=== PATIENT | female | born 1985 | race Caucasian/White ===

== ENCOUNTER 2016-07-22 14:39 | Emergency (ER) | payer OTHER ==
[~2016-07-22] VITALS: Ht 170.2 cm; Wt 126.6 kg
[~2016-07-22 14:39] MED LIST: AMLO5TAB2 PO; ASPI81TA9 PO; CHOL10003 PO; CYAN10005 PO; DIVA500T2 PO; ESCI10TA PO; GABA-585 PO; HALO5TAB PO; HYDR50CA PO; IBUP200T43 PO; LEUP3.75 IM; LEVO125T5 PO; LEVO50CA; LEVO50TA; LEVO50TA5 PO; LURA80TA PO; MAGN2400 PO; MEMA10TA PO; MIRT15TA; MIRT15TA PO; NORG1TAB6; NORG1TAB6 PO; OLAN5TAB9 PO; OMEP20CA5 PO; OXCA150T3 PO; PNV1TABL25 PO; POLY17PO5 PO; PRAZ1CAP2 PO; QUET200T4; RANI150T6; RANI150T6 PO; SERT25TA PO; TOPI100T39; TOPI50TA38 PO; TRAZ50TA15 PO; VENL75CA PO; erythromycin
--- NOTE | 2016-07-22 15:10 | RAD ---
Right hand radiographs History: Patient punched glass window earlier today, cut on right hand. Comparison: 03/17/2012. Findings: PA, lateral, and oblique views of the right hand. Ulnar negative variance is seen. No acute fracture or dislocation is identified. A bandage has been applied to the hand. There is dorsal soft tissue irregularity of the hand. No radiopaque foreign body is seen. Impression: No acute osseous abnormality identified. No radiopaque foreign body seen.
[2016-07-22] MEDS ORDERED: LIDOCAINE/EPI/TETRACAINE TOPICAL GEL 3 ML. TP ONE (15:15)
[2016-07-22 16:30] VITALS: BP 111/51
--- NOTE | 2016-07-22 16:39 | ED.ADGEN ---
Past History Past Medical History: Anxiety, Bipolar, Depression, GERD, Migraines Past Surgical History: No Surgical History Smoking: Cigarettes, Less than 1pk/day, Quit Greater Than 1 Year Alcohol Use: Occasionally Drug Use: None, Marijuana Adult General HPI HPI Patient is a 30-year-old female presents emergency department complaining of laceration to the back of her right hand. Patient is right-hand dominant. Further prior to arrival she did punch a window. Last tetanus was less than 5 years ago. She denies any other injury. Review of Systems Review of Systems Constitutional: Denies fever or chills [] Eyes: Denies change in visual acuity, redness, or eye pain [] HENT: Denies nasal congestion or sore throat [] Respiratory: Denies cough or shortness of breath [] Cardiovascular: No additional information not addressed in HPI [] GI: Denies abdominal pain, nausea, vomiting, bloody stools or diarrhea [] : Denies dysuria or hematuria [] Musculoskeletal: Denies back pain or joint pain [] Integument: Denies rash or skin lesions [] Neurologic: Denies headache, focal weakness or sensory changes [] Endocrine: Denies polyuria or polydipsia [] Current Medications Current Medications Current Medications Medications (Trade) Dose Ordered Sig/Mahad Start Time Stop Time Status Last Admin Dose Admin Lidocaine/ Epinephrine (Let Topical) 3 ml 1X ONCE 07/22/16 15:15 07/22/16 15:16 DC 07/22/16 14:54 3 ML Allergies Allergies Allergies Coded Allergies Type Severity Reaction Last Updated Verified Sulfa (Sulfonamide Antibiotics) Allergy Intermediate 09/16/15 No amphetamine Allergy Intermediate 09/16/15 No amphetamine aspartate Allergy Intermediate 09/16/15 No amphetamine sulfate Allergy Intermediate 09/16/15 No clindamycin Allergy Intermediate 09/16/15 No dextroamphetamine Allergy Intermediate 09/16/15 No dextroamphetamine saccharate Allergy Intermediate 09/16/15 No dextroamphetamine sulfate Allergy Intermediate 09/16/15 No fluoxetine Allergy Intermediate 09/16/15 No fluoxetine HCl Allergy Intermediate 09/16/15 No lamotrigine Allergy Intermediate 09/16/15 No ziprasidone Allergy Intermediate 09/16/15 Yes ibuprofen Allergy Mild HISTORY OF ULCERS, CAUTION USE OF NSAIDS 09/16/15 Yes Physical Exam Physical Exam Constitutional: Well developed, well nourished, no acute distress, non-toxic appearance. [] HENT: Normocephalic, atraumatic, bilateral external ears normal, oropharynx moist, no oral exudates, nose normal. [] Eyes: PERRLA, EOMI, conjunctiva normal, no discharge. [] Neck: Normal range of motion, no tenderness, supple, no stridor. [] Cardiovascular:Heart rate regular rhythm, no murmur [] Lungs & Thorax: Bilateral breath sounds clear to auscultation [] Abdomen: Bowel sounds normal, soft, no tenderness, no masses, no pulsatile masses. [] Skin: Warm, dry, no erythema, no rash. 2 cm irregular laceration back of right hand Extremities: No tenderness, no cyanosis, no clubbing, ROM intact, no edema, no tendon involvement. [] Neurologic: Alert and oriented X 3, normal motor function, normal sensory function, no focal deficits noted. [] Psychologic: Affect normal, judgement normal, mood normal. [] Current Patient Data Vital Signs Vital Signs Date Time Temp Pulse Resp B/P Pulse Ox O2 Delivery O2 Flow Rate FiO2 07/22/16 14:39 98.0 96 20 96 Room Air EKG EKG [] Radiology/Procedures Radiology/Procedures Right hand radiographs History: Patient punched glass window earlier today, cut on right hand. Comparison: 03/17/2012. Findings: PA, lateral, and oblique views of the right hand. Ulnar negative variance is seen. No acute fracture or dislocation is identified. A bandage has been applied to the hand. There is dorsal soft tissue irregularity of the hand. No radiopaque foreign body is seen. Impression: No acute osseous abnormality identified. No radiopaque foreign body seen. DICTATED AND SIGNED BY: MIHAELA DONOHUE MD DATE: 07/22/16 1506 CC: FRACNHESKA MCCURDY MD; ZEINAB MILNER APRN ~[] Course & Med Decision Making Course & Med Decision Making Pertinent Labs and Imaging studies reviewed. (See chart for details) Tolerated procedure well. Supportive care and follow directions given. [] Final Impression Final Impression laceration[] Problems: Dragon Disclaimer Dragon Disclaimer This electronic medical record was generated, in whole or in part, using a voice recognition dictation system. Laceration Repair Lac Repair Indication: laceration Procedure: The patient was placed in the appropriate position and anesthesia around the lac was achieved with LET. The area was then cleansed. The laceration was closed with 5 simple interrupted sutures of 5-0 ethilon. The wound area was then dressed with bandage Total repaired wound length: 2 cm Other Items: none The patient tolerated the procedure well Complications: none FRANCHESKA MCCURDY MD Jul 22, 2016 16:39
== END 2016-07-22 16:35 | disposition home or self-care (01) ==
LOC: ER 14:39
DX: S61.411A Laceration without foreign body of right hand, initial encounter (principal); K21.9 Gastro-esophageal reflux disease without esophagitis; G43.909 Migraine, unspecified, not intractable, without status migrainosus; F17.210 Nicotine dependence, cigarettes, uncomplicated; F12.10 Cannabis abuse, uncomplicated; Z88.6 Allergy status to analgesic agent; Z88.2 Allergy status to sulfonamides; Z88.1 Allergy status to other antibiotic agents; Z88.8 Allergy status to other drugs, medicaments and biological substances; W22.8XXA Striking against or struck by other objects, initial encounter; Y93.89 Activity, other specified; Y99.8 Other external cause status; Y92.89 Other specified places as the place of occurrence of the external cause
CPT/HCPCS: 12001; 73130; 99284-25

== ENCOUNTER 2016-08-01 13:22 | Emergency (ER) | payer OTHER ==
[~2016-08-01] VITALS: Ht 170.2 cm; Wt 136.7 kg
--- NOTE | 2016-08-01 13:49 | ED.ADGEN ---
Past History Past Medical History: Anxiety, Bipolar, Depression, GERD, Migraines Past Surgical History: No Surgical History Smoking: Cigarettes, Less than 1pk/day, Quit Greater Than 1 Year Alcohol Use: Occasionally Drug Use: None, Marijuana Adult General Chief Complaint Chief Complaint suture HPI HPI Patient is a 30 year old female who presents for hand suture removal. Sutures placed 10 days ago, no drainage or sign of infection, Reports healing well Review of Systems Review of Systems Constitutional: Denies fever or chills [] Neurologic: Denies headache Allergies Allergies Allergies Coded Allergies Type Severity Reaction Last Updated Verified Sulfa (Sulfonamide Antibiotics) Allergy Intermediate 09/16/15 No amphetamine Allergy Intermediate 09/16/15 No amphetamine aspartate Allergy Intermediate 09/16/15 No amphetamine sulfate Allergy Intermediate 09/16/15 No clindamycin Allergy Intermediate 09/16/15 No dextroamphetamine Allergy Intermediate 09/16/15 No dextroamphetamine saccharate Allergy Intermediate 09/16/15 No dextroamphetamine sulfate Allergy Intermediate 09/16/15 No fluoxetine Allergy Intermediate 09/16/15 No fluoxetine HCl Allergy Intermediate 09/16/15 No lamotrigine Allergy Intermediate 09/16/15 No ziprasidone Allergy Intermediate 09/16/15 Yes ibuprofen Allergy Mild HISTORY OF ULCERS, CAUTION USE OF NSAIDS 09/16/15 Yes Physical Exam Physical Exam Constitutional: Well developed, well nourished HENT: Normocephalic, atraumatic Eyes: conjunctiva normal, no discharge. [] Lungs & Thorax: no respiratory distress Extremities: R dorsal hand with well-healing laceration, no erythema, no drainage, nontender Neurologic: Alert and oriented X 3 Psychologic: Affect normal, judgement normal, mood normal. [] EKG EKG [] Radiology/Procedures Radiology/Procedures [] Course & Med Decision Making Course & Med Decision Making Pertinent Labs and Imaging studies reviewed. (See chart for details) sutures removed by me. wound care instructions given. tetanus updated. Final Impression Final Impression hand laceration[] Problems: Dragon Disclaimer Dragon Disclaimer This electronic medical record was generated, in whole or in part, using a voice recognition dictation system. ELENA MAGDALENO MD Aug 01, 2016 13:49
== END 2016-08-01 13:50 | disposition home or self-care (01) ==
LOC: ER 13:22
DX: S61.411D Laceration without foreign body of right hand, subsequent encounter (principal); K21.9 Gastro-esophageal reflux disease without esophagitis; G43.909 Migraine, unspecified, not intractable, without status migrainosus; F17.210 Nicotine dependence, cigarettes, uncomplicated; F12.10 Cannabis abuse, uncomplicated; Z88.2 Allergy status to sulfonamides; Z88.1 Allergy status to other antibiotic agents; Z88.6 Allergy status to analgesic agent; Z88.8 Allergy status to other drugs, medicaments and biological substances; X58.XXXD Exposure to other specified factors, subsequent encounter; Y92.89 Other specified places as the place of occurrence of the external cause; Y99.8 Other external cause status
CPT/HCPCS: 99283

== ENCOUNTER 2016-08-14 13:01 | Emergency (ER) | payer OTHER ==
--- NOTE | 2016-08-14 13:32 | PHYS DOC ---
Past History Past Medical History: Anxiety, Bipolar, Depression, GERD, Migraines Past Surgical History: No Surgical History Smoking: Cigarettes, Less than 1pk/day, Quit Greater Than 1 Year Alcohol Use: Occasionally Drug Use: None, Marijuana Adult General Chief Complaint Chief Complaint: ABDOMINAL PAIN [facility] HPI 30-year-old female who's having significant right lower quadrant pain for the last 3-4 days with nausea and vomiting as well. Patient was seen by her primary care doctor earlier today and had routine lab work as well as an order to get a CT of her abdomen and pelvis. When the patient attempted to get a CT of her abdomen she was unable to obtain this test because it was not authorized through insurance. She now presents for evaluation for her persisting abdominal pain. She does state her last was her period was over a month ago and she is late. A urine test was not performed at her primary care doctor's office. She is unsure if she is . She denies any vaginal bleeding. She also states she has history of polycystic ovarian syndrome and had a right- sided ovarian cystectomy in her past. She states this pain is different than her previous ovarian pain. She is fully awake and alert and in no acute distress. She is afebrile and nontoxic in appearance. Review of Systems Review of Systems Constitutional: Denies fever or chills [] Eyes: Denies change in visual acuity, redness, or eye pain [] HENT: Denies nasal congestion or sore throat [] Respiratory: Denies cough or shortness of breath [] Cardiovascular: No additional information not addressed in HPI [] GI: Has abdominal pain, has nausea, has vomiting, denies bloody stools or diarrhea [] : Denies dysuria or hematuria [] Musculoskeletal: Denies back pain or joint pain [] Integument: Denies rash or skin lesions [] Neurologic: Denies headache, focal weakness or sensory changes [] Endocrine: Denies polyuria or polydipsia [] Allergies Allergies Allergies Coded Allergies Type Severity Reaction Last Updated Verified Sulfa (Sulfonamide Antibiotics) Allergy Intermediate 09/16/15 No amphetamine Allergy Intermediate 09/16/15 No amphetamine aspartate Allergy Intermediate 09/16/15 No amphetamine sulfate Allergy Intermediate 09/16/15 No clindamycin Allergy Intermediate 09/16/15 No dextroamphetamine Allergy Intermediate 09/16/15 No dextroamphetamine saccharate Allergy Intermediate 09/16/15 No dextroamphetamine sulfate Allergy Intermediate 09/16/15 No fluoxetine Allergy Intermediate 09/16/15 No fluoxetine HCl Allergy Intermediate 09/16/15 No lamotrigine Allergy Intermediate 09/16/15 No ziprasidone Allergy Intermediate 09/16/15 Yes ibuprofen Allergy Mild HISTORY OF ULCERS, CAUTION USE OF NSAIDS 09/16/15 Yes Physical Exam Physical Exam Constitutional: Well developed, well nourished, no acute distress, non-toxic appearance. [] HENT: Normocephalic, atraumatic, bilateral external ears normal, oropharynx moist, no oral exudates, nose normal. [] Eyes: PERRLA, EOMI, conjunctiva normal, no discharge. [] Neck: Normal range of motion, no tenderness, supple, no stridor. [] Cardiovascular:Heart rate regular rhythm, no murmur [] Lungs & Thorax: Bilateral breath sounds clear to auscultation [] Abdomen: Bowel sounds normal, soft, RLQ tenderness, no masses, no pulsatile masses. [] Skin: Warm, dry, no erythema, no rash. [] Back: No tenderness, no CVA tenderness. [] Extremities: No tenderness, no cyanosis, no clubbing, ROM intact, no edema. [] Neurologic: Alert and oriented X 3, normal motor function, normal sensory function, no focal deficits noted. [] Psychologic: Affect normal, judgement normal, mood normal. [] EKG EKG [] Radiology/Procedures Radiology/Procedures CT abdomen and pelvis with IV contrast History: Right lower quadrant pain and pressure. Episodes of blackouts. Comparison: CT abdomen pelvis 06/10/2014 Technique: After administration of intravenous contrast, 75 mL Omnipaque 300, helical CT of the abdomen and pelvis was performed from the lung bases through the ischial tuberosities. Axial, sagittal, and coronal reconstructions were obtained. One or more of the following individualized dose reduction techniques were utilized for the study: Automated exposure control Adjustment of mA and/or kV according to patient's size Use of iterative reconstruction technique. Findings: Evaluation of enteric structures may be limited by lack of oral contrast. Additionally, there is motion artifact at multiple levels which could obscure subtle abnormalities. Fatty liver disease is seen. Spleen, pancreas, gallbladder, and bilateral adrenal glands are unremarkable. Bilateral kidneys enhance symmetrically. There is no evidence of bowel obstruction. No free air or significant free fluid is identified in the abdomen or pelvis. Appendix appears within normal limits. Urinary bladder is unremarkable. Uterus and adnexa have unremarkable CT appearance. Impression: 1. No acute abnormality identified in the abdomen or pelvis. 2. Fatty liver disease. Course & Med Decision Making Course & Med Decision Making Pertinent Labs and Imaging studies reviewed. (See chart for details) This 30-year-old female with persisting right lower quadrant pain will have full laboratory workup. Her status will be confirmed. Routine lab draw will be obtained. Her laboratory workup is unremarkable. CT of her abdomen and pelvis did not demonstrate an acute process. Upon my reassessment, the patient is in no distress at this time her pain is relatively controlled. I discussed with her that this is likely related to her history of polycystic ovarian disease. She' ll be prescribed several Bow[place] tablets as needed for her pain and Zofran for any nausea. I counseled her that if her pain should persist she will need to follow with her negative checker and she may require cystectomy as she did before. Dragon Disclaimer Dragon Disclaimer This chart was dictated in whole or in part using Voice Recognition software in a busy, high-work load, and often noisy Emergency Department environment. It may contain unintended and wholly unrecognized errors or omissions. Departure Departure: Impression: Primary Impression: Abdominal pain Disposition: 01 HOME, SELF-CARE Condition: IMPROVED Referrals: ZEINAB MILNER APRN (PCP) Patient Instructions: Abdominal Pain (Nonspecific) Additional Instructions: Please take your pain medication as needed for your symptoms. Take your zofran as needed for any nausea. Follow up with your primary doctor in the next 2-3 days for your symptoms. Scripts Ondansetron Hcl (Zofran)4 Mg Tablet4 Mg PO Q8HRS #10 Prov:CAROLE ANDREW DO 08/14/16 Hydrocodone Bit/Acetaminophen ([place] 5-325 Tablet)1 Each Tablet1 Tab PO PRN Q6HRS PRN PAIN #6 TAB Ref 0 Prov:CAROLE ANDREW DO 08/14/16 CAROLE ANDREW DO Aug 14, 2016 13:32
[2016-08-14 13:45] LABS: BASO # 0.1 x10^3/uL (0.0-0.2); BASO % 1 % (0-3); EOS # 0.1 x10^3/uL (0.0-0.7); EOS % 2 % (0-3); HEMATOCRIT 41.7 % (36.0-47.0); HEMOGLOBIN 13.8 g/dL (12.0-15.5); LYMPH # 3.1 x10^3/uL (1.0-4.8); LYMPH % 37 % (24-48); MEAN CORPUSCULAR HEMOGLOBIN 29 pg (25-35); MEAN CORPUSCULAR HGB CONC 33 g/dL (31-37); MEAN CORPUSCULAR VOLUME 88 fL (79-100); MONO # 0.6 x10^3/uL (0.0-1.1); MONO % 7 % (0-9); NEUT # 4.5 x10^3uL (1.8-7.7); NEUT % 54 % (31-73); PLATELET COUNT 370 x10^3/uL (140-400); RED BLOOD COUNT 4.74 x10^6/uL (3.50-5.40); RED CELL DISTRIBUTION WIDTH 15.9 % (11.5-14.5); WHITE BLOOD COUNT 8.3 x10^3/uL (4.0-11.0)
[2016-08-14 13:51] LABS: ALBUMIN 3.9 g/dL (3.4-5.0); CREATININE 0.6 mg/dL (0.6-1.0); POTASSIUM 4.2 mmol/L (3.5-5.1); TOTAL BILIRUBIN 0.3 mg/dL (0.2-1.0); TOTAL PROTEIN 7.9 g/dL (6.4-8.2)
[2016-08-14 13:57] LABS: AMPHETAMINE/METHAMPHETAMINE NEG (NEG); BARBITURATES NEG (NEG); BENZODIAZEPINES NEG (NEG); CANNABINOIDS NEG (NEG); COCAINE NEG (NEG); METHADONE NEG (NEG); OPIATES NEG (NEG); PHENCYCLIDINE NEG (NEG)
[2016-08-14] MEDS ORDERED: IV NORMAL SALINE 1,000ML 1,000 ML IV ONE (14:00)
[2016-08-14] MEDS ORDERED: ONDANSETRON PF 4 MG/2 ML VIAL. IV ONE (14:00)
[2016-08-14] MEDS ORDERED: FENTANYL PF 100 MCG/2 ML VIAL. IV ONE (14:00)
[2016-08-14 14:01] LABS: BACTERIA,URINE FEW /HPF (0-FEW); BILIRUBIN,URINE NEG (NEG); CLARITY,URINE HAZY; COLOR,URINE YELLOW; GLUCOSE,URINE NEG (NEG); NITRITE,URINE NEG (NEG); RBC,URINE OCC /HPF (0-2); UROBILINOGEN,URINE 0.2 mg/dL (0.2 mg/dL)
[2016-08-14 14:02] LABS: SQUAMOUS EPITHELIAL CELL,UR MOD /LPF; YEAST,URINE PRESENT /HPF
[2016-08-14] MEDS ORDERED: IOHEXOL 300 MG/ML 75 ML VIAL. IV ONE (14:15)
--- NOTE | 2016-08-14 15:03 | RAD ---
CT abdomen and pelvis with IV contrast History: Right lower quadrant pain and pressure. Episodes of blackouts. Comparison: CT abdomen pelvis 06/10/2014 Technique: After administration of intravenous contrast, 75 mL Omnipaque 300, helical CT of the abdomen and pelvis was performed from the lung bases through the ischial tuberosities. Axial, sagittal, and coronal reconstructions were obtained. One or more of the following individualized dose reduction techniques were utilized for the study: Automated exposure control Adjustment of mA and/or kV according to patient's size Use of iterative reconstruction technique. Findings: Evaluation of enteric structures may be limited by lack of oral contrast. Additionally, there is motion artifact at multiple levels which could obscure subtle abnormalities. Fatty liver disease is seen. Spleen, pancreas, gallbladder, and bilateral adrenal glands are unremarkable. Bilateral kidneys enhance symmetrically. There is no evidence of bowel obstruction. No free air or significant free fluid is identified in the abdomen or pelvis. Appendix appears within normal limits. Urinary bladder is unremarkable. Uterus and adnexa have unremarkable CT appearance. Impression: 1. No acute abnormality identified in the abdomen or pelvis. 2. Fatty liver disease.
[2016-08-14] MEDS ORDERED: ONDA4TAB7 PO (15:22)
[2016-08-14] MEDS ORDERED: HYDR-971 PO (15:22)
[2016-08-14 15:32] VITALS: BP 122/74
== END 2016-08-14 15:34 | disposition home or self-care (01) ==
LOC: ER 13:01
DX: R10.31 Right lower quadrant pain (principal); K21.9 Gastro-esophageal reflux disease without esophagitis; G43.909 Migraine, unspecified, not intractable, without status migrainosus; F12.10 Cannabis abuse, uncomplicated; F17.210 Nicotine dependence, cigarettes, uncomplicated; Z88.1 Allergy status to other antibiotic agents; Z88.2 Allergy status to sulfonamides; Z88.6 Allergy status to analgesic agent; Z88.8 Allergy status to other drugs, medicaments and biological substances
CPT/HCPCS: 36415; 74177; 80053; 80305; 81001; 84703; 85027; 96361; 96374; 96375; 99285; J2405; J3010; Q9967; 81025; G0481; J7030

== ENCOUNTER 2016-08-22 15:44 | Emergency (ER) | payer OTHER ==
[~2016-08-22 15:44] MED LIST changes: +ASPI-612 PO; -ASPI81TA9 PO; +HYDR-971 PO; +ONDA4TAB7 PO; -TOPI100T39; +TOPI100T42
[2016-08-22] MEDS ORDERED: IV NORMAL SALINE 1,000ML 1,000 ML IV SCH (16:06)
[2016-08-22] MEDS ORDERED: fentaNYL PF 100 MCG/2 ML VIAL IV PRN (16:15)
--- NOTE | 2016-08-22 16:22 | PHYS DOC ---
Past History Past Medical History: Anxiety, Bipolar, Depression, Endometriosis, Hypothyroid , Ovarian Cyst Past Surgical History: Other Smoking: Cigarettes, Less than 1pk/day, Quit Greater Than 1 Year Alcohol Use: None Drug Use: None Adult General Chief Complaint Chief Complaint: MULTIPLE COMPLAINTS HPI HPI Patient is a 30 year old female who presents with complaint of cough and congestion for 3 days. Patient states that she has noticed worsening hoarseness to voice and developed parasternal chest pain with cough since onset of symptoms. Patient denies any fevers. Patient has not had sore throat but does admit to pain in the left ear. Patient also states that she has been having trouble with upper abdominal pain. The patient was evaluated in the emergency department on August 14, 2016 for her abdominal pain. Lab studies and CT imaging was unremarkable at that time. Patient states that she does have history of peptic ulcer disease and is not currently on any stomach acid reducing medication. Patient rates her pain currently as 9 out of 10. Patient denies any chest pain at rest and denies any history of cardiac disease. Review of Systems Review of Systems Constitutional: Denies fever or chills [] Eyes: Denies change in visual acuity, redness, or eye pain [] HENT: Cough, hoarseness of voice [] Respiratory: Cough [] Cardiovascular: Chest pain, denies edema [] GI: Abdominal pain, nausea, denies vomiting, bloody stools or diarrhea [] : Denies dysuria or hematuria [] Musculoskeletal: Denies back pain or joint pain [] Integument: Denies rash or skin lesions [] Neurologic: Denies headache, focal weakness or sensory changes [] Current Medications Current Medications Current Medications Medications (Trade) Dose Ordered Sig/Mahad Start Time Stop Time Status Last Admin Dose Admin Famotidine (Pepcid) 20 mg 1X ONCE 08/22/16 16:30 08/22/16 16:31 Fentanyl Citrate (Fentanyl 2ml Vial) 50 mcg PRN Q15MIN PRN 08/22/16 16:15 08/23/16 16:14 Ondansetron HCl (Zofran) 4 mg 1X ONCE 08/22/16 16:30 08/22/16 16:31 Sodium Chloride 1,000 ml @ 1,000 mls/hr Q1H 08/22/16 16:06 08/22/16 17:05 Allergies Allergies Allergies Coded Allergies Type Severity Reaction Last Updated Verified Sulfa (Sulfonamide Antibiotics) Allergy Intermediate 08/14/16 No amphetamine Allergy Intermediate 08/14/16 No amphetamine aspartate Allergy Intermediate 08/14/16 No amphetamine sulfate Allergy Intermediate 08/14/16 No clindamycin Allergy Intermediate 09/16/15 No dextroamphetamine Allergy Intermediate 09/16/15 No dextroamphetamine saccharate Allergy Intermediate 09/16/15 No dextroamphetamine sulfate Allergy Intermediate 09/16/15 No fluoxetine Allergy Intermediate 09/16/15 No fluoxetine HCl Allergy Intermediate 09/16/15 No lamotrigine Allergy Intermediate 09/16/15 No ziprasidone Allergy Intermediate 09/16/15 Yes ibuprofen Allergy Mild HISTORY OF ULCERS, CAUTION USE OF NSAIDS 09/16/15 Yes Physical Exam Physical Exam Constitutional: Alert, afebrile, appears ill. [] HENT: Normocephalic, atraumatic, bilateral external ears normal, left ear canal erythematous with mild canal swelling, left TM normal, right ear canal and TM normal, oropharynx moist, no oral exudates, nose normal. [] Eyes: PERRLA, EOMI, conjunctiva normal, no discharge. [] Neck: Normal range of motion, no tenderness, supple, no stridor. [] Cardiovascular:Heart rate regular rhythm, no murmur [] Lungs & Thorax: Bilateral breath sounds clear to auscultation [] Abdomen: Bowel sounds normal, soft, epigastric and right upper quadrant tenderness to palpation with mild guarding, no rebound tenderness, no masses, no pulsatile masses. [] Skin: Warm, dry, no erythema, no rash. [] Back: No tenderness, no CVA tenderness. [] Extremities: No tenderness, no cyanosis, no clubbing, ROM intact, no edema. [] Neurologic: Alert and oriented X 3, normal motor function, normal sensory function, no focal deficits noted. [] Current Patient Data Vital Signs Vital Signs Date Time Temp Pulse Resp B/P (MAP) Pulse Ox O2 Delivery O2 Flow Rate FiO2 08/22/16 17:32 18 99 Lab Results Laboratory Tests Test 08/22/16 17:05 08/22/16 17:11 White Blood Count 8.6 x10^3/uL Red Blood Count 4.65 x10^6/uL Hemoglobin 13.7 g/dL Hematocrit 41.3 % Mean Corpuscular Volume 89 fL Mean Corpuscular Hemoglobin 30 pg Mean Corpuscular Hemoglobin Concent 33 g/dL Red Cell Distribution Width 15.8 % Platelet Count 346 x10^3/uL Neutrophils (%) (Auto) 60 % Lymphocytes (%) (Auto) 29 % Monocytes (%) (Auto) 9 % Eosinophils (%) (Auto) 2 % Basophils (%) (Auto) 1 % Neutrophils # (Auto) 5.2 x10^3uL Lymphocytes # (Auto) 2.5 x10^3/uL Monocytes # (Auto) 0.7 x10^3/uL Eosinophils # (Auto) 0.2 x10^3/uL Basophils # (Auto) 0.1 x10^3/uL Sodium Level 142 mmol/L Potassium Level 4.3 mmol/L Chloride Level 106 mmol/L Carbon Dioxide Level 28 mmol/L Anion Gap 8 Blood Urea Nitrogen 12 mg/dL Creatinine 0.7 mg/dL Estimated GFR (Cockcroft-Gault) 99.6 BUN/Creatinine Ratio 17 Glucose Level 98 mg/dL Calcium Level 9.1 mg/dL Total Bilirubin 0.2 mg/dL Aspartate Amino Transf (AST/SGOT) 35 U/L Alanine Aminotransferase (ALT/SGPT) 59 U/L Alkaline Phosphatase 113 U/L Total Protein 7.3 g/dL Albumin 3.7 g/dL Albumin/Globulin Ratio 1.0 Lipase 76 U/L Bedside Urine HCG, Qualitative hcg negative Current Medications Medications (Trade) Dose Ordered Sig/Mahad Route PRN Reason Start Time Stop Time Status Last Admin Dose Admin Fentanyl Citrate (Fentanyl 2ml Vial) 50 mcg PRN Q15MIN PRN IV PAIN GREATER THAN 3/10 08/22/16 16:15 08/23/16 16:14 08/22/16 17:32 Sodium Chloride 1,000 ml @ 1,000 mls/hr Q1H IV 08/22/16 16:06 08/22/16 17:05 DC 08/22/16 16:06 Ondansetron HCl (Zofran) 4 mg 1X ONCE IV 08/22/16 16:30 08/22/16 16:31 DC 08/22/16 16:30 Famotidine (Pepcid) 20 mg 1X ONCE IVP 08/22/16 16:30 08/22/16 16:31 DC 08/22/16 16:30 EKG EKG Not performed [] Radiology/Procedures Radiology/Procedures [address] [id number] IMAGING REPORT Signed PATIENT: NANCY DESAI ACCOUNT: [id number] : 1985 LOCATION: ER AGE: 30 SEX: F EXAM STATUS: REG ER ORD. PHYSICIAN: MICHELE KNOTT MD REASON: epigastric and right upper quadrant pain PROCEDURE: ABDOMEN LTD Indication epigastric and right upper quadrant pain for 2 weeks. Grayscale imaging targeted to the right upper quadrant was performed. No similar imaging is available. Note is made of an abdominal and pelvic CT 08/14/2016. The examination is slightly limited. The patient had difficulty following instructions for the exam. The visualized head and proximal body of the pancreas appeared normal. The more distal body and tail were obscured. The gallbladder appears partially contracted but otherwise normal. No wall thickening was seen. No definite stones were identified. The common bile duct diameter of approximately 5 mm is normal. There is increased attenuation of the ultrasound beam by the liver compatible with fatty infiltration. A focal mass lesion in the visualized liver was not seen. The right kidney appeared unremarkable. The inferior vena cava was not well demonstrated. IMPRESSION: Limited study. No definite gallbladder pathology seen. Fatty infiltration of the liver DICTATED AND SIGNED BY: LINH RODRIGUEZ MD DATE: 08/22/161646 CC: MICHELE KNOTT MD; ZEINAB MILNER [employer] [employer] ~ [] Course & Med Decision Making Course & Med Decision Making Pertinent Labs and Imaging studies reviewed. (See chart for details) The patient was given IV fluids, Zofran, Pepcid, and fentanyl. On reevaluation, patient's symptoms have improved. Patient's ultrasound does not reveal acute surgical etiology for patient's pain. I suspect the patient is suffering from gastritis or possibly peptic ulcer disease. Patient will be prescribed Pepcid and Carafate for her stomach symptoms. Patient will be prescribed [place] to help with pain and cough. Patient's respiratory symptoms appear to be secondary to viral illness. Advised follow-up in 3-5 days a primary doctor and return to emergency department for any worsening symptoms. Patient voiced understanding and in agreement with treatment plan. Dragon Disclaimer Dragon Disclaimer This chart was dictated in whole or in part using Voice Recognition software in a busy, high-work load, and often noisy Emergency Department environment. It may contain unintended and wholly unrecognized errors or omissions. Departure Departure: Impression: Primary Impression: Upper respiratory infection Additional Impression: Abdominal pain Disposition: 01 HOME, SELF-CARE Condition: IMPROVED Referrals: ZEINAB MILNER APRN (PCP) Patient Instructions: Abdominal Pain (Nonspecific), Upper Respiratory Infection , Adult Additional Instructions: Follow-up with primary doctor in the next 3-5 days. Return to the emergency department for any worsening symptoms. Scripts Hydrocodone Bit/Acetaminophen (NORCO 5-325 TABLET) 1 Each Tablet 1-2 TAB PO Q4-6HRS Y for PAIN, #15 TAB Prov: MICHELE KNOTT MD 08/22/16 Sucralfate (CARAFATE) 1 Gm Tablet 1 TAB PO QID, #120 TAB 0 Refills Prov: MICHELE KNOTT MD 08/22/16 Famotidine (PEPCID) 20 Mg Tablet 1 TAB PO BID, #30 TAB 0 Refills Prov: MICHELE KNOTT MD 08/22/16 Problem Qualifiers Primary Impression: Upper respiratory infection URI type: unspecified URI Qualified Codes: J06.9 - Acute upper respiratory infection, unspecified Additional Impression: Abdominal pain Abdominal location: epigastric Qualified Codes: R10.13 - Epigastric pain MICHELE KNOTT MD August 22, 2016 16:22
[2016-08-22] MEDS ORDERED: ONDANSETRON PF 4 MG/2 ML VIAL. IV ONE (16:30)
[2016-08-22] MEDS ORDERED: FAMOTIDINE 20 MG/2 ML VIAL IVP ONE (16:30)
--- NOTE | 2016-08-22 16:52 | RAD ---
Indication epigastric and right upper quadrant pain for 2 weeks. Grayscale imaging targeted to the right upper quadrant was performed. No similar imaging is available. Note is made of an abdominal and pelvic CT 08/14/2016. The examination is slightly limited. The patient had difficulty following instructions for the exam. The visualized head and proximal body of the pancreas appeared normal. The more distal body and tail were obscured. The gallbladder appears partially contracted but otherwise normal. No wall thickening was seen. No definite stones were identified. The common bile duct diameter of approximately 5 mm is normal. There is increased attenuation of the ultrasound beam by the liver compatible with fatty infiltration. A focal mass lesion in the visualized liver was not seen. The right kidney appeared unremarkable. The inferior vena cava was not well demonstrated. IMPRESSION: Limited study. No definite gallbladder pathology seen. Fatty infiltration of the liver
[2016-08-22 17:18] LABS: BASO # 0.1 x10^3/uL (0.0-0.2); BASO % 1 % (0-3); EOS # 0.2 x10^3/uL (0.0-0.7); EOS % 2 % (0-3); HEMATOCRIT 41.3 % (36.0-47.0); HEMOGLOBIN 13.7 g/dL (12.0-15.5); LYMPH # 2.5 x10^3/uL (1.0-4.8); LYMPH % 29 % (24-48); MEAN CORPUSCULAR HEMOGLOBIN 30 pg (25-35); MEAN CORPUSCULAR HGB CONC 33 g/dL (31-37); MEAN CORPUSCULAR VOLUME 89 fL (79-100); MONO # 0.7 x10^3/uL (0.0-1.1); MONO % 9 % (0-9); NEUT # 5.2 x10^3uL (1.8-7.7); NEUT % 60 % (31-73); PLATELET COUNT 346 x10^3/uL (140-400); RED BLOOD COUNT 4.65 x10^6/uL (3.50-5.40); RED CELL DISTRIBUTION WIDTH 15.8 % (11.5-14.5); WHITE BLOOD COUNT 8.6 x10^3/uL (4.0-11.0)
[2016-08-22 17:34] LABS: ALBUMIN 3.7 g/dL (3.4-5.0); CALCIUM 9.1 mg/dL (8.5-10.1); CREATININE 0.7 mg/dL (0.6-1.0); GFR 99.6; POTASSIUM 4.3 mmol/L (3.5-5.1); TOTAL BILIRUBIN 0.2 mg/dL (0.2-1.0); TOTAL PROTEIN 7.3 g/dL (6.4-8.2)
[2016-08-22] MEDS ORDERED: SUCR1TAB35 PO (17:51)
[2016-08-22] MEDS ORDERED: HYDR-971 PO (17:51)
[2016-08-22] MEDS ORDERED: FAMO-63 PO (17:51)
[2016-08-22 18:30] VITALS: BP 154/99
[2016-08-22 19:08] LABS: BILIRUBIN,URINE NEG (NEG); CLARITY,URINE CLEAR; COLOR,URINE YELLOW; GLUCOSE,URINE NEG (NEG)
[2016-08-22 19:09] LABS: NITRITE,URINE NEG (NEG); UROBILINOGEN,URINE 0.2 mg/dL (0.2 mg/dL)
[2016-08-22 19:10] LABS: BACTERIA,URINE 0 /HPF (0-FEW); SQUAMOUS EPITHELIAL CELL,UR MANY /LPF
== END 2016-08-22 18:30 | disposition home or self-care (01) ==
LOC: ER 15:44
DX: J06.9 Acute upper respiratory infection, unspecified (principal); R10.11 Right upper quadrant pain
CPT/HCPCS: 36415; 76705; 80053; 81001; 81025; 83690; 85027; 96361; 96374; 96375; 99285; J2405; J3010; S0028; J7030

== ENCOUNTER 2016-08-23 14:01 | Emergency (ER) | payer OTHER ==
[~2016-08-23] VITALS: Ht 170.2 cm; Wt 140.7 kg
[~2016-08-23 14:01] MED LIST changes: +FAMO-63 PO; +SUCR1TAB35 PO
[2016-08-23 14:10] VITALS: BP 146/77
[2016-08-23] MEDS ORDERED: ONDANSETRON ODT 4 MG TAB.RAPDIS PO ONE (14:30)
--- NOTE | 2016-08-23 16:35 | PHYS DOC ---
Past History Past Medical History: Anxiety, Bipolar, Depression, Endometriosis, Hypothyroid , Ovarian Cyst Past Surgical History: Other Smoking: Cigarettes, Less than 1pk/day, Quit Greater Than 1 Year Alcohol Use: None Drug Use: None Adult General Chief Complaint Chief Complaint: SHORTNESS OF BREATH HPI HPI Patient is a 30-year-old female brought to the ED by ambulance from her mother' s home with the complaint of shortness of air, weakness, chest tightness, nausea. The patient was seen yesterday and had a extensive evaluation, diagnosed with likely viral syndrome. She was prescribed Pepcid, Carafate, and [place]. She also has nausea medicine at home. Today she took a dose of her Carafate and [place] and then she began to feel nauseated, she felt weak, she didn 't feel well, she felt chest heaviness and shortness of air. She laid on the couch for a while, got up to try to walk to the bedroom and felt so bad that she ended up calling 911. She still doesn't feel well. She doesn't recall having [place] before. She was diagnosed with a "possible stomach ulcer." Review of Systems Review of Systems Constitutional: Denies fever or chills , complains of generalized weakness HENT: Denies nasal congestion or sore throat [] Respiratory: As in history of present illness Cardiovascular: Does complain of the chest heaviness that does not sound cardiac GI: As in history of present illness : she had A negative test yesterday Musculoskeletal: Denies back pain or joint pain [] Integument: Denies rash or skin lesions [] Neurologic: Denies headache, focal weakness or sensory changes [] Current Medications Current Medications Current Medications Medications (Trade) Dose Ordered Sig/Mahad Start Time Stop Time Status Last Admin Dose Admin Ondansetron HCl (Zofran Odt) 4 mg 1X ONCE 08/23/16 14:30 08/23/16 14:31 DC 08/23/16 14:30 4 MG Allergies Allergies Allergies Coded Allergies Type Severity Reaction Last Updated Verified Sulfa (Sulfonamide Antibiotics) Allergy Intermediate 08/14/16 No amphetamine Allergy Intermediate 08/14/16 No amphetamine aspartate Allergy Intermediate 08/14/16 No amphetamine sulfate Allergy Intermediate 08/14/16 No clindamycin Allergy Intermediate 09/16/15 No dextroamphetamine Allergy Intermediate 09/16/15 No dextroamphetamine saccharate Allergy Intermediate 09/16/15 No dextroamphetamine sulfate Allergy Intermediate 09/16/15 No fluoxetine Allergy Intermediate 09/16/15 No fluoxetine HCl Allergy Intermediate 09/16/15 No lamotrigine Allergy Intermediate 09/16/15 No ziprasidone Allergy Intermediate 09/16/15 Yes ibuprofen Allergy Mild HISTORY OF ULCERS, CAUTION USE OF NSAIDS 09/16/15 Yes Physical Exam Physical Exam Constitutional: Well developed, well nourished, no acute distress, non-toxic appearance. Morbidly obese, alert, mentating normally, vital signs normal. HENT: Normocephalic, atraumatic, bilateral external ears normal, oropharynx moist, no oral exudates, nose normal. [] Eyes: conjunctiva normal, no discharge. [] Neck: Normal range of motion, no stridor. [] Cardiovascular:Heart rate regular rhythm, no murmur , nontachycardiac Lungs & Thorax: Bilateral breath sounds clear to auscultation, good air movement throughout, no wheezes Abdomen: Bowel sounds normal, soft, no tenderness, no masses, no pulsatile masses. [] Skin: Warm, dry, no erythema, no rash. [] Extremities: No tenderness, no cyanosis, no clubbing, ROM intact, no edema. [] Neurologic: Alert and oriented X 3, normal motor function, normal sensory function, no focal deficits noted. [] Current Patient Data Vital Signs Vital Signs Date Time Temp Pulse Resp B/P (MAP) Pulse Ox O2 Delivery O2 Flow Rate FiO2 08/23/16 14:10 98.1 74 16 93 Room Air EKG EKG [] Radiology/Procedures Radiology/Procedures [] Course & Med Decision Making Course & Med Decision Making Pertinent Labs and Imaging studies reviewed. (See chart for details) 30-year-old female who was worked up thoroughly yesterday in the emergency department, presents today after she took a dose of prescribed medicines including [place] with some symptoms that sound like they likely are due to side effects of [place]. She has some chest heaviness and shortness of air but her vital signs are normal, her lungs are clear, her pulse ox is normal. I believe this is likely a side effect to [place]. She had some nausea with a small amount of vomiting which again may be related to [place]. She was given a dose of Zofran ODT in the emergency department and she did not have any vomiting here. She drink some Sprite. I reassured the patient that I believe her symptoms are likely side effects of [place] and advised her to quit taking that. She should continue the Pepcid and Carafate however. Her mother came to pick her up. [] Dragon Disclaimer Dragon Disclaimer This chart was dictated in whole or in part using Voice Recognition software in a busy, high-work load, and often noisy Emergency Department environment. It may contain unintended and wholly unrecognized errors or omissions. Departure Departure: Impression: Primary Impression: Nausea and vomiting Disposition: HOME, SELF-CARE Condition: STABLE Referrals: ZEINAB MILNER APRN (PCP) Patient Instructions: Nausea and Vomiting, [id number] Additional Instructions: Stop taking hydrocodone. This may be causing your symptoms of nausea and vomiting it can also cause symptoms of chest tightness and other side effects. Continue to take Pepcid, Carafate as prescribed. Take nausea medicine as needed. Today, stick to Sprite or Jell-Anusha. DEBORAH BETH MD August 23, 2016 16:35
== END 2016-08-23 16:41 | disposition home or self-care (01) ==
LOC: ER 14:01
DX: R11.2 Nausea with vomiting, unspecified (principal); R06.02 Shortness of breath; R53.1 Weakness; R07.89 Other chest pain; E03.9 Hypothyroidism, unspecified; F17.210 Nicotine dependence, cigarettes, uncomplicated; Z88.6 Allergy status to analgesic agent; Z88.1 Allergy status to other antibiotic agents; Z88.2 Allergy status to sulfonamides; Z88.8 Allergy status to other drugs, medicaments and biological substances
CPT/HCPCS: 99283; Q0162

== ENCOUNTER → 2016-10-06 | Outpatient (CLI) | payer OTHER ==
[~2016-10-06] VITALS: Ht 170.2 cm; Wt 137.0 kg
[~2016-10-06] MED LIST changes: -ESCI10TA PO; +ESCITALOPRAM OX10 MG PO
--- NOTE | 2016-10-06 09:14 | RAD ---
Examination: Ultrasound abdomen complete History: History of right upper quadrant pain Comparison: None available Findings: The liver measures 20.1 cm. There is increased echogenicity noted throughout the liver likely hepatic steatosis. Evaluation is limited due to bowel gas. The right kidney measures 11.6 x 6.1 x 4.6 cm. The left kidney measures 11.7 x 5.0 x 6.1 cm. The spleen measures 10.5 cm. The pancreas, aorta, IVC are poorly visualized. No evidence of gallstones identified. The common bile duct measures 2.4 mm in transverse dimension. Impression: 1. Hepatic steatosis with hepatomegaly. 2. No evidence of gallstones.
[2016-10-06] MEDS: SINCALIDE IV ONE (10:35)
[2016-10-06] MEDS: NORMAL SALINE IV ONE (10:35)
--- NOTE | 2016-10-06 12:16 | RAD ---
Exam performed: Nuclear medicine hepatobiliary scan. History: Right upper quadrant abdominal pain Comparison: None available Findings: Following intravenous administration of5.5 mCi of Choletec tagged with Tc, sequential gamma camera images of the right upper quadrant of the abdomen were obtained. There is prompt accumulation of radionuclide in the liver which appears to be unremarkable. Prompt accumulation in the central intrahepatic biliary radicals, gallbladder, common bile duct and small bowel is noted. Patient was also infused with 2.7mcg of CCK and gallbladder ejection fraction was calculated which [id number] Impression: Normal nuclear hepatobiliary scan with gallbladder ejection fraction measuring 86%.
== END | disposition home or self-care (01) ==
LOC: US 08:20
PROVIDERS: ATTEND Internal Medicine Gastroenterology
DX: K76.0 Fatty (change of) liver, not elsewhere classified (principal); R16.0 Hepatomegaly, not elsewhere classified; R10.11 Right upper quadrant pain
CPT/HCPCS: 76700; 78226; 96374; 96375; A9537; J2805

== ENCOUNTER → 2016-11-19 | Outpatient (CLI) | payer OTHER ==
--- NOTE | 2016-11-19 15:42 | RAD ---
Lumbar spine, 5 views, 11/19/2016: History: Back pain with right radiculopathy The lumbar vertebral heights are well-maintained. The disc spaces are fairly well preserved. No acute fracture or dislocation is identified. There is no evidence of spondylolysis. There is slight chronic anterior wedging of the T12 vertebral body. Minimal spurring is present in the lower thoracic spine. IMPRESSION: No acute lumbar spine abnormality is detected.
== END | disposition home or self-care (01) ==
LOC: DXRADRC 14:13
PROVIDERS: ATTEND Physician Assistant
DX: M54.16 Radiculopathy, lumbar region (principal)
CPT/HCPCS: 72110

== ENCOUNTER 2016-11-21 18:45 | Emergency (ER) | payer OTHER ==
[~2016-11-21] VITALS: Ht 170.2 cm; Wt 140.7 kg
--- NOTE | 2016-11-21 19:12 | PHYS DOC ---
General Chief Complaint: DEPRESSION Stated Complaint: depressed Time Seen by MD: 18:47 Source: patient Exam Limitations: no limitations Problems: History of Present Illness Initial Comments Pt is 30/F to ED POV c/o worsening depression and suicidal ideation. Pt has extensive psychiatric history with diagnoses borderline, bipolar, anxiety , depression; pt has h/o multiple prior suicide attempts (cutting, pills, stabbing), but denies any current attempt or plan. She says she is very depressed, says she fears herself when she is like this with her anger and depression. Pt feels she does nothing right, says her parents don't like to be around her when she is like this and that they don't feel she is safe taking care of her baby. Pt is tearful, admits to cutting her thighs last week states they are healing. Timing/Duration: unsure Severity: severe Modifying Factors: improves with other Associated Symptoms: other Allergies: Coded Allergies: Sulfa (Sulfonamide Antibiotics) (Unverified Allergy, Intermediate, 08/14/16 ) amphetamine (Unverified Allergy, Intermediate, 08/14/16) amphetamine aspartate (Unverified Allergy, Intermediate, 08/14/16) amphetamine sulfate (Unverified Allergy, Intermediate, 08/14/16) clindamycin (Unverified Allergy, Intermediate, 09/16/15) dextroamphetamine (Unverified Allergy, Intermediate, 09/16/15) dextroamphetamine saccharate (Unverified Allergy, Intermediate, 09/16/15) dextroamphetamine sulfate (Unverified Allergy, Intermediate, 09/16/15) fluoxetine (Unverified Allergy, Intermediate, 09/16/15) fluoxetine HCl (Unverified Allergy, Intermediate, 09/16/15) lamotrigine (Unverified Allergy, Intermediate, 09/16/15) ziprasidone (Verified Allergy, Intermediate, 09/16/15) ibuprofen (Verified Allergy, Mild, HISTORY OF ULCERS, CAUTION USE OF NSAIDS, 09/16/15) Past Medical History Medical History: GERD, other (GERD, migraines, ovarian cyst, endometriosis, hypothyroidism) Surgical History: other (ovarian cystectomy) Psychosocial History: anxiety, bipolar, depression, prior suicide attempt ( prior attempts the self-mutilation, prescription overdose, and stabbing reportedly), other (borderline personality disorder) Family History Significant Family History: no pertinent family hx Social History Smoker: non-smoker Alcohol: none Drugs: marijuana Review of Systems Constitutional: denies chills, denies diaphoresis, denies fever, malaise Respiratory: denies cough, denies shortness of breath Cardiovascular: denies chest pain, denies palpitations Gastrointestinal: denies nausea, denies vomiting Genitourinary: denies frequency, denies hematuria Musculoskeletal: denies back pain, denies joint swelling, denies neck pain Psychiatric/Neurological: see HPI, denies headache, denies numbness, denies paresthesia Physical Exam General Appearance: mild distress (tearful), obese Eyes: bilateral eye normal inspection, bilateral eye PERRL, bilateral eye EOMI Ear, Nose, Throat: hearing grossly normal, normal ENT inspection, normal pharynx Neck: non-tender, supple Respiratory: normal breath sounds, no respiratory distress Cardiovascular: normal peripheral pulses, regular rate, rhythm Gastrointestinal: non tender, soft Back: no CVA tenderness, no vertebral tenderness Extremities: non-tender, normal inspection 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 RN initiating process. 2144: Telepsych report: Dx: Adjustment disorder, unspecified Recommendations: Psychiatrically clear for discharge and outpatient follow up. Pt has already scheduled appointment. No med recommendations. I discussed telepsych report and recommendations with the patient at length. I discussed close follow-up with her doctor this week and continuing current medications. Patient states that if her worsens or if she actively begins to want to harm herself she will call back to the emergency department or return. Departure Time of Disposition: 21:45 Disposition: 01 HOME, SELF-CARE Diagnosis: adjustment disorder Condition: STABLE Patient Instructions: Adjustment Disorder, Suicidal Feelings, How to Help Yourself Additional Instructions: Please review the educational materials given by RN. Continue current medications. Follow up at [facility] as scheduled. Return to ED with new or changing symptoms. JOESPH BALL DO Nov 21, 2016 19:12
[2016-11-21 19:39] LABS: BASO % 1 % (0-3); EOS # 0.1 x10^3/uL (0.0-0.7); EOS % 1 % (0-3); HEMATOCRIT 39.6 % (36.0-47.0); HEMOGLOBIN 13.3 g/dL (12.0-15.5); LYMPH # 2.1 x10^3/uL (1.0-4.8); LYMPH % 43 % (24-48); MEAN CORPUSCULAR HEMOGLOBIN 30 pg (25-35); MEAN CORPUSCULAR HGB CONC 34 g/dL (31-37); MEAN CORPUSCULAR VOLUME 90 fL (79-100); MONO # 0.4 x10^3/uL (0.0-1.1); MONO % 8 % (0-9); NEUT # 2.3 x10^3uL (1.8-7.7); NEUT % 47 % (31-73); PLATELET COUNT 335 x10^3/uL (140-400); RED BLOOD COUNT 4.42 x10^6/uL (3.50-5.40); RED CELL DISTRIBUTION WIDTH 14.2 % (11.5-14.5); WHITE BLOOD COUNT 4.9 x10^3/uL (4.0-11.0)
[2016-11-21 19:44] LABS: ACETAMIN < 2.0 mcg/mL (10-30); ETHANOL < 10 mg/dL (0-10); SALIC 1.4 mg/dL (2.8-20.0)
[2016-11-21 19:46] LABS: ALBUMIN 3.3 g/dL (3.4-5.0); ALBUMIN/GLOBULIN RATIO 0.8 (1.0-1.7); CALCIUM 8.8 mg/dL (8.5-10.1); CREATININE 0.9 mg/dL (0.6-1.0); GFR 74.6; POTASSIUM 3.7 mmol/L (3.5-5.1); TOTAL BILIRUBIN 0.1 mg/dL (0.2-1.0); TOTAL PROTEIN 7.4 g/dL (6.4-8.2)
[2016-11-21 20:06] LABS: AMPHETAMINE/METHAMPHETAMINE NEG (NEG); BARBITURATES NEG (NEG); BENZODIAZEPINES NEG (NEG); CANNABINOIDS NEG (NEG); COCAINE NEG (NEG); METHADONE NEG (NEG); OPIATES NEG (NEG); PHENCYCLIDINE NEG (NEG)
[2016-11-21 21:57] VITALS: BP 105/62
== END 2016-11-21 22:21 | disposition home or self-care (01) ==
LOC: EEVIPCON 18:45 → ER 18:45
DX: F43.20 Adjustment disorder, unspecified (principal); F60.3 Borderline personality disorder; F41.9 Anxiety disorder, unspecified; F31.9 Bipolar disorder, unspecified; Z91.5 Personal history of self-harm; K21.9 Gastro-esophageal reflux disease without esophagitis; G43.909 Migraine, unspecified, not intractable, without status migrainosus; E03.9 Hypothyroidism, unspecified; F12.10 Cannabis abuse, uncomplicated; Z88.6 Allergy status to analgesic agent; Z88.1 Allergy status to other antibiotic agents; Z88.2 Allergy status to sulfonamides; Z88.8 Allergy status to other drugs, medicaments and biological substances
CPT/HCPCS: 36415; 80053; 80307; 81025; 85027; 99284; G0480; G0479

== ENCOUNTER → 2016-11-28 | Outpatient (CLI) | payer OTHER ==
[2016-11-21 21:57] VITALS: BP 105/62
--- NOTE | 2016-11-28 15:18 | RAD ---
Indication injury one day previously. Persistent pain. AP oblique and lateral views of the right foot were obtained. No acute bony finding is seen
--- NOTE | 2016-12-01 08:36 | RAD ---
Right ankle, 2 views, 11/28/2016: History: Lateral foot and ankle pain, injury No fracture or dislocation is identified. There is mild subcutaneous edema. IMPRESSION: No acute bony abnormality is detected.
== END | disposition home or self-care (01) ==
LOC: DXRADRC 14:43
PROVIDERS: ATTEND Physician Assistant
DX: M25.571 Pain in right ankle and joints of right foot (principal); R60.0 Localized edema
CPT/HCPCS: 73600; 73630

== ENCOUNTER → 2016-12-12 | Outpatient (CLI) | payer OTHER ==
[2016-11-21 21:57] VITALS: BP 105/62
--- NOTE | 2016-12-12 17:03 | RAD ---
Thoracic spine, 3 views, 12/12/2016: History: Mid back pain There is a mild thoracic scoliosis. The thoracic vertebral heights are well-maintained. There are mild scattered marginal spurs. The paraspinous soft tissues are unremarkable. IMPRESSION: 1. Mild thoracic scoliosis with scattered marginal spurs. 2. No acute bony abnormality is detected.
== END | disposition home or self-care (01) ==
LOC: RAD 16:43
PROVIDERS: ATTEND Nurse Practitioner Family
DX: M41.84 Other forms of scoliosis, thoracic region (principal)
CPT/HCPCS: 72072

== ENCOUNTER 2016-12-19 15:43 | Emergency (ER) | payer OTHER ==
[~2016-12-19] VITALS: Ht 170.2 cm; Wt 140.7 kg
--- NOTE | 2016-12-19 15:51 | PHYS DOC ---
Past History Past Medical History: Anxiety, Bipolar, Depression, Endometriosis, Hypothyroid , Ovarian Cyst Past Surgical History: Other Smoking: Cigarettes, Less than 1pk/day, Quit Greater Than 1 Year Alcohol Use: Occasionally Drug Use: None Adult General Chief Complaint Chief Complaint: INSECT BITE HPI HPI Patient is a 31-year-old female presenting to the emergency department for evaluation of a right breast wound that was first noted one week ago and she says it has been draining yellowish green pus and has scabbed over but is still draining intermittently. No systemic fevers chills nausea vomiting. He says that she is not and is not breast-feeding. She says that she has tolerated doxycycline in the past. Review of Systems Review of Systems Constitutional: Denies fever or chills [] Integument: + rash, skin lesions [] Allergies Allergies Allergies Coded Allergies Type Severity Reaction Last Updated Verified Sulfa (Sulfonamide Antibiotics) Allergy Intermediate 08/14/16 No amphetamine Allergy Intermediate 08/14/16 No amphetamine aspartate Allergy Intermediate 08/14/16 No amphetamine sulfate Allergy Intermediate 08/14/16 No clindamycin Allergy Intermediate 09/16/15 No dextroamphetamine Allergy Intermediate 09/16/15 No dextroamphetamine saccharate Allergy Intermediate 09/16/15 No dextroamphetamine sulfate Allergy Intermediate 09/16/15 No fluoxetine Allergy Intermediate 09/16/15 No fluoxetine HCl Allergy Intermediate 09/16/15 No lamotrigine Allergy Intermediate 09/16/15 No ziprasidone Allergy Intermediate 09/16/15 Yes ibuprofen Allergy Mild HISTORY OF ULCERS, CAUTION USE OF NSAIDS 09/16/15 Yes Physical Exam Physical Exam Constitutional: Well developed, well nourished, no acute distress, non-toxic appearance. [] Skin: Right breast with approximate 2 x 2 cm scabbed lesion with some hardening and erythema around the wound but no active drainage. EKG EKG [] Radiology/Procedures Radiology/Procedures [] Course & Med Decision Making Course & Med Decision Making This is a feeling spontaneous draining abscess that is doing fairly well. Given she is here we'll go ahead and start a 5 day course of doxycycline and recommend warm compresses and PCP follow-up in 2-3 days to ensure improvement. He was told to come back here with any new worsening pain fevers or other general concerns. Patient aware and agreeable with plan and verbalized understanding of the above instructions. Of note she was told about the esophagitis, OCP interactions and skin reactions from doxycycline. Dragon Disclaimer Dragon Disclaimer This chart was dictated in whole or in part using Voice Recognition software in a busy, high-work load, and often noisy Emergency Department environment. It may contain unintended and wholly unrecognized errors or omissions. Departure Departure: Impression: Primary Impression: Cellulitis of breast Disposition: 01 HOME, SELF-CARE Condition: GOOD Referrals: ZEINAB MILNER APRN (PCP) Patient Instructions: Cellulitis Scripts Doxycycline Hyclate (DOXYCYCLINE HYCLATE) 100 Mg Tablet 1 TAB PO BID, #10 TAB Prov: FRANCHESKA LEWIS DO 12/19/16 FRANCHESKA LEWIS DO Dec 19, 2016 15:51
[2016-12-19 15:59] VITALS: BP 158/87
[2016-12-19] MEDS ORDERED: DOXY100T PO (16:03)
== END 2016-12-19 16:09 | disposition home or self-care (01) ==
LOC: ER 15:43
DX: N61.0 Mastitis without abscess (principal); E03.9 Hypothyroidism, unspecified; F31.9 Bipolar disorder, unspecified; F41.9 Anxiety disorder, unspecified; Z87.891 Personal history of nicotine dependence; Z88.6 Allergy status to analgesic agent; Z88.1 Allergy status to other antibiotic agents; Z88.2 Allergy status to sulfonamides; Z88.8 Allergy status to other drugs, medicaments and biological substances
CPT/HCPCS: 99284

== ENCOUNTER 2016-12-23 20:43 | Emergency (ER) | payer OTHER ==
[~2016-12-23] VITALS: Ht 170.2 cm; Wt 140.7 kg
[~2016-12-23 20:43] MED LIST changes: +DOXY100T PO
[2016-12-23 20:45] VITALS: BP 156/82
[2016-12-23] MEDS ORDERED: FAMOTIDINE 20 MG/2 ML VIAL IVP ONE (21:15)
[2016-12-23] MEDS ORDERED: diphenhydrAMINE 50 MG/ML VIAL IV ONE (21:15)
[2016-12-23] MEDS ORDERED: IV NORMAL SALINE 1,000ML 1,000 ML IV SCH (21:15)
[2016-12-23] MEDS ORDERED: methylPREDNISolone SOD SUCC PF 125 MG/2 ML VIAL. IV ONE (21:15)
[2016-12-23] MEDS ORDERED: PRED50TA PO (23:55)
[2016-12-23] MEDS ORDERED: FAMO-63 PO (23:55)
--- NOTE | 2016-12-23 23:55 | PHYS DOC ---
Past History Past Medical History: Depression, Ovarian Cyst Past Surgical History: No Surgical History Smoking: Cigarettes, Less than 1pk/day, Quit Greater Than 1 Year Alcohol Use: None Drug Use: None Adult General Chief Complaint Chief Complaint: ALLERGIC REACTION HPI HPI Patient is a 31 year old female who presents with allergic reaction. The patient states just prior to arrival she ate barbecue sauce at [facility]. She states she felt short of breath & her throat felt tight. She denies face/tongue /lip swelling, vomiting, diarrhea. She arrives by EMS having received epi en route, already feeling better. She has previous history of allergic reaction to barbecue sauce. Review of Systems Review of Systems Constitutional: Denies fever or chills HENT: Denies nasal congestion, reports throat tightness Respiratory: Denies cough, reports shortness of breath Cardiovascular: Denies chest pain GI: Denies abdominal pain, nausea, vomiting, or diarrhea Musculoskeletal: Denies back pain or joint pain Integument: Denies rash Neurologic: Denies headache Current Medications Current Medications Current Medications Medications (Trade) Dose Ordered Sig/Mahad Start Time Stop Time Status Last Admin Dose Admin Diphenhydramine HCl (Benadryl) 25 mg 1X ONCE 12/23/16 21:15 12/23/16 21:16 DC 12/23/16 21:15 25 MG Famotidine (Pepcid) 20 mg 1X ONCE 12/23/16 21:15 12/23/16 21:16 DC 12/23/16 21:15 20 MG Methylprednisolone Sodium Succinate (SOLU-Medrol 125MG VIAL) 125 mg 1X ONCE 12/23/16 21:15 12/23/16 21:16 DC 12/23/16 21:15 125 MG Sodium Chloride 1,000 ml @ 1,000 mls/hr Q1H 12/23/16 21:15 12/23/16 22:14 DC 12/23/16 21:16 1,000 MLS/HR Allergies Allergies Allergies Coded Allergies Type Severity Reaction Last Updated Verified Sulfa (Sulfonamide Antibiotics) Allergy Intermediate 08/14/16 No amphetamine Allergy Intermediate 08/14/16 No amphetamine aspartate Allergy Intermediate 08/14/16 No amphetamine sulfate Allergy Intermediate 08/14/16 No clindamycin Allergy Intermediate 09/16/15 No dextroamphetamine Allergy Intermediate 09/16/15 No dextroamphetamine saccharate Allergy Intermediate 09/16/15 No dextroamphetamine sulfate Allergy Intermediate 09/16/15 No fluoxetine Allergy Intermediate 09/16/15 No fluoxetine HCl Allergy Intermediate 09/16/15 No lamotrigine Allergy Intermediate 09/16/15 No ziprasidone Allergy Intermediate 09/16/15 Yes ibuprofen Allergy Mild HISTORY OF ULCERS, CAUTION USE OF NSAIDS 09/16/15 Yes Physical Exam Physical Exam Constitutional: obese, no acute distress, non-toxic appearance. HENT: Normocephalic, atraumatic, bilateral external ears normal, oropharynx moist, nose normal. no face/tongue/lip swelling, airway patent. Eyes: conjunctiva normal, no discharge. Neck: supple, no stridor. Cardiovascular: RRR, no murmurs, no edema. Lungs & Thorax: LCTAB, no wheezing, no respiratory distress. Abdomen: soft, nontender, nondistended. Skin: Warm, dry, no erythema, no rash. no urticaria. Back: No tenderness. Extremities: No tenderness, no edema. Neurologic: Alert and oriented X 3, no focal deficits noted. Psychologic: Affect normal, judgement normal, mood normal. EKG EKG [] Radiology/Procedures Radiology/Procedures [] Course & Med Decision Making Course & Med Decision Making Pertinent Labs and Imaging studies reviewed. (See chart for details) The patient presents with allergic reaction. She has no symptoms at time of my assessment. EMS gave epinephrine & she already feels better. Gave IV fluids, solumedrol, benadryl, pepcid. Observed for more than 2 hours. She remained asymptomatic. She was tachycardic at time of arrival, heart rate < 100 at time of my assessment & throughout the rest of her visit. She was comfortable with discharge home. Recommend rest, PO hydration, continue benadryl, pepcid, prednisone x 5 days. Follow up with PCP in 2-3 days. May need referral for allergy testing. Come back for face/tongue/lip swelling, severe shortness of breath, any otherwise worsening condition. Discharged home in stable condition. [] Dragon Disclaimer Dragon Disclaimer This chart was dictated in whole or in part using Voice Recognition software in a busy, high-work load, and often noisy Emergency Department environment. It may contain unintended and wholly unrecognized errors or omissions. Departure Departure: Impression: Primary Impression: Allergic reaction Disposition: HOME, SELF-CARE Condition: IMPROVED Referrals: ZEINAB MILNER APRN (PCP) Patient Instructions: Food Allergy, [id number] Additional Instructions: You were seen in the emergency department today for allergic reaction. Please rest, drink fluids, take Benadryl every 6 hours. Take the additional prescribed medications to treat the reaction. Follow-up with primary care physician in 2-3 days. He may need a referral for allergy testing. Return to the emergency department for face/tongue/lip swelling, severe shortness of breath, any otherwise worsening condition. Scripts Prednisone (PREDNISONE) 50 Mg Tablet 1 TAB PO DAILY, #5 TAB Prov: JOHNATHON HYDE MD 12/23/16 Famotidine (PEPCID) 20 Mg Tablet 1 TAB PO BID for 5 Days, #10 TAB 0 Refills Prov: JOHNATHON HYDE MD 12/23/16 JOHNATHON HYDE MD Dec 23, 2016 23:55
== END 2016-12-24 | disposition home or self-care (01) ==
LOC: ER 20:43
DX: R06.02 Shortness of breath (principal); T78.1XXA Other adverse food reactions, not elsewhere classified, initial encounter; F32.9 Major depressive disorder, single episode, unspecified; F17.210 Nicotine dependence, cigarettes, uncomplicated; Z88.2 Allergy status to sulfonamides; Z88.1 Allergy status to other antibiotic agents; Z88.8 Allergy status to other drugs, medicaments and biological substances; Z88.6 Allergy status to analgesic agent; X58.XXXA Exposure to other specified factors, initial encounter
CPT/HCPCS: 96361; 96374; 96375; 99284; J1200; J2930; S0028; J7030

== ENCOUNTER → 2017-01-30 | Outpatient (CLI) | payer OTHER ==
[~2017-01-30] MED LIST changes: +PRED50TA PO
--- NOTE | 2017-01-30 16:12 | RAD ---
Pelvis with right hip, 2 views, 01/30/2017: History: Fall, hip pain No fracture or dislocation is identified. The hip joint spaces are well maintained. The periarticular soft tissues are unremarkable. IMPRESSION: No acute abnormality is detected.
== END | disposition home or self-care (01) ==
LOC: DXRADRC 12:46
PROVIDERS: ATTEND Nurse Practitioner Family
DX: M25.551 Pain in right hip (principal); W11.XXXA Fall on and from ladder, initial encounter; Y93.89 Activity, other specified; Y92.89 Other specified places as the place of occurrence of the external cause; Y99.8 Other external cause status
CPT/HCPCS: 73501

== ENCOUNTER 2017-03-24 13:40 | Emergency (ER) | payer OTHER ==
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
[2017-03-24] MEDS ORDERED: KETOROLAC 60 MG/2 ML VIAL. IM ONE (14:45)
[2017-03-24] MEDS ORDERED: [UNRECOGNIZED DRUG - MIXTURE] (15:01)
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
[2017-03-24 15:11] VITALS: BP 160/93
== END 2017-03-24 15:11 | disposition home or self-care (01) ==
LOC: ER 13:40 → EEVIPCON 13:40 → ER 15:11
DX: R51 Headache (principal); H92.01 Otalgia, right ear; Z87.891 Personal history of nicotine dependence; F32.9 Major depressive disorder, single episode, unspecified; Z88.2 Allergy status to sulfonamides; Z88.6 Allergy status to analgesic agent; Z88.1 Allergy status to other antibiotic agents; Z88.8 Allergy status to other drugs, medicaments and biological substances; Y04.0XXA Assault by unarmed brawl or fight, initial encounter; Y93.89 Activity, other specified; Y99.8 Other external cause status; Y92.89 Other specified places as the place of occurrence of the external cause
CPT/HCPCS: 70150; 96372; 99284; J1885

== ENCOUNTER 2017-07-07 05:37 | Emergency (ER) | payer OTHER ==
[~2017-07-07] VITALS: Ht 170.2 cm; Wt 142.0 kg
[~2017-07-07 05:37] MED LIST changes: -IBUP200T43 PO; +IBUP200T44 PO; +[UNRECOGNIZED DRUG - MIXTURE]
[2017-07-07] MEDS ORDERED: ONDANSETRON PF 4 MG/2 ML VIAL. ONE (06:11)
--- NOTE | 2017-07-07 06:14 | PHYS DOC ---
Past History Past Medical History: Depression, Ovarian Cyst, Other Past Surgical History: No Surgical History Smoking: Cigarettes, Less than 1pk/day, Quit Greater Than 1 Year Alcohol Use: None Drug Use: None Adult General Chief Complaint Chief Complaint: ABDOMINAL PAIN [facility] HPI Patient is a 31 year old F who presents with right-sided lower chest/upper abdominal pain that radiates into the axilla. She describes the pain as sharp and constant with fluctuating intensity. She denies nausea or vomiting. She has had previous similar symptoms which which were described as gallbladder pain. However these previous episodes were associated with nausea, were after eating and were lower down (more distinctly in the right upper quadrant of the abdomen) . She denies associated diarrhea. She denies any other associated symptoms. She denies any other exacerbating or alleviating factors. Review of Systems Review of Systems Constitutional: Denies fever or chills [] Eyes: Denies change in visual acuity, redness, or eye pain [] HENT: Denies nasal congestion or sore throat [] Respiratory: Denies cough or shortness of breath [] Cardiovascular: No additional information not addressed in HPI [] GI: Denies nausea, vomiting, bloody stools or diarrhea [] : Denies dysuria or hematuria [] Musculoskeletal: Denies back pain or joint pain [] Integument: Denies rash or skin lesions [] Neurologic: Denies headache, focal weakness or sensory changes [] Endocrine: Denies polyuria or polydipsia [] All other systems were reviewed and found to be within normal limits, except as documented in this note. Family History Family History No pertinent family medical she was reported Current Medications Current Medications Current medications reviewed Allergies Allergies Allergies Coded Allergies Type Severity Reaction Last Updated Verified Sulfa (Sulfonamide Antibiotics) Allergy Intermediate 08/14/16 No amphetamine Allergy Intermediate 08/14/16 No amphetamine aspartate Allergy Intermediate 08/14/16 No amphetamine sulfate Allergy Intermediate 08/14/16 No clindamycin Allergy Intermediate 09/16/15 No dextroamphetamine Allergy Intermediate 09/16/15 No dextroamphetamine saccharate Allergy Intermediate 09/16/15 No dextroamphetamine sulfate Allergy Intermediate 09/16/15 No fluoxetine Allergy Intermediate 09/16/15 No fluoxetine HCl Allergy Intermediate 09/16/15 No lamotrigine Allergy Intermediate 09/16/15 No ziprasidone Allergy Intermediate 09/16/15 Yes ibuprofen Allergy Mild HISTORY OF ULCERS, CAUTION USE OF NSAIDS 09/16/15 Yes Susanne states that she had allergy testing and is not allergic to any of the listed medications other than sulfa Physical Exam Physical Exam Constitutional: Well developed, well nourished, no acute distress, non-toxic appearance. [] HENT: Normocephalic, atraumatic, Eyes: EOMI, conjunctiva normal, no discharge. [] Neck: Normal range of motion, no tenderness, supple, no stridor. [] Cardiovascular:Heart rate regular rhythm, Lungs & Thorax: Bilateral breath sounds clear to auscultation. tenderness over the right lower ribs and into the right axilla. Abdomen: Bowel sounds normal, soft, no tenderness, no masses, no pulsatile masses. [] No noted abdominal tenderness Skin: Warm, dry, no erythema, no rash. [] Extremities: No tenderness, no cyanosis, no clubbing, ROM intact, no edema. [] Neurologic: Alert and oriented X 3, normal motor function, normal sensory function, no focal deficits noted. [] Psychologic: Affect normal, judgement normal, mood normal. [] Current Patient Data Vital Signs Vital Signs Date Time Temp Pulse Resp B/P (MAP) Pulse Ox O2 Delivery O2 Flow Rate FiO2 07/07/17 05:50 97.8 92 18 97 Room Air Lab Results Laboratory Tests Test 07/07/17 05:52 07/07/17 05:55 White Blood Count 10.2 x10^3/uL (4.0-11.0) Red Blood Count 4.23 x10^6/uL (3.50-5.40) Hemoglobin 13.0 g/dL (12.0-15.5) Hematocrit 38.1 % (36.0-47.0) Mean Corpuscular Volume 90 fL (79-100) Mean Corpuscular Hemoglobin 31 pg (25-35) Mean Corpuscular Hemoglobin Concent 34 g/dL (31-37) Red Cell Distribution Width 14.3 % (11.5-14.5) Platelet Count 350 x10^3/uL (140-400) Neutrophils (%) (Auto) 60 % (31-73) Lymphocytes (%) (Auto) 30 % (24-48) Monocytes (%) (Auto) 9 % (0-9) Eosinophils (%) (Auto) 1 % (0-3) Basophils (%) (Auto) 1 % (0-3) Neutrophils # (Auto) 6.1 x10^3uL (1.8-7.7) Lymphocytes # (Auto) 3.0 x10^3/uL (1.0-4.8) Monocytes # (Auto) 0.9 x10^3/uL (0.0-1.1) Eosinophils # (Auto) 0.1 x10^3/uL (0.0-0.7) Basophils # (Auto) 0.1 x10^3/uL (0.0-0.2) Maternal Serum HCG Beta Subunit < 1 mIU/mL (0-6) Sodium Level 141 mmol/L (136-145) Potassium Level 4.2 mmol/L (3.5-5.1) Chloride Level 107 mmol/L (98-107) Carbon Dioxide Level 23 mmol/L (21-32) Anion Gap 11 (6-14) Blood Urea Nitrogen 14 mg/dL (7-20) Creatinine 0.6 mg/dL (0.6-1.0) Estimated GFR (Cockcroft-Gault) 118.2 BUN/Creatinine Ratio 23 (6-20) Glucose Level 110 mg/dL (70-99) Calcium Level 9.0 mg/dL (8.5-10.1) Magnesium Level 1.9 mg/dL (1.8-2.4) Total Bilirubin 0.1 mg/dL (0.2-1.0) Aspartate Amino Transf (AST/SGOT) 32 U/L (15-37) Alanine Aminotransferase (ALT/SGPT) 34 U/L (14-59) Alkaline Phosphatase 83 U/L (46-116) Total Protein 6.2 g/dL (6.4-8.2) Albumin 3.0 g/dL (3.4-5.0) Albumin/Globulin Ratio 0.9 (1.0-1.7) Urine Collection Type Unknown Urine Color Yellow Urine Clarity Hazy Urine pH 5.0 Urine Specific [place] 1.025 Urine Protein Neg (NEG-TRACE) Urine Glucose (UA) Neg mg/dL (NEG) Urine Ketones (Stick) Neg mg/dL (NEG) Urine Blood Large (NEG) Urine Nitrite Neg (NEG) Urine Bilirubin Neg (NEG) Urine Urobilinogen Dipstick 0.2 mg/dL (0.2 mg/dL) Urine Leukocyte Esterase Neg (NEG) Urine RBC 11-20 /HPF (0-2) Urine WBC Rare /HPF (0-4) Urine Squamous Epithelial Cells Mod /LPF Urine Bacteria Few /HPF (0-FEW) Urine Yeast Present /HPF EKG EKG [] Radiology/Procedures Radiology/Procedures [] Course & Med Decision Making Course & Med Decision Making Pertinent Labs and Imaging studies reviewed. (See chart for details) Imaging was declined Dragon Disclaimer Dragon Disclaimer This electronic medical record was generated, in whole or in part, using a voice recognition dictation system. Departure Departure: Impression: Primary Impression: Abdominal pain Disposition: HOME, SELF-CARE Condition: STABLE Referrals: ZEINAB MILNER APRN (PCP) Patient Instructions: Abdominal Pain (Nonspecific) Additional Instructions: Susanne was seen in the emergency department for abdominal pain. No emergency medical condition was found on history or physical exam. She did have normal labs. She was given medication and IV fluids with improvement in her symptoms. She was advised to return to the emergency room if she develops new or worsening symptoms. She was also advised follow-up with her primary care doctor in the next 3-5 days for further management. Problem Qualifiers Primary Impression: Abdominal pain Abdominal location: generalized Qualified Codes: R10.84 - Generalized abdominal pain KIM MONTES DE OCA MD Jul 07, 2017 06:14
[2017-07-07 06:26] LABS: BASO # 0.1 x10^3/uL (0.0-0.2); BASO % 1 % (0-3); EOS # 0.1 x10^3/uL (0.0-0.7); EOS % 1 % (0-3); HEMATOCRIT 38.1 % (36.0-47.0); LYMPH % 30 % (24-48); MEAN CORPUSCULAR HEMOGLOBIN 31 pg (25-35); MEAN CORPUSCULAR HGB CONC 34 g/dL (31-37); MEAN CORPUSCULAR VOLUME 90 fL (79-100); MONO # 0.9 x10^3/uL (0.0-1.1); MONO % 9 % (0-9); NEUT # 6.1 x10^3uL (1.8-7.7); NEUT % 60 % (31-73); PLATELET COUNT 350 x10^3/uL (140-400); RED BLOOD COUNT 4.23 x10^6/uL (3.50-5.40); RED CELL DISTRIBUTION WIDTH 14.3 % (11.5-14.5); WHITE BLOOD COUNT 10.2 x10^3/uL (4.0-11.0)
[2017-07-07 06:27] LABS: ALBUMIN/GLOBULIN RATIO 0.9 (1.0-1.7); CREATININE 0.6 mg/dL (0.6-1.0); GFR 118.2; MAGNESIUM 1.9 mg/dL (1.8-2.4); POTASSIUM 4.2 mmol/L (3.5-5.1); TOTAL BILIRUBIN 0.1 mg/dL (0.2-1.0); TOTAL PROTEIN 6.2 g/dL (6.4-8.2)
[2017-07-07 06:30] LABS: BACTERIA,URINE FEW /HPF (0-FEW); BILIRUBIN,URINE NEG (NEG); CLARITY,URINE HAZY; COLOR,URINE YELLOW; GLUCOSE,URINE NEG (NEG); NITRITE,URINE NEG (NEG); SQUAMOUS EPITHELIAL CELL,UR MOD /LPF; UROBILINOGEN,URINE 0.2 mg/dL (0.2 mg/dL); WBC,URINE RARE /HPF (0-4); YEAST,URINE PRESENT /HPF
[2017-07-07] MEDS ORDERED: IV NORMAL SALINE 1,000ML 1,000 ML IV ONE (06:30)
[2017-07-07] MEDS ORDERED: ONDANSETRON PF 4 MG/2 ML VIAL. IV ONE (06:30)
[2017-07-07] MEDS ORDERED: KETOROLAC 30 MG/ML VIAL. IV ONE (07:15)
[2017-07-07 07:17] VITALS: BP 143/99
== END 2017-07-07 07:30 | disposition home or self-care (01) ==
LOC: ER 05:37
DX: R10.84 Generalized abdominal pain (principal); R07.81 Pleurodynia; Z87.891 Personal history of nicotine dependence; Z88.2 Allergy status to sulfonamides; Z88.1 Allergy status to other antibiotic agents; Z88.8 Allergy status to other drugs, medicaments and biological substances; Z88.6 Allergy status to analgesic agent
CPT/HCPCS: 36415; 80053; 81001; 83735; 84702; 85025; 96361; 96374; 96375; 99284; J1885; J2405; J3010; J7030

== ENCOUNTER → 2017-07-30 | Outpatient (CLI) | payer OTHER ==
[2017-07-07 07:17] VITALS: BP 143/99
--- NOTE | 2017-07-30 09:03 | RAD ---
Right upper quadrant abdominal ultrasound, 07/30/2017: History: Pain The gallbladder is within normal limits in size. There is no sonographic evidence of cholelithiasis. The gallbladder neal are not thickened. No bile duct dilatation is seen. There is no evidence of a hepatic mass. The liver measures 19 cm in craniocaudad extent at the level the right lobe. The hepatic echogenicity is mildly increased, again suggesting fatty change. The visualized portions of the pancreas and right kidney are unremarkable. IMPRESSION: 1. No significant gallbladder abnormality is detected. 2. Probable hepatic steatosis.
--- NOTE | 2017-07-30 11:39 | RAD ---
Radionuclide hepatobiliary scan with gallbladder ejection fraction, 07/30/2017: History: Right upper quadrant pain and nausea Following IV injection of 5.5 mCi of technetium 99m Choletec there was prompt uptake of the radionuclide from the blood stream by the liver. Activity is present in the bile ducts and gallbladder at 10 minutes. Small bowel activity develops at 15 minutes. Due to a national shortage of Kinevac, the patient ingested 8 ounces of the Boost nutritional supplement for the gallbladder ejection fraction phase of the exam. The gallbladder ejection fraction was calculated at 13.5%. IMPRESSION: 1. No evidence of cystic duct or common bile duct obstruction. 2. Low gallbladder ejection fraction of 13.5%.
== END | disposition home or self-care (01) ==
LOC: US 07:42
PROVIDERS: ATTEND Surgery
DX: R10.11 Right upper quadrant pain (principal)
CPT/HCPCS: 76705; 78226; 96374; 96375; A9537

== ENCOUNTER → 2017-08-14 | Outpatient (CLI) | payer OTHER ==
[2017-08-14 13:58] LABS: BASO % 1 % (0-3); EOS # 0.1 x10^3/uL (0.0-0.7); EOS % 1 % (0-3); HEMATOCRIT 40.3 % (36.0-47.0); HEMOGLOBIN 13.7 g/dL (12.0-15.5); LYMPH # 2.6 x10^3/uL (1.0-4.8); LYMPH % 35 % (24-48); MEAN CORPUSCULAR HEMOGLOBIN 31 pg (25-35); MEAN CORPUSCULAR HGB CONC 34 g/dL (31-37); MEAN CORPUSCULAR VOLUME 91 fL (79-100); MONO # 0.4 x10^3/uL (0.0-1.1); MONO % 6 % (0-9); NEUT # 4.4 x10^3uL (1.8-7.7); NEUT % 58 % (31-73); PLATELET COUNT 356 x10^3/uL (140-400); RED BLOOD COUNT 4.43 x10^6/uL (3.50-5.40); RED CELL DISTRIBUTION WIDTH 14.3 % (11.5-14.5); WHITE BLOOD COUNT 7.5 x10^3/uL (4.0-11.0)
[2017-08-14 14:09] LABS: ALBUMIN 3.3 g/dL (3.4-5.0); ALBUMIN/GLOBULIN RATIO 0.8 (1.0-1.7); CALCIUM 9.1 mg/dL (8.5-10.1); CREATININE 0.7 mg/dL (0.6-1.0); GFR 98.9; POTASSIUM 3.9 mmol/L (3.5-5.1); TOTAL BILIRUBIN 0.3 mg/dL (0.2-1.0); TOTAL PROTEIN 7.3 g/dL (6.4-8.2)
[2017-08-15 10:36] LABS: FREE T4 0.7 ng/dL (0.76-1.46); THYROID STIM HORMONE (TSH) 2.586 uIU/mL (0.358-3.740)
== END | disposition home or self-care (01) ==
LOC: LAB 12:27
PROVIDERS: ATTEND Psychiatry & Neurology Child & Adolescent Psychiatry
DX: Z79.899 Other long term (current) drug therapy (principal)
CPT/HCPCS: 36415; 80053; 80061; 84439; 84443; 84480; 85025

== ENCOUNTER 2018-06-07 16:16 | Emergency (ER) | payer OTHER ==
[~2018-06-07] VITALS: Ht 170.2 cm; Wt 134.3 kg
[~2018-06-07 16:16] MED LIST changes: +AMLO5TAB10 PO; -AMLO5TAB2 PO; +HYDR-3165 PO; -HYDR-971 PO; +RANI150T21; +RANI150T21 PO; -RANI150T6; -RANI150T6 PO; +TRAZ-85 PO; -TRAZ50TA15 PO
[2018-06-07] MEDS ORDERED: HYDROcodone/APAP 5/325MG 1 TAB TABLET PO ONE (17:15)
--- NOTE | 2018-06-07 17:20 | PHYS DOC ---
Past History Past Medical History: Anxiety, Depression, Ovarian Cyst, Other Past Surgical History: No Surgical History Smoking: Cigarettes, Less than 1pk/day, Quit Greater Than 1 Year Alcohol Use: None Drug Use: None Adult General Chief Complaint Chief Complaint: Neck Pain HPI HPI Patient is a 32 year old female who presents with complaining of left shoulder and upper extremity pain since last night. Patient complaining of gradual onset of left site neck pain since yesterday that localized in left shoulder with radiation to left hand and associated with numbness of her hand that getting force with movement. Patient rated her pain 8/10 and denies chest pain, shortness of breath, fever and chills, history of injury. Patient states her fianc returned from an 1 year mission 3 days ago and they had wild sexual activity for the last 3 days and maybe she has a bad movement of her neck or shoulder but she does not recall any direct injury. Review of Systems Review of Systems Constitutional: Denies fever or chills [] Eyes: Denies change in visual acuity, redness, or eye pain [] HENT: Denies nasal congestion or sore throat [] Respiratory: Denies cough or shortness of breath [] Cardiovascular: No additional information not addressed in HPI [] GI: Denies abdominal pain, nausea, vomiting, bloody stools or diarrhea [] : Denies dysuria or hematuria [] Musculoskeletal: Denies back pain, reports neck and joint pain [] Integument: Denies rash or skin lesions [] Neurologic: Denies headache, focal weakness, reports sensory changes [] Endocrine: Denies polyuria or polydipsia [] All other systems were reviewed and found to be within normal limits, except as documented in this note. Current Medications Current Medications Current Medications Medications (Trade) Dose Ordered Sig/Mahad Start Time Stop Time Status Last Admin Dose Admin Acetaminophen/ Hydrocodone Bitart (Lortab 5/325) 1 tab 1X ONCE 06/07/18 17:15 06/07/18 17:16 Allergies Allergies Allergies Coded Allergies Type Severity Reaction Last Updated Verified Sulfa (Sulfonamide Antibiotics) Allergy Unknown hives 07/07/17 Yes Physical Exam Physical Exam Constitutional: Well developed, well nourished, mild acute distress, non-toxic appearance. [] HENT: Normocephalic, atraumatic Eyes: PERRLA, EOMI, conjunctiva normal, no discharge. [] Neck: Normal range of motion, no tenderness, supple, no stridor. [] Cardiovascular:Heart rate regular rhythm, no murmur [] Lungs & Thorax: Bilateral breath sounds clear to auscultation [] Abdomen: Bowel sounds normal, soft, no tenderness, no masses, no pulsatile masses. [] Skin: Warm, dry, no erythema, no rash. [] Back: No tenderness, no CVA tenderness. [] Extremities: Left upper extremity without deformity, muscle spasm in left lateral neck and upper shoulder with painful range of motion of left shoulder, subjective paresthesias of left upper extremity without weakness, no tenderness , no cyanosis, no clubbing, no edema. [] Neurologic: Alert and oriented X 3, normal motor function, normal sensory function, no focal deficits noted. [] Psychologic: Affect normal, judgement normal, mood normal. [] Current Patient Data Vital Signs Vital Signs Date Time Temp Pulse Resp B/P (MAP) Pulse Ox O2 Delivery O2 Flow Rate FiO2 06/07/18 16:30 98.2 96 22 99 Room Air EKG EKG [] Radiology/Procedures Radiology/Procedures X-ray of cervical spine and left shoulder interpreted by me and did not show acute finding. Course & Med Decision Making Course & Med Decision Making Pertinent Imaging studies reviewed. (See chart for details) discharge: I've spoken with the patient and/or caregivers. I've explained the patient's condition, diagnosis and treatment plan based on information available to me at this time. I've answered the patient's and/or caregivers questions and addressed any concerns. The patient and/or caregivers have a good understanding the patient's diagnosis, condition and treatment plan as can be expected at this point. Vital signs have been stabilized. The patient's condition is stable for discharge from the emergency department. The patient will pursue further outpatient evaluation with her primary care provider or other designated consulting physician as outlined in the discharge instructions. Patient and/or caregivers are agreeable to this plan of care and follow-up instructions have been explained in detail. The patient and/or caregivers have received these instructions in written format and expressed understanding of these discharge instructions. The patient and her caregivers are aware that if any significant change in condition or worsening of symptoms should prompt him to immediately return to this of the closest emergency department. If an emergent department is not readily available I would encourage him to call 911. Dragon Disclaimer Brown Disclaimer This electronic medical record was generated, in whole or in part, using a voice recognition dictation system. Departure Departure: Impression: Primary Impression: Muscle strain of left shoulder Additional Impressions: Tobacco abuse Tobacco abuse counseling Disposition: HOME, SELF-CARE (at 1750) Condition: STABLE Referrals: ZEINAB MILNER APRN (PCP) Patient Instructions: Muscle Strain, Smoking Cessation, Tips For Success Additional Instructions: Drink plenty of liquids Follow-up with your primary care physician in 3-5 days Return to ER if not getting better Apply ice on the affected area Scripts [Percogesic] No Conflict Check 1 PO QID PRN for PAIN, #10 Prov: BERNARDINO JACINTO MD 06/07/18 Problem Qualifiers BERNARDINO JACINTO MD Jun 07, 2018 17:20
[2018-06-07] MEDS ORDERED: Percogesic PO (17:52)
[2018-06-07 18:00] VITALS: BP 128/77
--- NOTE | 2018-06-07 20:28 | RAD ---
Two-view left shoulder radiographs 06/07/2018 CLINICAL HISTORY: Left shoulder pain. AP and transscapular digital radiographs of the left shoulder were obtained. No fracture or dislocation of the left shoulder is seen. No significant degenerative changes are noted. IMPRESSION: No acute osseous abnormality is seen. Electronically signed by: Hieu Summers MD (06/07/2018 8:25 PM) [facility]
--- NOTE | 2018-06-07 20:31 | RAD ---
Three view cervical spine radiographs 06/07/2018 CLINICAL HISTORY: Neck pain. AP, lateral and AP open mouth odontoid digital radiographs of the cervical spine were obtained. There is mild straightening of the normal cervical lordosis. No fracture or subluxation is seen. Minimal degenerative changes are seen involving the lower cervical disc spaces consisting of minimal anterior vertebral body osteophyte formation. No prevertebral soft tissues swelling is seen. IMPRESSION: Minimal degenerative changes are seen involving the cervical spine as outlined above. No acute osseous abnormality is seen. Electronically signed by: Hieu Summers MD (06/07/2018 8:28 PM) [facility]
== END 2018-06-07 18:00 | disposition home or self-care (01) ==
LOC: ER 16:16
DX: S46.912A Strain of unspecified muscle, fascia and tendon at shoulder and upper arm level, left arm, initial encounter (principal); M54.2 Cervicalgia; F41.9 Anxiety disorder, unspecified; F32.9 Major depressive disorder, single episode, unspecified; Z87.891 Personal history of nicotine dependence; Z71.6 Tobacco abuse counseling; Z88.2 Allergy status to sulfonamides; X58.XXXA Exposure to other specified factors, initial encounter; Y93.89 Activity, other specified; Y92.89 Other specified places as the place of occurrence of the external cause; Y99.8 Other external cause status
CPT/HCPCS: 72040; 73030; 99283

== ENCOUNTER 2018-11-14 16:00 | Emergency (ER) | payer OTHER ==
[~2018-11-14] VITALS: Ht 170.2 cm; Wt 141.6 kg
[~2018-11-14 16:00] MED LIST changes: +CYAN-25 PO; -CYAN10005 PO; +Percogesic PO; +RANI-376; +RANI-376 PO; -RANI150T21; -RANI150T21 PO; +TRAZ-120 PO; -TRAZ-85 PO
[2018-11-14] MEDS ORDERED: ONDANSETRON PF 4 MG/2 ML VIAL. ONE (16:42)
[2018-11-14] MEDS: IV NORMAL SALINE 1,000ML 1,000 ML IV ONE (16:45)
[2018-11-14 16:50] LABS: BASO # 0.1 x10^3/uL (0.0-0.2); BASO % 1 % (0-3); EOS # 0.1 x10^3/uL (0.0-0.7); EOS % 2 % (0-3); HEMATOCRIT 43.8 % (36.0-47.0); HEMOGLOBIN 14.2 g/dL (12.0-15.5); LYMPH # 2.2 x10^3/uL (1.0-4.8); LYMPH % 26 % (24-48); MEAN CORPUSCULAR HEMOGLOBIN 29 pg (25-35); MEAN CORPUSCULAR HGB CONC 32 g/dL (31-37); MEAN CORPUSCULAR VOLUME 91 fL (79-100); MONO # 0.9 x10^3/uL (0.0-1.1); MONO % 11 % (0-9); NEUT # 5.2 x10^3uL (1.8-7.7); NEUT % 61 % (31-73); PLATELET COUNT 392 x10^3/uL (140-400); RED BLOOD COUNT 4.83 x10^6/uL (3.50-5.40); RED CELL DISTRIBUTION WIDTH 15.8 % (11.5-14.5); WHITE BLOOD COUNT 8.5 x10^3/uL (4.0-11.0)
[2018-11-14 17:03] LABS: ALBUMIN 3.9 g/dL (3.4-5.0); ALBUMIN/GLOBULIN RATIO 1.2 (1.0-1.7); CALCIUM 9.6 mg/dL (8.5-10.1); CREATININE 0.7 mg/dL (0.6-1.0); GFR 98.3; POTASSIUM 3.4 mmol/L (3.5-5.1); TOTAL BILIRUBIN 0.3 mg/dL (0.2-1.0); TOTAL PROTEIN 7.2 g/dL (6.4-8.2)
--- NOTE | 2018-11-14 17:03 | RAD ---
PA and lateral chest. HISTORY: Weakness, recent gastric bypass, nausea and vomiting PA and lateral views were taken of the chest. Lungs are clear. Heart is normal in size. There is no pleural effusion. There are changes from gastric bypass with multiple zoila in the upper abdomen. IMPRESSION: 1. No acute chest disease. Electronically signed by: Suraj Matson MD (11/14/2018 5:00 PM) [facility]
--- NOTE | 2018-11-14 17:14 | PHYS DOC ---
Past History Past Medical History: Ovarian Cyst (ELDER GUTIERREZ DO) Past Surgical History: Cholecystectomy, Gastric Bypass (ELDER GUTIERREZ DO) Smoking: Cigarettes, Less than 1pk/day, Quit Greater Than 1 Year Alcohol Use: None Drug Use: None (ELDER GUTIERREZ DO) Adult General Chief Complaint Chief Complaint: WEAKNESS/GENERALIZED HPI HPI 32-year-old female presents with nausea and vomiting. She tells me she has had nausea and daily vomiting for the last couple of weeks. The patient had a Audrey-en-Y gastric bypass 3 weeks ago. She called her surgeon who advised that she come and be checked out because she's been unable to keep down even water. She tells me the last 2 days she cannot keep anything down except about one glass of 1% milk. Her vomit today had some blood in it. She has not eaten in several days. She is concerned about dehydration. She has not taken any antiemetics. Anything the patient eats or drinks she vomits back up within a minute or 2. She denies fever or chills. She has had some diarrhea. No history of GERD prior to surgery. (ELDER GUTIERREZ DO) Review of Systems Review of Systems Constitutional: Denies fever or chills [] Eyes: Denies change in visual acuity, redness, or eye pain [] HENT: Denies nasal congestion or sore throat [] Respiratory: Denies cough or shortness of breath [] Cardiovascular: No additional information not addressed in HPI [] GI: nausea, vomiting, diarrhea [] : Denies dysuria or hematuria [] Musculoskeletal: Denies back pain or joint pain [] Integument: Denies rash or skin lesions [] Neurologic: Denies headache, focal weakness or sensory changes [] Endocrine: Denies polyuria or polydipsia [] All other systems were reviewed and found to be within normal limits, except as documented in this note. (ELDER GUTIERREZ DO) Current Medications Current Medications Current Medications Medications (Trade) Dose Ordered Sig/Mahad Start Time Stop Time Status Last Admin Dose Admin Ondansetron HCl (Zofran) 4 mg STK-MED ONCE 11/14/18 16:42 11/14/18 16:43 DC Sodium Chloride 1,000 ml @ 1,000 mls/hr 1X ONCE 11/14/18 16:45 11/14/18 17:44 11/14/18 16:45 1,000 MLS/HR (ELDER GUTIERREZ DO) Allergies Allergies Allergies Coded Allergies Type Severity Reaction Last Updated Verified Sulfa (Sulfonamide Antibiotics) Allergy Unknown hives 07/07/17 Yes (ELDER GUTIERREZ DO) Physical Exam Physical Exam Constitutional: Well developed, obese, well nourished, no acute distress, non- toxic appearance. [] HENT: Normocephalic, atraumatic, bilateral external ears normal, oropharynx moist, no oral exudates, nose normal. [] Eyes: PERRLA, EOMI, conjunctiva normal, no discharge. [] Neck: Normal range of motion, no tenderness, supple, no stridor. [] Cardiovascular:Heart rate regular rhythm, no murmur [] Lungs & Thorax: Bilateral breath sounds clear to auscultation [] Abdomen: Bowel sounds normal, soft, no tenderness, no masses, no pulsatile masses. [] Skin: Warm, dry, no erythema, no rash. [] Back: No tenderness, no CVA tenderness. [] Extremities: No tenderness, no cyanosis, no clubbing, ROM intact, no edema. [] Neurologic: Alert and oriented X 3, normal motor function, normal sensory function, no focal deficits noted. [] Psychologic: Affect normal, judgement normal, mood frustrated. [] (ELDER GUTIERREZ DO) Current Patient Data Vital Signs Vital Signs Date Time Temp Pulse Resp B/P (MAP) Pulse Ox O2 Delivery O2 Flow Rate FiO2 11/14/18 16:24 98.1 103 20 97 Room Air Lab Results Laboratory Tests Test 11/14/18 16:37 White Blood Count 8.5 x10^3/uL (4.0-11.0) Red Blood Count 4.83 x10^6/uL (3.50-5.40) Hemoglobin 14.2 g/dL (12.0-15.5) Hematocrit 43.8 % (36.0-47.0) Mean Corpuscular Volume 91 fL (79-100) Mean Corpuscular Hemoglobin 29 pg (25-35) Mean Corpuscular Hemoglobin Concent 32 g/dL (31-37) Red Cell Distribution Width 15.8 % (11.5-14.5) H Platelet Count 392 x10^3/uL (140-400) Neutrophils (%) (Auto) 61 % (31-73) Lymphocytes (%) (Auto) 26 % (24-48) Monocytes (%) (Auto) 11 % (0-9) H Eosinophils (%) (Auto) 2 % (0-3) Basophils (%) (Auto) 1 % (0-3) Neutrophils # (Auto) 5.2 x10^3uL (1.8-7.7) Lymphocytes # (Auto) 2.2 x10^3/uL (1.0-4.8) Monocytes # (Auto) 0.9 x10^3/uL (0.0-1.1) Eosinophils # (Auto) 0.1 x10^3/uL (0.0-0.7) Basophils # (Auto) 0.1 x10^3/uL (0.0-0.2) Sodium Level 144 mmol/L (136-145) Potassium Level 3.4 mmol/L (3.5-5.1) L Chloride Level 104 mmol/L (98-107) Carbon Dioxide Level 28 mmol/L (21-32) Anion Gap 12 (6-14) Blood Urea Nitrogen 12 mg/dL (7-20) Creatinine 0.7 mg/dL (0.6-1.0) Estimated GFR (Cockcroft-Gault) 98.3 BUN/Creatinine Ratio 17 (6-20) Glucose Level 105 mg/dL (70-99) H Calcium Level 9.6 mg/dL (8.5-10.1) Total Bilirubin 0.3 mg/dL (0.2-1.0) Aspartate Amino Transferase (AST) 13 U/L (15-37) L Alanine Aminotransferase (ALT) 30 U/L (14-59) Alkaline Phosphatase 111 U/L (46-116) Total Protein 7.2 g/dL (6.4-8.2) Albumin 3.9 g/dL (3.4-5.0) Albumin/Globulin Ratio 1.2 (1.0-1.7) (ELDRE GUTIERREZ DO) EKG EKG [] (ELDER GUTIERREZ DO) Radiology/Procedures Radiology/Procedures [] Impressions: PA and lateral chest. HISTORY: Weakness, recent gastric bypass, nausea and vomiting PA and lateral views were taken of the chest. Lungs are clear. Heart is normal in size. There is no pleural effusion. There are changes from gastric bypass with multiple zoila in the upper abdomen. IMPRESSION: 1. No acute chest disease. Electronically signed by: Suraj Matson MD (11/14/2018 5:00 PM) [facility] DICTATED AND SIGNED BY: SURAJ MATSON MD DATE: 11/14/18 1700 CC: ELDER GUTIERREZ DO; PANCHITO ESCOBEDO ~ (ELDER GUTIERREZ DO) Radiology/Procedures [address] [address] IMAGING REPORT Signed PATIENT: NANCY JO ACCOUNT: [id number] : 1985 LOCATION: ER AGE: 32 SEX: F EXAM STATUS: REG ER ORD. PHYSICIAN: ELDER GUTIERREZ DO REASON: recent Audrey-en-Y, vomiting PROCEDURE: CT ABD PELV W/ IV CONTRST ONLY Exam performed: CT scan of the abdomen and pelvis with contrast Clinical Indication: Vomiting, recent Audrey-en-Y Date of Service: 11/14/2018 comparison: CT abdomen and pelvis from August 14, 2016 Technique: Contiguous helical acquisitions are obtained from the lung bases to the pelvis during intravenous administration of contrast]. Sagittal and coronal reformatted images were obtained and reviewed. CT abdomen findings: The lung bases appear essentially clear. Visualized heart is normal The liver, spleen and pancreas appears unremarkable. Cholecystectomy. Postoperative changes of Audrey-en-Y seen. No dilated bowel loops or perianastomotic fluid is seen. Both adrenal glands and bilateral kidneys appear normal with symmetric excretion of contrast via both kidneys. The small bowel loops appear nondilated and unremarkable. Aorta is normal in caliber. There is no retroperitoneal lymphadenopathy or mass lesions. No bowel related inflammatory stranding is noted. The urinary bladder is well distended and normal . Interrogation of bone windows demonstrates no obvious bony abnormality. Sagittal and coronal reformatted images were obtained and reviewed which demonstrate no additional findings. Impression abdomen and pelvis : 1. No acute intra-abdominal or pelvic process is detected. 2. Cholecystectomy PQRS Compliance Statement: One or more of the following individualized dose reduction techniques were utilized for this examination: 1. Automated exposure control 2. Adjustment of the mA and/or kV according to patient size 3. Use of iterative reconstruction technique Electronically signed by: Rajani Taylor MD (11/14/2018 6:40 PM) [facility] DICTATED AND SIGNED BY: RAJANI TAYLOR MD DATE: 11/14/18 1840 CC: ELDER GUTIERREZ DO; CODY MORALES MD; PANCHITO ESCOBEDO ~ (CODY MORALES MD) Course & Med Decision Making Course & Med Decision Making Pertinent Labs and Imaging studies reviewed. (See chart for details) The patient's labs are unremarkable. We have given her 1 L normal saline. She has also gotten 8 mg of Zofran IV and 40 mg of Protonix IV. Chest x-rays unremarkable. CT of the abdomen and pelvis are pending. I'm signing the patient out to Dr. Morales at 1800. He will determine her final disposition. [] (ELDER GUTIERREZ DO) Course & Med Decision Making [address] [address] IMAGING REPORT Signed PATIENT: NANCY JO ACCOUNT: [id number] : 1985 LOCATION: ER AGE: 32 SEX: F EXAM STATUS: REG ER ORD. PHYSICIAN: ELDER GUTIERREZ DO REASON: weakness,recent gastric bypass, nausea,vomiting PROCEDURE: CHEST PA & LATERAL PA and lateral chest. HISTORY: Weakness, recent gastric bypass, nausea and vomiting PA and lateral views were taken of the chest. Lungs are clear. Heart is normal in size. There is no pleural effusion. There are changes from gastric bypass with multiple zoila in the upper abdomen. IMPRESSION: 1. No acute chest disease. Electronically signed by: Suraj Matson MD (11/14/2018 5:00 PM) [facility] DICTATED AND SIGNED BY: SURAJ MATSON MD DATE: 11/14/18 1700 CC: ELDER GUTIERREZ DO; PANCHITO ESCOBEDO ~ Review above film at shift change. [address] [address] IMAGING REPORT Signed PATIENT: NANCY JO ACCOUNT: [id number] : 1985 LOCATION: ER AGE: 32 SEX: F EXAM STATUS: REG ER ORD. PHYSICIAN: ELDER GUTIERREZ DO REASON: recent Audrey-en-Y, vomiting PROCEDURE: CT ABD PELV W/ IV CONTRST ONLY Exam performed: CT scan of the abdomen and pelvis with contrast Clinical Indication: Vomiting, recent Audrey-en-Y Date of Service: 11/14/2018 comparison: CT abdomen and pelvis from August 14, 2016 Technique: Contiguous helical acquisitions are obtained from the lung bases to the pelvis during intravenous administration of contrast]. Sagittal and coronal reformatted images were obtained and reviewed. CT abdomen findings: The lung bases appear essentially clear. Visualized heart is normal The liver, spleen and pancreas appears unremarkable. Cholecystectomy. Postoperative changes of Audrey-en-Y seen. No dilated bowel loops or perianastomotic fluid is seen. Both adrenal glands and bilateral kidneys appear normal with symmetric excretion of contrast via both kidneys. The small bowel loops appear nondilated and unremarkable. Aorta is normal in caliber. There is no retroperitoneal lymphadenopathy or mass lesions. No bowel related inflammatory stranding is noted. The urinary bladder is well distended and normal . Interrogation of bone windows demonstrates no obvious bony abnormality. Sagittal and coronal reformatted images were obtained and reviewed which demonstrate no additional findings. Impression abdomen and pelvis : 1. No acute intra-abdominal or pelvic process is detected. 2. Cholecystectomy PQRS Compliance Statement: One or more of the following individualized dose reduction techniques were utilized for this examination: 1. Automated exposure control 2. Adjustment of the mA and/or kV according to patient size 3. Use of iterative reconstruction technique Electronically signed by: Rajani Taylor MD (11/14/2018 6:40 PM) [facility] DICTATED AND SIGNED BY: RAJANI TAYLOR MD DATE: 11/14/18 7560 CC: ELDER GUTIERREZ DO; CODY MORALES MD; PANCHITO ESCOBEDO ~ Impression : 1. Hx. Rou x-en-y- 3 Weeks ago [facility] 2. Hx of Nausea and Vomiting 3. Weakness 4. Morbid Obesity 5. No current acute surgical process. 6. UTI Pt. to continue a clear fluid diet only. Frequent small meals of clear fluids. Zofran for nausea and vomiting. Call Surgery clinic for follow up. Push fruit juices. Films Clouded to [facility] for review on follow up with her surgeon and clinic. (CODY MORALES MD) Dragon Disclaimer Dragon Disclaimer This electronic medical record was generated, in whole or in part, using a voice recognition dictation system. (ELDER GUTIERREZ DO) Departure Departure: Impression: Primary Impression: Nausea and vomiting Referrals: PANCHITO ESCOBEDO (PCP) Scripts Cephalexin (KEFLEX) 500 Mg Capsule 500 MG PO TID for uti for 7 Days, BOT Prov: CODY MORALES MD 11/14/18 Ondansetron Hcl (ZOFRAN) 8 Mg Tablet 8 MG PO QIDPRN PRN for NAUSEA/VOMITING, #30 BOTTLE Prov: CODY MORALES MD 11/14/18 Discharge Summary Visit Information Final Diagnosis Problems Medical Problems: (1) Abdominal pain Status: Acute (2) Nausea and vomiting Status: Acute (3) UTI (urinary tract infection) Status: Acute (CODY MORALSE MD) Brief Hospital Course Allergies Allergies Coded Allergies Type Severity Reaction Last Updated Verified Sulfa (Sulfonamide Antibiotics) Allergy Unknown hives 07/07/17 Yes Vital Signs Vital Signs Date Time Temp Pulse Resp B/P (MAP) Pulse Ox O2 Delivery O2 Flow Rate FiO2 11/14/18 19:50 89 18 112/69 (83) 98 11/14/18 18:58 Room Air 11/14/18 16:24 98.1 Lab Results Laboratory Tests Test 11/14/18 16:37 11/14/18 16:45 White Blood Count 8.5 x10^3/uL (4.0-11.0) Red Blood Count 4.83 x10^6/uL (3.50-5.40) Hemoglobin 14.2 g/dL (12.0-15.5) Hematocrit 43.8 % (36.0-47.0) Mean Corpuscular Volume 91 fL (79-100) Mean Corpuscular Hemoglobin 29 pg (25-35) Mean Corpuscular Hemoglobin Concent 32 g/dL (31-37) Red Cell Distribution Width 15.8 % (11.5-14.5) Platelet Count 392 x10^3/uL (140-400) Neutrophils (%) (Auto) 61 % (31-73) Lymphocytes (%) (Auto) 26 % (24-48) Monocytes (%) (Auto) 11 % (0-9) Eosinophils (%) (Auto) 2 % (0-3) Basophils (%) (Auto) 1 % (0-3) Neutrophils # (Auto) 5.2 x10^3uL (1.8-7.7) Lymphocytes # (Auto) 2.2 x10^3/uL (1.0-4.8) Monocytes # (Auto) 0.9 x10^3/uL (0.0-1.1) Eosinophils # (Auto) 0.1 x10^3/uL (0.0-0.7) Basophils # (Auto) 0.1 x10^3/uL (0.0-0.2) Sodium Level 144 mmol/L (136-145) Potassium Level 3.4 mmol/L (3.5-5.1) Chloride Level 104 mmol/L (98-107) Carbon Dioxide Level 28 mmol/L (21-32) Anion Gap 12 (6-14) Blood Urea Nitrogen 12 mg/dL (7-20) Creatinine 0.7 mg/dL (0.6-1.0) Estimated GFR (Cockcroft-Gault) 98.3 BUN/Creatinine Ratio 17 (6-20) Glucose Level 105 mg/dL (70-99) Calcium Level 9.6 mg/dL (8.5-10.1) Total Bilirubin 0.3 mg/dL (0.2-1.0) Aspartate Amino Transf (AST/SGOT) 13 U/L (15-37) Alanine Aminotransferase (ALT/SGPT) 30 U/L (14-59) Alkaline Phosphatase 111 U/L (46-116) Total Protein 7.2 g/dL (6.4-8.2) Albumin 3.9 g/dL (3.4-5.0) Albumin/Globulin Ratio 1.2 (1.0-1.7) Urine Collection Type Unknown Urine Color Michelle Urine Clarity Turbid Urine pH 6.0 Urine Specific Burt 1.020 Urine Protein 100 mg/dl (NEG-TRACE) Urine Glucose (UA) Neg mg/dL (NEG) Urine Ketones (Stick) 80 mg/dL (NEG) Urine Blood Neg (NEG) Urine Nitrite Neg (NEG) Urine Bilirubin Mod (NEG) Urine Urobilinogen Dipstick 1 mg/dL (0.2 mg/dL) Urine Leukocyte Esterase Small (NEG) Urine RBC 0 /HPF (0-2) Urine WBC 5-10 /HPF (0-4) Urine Squamous Epithelial Cells Few /LPF Urine Bacteria 0 /HPF (0-FEW) Brief Hospital Course Ms. Jo is a 32 old female who presented with hx of Audrey-en-y surgery for wt. loss. Found to be mild dehydrated. (CODY MORALES MD) Discharge Information Condition at Discharge: Improved, Stable Disposition/Orders: D/C to Home Dischare Medications Current Medications Sodium Chloride 1,000 ml @ 1,000 mls/hr 1X ONCE IV Last administered on 11/14/18at 16:45; Start 11/14/18 at 16:45; Stop 11/14/18 at 17:44; Status DC Ondansetron HCl (Zofran) 4 mg STK-MED ONCE .ROUTE ; Start 11/14/18 at 16:42; Stop 11/14/18 at 16:43; Status DC Ondansetron HCl (Zofran) 8 mg 1X ONCE IV Last administered on 11/14/18at 17:30; Start 11/14/18 at 17:30; Stop 11/14/18 at 17:31; Status DC Pantoprazole Sodium (Protonix Vial) 40 mg 1X ONCE IVP Last administered on 11/14/18at 17:27; Start 11/14/18 at 17:15; Stop 11/14/18 at 17:28; Status DC Iohexol (Omnipaque 300 Mg/ml) 75 ml 1X ONCE IV Last administered on 11/14/18at 18:03; Start 11/14/18 at 17:45; Stop 11/14/18 at 17:46; Status DC Lactated Ringer's 1,000 ml @ 999 mls/hr 1X ONCE IV Last administered on 11/14/18at 18:50; Start 11/14/18 at 18:45; Stop 11/14/18 at 19:45; Status DC Cephalexin HCl (Starter Pack - Keflex Oral Susp) 1 startpack 1X ONCE PO Last administered on 11/14/18at 19:45; Start 11/14/18 at 19:00; Stop 11/14/18 at 19:01; Status DC Active Scripts Active Keflex (Cephalexin) 500 Mg Capsule 500 Mg PO TID 7 Days Zofran (Ondansetron Hcl) 8 Mg Tablet 8 Mg PO QIDPRN PRN [Percogesic] 1 PO QID PRN [[id number]/12.5 ] Tab BID PRN Prednisone 50 Mg Tablet 1 Tab PO DAILY Pepcid (Famotidine) 20 Mg Tablet 1 Tab PO BID 5 Days Doxycycline Hyclate 100 Mg Tablet 1 Tab PO BID [place] 5-325 Tablet (Hydrocodone Bit/Acetaminophen) 1 Each Tablet 1-2 Tab PO Q4- 6HRS PRN Carafate (Sucralfate) 1 Gm Tablet 1 Tab PO QID Pepcid (Famotidine) 20 Mg Tablet 1 Tab PO BID Zofran (Ondansetron Hcl) 4 Mg Tablet 4 Mg PO Q8HRS [place] 5-325 Tablet (Hydrocodone Bit/Acetaminophen) 1 Each Tablet 1 Tab PO PRN Q6HRS PRN Reported Tablet (Pnv Cmb#95/Ferrous Fumarate/Fa) 1 Each Tablet 1 Tab PO DAILY Escitalopram Oxalate 10 Mg Tablet 1 Tab PO DAILY Synthroid (Levothyroxine Sodium) 50 Mcg Tablet 1 Tab .ROUTE DAILY Sprintec (Norgestimate-Ethinyl Estradiol) 1 Each Tablet Zantac (Ranitidine Hcl) 150 Mg Tablet Topamax (Topiramate) 100 Mg Tablet Remeron (Mirtazapine) 15 Mg Tablet Seroquel (Quetiapine Fumarate) 200 Mg Tablet Tirosint (Levothyroxine Sodium) 50 Mcg Capsule (CODY MORALES MD) Dragon Disclaimer This chart was dictated in whole or in part using Voice Recognition software in a busy, high-work load, and often noisy Emergency Department environment. It may contain unintended and wholly unrecognized errors or omissions. (CODY MORALES MD) ELDER GUTIERREZ DO Nov 14, 2018 17:14 CODY MORALES MD Nov 14, 2018 18:19
[2018-11-14 17:17] LABS: BILIRUBIN,URINE MOD (NEG); CLARITY,URINE TURBID; COLOR,URINE AMBER; GLUCOSE,URINE NEG (NEG); NITRITE,URINE NEG (NEG); UROBILINOGEN,URINE 1 mg/dL (0.2 mg/dL)
[2018-11-14 17:18] LABS: BACTERIA,URINE 0 /HPF (0-FEW); RBC,URINE 0 /HPF (0-2); SQUAMOUS EPITHELIAL CELL,UR FEW /LPF
[2018-11-14] MEDS: PANTOPRAZOLE IV 40 MG VIAL. IVP ONE (17:27)
[2018-11-14] MEDS: ONDANSETRON PF 4 MG/2 ML VIAL. IV ONE (17:30)
[2018-11-14] MEDS: IOHEXOL 300 MG/ML 75 ML VIAL. IV ONE (18:03)
--- NOTE | 2018-11-14 18:42 | RAD ---
Exam performed: CT scan of the abdomen and pelvis with contrast Clinical Indication: Vomiting, recent Audrey-en-Y Date of Service: 11/14/2018 comparison: CT abdomen and pelvis from August 14, 2016 Technique: Contiguous helical acquisitions are obtained from the lung bases to the pelvis during intravenous administration of contrast]. Sagittal and coronal reformatted images were obtained and reviewed. CT abdomen findings: The lung bases appear essentially clear. Visualized heart is normal The liver, spleen and pancreas appears unremarkable. Cholecystectomy. Postoperative changes of Audrey-en-Y seen. No dilated bowel loops or perianastomotic fluid is seen. Both adrenal glands and bilateral kidneys appear normal with symmetric excretion of contrast via both kidneys. The small bowel loops appear nondilated and unremarkable. Aorta is normal in caliber. There is no retroperitoneal lymphadenopathy or mass lesions. No bowel related inflammatory stranding is noted. The urinary bladder is well distended and normal . Interrogation of bone windows demonstrates no obvious bony abnormality. Sagittal and coronal reformatted images were obtained and reviewed which demonstrate no additional findings. Impression abdomen and pelvis : 1. No acute intra-abdominal or pelvic process is detected. 2. Cholecystectomy PQRS Compliance Statement: One or more of the following individualized dose reduction techniques were utilized for this examination: 1. Automated exposure control 2. Adjustment of the mA and/or kV according to patient size 3. Use of iterative reconstruction technique Electronically signed by: Rajani Taylor MD (11/14/2018 6:40 PM) [facility]
[2018-11-14] MEDS: IV RINGERS SOLUTION,LACTATED 1,000 ML IV ONE (18:50)
[2018-11-14] MEDS ORDERED: ONDA8TAB9 PO (18:54)
[2018-11-14] MEDS ORDERED: CEPH-264 PO (18:58)
[2018-11-14] MEDS: CEPHALEXN 250MG/5ML ORAL.SUSP 100ML BOTTLE STARTER PACK. PO ONE (19:45)
[2018-11-14 19:50] VITALS: BP 112/69
== END 2018-11-14 19:50 | disposition home or self-care (01) ==
LOC: ER 16:00
DX: N39.0 Urinary tract infection, site not specified (principal); R19.7 Diarrhea, unspecified; E66.01 Morbid (severe) obesity due to excess calories; Z68.42 Body mass index [BMI] 45.0-49.9, adult; Z87.891 Personal history of nicotine dependence; Z98.84 Bariatric surgery status; Z90.49 Acquired absence of other specified parts of digestive tract; Z88.2 Allergy status to sulfonamides
CPT/HCPCS: 36415; 71046; 74177; 80053; 81001; 85025; 87086; 96361; 96374; 96375; 99285; C9113; J2405; J7120; Q9967; J7030

== ENCOUNTER 2018-12-15 20:27 | Emergency (ER) | payer OTHER ==
[~2018-12-15] VITALS: Ht 167.6 cm; Wt 119.1 kg
[~2018-12-15 20:27] MED LIST changes: +CEPH-264 PO; +ONDA8TAB9 PO
[2018-12-15] MEDS ORDERED: IV NORMAL SALINE 1,000ML 1,000 ML IV SCH (20:48)
[2018-12-15] MEDS ORDERED: KETOROLAC 30 MG/ML VIAL. IV ONE (21:00)
[2018-12-15 21:03] LABS: BASO # 0.1 x10^3/uL (0.0-0.2); BASO % 1 % (0-3); EOS # 0.1 x10^3/uL (0.0-0.7); EOS % 2 % (0-3); HEMATOCRIT 43.8 % (36.0-47.0); HEMOGLOBIN 14.7 g/dL (12.0-15.5); LYMPH # 3.7 x10^3/uL (1.0-4.8); LYMPH % 49 % (24-48); MEAN CORPUSCULAR HEMOGLOBIN 30 pg (25-35); MEAN CORPUSCULAR HGB CONC 34 g/dL (31-37); MEAN CORPUSCULAR VOLUME 91 fL (79-100); MONO # 0.8 x10^3/uL (0.0-1.1); MONO % 10 % (0-9); NEUT % 39 % (31-73); PLATELET COUNT 333 x10^3/uL (140-400); RED BLOOD COUNT 4.82 x10^6/uL (3.50-5.40); RED CELL DISTRIBUTION WIDTH 16.1 % (11.5-14.5); WHITE BLOOD COUNT 7.7 x10^3/uL (4.0-11.0)
[2018-12-15 21:13] LABS: ALBUMIN 3.7 g/dL (3.4-5.0); CALCIUM 9.3 mg/dL (8.5-10.1); CREATININE 0.7 mg/dL (0.6-1.0); GFR 97.6; TOTAL BILIRUBIN 0.4 mg/dL (0.2-1.0); TOTAL PROTEIN 7.4 g/dL (6.4-8.2)
[2018-12-15 21:17] LABS: POTASSIUM 2.7 mmol/L (3.5-5.1)
[2018-12-15] MEDS ORDERED: POTASSIUM CHLORIDE 20 MEQ PACKET. PO ONE (21:30)
--- NOTE | 2018-12-15 22:03 | RAD ---
PORTABLE CHEST 1V History: Chest wall pain Comparison: November 14, 2018 Findings: Single view of the chest is submitted. There is no infiltrate, pneumothorax, or effusion. The pericardial cardiac silhouette is within normal limits in size. Impression: 1. There is no radiographic evidence of acute cardiopulmonary disease. Electronically signed by: Teddy Newton MD (12/15/2018 10:00 PM) [facility]
[2018-12-15 22:41] VITALS: BP 134/75
[2018-12-15] MEDS ORDERED: METOCLOPRAMIDE HCL 10 MG/2 ML VIAL. IV ONE (22:45)
[2018-12-15] MEDS ORDERED: IV NORMAL SALINE 1,000ML 1,000 ML IV ONE (22:45)
[2018-12-15] MEDS ORDERED: diphenhydrAMINE 50 MG/ML VIAL IVP ONE (22:45)
[2018-12-15 23:12] LABS: BILIRUBIN,URINE NEG (NEG); CLARITY,URINE CLOUDY; COLOR,URINE AMBER; GLUCOSE,URINE NEG (NEG)
[2018-12-15 23:13] LABS: BACTERIA,URINE MOD /HPF (0-FEW); NITRITE,URINE NEG (NEG); RBC,URINE 0 /HPF (0-2); SQUAMOUS EPITHELIAL CELL,UR OCC /LPF; UROBILINOGEN,URINE 4 mg/dL (0.2 mg/dL)
--- NOTE | 2018-12-16 05:40 | PHYS DOC ---
Past History Past Medical History: Ovarian Cyst Past Surgical History: Cholecystectomy, Gastric Bypass Smoking: Cigarettes, Less than 1pk/day, Quit Greater Than 1 Year Alcohol Use: None Drug Use: None Adult General Chief Complaint Chief Complaint: ABDOMINAL PAIN HPI HPI Nausea and vomiting as well as diarrhea. She also complains of chest tightness and pain in her right lower ribs. She describes pain in her ribs as sharp and stabbing in nature and states the pain is worsened if she moves her right arm or if she takes in a deep breath or twists. She denies any cough or shortness of breath. She also denies any fever. Patient rates pain at a 6-7 out of 10. She states that nothing is improving the pain.[] Review of Systems Review of Systems Constitutional: Denies fever or chills [] Respiratory: Denies cough or shortness of breath [] Cardiovascular: No additional information not addressed in HPI [] GI: Imperial of nausea with vomiting and diarrhea [] Musculoskeletal: Positive right rib pain [] Integument: Denies rash or skin lesions [] All other systems were reviewed and found to be within normal limits, except as documented in this note. Current Medications Current Medications Current Medications Medications (Trade) Dose Ordered Sig/Mahad Start Time Stop Time Status Last Admin Dose Admin Diphenhydramine HCl (Benadryl) 25 mg 1X ONCE 12/15/18 22:45 12/15/18 22:46 DC 12/15/18 22:34 25 MG Ketorolac Tromethamine (Toradol 30mg Vial) 30 mg 1X ONCE 12/15/18 21:00 12/15/18 21:01 DC 12/15/18 21:06 30 MG Metoclopramide HCl (Reglan Vial) 10 mg 1X ONCE 12/15/18 22:45 12/15/18 22:46 DC 12/15/18 22:34 10 MG Potassium Chloride (Klor-Con Packet) 40 meq 1X ONCE 12/15/18 21:30 12/15/18 21:31 DC 12/15/18 21:36 40 MEQ Sodium Chloride 1,000 ml @ 1,000 mls/hr 1X ONCE 12/15/18 22:45 12/15/18 23:35 DC 12/15/18 22:34 1,000 MLS/HR Allergies Allergies Allergies Coded Allergies Type Severity Reaction Last Updated Verified Iodinated Contrast Media Allergy Intermediate 12/15/18 Yes Sulfa (Sulfonamide Antibiotics) Allergy Unknown hives 07/07/17 Yes ibuprofen Allergy Unknown 12/15/18 Yes Physical Exam Physical Exam Constitutional: Well developed, well nourished, no acute distress, non-toxic appearance. [] HENT: Normocephalic, atraumatic, bilateral external ears normal, oropharynx moist, no oral exudates, nose normal. [] Eyes: PERRLA, EOMI, conjunctiva normal, no discharge. [] Neck: Normal range of motion, no tenderness, supple, no stridor. [] Cardiovascular:Heart rate regular rhythm, no murmur [] Lungs & Thorax: Bilateral breath sounds clear to auscultation. Right lower rib margin is tender on palpation. [] Abdomen: Bowel sounds normal, soft, no tenderness. [] Skin: Warm, dry, no erythema, no rash. [] Extremities: No tenderness, no cyanosis, no clubbing, ROM intact, no edema. [] Neurologic: Alert and oriented X 3, no focal deficits noted. [] Current Patient Data Vital Signs Vital Signs Date Time Temp Pulse Resp B/P (MAP) Pulse Ox O2 Delivery O2 Flow Rate FiO2 12/15/18 22:41 81 16 134/75 (94) 97 Room Air 12/15/18 20:30 98.2 Lab Results Laboratory Tests Test 12/15/18 20:39 12/15/18 22:25 12/15/18 22:42 White Blood Count 7.7 x10^3/uL (4.0-11.0) Red Blood Count 4.82 x10^6/uL (3.50-5.40) Hemoglobin 14.7 g/dL (12.0-15.5) Hematocrit 43.8 % (36.0-47.0) Mean Corpuscular Volume 91 fL (79-100) Mean Corpuscular Hemoglobin 30 pg (25-35) Mean Corpuscular Hemoglobin Concent 34 g/dL (31-37) Red Cell Distribution Width 16.1 % (11.5-14.5) H Platelet Count 333 x10^3/uL (140-400) Neutrophils (%) (Auto) 39 % (31-73) Lymphocytes (%) (Auto) 49 % (24-48) H Monocytes (%) (Auto) 10 % (0-9) H Eosinophils (%) (Auto) 2 % (0-3) Basophils (%) (Auto) 1 % (0-3) Neutrophils # (Auto) 3.0 x10^3uL (1.8-7.7) Lymphocytes # (Auto) 3.7 x10^3/uL (1.0-4.8) Monocytes # (Auto) 0.8 x10^3/uL (0.0-1.1) Eosinophils # (Auto) 0.1 x10^3/uL (0.0-0.7) Basophils # (Auto) 0.1 x10^3/uL (0.0-0.2) D-Dimer ([place]) 0.45 mg/L (0.00-0.50) Sodium Level 142 mmol/L (136-145) Potassium Level 2.7 mmol/L (3.5-5.1) *L Chloride Level 105 mmol/L (98-107) Carbon Dioxide Level 29 mmol/L (21-32) Anion Gap 8 (6-14) Blood Urea Nitrogen 9 mg/dL (7-20) Creatinine 0.7 mg/dL (0.6-1.0) Estimated GFR (Cockcroft-Gault) 97.6 BUN/Creatinine Ratio 13 (6-20) Glucose Level 92 mg/dL (70-99) Calcium Level 9.3 mg/dL (8.5-10.1) Total Bilirubin 0.4 mg/dL (0.2-1.0) Aspartate Amino Transferase (AST) 38 U/L (15-37) H Alanine Aminotransferase (ALT) 47 U/L (14-59) Alkaline Phosphatase 101 U/L (46-116) Troponin I Quantitative 0.017 ng/mL (0-0.055) Total Protein 7.4 g/dL (6.4-8.2) Albumin 3.7 g/dL (3.4-5.0) Albumin/Globulin Ratio 1.0 (1.0-1.7) Lipase 98 U/L (73-393) Urine Collection Type Unknown Urine Color Michelle Urine Clarity Cloudy Urine pH 6.5 Urine Specific [place] 1.025 Urine Protein 30 mg/dl (NEG-TRACE) Urine Glucose (UA) Neg mg/dL (NEG) Urine Ketones (Stick) 15 mg/dL (NEG) Urine Blood Neg (NEG) Urine Nitrite Neg (NEG) Urine Bilirubin Neg (NEG) Urine Urobilinogen Dipstick 4 mg/dL (0.2 mg/dL) Urine Leukocyte Esterase Trace (NEG) Urine RBC 0 /HPF (0-2) Urine WBC 11-20 /HPF (0-4) Urine Squamous Epithelial Cells Occ /LPF Urine Bacteria Mod /HPF (0-FEW) Urine Mucus Mod /LPF POC Urine HCG, Qualitative hcg negative (Negative) EKG EKG EKG demonstrates normal sinus rhythm with no ST segment abnormalities.[] Radiology/Procedures Radiology/Procedures [] Impressions: PORTABLE CHEST 1V History: Chest wall pain Comparison: November 14, 2018 Findings: Single view of the chest is submitted. There is no infiltrate, pneumothorax, or effusion. The pericardial cardiac silhouette is within normal limits in size. Impression: 1. There is no radiographic evidence of acute cardiopulmonary disease. Electronically signed by: Teddy Newton MD (12/15/2018 10:00 PM) [facility] Course & Med Decision Making Course & Med Decision Making Pertinent Labs and Imaging studies reviewed. (See chart for details) [] Dragon Disclaimer Dragon Disclaimer This electronic medical record was generated, in whole or in part, using a voice recognition dictation system. Departure Departure: Impression: Primary Impression: Left against medical advice Additional Impressions: Nausea and vomiting Chest wall pain Disposition: 07 AGAINST MEDICAL ADVICE Condition: STABLE Referrals: PANCHITO ESCOBEDO (PCP) Problem Qualifiers Additional Impressions: Nausea and vomiting Vomiting type: unspecified Vomiting Intractability: non-intractable Qualified Codes: R11.2 - Nausea with vomiting, unspecified ONIEL VILLAR Jr. DO Dec 16, 2018 05:40
--- NOTE | 2018-12-16 07:24 | EKG ---
[address] [address] Test Date: 2018-12-15 Test Time: 20:41:55 Pat Name: NANCY DESAI Department: Room: Gender: F [employer] Representative: KEYUR : 1985 Requested By: ONIEL VILLAR Order Number: [id number] Reading MD: Mitch Price MD Measurements Intervals [place] Rate: 82 P: 23 IL: 136 QRS: -28 QRSD: 98 T: 7 QT: 392 QTc: 461 Interpretive Statements SINUS RHYTHM Electronically Signed On 12-16-2018 14:16:22 CDT by Mitch Price MD
== END 2018-12-15 22:55 | disposition left against medical advice (07) ==
LOC: ER 20:27
DX: R11.2 Nausea with vomiting, unspecified (principal); R07.81 Pleurodynia; R19.7 Diarrhea, unspecified; Z90.49 Acquired absence of other specified parts of digestive tract; Z98.84 Bariatric surgery status; Z87.891 Personal history of nicotine dependence; Z91.041 Radiographic dye allergy status; Z88.2 Allergy status to sulfonamides; Z88.6 Allergy status to analgesic agent
CPT/HCPCS: 36415; 71045; 80053; 81001; 81025; 83690; 84484; 85025; 85379; 87086; 93005; 96361; 96374; 96375; 99285; J1200; J1885; J2765; J7030

== ENCOUNTER 2019-02-09 15:51 | Emergency (ER) | payer OTHER ==
[2019-02-09 16:27] LABS: BASO # 0.1 x10^3/uL (0.0-0.2); BASO % 1 % (0-3); EOS # 0.1 x10^3/uL (0.0-0.7); EOS % 2 % (0-3); HEMOGLOBIN 13.7 g/dL (12.0-15.5); LYMPH # 2.6 x10^3/uL (1.0-4.8); LYMPH % 27 % (24-48); MEAN CORPUSCULAR HEMOGLOBIN 31 pg (25-35); MEAN CORPUSCULAR HGB CONC 34 g/dL (31-37); MEAN CORPUSCULAR VOLUME 93 fL (79-100); MONO # 0.8 x10^3/uL (0.0-1.1); MONO % 9 % (0-9); NEUT % 62 % (31-73); PLATELET COUNT 340 x10^3/uL (140-400); RED CELL DISTRIBUTION WIDTH 16.3 % (11.5-14.5); WHITE BLOOD COUNT 9.7 x10^3/uL (4.0-11.0)
[2019-02-09 16:33] LABS: BARBITURATES NEG (NEG); BENZODIAZEPINES POS (NEG); CANNABINOIDS NEG (NEG); COCAINE NEG (NEG); METHADONE NEG (NEG); OPIATES NEG (NEG); PHENCYCLIDINE NEG (NEG)
[2019-02-09 16:36] LABS: ALBUMIN 3.6 g/dL (3.4-5.0); CALCIUM 8.9 mg/dL (8.5-10.1); CREATININE 0.6 mg/dL (0.6-1.0); GFR 116.6; POTASSIUM 3.8 mmol/L (3.5-5.1); TOTAL BILIRUBIN 0.2 mg/dL (0.2-1.0); TOTAL PROTEIN 7.2 g/dL (6.4-8.2)
[2019-02-09 16:39] LABS: CLARITY,URINE HAZY; COLOR,URINE STRAW
[2019-02-09 16:41] LABS: BACTERIA,URINE MOD /HPF (0-FEW); BILIRUBIN,URINE NEG (NEG); GLUCOSE,URINE NEG (NEG); NITRITE,URINE NEG (NEG); RBC,URINE OCC /HPF (0-2); SQUAMOUS EPITHELIAL CELL,UR FEW /LPF; UROBILINOGEN,URINE 0.2 mg/dL (0.2 mg/dL)
[2019-02-09 16:42] LABS: AMPHETAMINE/METHAMPHETAMINE NEG (NEG)
[2019-02-09 16:59] LABS: U PREG PATIENT NEGATIVE (NEG)
--- NOTE | 2019-02-09 17:04 | PHYS DOC ---
Past History Past Medical History: Depression Past Surgical History: Cholecystectomy, Other Additional Past Surgical Histo: gastric sleeve in october 2018 Smoking: Cigarettes, Less than 1pk/day, Quit Greater Than 1 Year Alcohol Use: None Drug Use: None Adult General Chief Complaint Chief Complaint: SUICDAL IDEATION [facility] HPI Patient is a 33-year-old female who presents from mental health provider's office with report of suicidal ideation. Patient states that she has been having thoughts of suicide for approximately a month, since losing custody of her son. Patient states that feelings of suicide have been increasing lately and states that she would either cut herself or she would drive into a river. She denies any chest pain or shortness breath. She denies any homicidal ideations.[] Review of Systems Review of Systems Constitutional: Denies fever or chills [] Respiratory: Denies cough or shortness of breath [] Cardiovascular: No additional information not addressed in HPI [] GI: Denies abdominal pain, nausea, vomiting, bloody stools or diarrhea [] Integument: Denies rash or skin lesions [] Neurologic: Denies headache, focal weakness or sensory changes [] Psychiatric: Positive depression and suicidal ideation[] All other systems were reviewed and found to be within normal limits, except as documented in this note. Allergies Allergies Allergies Coded Allergies Type Severity Reaction Last Updated Verified Iodinated Contrast Media Allergy Intermediate 12/15/18 Yes Sulfa (Sulfonamide Antibiotics) Allergy Unknown hives 07/07/17 Yes ibuprofen Allergy Unknown 12/15/18 Yes Physical Exam Physical Exam Constitutional: Well developed, well nourished, no acute distress, non-toxic appearance. [] HENT: Normocephalic, atraumatic, bilateral external ears normal, oropharynx moist, no oral exudates, nose normal. [] Eyes: PERRLA, EOMI, conjunctiva normal, no discharge. [] Neck: Normal range of motion, no tenderness, supple, no stridor. [] Cardiovascular: Regular rate and rhythm[] Lungs & Thorax: Bilateral breath sounds clear to auscultation [] Abdomen: Bowel sounds normal, soft, no tenderness. [] Skin: Warm, dry, no erythema, no rash. [] Extremities: No tenderness, no cyanosis, no clubbing, ROM intact, no edema. [] Neurologic: Alert and oriented X 3, normal motor function, normal sensory function, no focal deficits noted. [] Psychologic: Flattened affect with depressed mood. [] Current Patient Data Vital Signs Vital Signs Date Time Temp Pulse Resp B/P (MAP) Pulse Ox O2 Delivery O2 Flow Rate FiO2 02/09/19 16:17 92 18 97 Room Air Lab Results Laboratory Tests Test 02/09/19 16:00 02/09/19 16:08 Urine Test Negative (NEG) White Blood Count 9.7 x10^3/uL (4.0-11.0) Red Blood Count 4.40 x10^6/uL (3.50-5.40) Hemoglobin 13.7 g/dL (12.0-15.5) Hematocrit 41.0 % (36.0-47.0) Mean Corpuscular Volume 93 fL (79-100) Mean Corpuscular Hemoglobin 31 pg (25-35) Mean Corpuscular Hemoglobin Concent 34 g/dL (31-37) Red Cell Distribution Width 16.3 % (11.5-14.5) H Platelet Count 340 x10^3/uL (140-400) Neutrophils (%) (Auto) 62 % (31-73) Lymphocytes (%) (Auto) 27 % (24-48) Monocytes (%) (Auto) 9 % (0-9) Eosinophils (%) (Auto) 2 % (0-3) Basophils (%) (Auto) 1 % (0-3) Neutrophils # (Auto) 6.0 x10^3uL (1.8-7.7) Lymphocytes # (Auto) 2.6 x10^3/uL (1.0-4.8) Monocytes # (Auto) 0.8 x10^3/uL (0.0-1.1) Eosinophils # (Auto) 0.1 x10^3/uL (0.0-0.7) Basophils # (Auto) 0.1 x10^3/uL (0.0-0.2) Urine Collection Type Unknown Urine Color Straw Urine Clarity Hazy Urine pH 5.0 Urine Specific [place] <=1.005 Urine Protein Neg (NEG-TRACE) Urine Glucose (UA) Neg mg/dL (NEG) Urine Ketones (Stick) Neg mg/dL (NEG) Urine Blood Neg (NEG) Urine Nitrite Neg (NEG) Urine Bilirubin Neg (NEG) Urine Urobilinogen Dipstick 0.2 mg/dL (0.2 mg/dL) Urine Leukocyte Esterase Small (NEG) Urine RBC Occ /HPF (0-2) Urine WBC 11-20 /HPF (0-4) Urine Squamous Epithelial Cells Few /LPF Urine Bacteria Mod /HPF (0-FEW) Sodium Level 140 mmol/L (136-145) Potassium Level 3.8 mmol/L (3.5-5.1) Chloride Level 107 mmol/L (98-107) Carbon Dioxide Level 25 mmol/L (21-32) Anion Gap 8 (6-14) Blood Urea Nitrogen 8 mg/dL (7-20) Creatinine 0.6 mg/dL (0.6-1.0) Estimated GFR (Cockcroft-Gault) 116.6 BUN/Creatinine Ratio 13 (6-20) Glucose Level 97 mg/dL (70-99) Calcium Level 8.9 mg/dL (8.5-10.1) Total Bilirubin 0.2 mg/dL (0.2-1.0) Aspartate Amino Transferase (AST) 36 U/L (15-37) Alanine Aminotransferase (ALT) 47 U/L (14-59) Alkaline Phosphatase 109 U/L (46-116) Total Protein 7.2 g/dL (6.4-8.2) Albumin 3.6 g/dL (3.4-5.0) Albumin/Globulin Ratio 1.0 (1.0-1.7) Urine Opiates Screen Neg (NEG) Urine Methadone Screen Neg (NEG) Urine Barbiturates Neg (NEG) Urine Phencyclidine Screen Neg (NEG) Urine Amphetamine/Methamphetamine Neg (NEG) Urine Benzodiazepines Screen Pos (NEG) Urine Cocaine Screen Neg (NEG) Urine Cannabinoids Screen Neg (NEG) Ethyl Alcohol Level < 10 mg/dL (0-10) Urine Ethyl Alcohol Neg (NEG) EKG EKG [] Radiology/Procedures Radiology/Procedures [] Course & Med Decision Making Course & Med Decision Making Pertinent Labs and Imaging studies reviewed. (See chart for details) [] Dragon Disclaimer Dragon Disclaimer This electronic medical record was generated, in whole or in part, using a voice recognition dictation system. Departure Departure: Impression: Primary Impression: Depression with suicidal ideation Disposition: HOME/RESIDENCE PRIOR TO ADM Condition: STABLE Referrals: PANCHITO ESCOBEDO (PCP) ONIEL VILLAR Jr. DO Feb 09, 2019 17:04
[2019-02-10 01:00] VITALS: BP 138/67
== END 2019-02-10 03:07 | disposition home or self-care (01) ==
LOC: ER 15:51
DX: F32.9 Major depressive disorder, single episode, unspecified (principal); R45.851 Suicidal ideations; Z87.891 Personal history of nicotine dependence; Z88.2 Allergy status to sulfonamides; Z88.6 Allergy status to analgesic agent; Z91.041 Radiographic dye allergy status
CPT/HCPCS: 36415; 80053; 80307; 81001; 81025; 85025; 87086; 99285; G0480

== ENCOUNTER 2019-02-20 18:34 | Emergency (ER) | payer OTHER ==
[~2019-02-20] VITALS: Ht 167.6 cm; Wt 119.1 kg
--- NOTE | 2019-02-20 18:38 | ED.ADGEN ---
Past History Past Medical History: Anxiety, Bipolar, Depression, Ovarian Cyst, Other Past Surgical History: Cholecystectomy, Other Additional Past Surgical Histo: gastric bypass in october 2018 Smoking: Cigarettes, Less than 1pk/day, Quit Greater Than 1 Year Alcohol Use: None Drug Use: None Adult General Chief Complaint Chief Complaint ".. I had this back pain since Thursday.. it up here .. and so bad I vomited.. .. ".. " pain is here in my Rt. flank.. I can't take it..." HPI HPI Patient is a 33 year old female who presents with above hx and complaints of severe Rt flank Back Flank pain , nausea vomiting. Pain is rated 10/10. Pain onset was last Thursday. Pain in the areas on her right flank and radiates down into her abdomen and almost into her pelvis.. Patient denies any trauma. Patient denies any history immunosuppression. No recent change in meds. Patient did have a gastric bypass in October of this year and has had no sequela since the bypass. Patient recently a course of Cipro on Thursday for a UTI. Patient denies any bad food. Pt. states pain has gotten so bad she can't sleep. 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 Patient normally follows with Dr. Jernigan. Patient does have a history of bipolar, anxiety, panic- disorder and depression. She does smoke. No history of illicit drug use. Patient denies any change in her bowel habits. Did have an episode nausea and vomiting after eating fried rice. Patient denies any history of renal stones with her or family members.. Review of Systems Review of Systems Constitutional: Denies fever or chills [] Eyes: Denies change in visual acuity, redness, or eye pain [] HENT: Denies nasal congestion or sore throat [] Respiratory: Denies cough or shortness of breath [] Cardiovascular: No additional information not addressed in HPI [] GI: Complaints of severe right flank abdominal pain, nausea, vomiting. Denies, bloody stools or diarrhea [] : Denies dysuria or hematuria [] Musculoskeletal: Complains of right flank back pain . Integument: Denies rash or skin lesions [] Neurologic: Denies headache, focal weakness or sensory changes [] Endocrine: Denies polyuria or polydipsia [] All other systems were reviewed and found to be within normal limits, except as documented in this note. Family History Family History Noncontributory Current Medications Current Medications Current Medications Medications (Trade) Dose Ordered Sig/Mahad Start Time Stop Time Status Last Admin Dose Admin Ceftriaxone Sodium 1 gm/ Sodium Chloride 50 ml @ 100 mls/hr 1X ONCE 02/20/19 20:15 02/20/19 20:45 DC 02/20/19 20:21 100 MLS/HR Ceftriaxone Sodium (Rocephin) 1 gm STK-MED ONCE 02/20/19 20:18 02/20/19 20:18 DC Famotidine (Pepcid Vial) 20 mg 1X ONCE 02/20/19 19:15 02/20/19 19:16 DC 02/20/19 19:33 20 MG Ketorolac Tromethamine (Toradol 30mg Vial) 30 mg 1X ONCE 02/20/19 21:00 02/20/19 21:01 DC 02/20/19 21:00 30 MG Lactated Ringer's 1,000 ml @ 200 mls/hr CONT 02/21/19 01:45 02/21/19 02:05 DC Lorazepam (Ativan Inj) 2 mg STK-MED ONCE 02/21/19 01:57 02/21/19 01:58 DC Magnesium Hydroxide (Milk Of Magnesia) 2,400 mg 1X ONCE 02/20/19 21:00 02/20/19 21:01 DC 02/20/19 21:02 2,400 MG Morphine Sulfate (Morphine 10mg Syringe) 10 mg 1X ONCE 02/21/19 00:30 02/21/19 00:31 DC 02/21/19 00:43 10 MG Ondansetron HCl (Zofran) 8 mg 1X ONCE 02/20/19 19:15 02/20/19 19:16 DC 02/20/19 19:34 8 MG Sodium Chloride 50 ml @ As Directed STK-MED ONCE 02/20/19 20:18 02/20/19 20:18 DC Allergies Allergies Allergies Coded Allergies Type Severity Reaction Last Updated Verified Sulfa (Sulfonamide Antibiotics) Allergy Intermediate hives 02/10/19 Yes ibuprofen Allergy Intermediate 02/10/19 Yes yellow dye Allergy Intermediate 02/10/19 Yes Physical Exam Physical Exam Constitutional: pt. reports she is in acute distress, non-toxic appearance. [] HENT: Normocephalic, atraumatic, bilateral external ears normal, oropharynx moist, no oral exudates, nose normal. [] Eyes: PERRLA, EOMI, conjunctiva normal, no discharge. [] Neck: Normal range of motion, no tenderness, supple, no stridor. [] Cardiovascular:Heart rate regular rhythm, no murmur [] Lungs & Thorax: Bilateral breath sounds equal at apex with scattered wheezes on auscultation [] Abdomen: Bowel sounds normal, soft, right flank tenderness, no masses, no pulsatile masses. [Old surgery scars. Obese. Rebound to right flank. Distended. Skin: Warm, dry, no erythema, no rash. [] Tattoos. Back: No tenderness, right CVA tenderness. [] Extremities: No tenderness, no cyanosis, no clubbing, ROM intact, no edema. [] No cording appreciated in legs. Neurologic: Alert and oriented X 3, normal motor function, normal sensory function, no focal deficits noted. [] Psychologic: Affect anxious, judgement normal, mood normal. [] Current Patient Data Vital Signs Vital Signs Date Time Temp Pulse Resp B/P (MAP) Pulse Ox O2 Delivery O2 Flow Rate FiO2 02/21/19 01:16 73 18 120/62 (81) 99 Room Air 02/20/19 18:45 98.1 Lab Results Laboratory Tests Test 02/20/19 19:02 02/20/19 19:24 02/20/19 20:08 02/21/19 01:30 Urine Collection Type Unknown Urine Color Michelle Urine Clarity Cloudy Urine pH 5.5 Urine Specific [place] >=1.030 Urine Protein 30 mg/dl (NEG-TRACE) Urine Glucose (UA) Neg mg/dL (NEG) Urine Ketones (Stick) Trace mg/dL (NEG) Urine Blood Large (NEG) Urine Nitrite Neg (NEG) Urine Bilirubin Neg (NEG) Urine Urobilinogen Dipstick 0.2 mg/dL (0.2 mg/dL) Urine Leukocyte Esterase Trace (NEG) Urine RBC 11-20 /HPF (0-2) Urine WBC 5-10 /HPF (0-4) Urine Squamous Epithelial Cells Mod /LPF Urine Bacteria Few /HPF (0-FEW) Urine Mucus Marked /LPF Urine Opiates Screen Neg (NEG) Urine Methadone Screen Neg (NEG) Urine Barbiturates Neg (NEG) Urine Phencyclidine Screen Neg (NEG) Urine Amphetamine/Methamphetamine Neg (NEG) Urine Benzodiazepines Screen Pos (NEG) Urine Cocaine Screen Neg (NEG) Urine Cannabinoids Screen Neg (NEG) Urine Ethyl Alcohol Neg (NEG) White Blood Count 7.5 x10^3/uL (4.0-11.0) Red Blood Count 4.22 x10^6/uL (3.50-5.40) Hemoglobin 13.0 g/dL (12.0-15.5) Hematocrit 39.7 % (36.0-47.0) Mean Corpuscular Volume 94 fL (79-100) Mean Corpuscular Hemoglobin 31 pg (25-35) Mean Corpuscular Hemoglobin Concent 33 g/dL (31-37) Red Cell Distribution Width 15.7 % (11.5-14.5) H Platelet Count 314 x10^3/uL (140-400) Neutrophils (%) (Auto) 56 % (31-73) Lymphocytes (%) (Auto) 33 % (24-48) Monocytes (%) (Auto) 8 % (0-9) Eosinophils (%) (Auto) 2 % (0-3) Basophils (%) (Auto) 1 % (0-3) Neutrophils # (Auto) 4.2 x10^3uL (1.8-7.7) Lymphocytes # (Auto) 2.5 x10^3/uL (1.0-4.8) Monocytes # (Auto) 0.6 x10^3/uL (0.0-1.1) Eosinophils # (Auto) 0.1 x10^3/uL (0.0-0.7) Basophils # (Auto) 0.1 x10^3/uL (0.0-0.2) Prothrombin Time 10.7 SEC (9.4-11.4) Prothrombin Time INR 1.0 (0.9-1.1) Activated Partial Thromboplast Time 24 SEC (23-33) Sodium Level 143 mmol/L (136-145) Potassium Level 3.4 mmol/L (3.5-5.1) L Chloride Level 107 mmol/L (98-107) Carbon Dioxide Level 26 mmol/L (21-32) Anion Gap 10 (6-14) Blood Urea Nitrogen 17 mg/dL (7-20) Creatinine 0.7 mg/dL (0.6-1.0) Estimated GFR (Cockcroft-Gault) 97.6 Glucose Level 115 mg/dL (70-99) H Calcium Level 8.9 mg/dL (8.5-10.1) Total Bilirubin 0.3 mg/dL (0.2-1.0) Direct Bilirubin 0.1 mg/dL (0.0-0.2) Aspartate Amino Transferase (AST) 38 U/L (15-37) H Alanine Aminotransferase (ALT) 53 U/L (14-59) Alkaline Phosphatase 109 U/L (46-116) Creatine Kinase 62 U/L (26-192) Troponin I Quantitative < 0.017 ng/mL (0-0.055) < 0.017 ng/mL (0-0.055) Total Protein 7.0 g/dL (6.4-8.2) Albumin 3.4 g/dL (3.4-5.0) Amylase Level 27 U/L (25-115) Lipase 64 U/L (73-393) L POC Urine HCG, Qualitative hcg negative (Negative) EKG EKG My interpretation EKG shows a sinus rhythm at 73 bpm. No acute morphology[] Radiology/Procedures Radiology/[place] [address] IMAGING REPORT Signed PATIENT: NANCY DESAI ACCOUNT: [id number] : 1985 LOCATION: ER AGE: 33 SEX: F EXAM STATUS: REG ER ORD. PHYSICIAN: CODY MOORE MD REASON: 5 cm Ovarian cyst, hx hematuria, PROCEDURE: TRANSVAGINAL Transvaginal ultrasound the pelvis. HISTORY: Ovarian cysts, history hematuria Transvaginal ultrasound was used to evaluate the pelvis. There is fluid in the endocervical canal. Uterus measures 7.9 x 3.4 cm. There is an intrauterine contraceptive device with shadowing. There is a 3.4 x 3.1 x 4.5 cm right ovarian cyst. There are septations at one margin. A hemorrhagic cyst is possible, cystic tumor is possible. There is flow about the margin of the lesion. There is not flow with color imaging or Doppler at the septation. A uterine mass is not identified. Left ovary was normal measuring 2.2 x 2.6 x 2.1 cm with small complicated cysts or hemorrhagic follicles. IMPRESSION: 1. Right ovarian cyst with septations, a follow-up would be necessary to exclude a cystic tumor versus a complicated or hemorrhagic cyst. 2. Intrauterine contraceptive device in normal position. 3. Normal left ovary. Electronically signed by: Suraj Matson MD (02/20/2019 11:02 PM) [email or web address] DICTATED AND SIGNED BY: SURAJ MATSON MD DATE: 02/20/192301 CC: CODY MOORE MD; PANCHITO JERNIGAN ~ [address] [address] IMAGING REPORT Signed PATIENT: NANCY DESAI ACCOUNT: [id number] : 1985 LOCATION: ER AGE: 33 SEX: F EXAM STATUS: REG ER ORD. PHYSICIAN: CODY MOORE MD REASON: Rt. Flank pain, PROCEDURE: ACUTE ABDOMEN SERIES Abdomen series including PA chest 02/20/2019. Reason for exam: Right flank pain. Gas is seen in large and small bowel. There is no evidence of obstruction. No abnormal masses or gas collections are seen. A contraceptive device is visible in the pelvis. A single view of the chest again show some elevation of the right hemidiaphragm. No infiltrate or effusion is seen. Heart size is normal. IMPRESSION: Nonobstructive gas pattern. Electronically signed by: Kelin Nolan Jr., MD (02/20/2019 8:31 PM) [facility] DICTATED AND SIGNED BY: KELIN NOLAN Jr, MD DATE: 02/20/192030 CC: CODY MOORE MD; PANCHITO JERNIGAN ~ [][address] [address] IMAGING REPORT Signed PATIENT: NANCY DESAI ACCOUNT: [id number] : 1985 LOCATION: ER AGE: 33 SEX: F EXAM STATUS: REG ER ORD. PHYSICIAN: CODY MOORE MD REASON: Rt. flank pain, n/v, prior gastric by pass [place] PROCEDURE: CT ABDOMEN PELVIS WO CONTRAST Exam: CT abdomen and pelvis without contrast INDICATION: Right flank pain TECHNIQUE: Sequential axial images through the abdomen and pelvis obtained without IV contrast. Sagittal and coronal reformatted images were reconstructed from the axial data and reviewed. Comparisons: 11/14/2018 FINDINGS: Heart size is normal. No pericardial effusion. Visualized lung bases are clear. No pleural effusion. Evaluation of solid organs is limited secondary to noncontrast technique. There is geographic hepatic steatosis. More focal areas of decreased hypoattenuation adjacent to the doris hepatis may represent more focal areas of severe steatosis. However not completely evaluated on this exam. Spleen, pancreas, and adrenals are unremarkable. Gallbladder is surgically absent. No perinephric inflammation or hydronephrosis. No renal or ureteral calculi are identified. Bladder is decompressed not well evaluated. Uterus is not enlarged. IUD is noted within the uterus. There is a 5.0 cm cystic lesion at the right adnexa, likely ovarian in etiology. Postsurgical changes of gastric bypass are noted. Remainder of the large and small bowel are unremarkable. Appendix is normal. Abdominal aorta has a normal course and caliber. No enlarged intra-abdominal lymph nodes are identified. No suspicious osseous lesions or acute fractures. IMPRESSION: 1. No renal or ureteral calculi. No evidence for obstructive uropathy. 2. A 5 cm cystic lesion at the right adnexa, likely ovarian in etiology. 3. Findings likely related to geographic hepatic steatosis, however incompletely characterized on this study. Consider nonemergent liver protocol MRI for further evaluation. Exposure: One or more of the following in the visualized dose reduction techniques were utilized for this examination: 1. Automated exposure control 2. Adjustment of the MA and/or KV according to patient size 3. Use of iterative of reconstructive technique Electronically signed by: Aaron Mejia MD (02/20/2019 8:35 PM) [facility] DICTATED AND SIGNED BY: AARON MEJIA MD DATE: 02/20/192034 CC: CODY MOORE MD; PANCHITO JERNIGAN ~ Course & Med Decision Making Course & Med Decision Making Pertinent Labs and Imaging studies reviewed. (See chart for details) Discussed options of tx with pt. with diagnosis of most likely a hemorrhagic cyst as cause of her current pain. Pt. states pain is so severe she could not even consider at trial of home therapy. Discussed presentation, testing and tx. plan with Dr. Khan- will accept pt at [facility] for further eval and tx. Plan consult with Dr. Thompson in am if persistent pain. Plan keep pt NPO. IV fluids. Pain meds. [] Final Impression Final Impression 1. Rt. Flank Back Pain 2. Nausea and Vomiting[] 3. Hematuria and UTI Hx 4. Constipation 5. Rt. Ovarian Cyst , Hemorrhagic 6. Hx Anxiety Disorder and Panic attacks Dragon Disclaimer Dragon Disclaimer This electronic medical record was generated, in whole or in part, using a voice recognition dictation system. Dragon Disclaimer This chart was dictated in whole or in part using Voice Recognition software in a busy, high-work load, and often noisy Emergency Department environment. It may contain unintended and wholly unrecognized errors or omissions. Dragon Disclaimer This chart was dictated in whole or in part using Voice Recognition software in a busy, high-work load, and often noisy Emergency Department environment. It may contain unintended and wholly unrecognized errors or omissions. CODY MOORE MD Feb 20, 2019 18:37
[2019-02-20] MEDS ORDERED: IV RINGERS SOLUTION,LACTATED 1,000 ML IV SCH (19:10)
[2019-02-20] MEDS ORDERED: FAMOTIDINE 20 MG/2 ML VIAL IVP ONE (19:15)
[2019-02-20] MEDS ORDERED: ONDANSETRON PF 4 MG/2 ML VIAL. IVP ONE (19:15)
[2019-02-20 19:42] LABS: BASO # 0.1 x10^3/uL (0.0-0.2); BASO % 1 % (0-3); EOS # 0.1 x10^3/uL (0.0-0.7); EOS % 2 % (0-3); HEMATOCRIT 39.7 % (36.0-47.0); LYMPH # 2.5 x10^3/uL (1.0-4.8); LYMPH % 33 % (24-48); MEAN CORPUSCULAR HEMOGLOBIN 31 pg (25-35); MEAN CORPUSCULAR HGB CONC 33 g/dL (31-37); MEAN CORPUSCULAR VOLUME 94 fL (79-100); MONO # 0.6 x10^3/uL (0.0-1.1); MONO % 8 % (0-9); NEUT # 4.2 x10^3uL (1.8-7.7); NEUT % 56 % (31-73); PLATELET COUNT 314 x10^3/uL (140-400); RED BLOOD COUNT 4.22 x10^6/uL (3.50-5.40); RED CELL DISTRIBUTION WIDTH 15.7 % (11.5-14.5); WHITE BLOOD COUNT 7.5 x10^3/uL (4.0-11.0)
[2019-02-20 19:51] LABS: BARBITURATES NEG (NEG); BENZODIAZEPINES POS (NEG); CANNABINOIDS NEG (NEG); COCAINE NEG (NEG); METHADONE NEG (NEG); OPIATES NEG (NEG); PHENCYCLIDINE NEG (NEG)
[2019-02-20 19:52] LABS: AMPHETAMINE/METHAMPHETAMINE NEG (NEG)
[2019-02-20 19:56] LABS: ALBUMIN 3.4 g/dL (3.4-5.0); CALCIUM 8.9 mg/dL (8.5-10.1); CREATININE 0.7 mg/dL (0.6-1.0); DIRECT BILIRUBIN 0.1 mg/dL (0.0-0.2); GFR 97.6; POTASSIUM 3.4 mmol/L (3.5-5.1); TOTAL BILIRUBIN 0.3 mg/dL (0.2-1.0)
[2019-02-20 20:03] LABS: BILIRUBIN,URINE NEG (NEG); CLARITY,URINE CLOUDY; COLOR,URINE AMBER; GLUCOSE,URINE NEG (NEG)
[2019-02-20 20:04] LABS: BACTERIA,URINE FEW /HPF (0-FEW); NITRITE,URINE NEG (NEG); SQUAMOUS EPITHELIAL CELL,UR MOD /LPF; UROBILINOGEN,URINE 0.2 mg/dL (0.2 mg/dL)
[2019-02-20] MEDS ORDERED: cefTRIAXone SODIUM 1 GM VIAL ONE (20:18)
[2019-02-20] MEDS ORDERED: IV NORMAL SALINE 50ML 50 ML ONE (20:18)
--- NOTE | 2019-02-20 20:34 | RAD ---
Abdomen series including PA chest 02/20/2019. Reason for exam: Right flank pain. Gas is seen in large and small bowel. There is no evidence of obstruction. No abnormal masses or gas collections are seen. A contraceptive device is visible in the pelvis. A single view of the chest again show some elevation of the right hemidiaphragm. No infiltrate or effusion is seen. Heart size is normal. IMPRESSION: Nonobstructive gas pattern. Electronically signed by: Mendez Nolan Jr., MD (02/20/2019 8:31 PM) [facility]
--- NOTE | 2019-02-20 20:37 | RAD ---
Exam: CT abdomen and pelvis without contrast INDICATION: Right flank pain TECHNIQUE: Sequential axial images through the abdomen and pelvis obtained without IV contrast. Sagittal and coronal reformatted images were reconstructed from the axial data and reviewed. Comparisons: 11/14/2018 FINDINGS: Heart size is normal. No pericardial effusion. Visualized lung bases are clear. No pleural effusion. Evaluation of solid organs is limited secondary to noncontrast technique. There is geographic hepatic steatosis. More focal areas of decreased hypoattenuation adjacent to the doris hepatis may represent more focal areas of severe steatosis. However not completely evaluated on this exam. Spleen, pancreas, and adrenals are unremarkable. Gallbladder is surgically absent. No perinephric inflammation or hydronephrosis. No renal or ureteral calculi are identified. Bladder is decompressed not well evaluated. Uterus is not enlarged. IUD is noted within the uterus. There is a 5.0 cm cystic lesion at the right adnexa, likely ovarian in etiology. Postsurgical changes of gastric bypass are noted. Remainder of the large and small bowel are unremarkable. Appendix is normal. Abdominal aorta has a normal course and caliber. No enlarged intra-abdominal lymph nodes are identified. No suspicious osseous lesions or acute fractures. IMPRESSION: 1. No renal or ureteral calculi. No evidence for obstructive uropathy. 2. A 5 cm cystic lesion at the right adnexa, likely ovarian in etiology. 3. Findings likely related to geographic hepatic steatosis, however incompletely characterized on this study. Consider nonemergent liver protocol MRI for further evaluation. Exposure: One or more of the following in the visualized dose reduction techniques were utilized for this examination: 1. Automated exposure control 2. Adjustment of the MA and/or KV according to patient size 3. Use of iterative of reconstructive technique Electronically signed by: Aaron Fisher MD (02/20/2019 8:35 PM) [facility]
[2019-02-20] MEDS ORDERED: KETOROLAC 30 MG/ML VIAL. IVP ONE (21:00)
[2019-02-20] MEDS ORDERED: MAGNESIUM HYDROXIDE 2,400 MG/30 ML ORAL.SUSP. PO ONE (21:00)
--- NOTE | 2019-02-20 23:05 | RAD ---
Transvaginal ultrasound the pelvis. HISTORY: Ovarian cysts, history hematuria Transvaginal ultrasound was used to evaluate the pelvis. There is fluid in the endocervical canal. Uterus measures 7.9 x 3.4 cm. There is an intrauterine contraceptive device with shadowing. There is a 3.4 x 3.1 x 4.5 cm right ovarian cyst. There are septations at one margin. A hemorrhagic cyst is possible, cystic tumor is possible. There is flow about the margin of the lesion. There is not flow with color imaging or Doppler at the septation. A uterine mass is not identified. Left ovary was normal measuring 2.2 x 2.6 x 2.1 cm with small complicated cysts or hemorrhagic follicles. IMPRESSION: 1. Right ovarian cyst with septations, a follow-up would be necessary to exclude a cystic tumor versus a complicated or hemorrhagic cyst. 2. Intrauterine contraceptive device in normal position. 3. Normal left ovary. Electronically signed by: Suraj Matson MD (02/20/2019 11:02 PM) [facility]
[2019-02-21] MEDS ORDERED: MORPHINE SULFATE 10 MG/ML SYRINGE. SQ ONE (00:30)
[2019-02-21 01:16] VITALS: BP 120/62
[2019-02-21] MEDS ORDERED: IV RINGERS SOLUTION,LACTATED 1,000 ML IV SCH (01:45)
--- NOTE | 2019-02-21 01:46 | EKG ---
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
[2019-02-21] MEDS ORDERED: MORPHINE SULFATE 4 MG/ML DISP.SYRIN. IV PRN (09:15)
[2019-02-21] MEDS ORDERED: HYDROcodone/APAP 5/325MG 1 TAB TABLET PO PRN (09:30)
[2019-02-21] MEDS ORDERED: SUCRALFATE 1 GM TABLET. PO SCH (13:00)
[2019-02-21] MEDS ORDERED: NON FORMULARY ITEM (Ondansetron Hcl (Zofran) 4 MG) PO SCH (14:00)
[2019-02-21] MEDS ORDERED: FAMOTIDINE 20 MG TABLET PO SCH ×2 (21:00)
[2019-02-22] MEDS ORDERED: NON FORMULARY ITEM (Escitalopram Oxalate 1 TAB) PO SCH (09:00)
[2019-02-22] MEDS ORDERED: MIRTAZAPINE 15 MG TABLET PO SCH (09:00)
[2019-02-22] MEDS ORDERED: LEVOTHYROXINE 50 MCG TABLET PO SCH (09:00)
[2019-02-22] MEDS ORDERED: TOPIRAMATE 100 MG TABLET. PO SCH (09:00)
== END 2019-02-21 02:05 | disposition short-term general hospital (02) ==
LOC: ER 18:34
DX: N83.291 Other ovarian cyst, right side (principal); K59.00 Constipation, unspecified; R11.2 Nausea with vomiting, unspecified; F41.9 Anxiety disorder, unspecified; F31.9 Bipolar disorder, unspecified; Z87.440 Personal history of urinary (tract) infections; Z90.49 Acquired absence of other specified parts of digestive tract; Z87.891 Personal history of nicotine dependence; Z88.2 Allergy status to sulfonamides; Z88.6 Allergy status to analgesic agent; Z91.041 Radiographic dye allergy status
CPT/HCPCS: 36415; 74022; 74176; 76830; 80048; 80076; 80307; 81001; 81025; 82150; 82550; 83690; 84484; 85025; 85610; 85730; 86705; 86709; 86803; 87086; 87340; 93005; 96361; 96365; 96372; 96375; 99285; J0696; J1885; J2060; J2270; J2405; J3490; J7120; 96374

== ENCOUNTER 2019-02-26 20:44 | Emergency (ER) | payer OTHER ==
[~2019-02-26] VITALS: Ht 167.6 cm; Wt 119.1 kg
[2019-02-26] MEDS ORDERED: ONDANSETRON PF 4 MG/2 ML VIAL. IVP ONE (21:15)
[2019-02-26] MEDS ORDERED: FAMOTIDINE 20 MG/2 ML VIAL IVP ONE (21:15)
[2019-02-26] MEDS ORDERED: CONTRAST GIVEN MC PRN (21:15)
[2019-02-26] MEDS ORDERED: IV NORMAL SALINE 1,000ML 1,000 ML IV ONE (21:15)
[2019-02-26 21:23] LABS: BASO % 0 % (0-3); EOS # 0.1 x10^3/uL (0.0-0.7); EOS % 1 % (0-3); HEMATOCRIT 39.8 % (36.0-47.0); LYMPH % 39 % (24-48); MEAN CORPUSCULAR HEMOGLOBIN 31 pg (25-35); MEAN CORPUSCULAR HGB CONC 33 g/dL (31-37); MEAN CORPUSCULAR VOLUME 95 fL (79-100); MONO # 0.6 x10^3/uL (0.0-1.1); MONO % 8 % (0-9); NEUT # 3.9 x10^3uL (1.8-7.7); NEUT % 51 % (31-73); PLATELET COUNT 355 x10^3/uL (140-400); RED BLOOD COUNT 4.21 x10^6/uL (3.50-5.40); RED CELL DISTRIBUTION WIDTH 15.9 % (11.5-14.5); WHITE BLOOD COUNT 7.5 x10^3/uL (4.0-11.0)
[2019-02-26] MEDS ORDERED: IOHEXOL 300 MG/ML 75 ML VIAL. IV ONE (21:30)
[2019-02-26 21:38] LABS: BACTERIA,URINE FEW /HPF (0-FEW); BILIRUBIN,URINE NEG (NEG); CLARITY,URINE HAZY; COLOR,URINE YELLOW; GLUCOSE,URINE NEG (NEG); NITRITE,URINE NEG (NEG); RBC,URINE OCC /HPF (0-2); SQUAMOUS EPITHELIAL CELL,UR OCC /LPF; UROBILINOGEN,URINE 0.2 mg/dL (0.2 mg/dL)
[2019-02-26 21:40] LABS: ALBUMIN 3.4 g/dL (3.4-5.0); CALCIUM 8.6 mg/dL (8.5-10.1); CREATININE 0.7 mg/dL (0.6-1.0); GFR 97.6; POTASSIUM 3.2 mmol/L (3.5-5.1); TOTAL BILIRUBIN 0.2 mg/dL (0.2-1.0); TOTAL PROTEIN 6.7 g/dL (6.4-8.2)
[2019-02-26 22:16] VITALS: BP 157/82
--- NOTE | 2019-02-26 22:19 | RAD ---
EXAM: CT Abdomen and Pelvis with IV contrast CLINICAL HISTORY: pain, hx of recent ovarian cyst surgery, N/V,. COMPARISON: 02/20/2019 TECHNIQUE: Helical CT of the abdomen and pelvis was performed following the administration of intravenous contrast. Oral contrast was administered. Axial, coronal and sagittal reformatted images were generated. PQRS compliance statement - One or more of the following individualized dose reduction techniques were utilized for this study: 1. Automated exposure control 2. Adjustment of the mA and/or kV according to patient size 3. Use of iterative reconstruction technique FINDINGS: Lower chest: Lung bases are clear. Abdomen and Pelvis: Focal low-attenuation along the falciform ligament and the gallbladder fossa likely focal fatty infiltration. No discrete liver lesion is seen. There has been a cholecystectomy. No biliary dilatation. Pancreas is unremarkable. Spleen is normal in appearance. Adrenal glands are unremarkable. Symmetric nephrograms. No focal renal lesion. No hydronephrosis. No hydroureter. Bladder is grossly unremarkable. Moderate colonic stool content is seen. No small or large bowel dilatation. Appendix is grossly normal. Changes of gastric surgery are seen with associated anastomotic suture line. No associated obstruction. IUD is seen within the uterus. Left adnexal cystic structure measures 2 cm. No abdominal or pelvic ascites. No abdominal or pelvic lymphadenopathy. Bones: Degenerative changes of spine are seen. No aggressive osseous lesion is noted. IMPRESSION: 1. Regions of hepatic hypoattenuation, particularly right hepatic lobe, fell from ligament and gallbladder fossa likely fat infiltration. 2. There has been a cholecystectomy. No biliary ductal dilatation. 3. Gastric postsurgical changes are seen. No bowel obstruction. 4. Moderate colonic stool content is seen. 5. IUD is seen within the uterus. Electronically signed by: Akash Barrera MD (02/26/2019 10:16 PM) [facility]
[2019-02-26] MEDS ORDERED: ONDA4TAB12 PO (22:26)
--- NOTE | 2019-02-26 22:27 | PHYS DOC ---
Past History Past Medical History: Anxiety, Bipolar, Depression, Ovarian Cyst, Other Additional Past Medical Histor: ULCERS, BORDERLINE PERSONALITY DISORDER Past Surgical History: Cholecystectomy, Gastric Bypass, Other Additional Past Surgical Histo: gastric bypass, RIGHT OVARIAN CYST ABD TUBE REMOVAL 02/21/2019 Smoking: Quit Greater Than 1 Year Alcohol Use: None Drug Use: None Adult General Chief Complaint Chief Complaint: ABDOMINAL PAIN HPI HPI 33-year-old female presents with lower quadrant abdominal pain primarily to right side status post ovarian cyst removal by Dr. Ledezma (CARPET INST[employer]ATION SPECIALIST) on Thursday02/21/19. Reports associated nausea and vomiting. Reports intermittent vaginal bleeding. Patient reports has been taking her pain medication without significant relief. 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 Current Medications Current Medications Current Medications Medications (Trade) Dose Ordered Sig/[facility] Start Time Stop Time Status Last Admin Dose Admin Famotidine (Pepcid Vial) 20 mg 1X ONCE 02/26/19 21:15 02/26/19 21:17 DC 02/26/19 21:16 20 MG Fentanyl Citrate (Fentanyl 2ml Vial) 50 mcg 1X ONCE 02/26/19 21:15 02/26/19 21:17 DC 02/26/19 21:16 50 MCG Info (Do NOT chart on this entry -- for MONITORING) 1 each PRN DAILY PRN 02/26/19 21:15 02/28/19 21:14 Iohexol (Omnipaque 300 Mg/ml) 75 ml 1X ONCE 02/26/19 21:30 02/26/19 21:31 DC 02/26/19 21:36 75 ML Ondansetron HCl (Zofran) 4 mg 1X ONCE 02/26/19 21:15 02/26/19 21:17 DC 02/26/19 21:15 4 MG Sodium Chloride 1,000 ml @ 1,000 mls/hr 1X ONCE 02/26/19 21:15 02/26/19 22:14 DC 02/26/19 21:16 1,000 MLS/HR Allergies Allergies Allergies Coded Allergies Type Severity Reaction Last Updated Verified Sulfa (Sulfonamide Antibiotics) Allergy Intermediate hives 02/10/19 Yes ibuprofen Allergy Intermediate 02/10/19 Yes yellow dye Allergy Intermediate 02/10/19 Yes Physical Exam Physical Exam Constitutional: Well developed, well nourished, uncomfortable, non-toxic appearance HENT: Normocephalic, atraumatic, oropharynx moist Eyes: Conjunctiva normal, no discharge Neck: Normal range of motion, no tenderness, supple Cardiovascular: Heart rate normal, regular rhythm Lungs & Thorax: Bilateral breath sounds clear to auscultation, no wheezing Abdomen: Soft, RLQ tenderness, surgical wounds near umbilicus and suprapubic region c/d/i without surrounding erythema Skin: Warm, dry, no erythema, surgical wounds as above, suprapubic ecchymosis noted Back: No tenderness, no CVA tenderness Extremities: No tenderness, ROM intact, no edema Neurologic: Alert and oriented X 3, no focal deficits noted Psychologic: Affect normal, judgement normal Current Patient Data Vital Signs Vital Signs Date Time Temp Pulse Resp B/P (MAP) Pulse Ox O2 Delivery O2 Flow Rate FiO2 02/26/19 21:16 20 97 02/26/19 20:44 98.3 102 Room Air Lab Results Laboratory Tests Test 02/26/19 20:58 02/26/19 21:06 White Blood Count 7.5 x10^3/uL (4.0-11.0) Red Blood Count 4.21 x10^6/uL (3.50-5.40) Hemoglobin 13.0 g/dL (12.0-15.5) Hematocrit 39.8 % (36.0-47.0) Mean Corpuscular Volume 95 fL (79-100) Mean Corpuscular Hemoglobin 31 pg (25-35) Mean Corpuscular Hemoglobin Concent 33 g/dL (31-37) Red Cell Distribution Width 15.9 % (11.5-14.5) H Platelet Count 355 x10^3/uL (140-400) Neutrophils (%) (Auto) 51 % (31-73) Lymphocytes (%) (Auto) 39 % (24-48) Monocytes (%) (Auto) 8 % (0-9) Eosinophils (%) (Auto) 1 % (0-3) Basophils (%) (Auto) 0 % (0-3) Neutrophils # (Auto) 3.9 x10^3uL (1.8-7.7) Lymphocytes # (Auto) 3.0 x10^3/uL (1.0-4.8) Monocytes # (Auto) 0.6 x10^3/uL (0.0-1.1) Eosinophils # (Auto) 0.1 x10^3/uL (0.0-0.7) Basophils # (Auto) 0.0 x10^3/uL (0.0-0.2) Urine Collection Type Unknown Urine Color Yellow Urine Clarity Hazy Urine pH 5.5 Urine Specific [place] 1.010 Urine Protein Neg (NEG-TRACE) Urine Glucose (UA) Neg mg/dL (NEG) Urine Ketones (Stick) Neg mg/dL (NEG) Urine Blood Mod (NEG) Urine Nitrite Neg (NEG) Urine Bilirubin Neg (NEG) Urine Urobilinogen Dipstick 0.2 mg/dL (0.2 mg/dL) Urine Leukocyte Esterase Neg (NEG) Urine RBC Occ /HPF (0-2) Urine WBC 1-4 /HPF (0-4) Urine Squamous Epithelial Cells Occ /LPF Urine Bacteria Few /HPF (0-FEW) Urine Mucus Mod /LPF Sodium Level 144 mmol/L (136-145) Potassium Level 3.2 mmol/L (3.5-5.1) L Chloride Level 106 mmol/L (98-107) Carbon Dioxide Level 27 mmol/L (21-32) Anion Gap 11 (6-14) Blood Urea Nitrogen 9 mg/dL (7-20) Creatinine 0.7 mg/dL (0.6-1.0) Estimated GFR (Cockcroft-Gault) 97.6 BUN/Creatinine Ratio 13 (6-20) Glucose Level 103 mg/dL (70-99) H Calcium Level 8.6 mg/dL (8.5-10.1) Magnesium Level 2.2 mg/dL (1.8-2.4) Total Bilirubin 0.2 mg/dL (0.2-1.0) Aspartate Amino Transferase (AST) 19 U/L (15-37) Alanine Aminotransferase (ALT) 46 U/L (14-59) Alkaline Phosphatase 118 U/L (46-116) H Total Protein 6.7 g/dL (6.4-8.2) Albumin 3.4 g/dL (3.4-5.0) Albumin/Globulin Ratio 1.0 (1.0-1.7) Lipase 47 U/L (73-393) L POC Urine HCG, Qualitative hcg negative (Negative) EKG EKG [] Radiology/Procedures Radiology/Procedures PROCEDURE: CT ABD PELV W/ IV CONTRST ONLY EXAM: CT Abdomen and Pelvis with IV contrast CLINICAL HISTORY: pain, hx of recent ovarian cyst surgery, N/V,. COMPARISON: 02/20/2019 TECHNIQUE: Helical CT of the abdomen and pelvis was performed following the administration of intravenous contrast. Oral contrast was administered. Axial, coronal and sagittal reformatted images were generated. PQRS compliance statement - One or more of the following individualized dose reduction techniques were utilized for this study: 1. Automated exposure control 2. Adjustment of the mA and/or kV according to patient size 3. Use of iterative reconstruction technique FINDINGS: Lower chest: Lung bases are clear. Abdomen and Pelvis: Focal low-attenuation along the falciform ligament and the gallbladder fossa likely focal fatty infiltration. No discrete liver lesion is seen. There has been a cholecystectomy. No biliary dilatation. Pancreas is unremarkable. Spleen is normal in appearance. Adrenal glands are unremarkable. Symmetric nephrograms. No focal renal lesion. No hydronephrosis. No hydroureter. Bladder is grossly unremarkable. Moderate colonic stool content is seen. No small or large bowel dilatation. Appendix is grossly normal. Changes of gastric surgery are seen with associated anastomotic suture line. No associated obstruction. IUD is seen within the uterus. Left adnexal cystic structure measures 2 cm. No abdominal or pelvic ascites. No abdominal or pelvic lymphadenopathy. Bones: Degenerative changes of spine are seen. No aggressive osseous lesion is noted. IMPRESSION: 1. Regions of hepatic hypoattenuation, particularly right hepatic lobe, fell from ligament and gallbladder fossa likely fat infiltration. 2. There has been a cholecystectomy. No biliary ductal dilatation. 3. Gastric postsurgical changes are seen. No bowel obstruction. 4. Moderate colonic stool content is seen. 5. IUD is seen within the uterus. Electronically signed by: Akash Barrera MD (02/26/2019 10:16 PM) [facility] Course & Med Decision Making Course & Med Decision Making Pertinent Labs and Imaging studies reviewed. (See chart for details) Patient presents with abdominal pain and nausea/vomiting status post ovarian cyst removal 5 days ago. Surgical wounds clean dry and intact. No signs of infection appreciated. Symptomatic treatment provided. IV fluid hydration given. Labs obtained and posted to chart. Hypokalemia addressed. CT abdomen/pelvis without acute process. Some moderate colonic burden appreciated. Patient stable for discharge with outpatient follow-up with PCP/[employer]ATION SPECIALIST. Discussed findings and plan with patient and friends, who acknowledge understanding and agreement. Dragon Disclaimer Dragon Disclaimer This electronic medical record was generated, in whole or in part, using a voice recognition dictation system. Departure Departure: Impression: Primary Impression: Abdominal pain Additional Impressions: Nausea and vomiting Post-operative pain Hypokalemia Constipation Disposition: HOME, SELF-CARE Condition: STABLE Referrals: PANCHITO ESCOBEDO (PCP) Patient Instructions: Abdominal Pain (Nonspecific), Constipation, Adult, [id number], Hypokalemia-Brief, Nausea and Vomiting, [id number], Potassium Content of Foods Additional Instructions: Your pain is most likely post-surgical in nature. Please continue previously prescribed pain medication. Scripts Sennosides/Docusate Sodium (Colace 2-in-1 Tablet) 1 Each Tablet 1-2 TAB PO QHS for constipation, #30 TAB 0 Refills Prov: MIHAELA HAJI DO 02/26/19 Ondansetron (ONDANSETRON ODT) 4 Mg Tab.rapdis 1 TAB PO PRN Q6-8HRS PRN for NAUSEA, #16 TAB Prov: MIHAELA HAJI DO 02/26/19 Problem Qualifiers Primary Impression: Abdominal pain Abdominal location: lower abdomen, unspecified Qualified Codes: R10.30 - L ower abdominal pain, unspecified Additional Impressions: Nausea and vomiting Vomiting type: unspecified Vomiting Intractability: unspecified Qualified Codes: R11.2 - Nausea with vomiting, unspecified Constipation Constipation type: unspecified constipation type Qualified Codes: K59.00 - Constipation, unspecified MIHAELA HAJI DO Feb 26, 2019 22:27
[2019-02-26] MEDS ORDERED: SENN-121 PO (22:30)
[2019-02-26] MEDS ORDERED: POTASSIUM CHLORIDE 20 MEQ TABLET.ER. PO ONE (22:30)
== END 2019-02-26 22:42 | disposition home or self-care (01) ==
LOC: ER 20:44
DX: G89.18 Other acute postprocedural pain (principal); K59.00 Constipation, unspecified; E87.6 Hypokalemia; R11.2 Nausea with vomiting, unspecified; Z90.49 Acquired absence of other specified parts of digestive tract; Z98.84 Bariatric surgery status; Z87.891 Personal history of nicotine dependence; Z88.2 Allergy status to sulfonamides; Z88.6 Allergy status to analgesic agent; Z91.041 Radiographic dye allergy status
CPT/HCPCS: 36415; 74177; 80053; 81001; 81025; 83690; 83735; 85025; 96361; 96374; 96375; 96376; 99285; J2405; J3010; J3490; Q9967; J7030

== ENCOUNTER → 2019-03-25 | Outpatient (CLI) | payer OTHER ==
[2019-02-26 22:16] VITALS: BP 157/82
[~2019-03-25] MED LIST changes: +ONDA4TAB12 PO; +SENN-121 PO
--- NOTE | 2019-03-25 13:20 | RAD ---
Pelvic ultrasound. 03/25/2019 COMPARISON STUDY: None CT of the abdomen and pelvis February 26, 2019. TECHNIQUE: Ultrasound evaluation of the pelvis was performed transabdominally. Static images are submitted to PACS. The uterus measures 8.7 x 3.6 x 3.8 cm. Endometrial thickness is approximately 0.5 cm. No focal uterine lesions are seen. No free fluid is seen in the pelvis. The right ovary is surgically absent. Intrauterine device noted in expected position within the uterus. The right ovary contains a cyst relatively simple appearing cyst measuring 4.8 x 2.9 x 5.3 cm. Ovary including this cyst measures 5.0 x 3.3 x 5.6 cm. Blood flow measuring parenchyma is demonstrated by ultrasound. IMPRESSION: 1.4.8 cm simple appearing cyst, left ovary. Cyst appears larger than at the time of CT February 26, 2019. Consider follow-up ultrasound as clinically indicated. 2.Intrauterine device in place. 3.No acute sonographic abnormality is identified. Electronically signed by: Cleveland Muller MD (03/25/2019 1:17 PM) [facility]
== END | disposition home or self-care (01) ==
LOC: US 08:46
PROVIDERS: ATTEND Obstetrics & Gynecology
DX: N83.202 Unspecified ovarian cyst, left side (principal); R10.2 Pelvic and perineal pain
CPT/HCPCS: 76856

== ENCOUNTER 2019-04-09 21:20 | Emergency (ER) | payer OTHER ==
[~2019-04-09] VITALS: Ht 170.2 cm; Wt 99.8 kg
[2019-04-09 21:35] VITALS: BP 133/91
--- NOTE | 2019-04-09 22:00 | PHYS DOC ---
Past History Past Medical History: Anxiety, Bipolar, Depression, Ovarian Cyst, Other Additional Past Medical Histor: ULCERS, BORDERLINE PERSONALITY DISORDER Past Surgical History: Cholecystectomy, Gastric Bypass, Other Additional Past Surgical Histo: gastric bypass, RIGHT OVARIAN CYST ABD TUBE REMOVAL 02/21/2019 Smoking: Quit Greater Than 1 Year Alcohol Use: None Drug Use: None Adult General Chief Complaint Chief Complaint: POST-OP PROBLEM HPI HPI 33-year-old female presents with postoperative pain. The patient had la paroscopic ovarian cyst surgery 2 days ago. She has been taking her oxycodone as prescribed, but is having more pain today. She increased her dosing to 2 pills today. She is surprised that the pain is not better controlled. She also wanted to have the wounds looked at to make sure the was no concern. She has a moderate amount of bruising around the site that is the most painful. She denies fever or chills. Review of Systems Review of Systems Constitutional: Denies fever or chills [] Eyes: Denies change in visual acuity, redness, or eye pain [] HENT: Denies nasal congestion or sore throat [] Respiratory: Denies cough or shortness of breath [] Cardiovascular: No additional information not addressed in HPI [] GI: Superficial abdominal pain. Denies nausea, vomiting, bloody stools or diarrhea [] : Denies dysuria or hematuria [] Musculoskeletal: Denies back pain or joint pain [] Integument: Denies rash or skin lesions [] Neurologic: Denies headache, focal weakness or sensory changes [] Endocrine: Denies polyuria or polydipsia [] All other systems were reviewed and found to be within normal limits, except as documented in this note. Current Medications Current Medications Current Medications Medications (Trade) Dose Ordered Sig/[facility] Start Time Stop Time Status Last Admin Dose Admin Morphine Sulfate (Morphine 4mg Syringe) 4 mg 1X ONCE 04/09/19 22:15 04/09/19 22:16 Ondansetron HCl (Zofran) 4 mg 1X ONCE 04/09/19 22:15 04/09/19 22:16 Sodium Chloride 1,000 ml @ 1,000 mls/hr 1X ONCE 04/09/19 22:15 04/09/19 23:14 Allergies Allergies Allergies Coded Allergies Type Severity Reaction Last Updated Verified Sulfa (Sulfonamide Antibiotics) Allergy Intermediate hives 02/10/19 Yes ibuprofen Allergy Intermediate 02/10/19 Yes yellow dye Allergy Intermediate 02/10/19 Yes Physical Exam Physical Exam Constitutional: Well developed, well nourished, no acute distress, non-toxic appearance. [] HENT: Normocephalic, atraumatic, bilateral external ears normal, oropharynx moist, no oral exudates, nose normal. [] Eyes: PERRLA, EOMI, conjunctiva normal, no discharge. [] Neck: Normal range of motion, no tenderness, supple, no stridor. [] Cardiovascular:Heart rate regular rhythm, no murmur [] Lungs & Thorax: Bilateral breath sounds clear to auscultation [] Abdomen: Bowel sounds normal, soft, skin and superficial abdominal tenderness, no masses, no pulsatile masses. [] Skin: Ecchymosis around one of her surgical sites. All surgical sites are clean dry and intact.[] Back: No tenderness, no CVA tenderness. [] Extremities: No tenderness, no cyanosis, no clubbing, ROM intact, no edema. [] Neurologic: Alert and oriented X 3, normal motor function, normal sensory function, no focal deficits noted. [] Psychologic: Affect normal, judgement normal, mood normal. [] Current Patient Data Vital Signs Vital Signs Date Time Temp Pulse Resp B/P (MAP) Pulse Ox O2 Delivery O2 Flow Rate FiO2 04/09/19 21:35 98.2 96 18 99 Room Air EKG EKG [] Radiology/Procedures Radiology/Procedures [] Course & Med Decision Making Course & Med Decision Making Pertinent Labs and Imaging studies reviewed. (See chart for details) The patient's incisions look good. She does have some moderate ecchymosis around one of them and it is tender to palpation. I do not palpate any obvious abscess or hematoma. There is no current drainage. I believe the patient just behind on pain control despite trying to increase her by mouth dosing. I will give her 4 mg of Zofran and 4 mg of morphine in the ED. This has helped with her pain. We placed new clean dressings over her incision sites. I will additionally give her 1 Percocet 5/325 before she leaves. She is stable for discharge at this time. [] Dragon Disclaimer Dragon Disclaimer This electronic medical record was generated, in whole or in part, using a voice recognition dictation system. Departure Departure: Impression: Primary Impression: Post-operative pain Disposition: HOME, SELF-CARE Condition: IMPROVED Referrals: PANCHITO ESCOBEDO (PCP) Patient Instructions: Pain Relief Preoperatively and Postoperatively ELDER GUTIERREZ DO Apr 09, 2019 22:00
[2019-04-09] MEDS: IV NORMAL SALINE 1,000ML 1,000 ML IV ONE (22:01)
[2019-04-09] MEDS: MORPHINE SULFATE 4 MG/ML DISP.SYRIN. IV ONE (22:02)
[2019-04-09] MEDS: ONDANSETRON PF 4 MG/2 ML VIAL. IVP ONE (22:02)
[2019-04-09 22:11] LABS: BASO % 0 % (0-3); EOS # 0.1 x10^3/uL (0.0-0.7); EOS % 3 % (0-3); HEMATOCRIT 37.5 % (36.0-47.0); HEMOGLOBIN 12.4 g/dL (12.0-15.5); LYMPH # 2.6 x10^3/uL (1.0-4.8); LYMPH % 45 % (24-48); MEAN CORPUSCULAR HEMOGLOBIN 32 pg (25-35); MEAN CORPUSCULAR HGB CONC 33 g/dL (31-37); MEAN CORPUSCULAR VOLUME 96 fL (79-100); MONO # 0.5 x10^3/uL (0.0-1.1); MONO % 9 % (0-9); NEUT # 2.5 x10^3uL (1.8-7.7); NEUT % 43 % (31-73); PLATELET COUNT 291 x10^3/uL (140-400); RED BLOOD COUNT 3.92 x10^6/uL (3.50-5.40); RED CELL DISTRIBUTION WIDTH 14.7 % (11.5-14.5); WHITE BLOOD COUNT 5.7 x10^3/uL (4.0-11.0)
[2019-04-09 22:19] LABS: CALCIUM 8.5 mg/dL (8.5-10.1); CREATININE 0.6 mg/dL (0.6-1.0); GFR 116.6; POTASSIUM 3.4 mmol/L (3.5-5.1)
[2019-04-09 22:24] LABS: TOTAL BILIRUBIN 0.2 mg/dL (0.2-1.0); TOTAL PROTEIN 6.1 g/dL (6.4-8.2)
[2019-04-09] MEDS: oxyCODONE/APAP 5/325 1 TAB TABLET PO ONE (22:38)
== END 2019-04-09 22:40 | disposition home or self-care (01) ==
LOC: ER 21:20
DX: G89.18 Other acute postprocedural pain (principal); R10.9 Unspecified abdominal pain; R58 Hemorrhage, not elsewhere classified; F41.9 Anxiety disorder, unspecified; F31.9 Bipolar disorder, unspecified; Z90.49 Acquired absence of other specified parts of digestive tract; Z98.84 Bariatric surgery status; Z87.891 Personal history of nicotine dependence; Z88.2 Allergy status to sulfonamides; Z88.6 Allergy status to analgesic agent; Z91.041 Radiographic dye allergy status
CPT/HCPCS: 36415; 80053; 85025; 96374; 96375; 99284; J2270; J2405; J7030

== ENCOUNTER 2019-05-14 17:52 | Emergency (ER) | payer OTHER ==
[~2019-05-14] VITALS: Ht 170.2 cm; Wt 97.5 kg
[2019-05-14] MEDS ORDERED: ORPHENADRINE CITRATE 60 MG/2 ML VIAL. IM ONE (18:45)
[2019-05-14] MEDS ORDERED: DEXAMETHASONE 4 MG TABLET PO ONE (18:45)
[2019-05-14] MEDS ORDERED: HYDROcodone/APAP 5/325MG 1 TAB TABLET PO ONE (18:45)
[2019-05-14] MEDS ORDERED: ORPH-16 PO (18:47)
[2019-05-14] MEDS ORDERED: HYDR-3165 PO (18:47)
[2019-05-14] MEDS ORDERED: PRED20TA PO (18:47)
--- NOTE | 2019-05-14 18:47 | PHYS DOC ---
Past History Past Medical History: Anxiety, Bipolar, Depression, Ovarian Cyst, Other Additional Past Medical Histor: ULCERS, BORDERLINE PERSONALITY DISORDER Past Surgical History: Cholecystectomy, Gastric Bypass, Other Additional Past Surgical Histo: gastric bypass, RIGHT OVARIAN CYST ABD TUBE REMOVAL 02/21/2019 Smoking: Quit Greater Than 1 Year Alcohol Use: None Drug Use: None Adult General Chief Complaint Chief Complaint: BACK PAIN OR INJURY HPI HPI 33-year-old female presents with report of low back pain x 6 months with radiation down right leg which started last night. Patient also reports right knee pain with history of known bone spurs. Patient does report history of known T12 compression fracture per patient. Denies trauma. Denies leg swelling or calf tenderness. Reports took over the counter Tylenol and Ibuprofen for pain without improvement. Reports last took Tylenol at 1430. Review of Systems Review of Systems Constitutional: Denies fever or chills Eyes: Denies redness or eye pain HENT: Denies nasal congestion or sore throat Respiratory: Denies cough or shortness of breath Cardiovascular: Denies chest pain or palpitations GI: Denies abdominal pain, nausea, or vomiting : Denies dysuria or hematuria Musculoskeletal: Reports back pain and right leg and knee pain Integument: Denies rash or skin lesions Neurologic: Denies headache, focal weakness or sensory changes Complete systems were reviewed and found to be within normal limits, except as documented in this note. Allergies Allergies Allergies Coded Allergies Type Severity Reaction Last Updated Verified Sulfa (Sulfonamide Antibiotics) Allergy Intermediate hives 02/10/19 Yes yellow dye Allergy Intermediate 02/10/19 Yes Physical Exam Physical Exam Constitutional: Well developed, well nourished, no acute distress, non-toxic appearance HENT: Normocephalic, atraumatic, oropharynx moist Eyes: Conjunctiva normal, no discharge Neck: Normal range of motion, no tenderness, supple Cardiovascular: Heart rate normal, regular rhythm Lungs & Thorax: Bilateral breath sounds clear to auscultation, no wheezing Abdomen: Soft, no tenderness; pelvis stable and nontender Skin: Warm, dry, no erythema, no rash Back: No midline tenderness, right lumbar paraspinal tenderness, no CVA tenderness, straight leg raise to 30 degrees on right with pain Extremities: No tenderness, ROM intact, no edema Neurologic: Alert and oriented X 3, normal motor function, normal sensory function, no focal deficits noted Psychologic: Affect normal, judgement normal Current Patient Data Vital Signs Vital Signs Date Time Temp Pulse Resp B/P (MAP) Pulse Ox O2 Delivery O2 Flow Rate FiO2 05/14/19 18:10 98.0 79 20 134/85 (101) 98 Room Air EKG EKG [] Radiology/Procedures Radiology/Procedures [] Course & Med Decision Making Course & Med Decision Making Patient presents with chronic low back pain now with radiation down right leg consistent for sciatica. Patient does also reports some history of chronic right knee pain secondary to bone spurs. Denies recent trauma. Denies loss of bowel or bladder. No deformity appreciated. No midline spinal tenderness noted. Symptomatic treatment provided. Patient stable for discharge with outpatient follow-up with PCP. Discussed findings and plan with patient, who acknowledges understanding and agreement. Dragon Disclaimer Dragon Disclaimer This electronic medical record was generated, in whole or in part, using a voice recognition dictation system. Departure Departure: Impression: Primary Impression: Acute exacerbation of chronic low back pain Additional Impression: Sciatica Disposition: HOME, SELF-CARE Condition: STABLE Referrals: PANCHITO ESCOBEDO (PCP) Patient Instructions: Back Pain, Adult, [id number], Sciatica, [id number] Additional Instructions: Please call and make an appointment with Dr. Aleksander Tobin (pain management) for further evaluation and treatment at [facility] Orphenadrine Citrate (ORPHENADRINE CITRATE) 100 Mg Tablet.er 1 TAB PO BID PRN for MUSCLE PAIN, #14 TAB 0 Refills Prov: MIHAELA HAJI DO 05/14/19 Prednisone (PREDNISONE) 20 Mg Tablet 2 TAB PO DAILY for back pain, #8 TAB Start this medication tomorrow, Thursday05/15/19 Prov: MIHAELA HAJI DO 05/14/19 Hydrocodone Bit/Acetaminophen (NORCO 5-325 TABLET) 1 Each Tablet 0.5-1 TAB PO Q6HRS PRN for PAIN, #10 TAB Prov: MIHAELA HAJI DO 05/14/19 Problem Qualifiers Additional Impression: Sciatica Laterality: right Qualified Codes: M54.31 - Sciatica, right side MIHAELA HAJI DO May 14, 2019 18:47
[2019-05-14 19:25] VITALS: BP 126/86
== END 2019-05-14 19:26 | disposition home or self-care (01) ==
LOC: ER 17:52
DX: M54.41 Lumbago with sciatica, right side (principal); G89.29 Other chronic pain; M25.561 Pain in right knee; F41.9 Anxiety disorder, unspecified; F32.9 Major depressive disorder, single episode, unspecified; Z90.49 Acquired absence of other specified parts of digestive tract; Z98.84 Bariatric surgery status; Z87.891 Personal history of nicotine dependence
CPT/HCPCS: 96372; 99283; J2360; J8540

== ENCOUNTER 2019-05-19 18:12 | Emergency (ER) | payer OTHER ==
[~2019-05-19] VITALS: Ht 170.2 cm; Wt 96.8 kg
[~2019-05-19 18:12] MED LIST changes: +ORPH-16 PO; +PRED20TA PO
--- NOTE | 2019-05-19 18:29 | PHYS DOC ---
Past History Past Medical History: Anxiety, Bipolar, Depression, Ovarian Cyst, Other Additional Past Medical Histor: ULCERS, BORDERLINE PERSONALITY DISORDER Past Surgical History: Cholecystectomy, Gastric Bypass, Other Additional Past Surgical Histo: gastric bypass, RIGHT OVARIAN CYST ABD TUBE REMOVAL 02/21/2019 Smoking: Quit Greater Than 1 Year Alcohol Use: None Drug Use: None Adult General Chief Complaint Chief Complaint: CHEST PAIN [facility] HPI Patient is a 33-year-old female who presents to the emergency department for evaluation. She states that about an hour and a half ago she developed anterior chest discomfort, worsened with movement, deep breathing, as well as palpation. The pain is described as sharp, and radiates towards her left arm. She denies any significant shortness of breath, nausea, vomiting, diaphoresis. She has not had any recent travel, immobilization, or surgery. She does not have any significant cardiac risk factors, no family history of premature onset coronary artery disease. She does not use oral contraceptives. Other than as stated above, there are no alleviating or exacerbating factors to her symptoms. Assuming a negative troponin, the patient's HEART score is a 1. Review of Systems Review of Systems Constitutional: Denies fever or chills [] Eyes: Denies change in visual acuity, redness, or eye pain [] HENT: Denies nasal congestion or sore throat [] Respiratory: Denies cough or shortness of breath [] Cardiovascular: No additional information not addressed in HPI [] GI: Denies abdominal pain, nausea, vomiting, bloody stools or diarrhea [] : Denies dysuria or hematuria. Denies pregnancyhas IUD [] Musculoskeletal: Denies back pain or joint pain [] Integument: Denies rash or skin lesions [] Neurologic: Denies headache, focal weakness or sensory changes [] Endocrine: Denies polyuria or polydipsia [] All other systems were reviewed and found to be within normal limits, except as documented in this note. Allergies Allergies Allergies Coded Allergies Type Severity Reaction Last Updated Verified Sulfa (Sulfonamide Antibiotics) Allergy Intermediate hives 02/10/19 Yes yellow dye Allergy Intermediate 02/10/19 Yes Physical Exam Physical Exam PHYSICAL EXAM: CONSTITUTIONAL: Well developed, well nourished HEAD: normocephalic, atraumatic EENT: PERRL, EOMI. Conjunctivae normal color, sclerae non-icteric; moist mucous membranes. NECK: Supple, non-tender; no meningismus. LUNGS: Lungs CTA, breathing even and unlabored. Normal air movement. HEART: Regular rate and rhythm, no murmur CHEST: No deformity; palpation of the anterior chest wall reproduces the patient's pain. ABDOMEN: The abdomen is soft, and non-tender, no masses or bruits. EXTREM: Normal ROM; no deformity, no calf tenderness. Normal pulses palpable in all extremities. There is no pedal edema. SKIN: No rash; no diaphoresis NEURO: Alert; normal speech and cognition; CN's grossly intact; strength grossly intact without focal deficit. BACK: No CVA TTP. Current Patient Data Lab Results Laboratory Tests Test 05/19/19 18:18 White Blood Count 13.5 x10^3/uL Red Blood Count 4.18 x10^6/uL Hemoglobin 13.1 g/dL Hematocrit 40.7 % Mean Corpuscular Volume 97 fL Mean Corpuscular Hemoglobin 31 pg Mean Corpuscular Hemoglobin Concent 32 g/dL Red Cell Distribution Width 14.2 % Platelet Count 288 x10^3/uL Neutrophils (%) (Auto) 73 % Lymphocytes (%) (Auto) 21 % Monocytes (%) (Auto) 5 % Eosinophils (%) (Auto) 1 % Basophils (%) (Auto) 0 % Neutrophils # (Auto) 9.8 x10^3uL Lymphocytes # (Auto) 2.9 x10^3/uL Monocytes # (Auto) 0.6 x10^3/uL Eosinophils # (Auto) 0.2 x10^3/uL Basophils # (Auto) 0.0 x10^3/uL D-Dimer ([place]) 0.32 mg/L EKG EKG Normal sinus rhythm at a rate of 88 beats for minute, normal axis, normal intervals, nonspecific ST/T changes inferiorly, the EKG is unchanged compared to patient's prior EKG.[] Radiology/Procedures Radiology/Procedures PROCEDURE: CHEST PA & LATERAL CHEST PA LATERAL History: Chest pain and chest pressure for the past 2 hours Comparison: 11/06/2018 two-view chest x-ray exam, 12/15/2018 Portable Chest X-ray Exam. Findings: The cardiomediastinal silhouette is normal. Pulmonary vasculature is normal. The lungs are clear. No pleural effusion or pneumothorax is seen. There is no acute bone abnormality. Left upper abdominal surgical clips are present. IMPRESSION: No acute cardiopulmonary process. [] Course & Med Decision Making Course & Med Decision Making Pertinent Labs and Imaging studies reviewed. (See chart for details) []8:20 PM: The patient's condition remains stable. Clinical suspicion for acute coronary syndrome is low. There is delay in obtaining chemistry is the lab chemistry analyzer is broken and labs are being run at a different hospital. After patient's chemistry results and is presumably normal, the patient will be released home. I discussed test results in detail with the patient, home care plan, the need for follow-up, and return precautions Dragon Disclaimer Dragon Disclaimer This electronic medical record was generated, in whole or in part, using a voice recognition dictation system. Departure Departure: Impression: Primary Impression: Chest wall pain Disposition: HOME, SELF-CARE Condition: STABLE Referrals: PANCHITO ESCOBEDO (PCP) Patient Instructions: Chest Wall Pain Additional Instructions: Ibuprofen 400-600 mg every 6 hours may help improve your symptoms. Applying a heating pad to the affected area may help improve your symptoms. FRANCHESKA KHAN MD May 19, 2019 18:29
--- NOTE | 2019-05-19 18:44 | RAD ---
CHEST PA LATERAL History: Chest pain and chest pressure for the past 2 hours Comparison: 11/06/2018 two-view chest x-ray exam, 12/15/2018 Portable Chest X-ray Exam. Findings: The cardiomediastinal silhouette is normal. Pulmonary vasculature is normal. The lungs are clear. No pleural effusion or pneumothorax is seen. There is no acute bone abnormality. Left upper abdominal surgical clips are present. IMPRESSION: No acute cardiopulmonary process. Electronically signed by: Chip Lipscomb MD (05/19/2019 6:41 PM) [id number]
[2019-05-19 18:56] VITALS: BP 129/95
[2019-05-19 18:57] LABS: BASO % 0 % (0-3); EOS # 0.2 x10^3/uL (0.0-0.7); EOS % 1 % (0-3); HEMATOCRIT 40.7 % (36.0-47.0); HEMOGLOBIN 13.1 g/dL (12.0-15.5); LYMPH # 2.9 x10^3/uL (1.0-4.8); LYMPH % 21 % (24-48); MEAN CORPUSCULAR HEMOGLOBIN 31 pg (25-35); MEAN CORPUSCULAR HGB CONC 32 g/dL (31-37); MEAN CORPUSCULAR VOLUME 97 fL (79-100); MONO # 0.6 x10^3/uL (0.0-1.1); MONO % 5 % (0-9); NEUT # 9.8 x10^3uL (1.8-7.7); NEUT % 73 % (31-73); PLATELET COUNT 288 x10^3/uL (140-400); RED BLOOD COUNT 4.18 x10^6/uL (3.50-5.40); RED CELL DISTRIBUTION WIDTH 14.2 % (11.5-14.5); WHITE BLOOD COUNT 13.5 x10^3/uL (4.0-11.0)
--- NOTE | 2019-05-19 19:36 | EKG ---
[address] [address] Test Date: 2019-05-19 Test Time: 18:19:28 Pat Name: NANCY DESAI Department: Room: Gender: F [employer]: : 1985 Requested By: FRANCHESKA KHAN Order Number: [id number] Reading MD: Measurements Intervals Ruth Rate: 88 P: 22 ME: 126 QRS: -12 QRSD: 104 T: 5 QT: 366 QTc: 446 Interpretive Statements SINUS RHYTHM LEFTWARD AXIS QRS(T) CONTOUR ABNORMALITY CONSIDER ANTEROSEPTAL MYOCARDIAL DAMAGE POSSIBLY ABNORMAL ECG RI6.01 No previous ECG available for comparison
[2019-05-19] MEDS ORDERED: KETOROLAC 30 MG/ML VIAL. IVP ONE (20:30)
[2019-05-19 20:57] LABS: ALBUMIN 3.7 g/dL (3.4-5.0); ALBUMIN/GLOBULIN RATIO 1.2 (1.0-1.7); CREATININE 0.6 mg/dL (0.6-1.0); GFR 116.6; TOTAL BILIRUBIN 0.4 mg/dL (0.2-1.0)
[2019-05-19 20:58] LABS: POTASSIUM 3.6 mmol/L (3.5-5.1)
[2019-05-19 20:59] LABS: TOTAL PROTEIN 6.8 g/dL (6.4-8.2)
== END 2019-05-19 21:09 | disposition home or self-care (01) ==
LOC: ER 18:12
DX: R07.89 Other chest pain (principal); F41.9 Anxiety disorder, unspecified; F32.9 Major depressive disorder, single episode, unspecified; Z90.49 Acquired absence of other specified parts of digestive tract; Z98.84 Bariatric surgery status
CPT/HCPCS: 36415; 71046; 80053; 84484; 85025; 85379; 93005; 99285

== ENCOUNTER 2019-08-25 19:49 | Emergency (ER) | payer OTHER ==
[~2019-08-25] VITALS: Ht 170.2 cm; Wt 96.8 kg
[~2019-08-25 19:49] MED LIST changes: -MAGN2400 PO; +MAGN24003 PO
--- NOTE | 2019-08-25 19:54 | PHYS DOC ---
Past History Past Medical History: Anxiety, Bipolar, Depression, Ovarian Cyst, Other Additional Past Medical Histor: ULCERS, BORDERLINE PERSONALITY DISORDER Past Surgical History: Cholecystectomy, Gastric Bypass, Other Additional Past Surgical Histo: gastric bypass, RIGHT OVARIAN CYST ABD TUBE REMOVAL 02/21/2019 Smoking: Quit Greater Than 1 Year Alcohol Use: None Drug Use: None General Adult EDM: Chief Complaint: PELVIC PAIN HPI: HPI: Patient is a 33 year old female who presents with above hx and complaints of pelvic pain with bleeding. Pt. localizes pain in lower abdomen and Lt. mid abdomen. Patient localizes her pain in lower pelvis and on left. Pain has been constant for the past 2 weeks but more severe tonight. Patient has known history of ovarian cyst. Patient has had history of gastric bypass and complications post gastric bypass, right ovarian cyst and tube removal in February 2019, . The patient has had had multiple laparotomies for evaluation of abdomen pain and removal of cysts. Patient has had cholecystectomy. Patient states she still has her appendix. Patient is 3 term 1 2 miscarriages. Patient states she has had normal stools recently. Patient denies any intake of bad food. Patient denies any recent travel outside the [facility]. Patient denies any specific ill contacts. Patient does smoke. Patient has had issues with pelvic infections.. Patient has history of, bipolar disorder, depression, ulcers, GERD, borderline personality, UTIs, and anxiety disorder. Patient's has been taking tramadol with reported no relief of her abdomen pain. Patient currently using IUD for control. Review of Systems: Review of Systems: Constitutional: Denies fever or chills Eyes: Denies change in visual acuity HENT: Denies nasal congestion or sore throat Respiratory: Denies cough or shortness of breath Cardiovascular: Denies chest pain or edema GI: Complains of generalized abdominal pain, nausea, with localization on left lower abdomen. Patient denies vomiting, bloody stools or diarrhea : Denies dysuria Musculoskeletal: Denies back pain or joint pain Integument: Denies rash Neurologic: Denies headache, focal weakness or sensory changes Endocrine: Denies polyuria or polydipsia Lymphatic: Denies swollen glands Psychiatric: Complains of depression or anxiety Heart Score: Risk Factors: Risk Factors: DM, Current or recent (<one month) smoker, HTN, HLP, family history of CAD, obesity. Risk Scores: Score 0 - 3: 2.5% MACE over next 6 weeks - Discharge Home Score 4 - 6: 20.3% MACE over next 6 weeks - Admit for Clinical Observation Score 7 - 10: 72.7% MACE over next 6 weeks - Early Invasive Strategies Family History: Family History: Family history noncontributory Current Medications: Current Meds: See nursing for home meds Allergies: Allergies: Allergies Coded Allergies Type Severity Reaction Last Updated Verified Sulfa (Sulfonamide Antibiotics) Allergy Intermediate hives 02/10/19 Yes yellow dye Allergy Intermediate 02/10/19 Yes Physical Exam: PE: Constitutional: Reports acute distress, non-toxic appearance. [] HENT: Normocephalic, atraumatic, bilateral external ears normal, oropharynx moist, no oral exudates, nose normal. Scar on right lateral side of orbit. Eyes: PERRLA, EOMI, conjunctiva normal, no discharge. [] Neck: Normal range of motion, no tenderness, supple, no stridor. [] Cardiovascular:Heart rate regular rhythm, no murmur [. The] monitor shows a normal sinus rhythm with no obvious acute morphology Lungs & Thorax: Bilateral breath sounds clear to auscultation [] Abdomen: Bowel sounds normal, soft, Lt.lower and mid abdomen tenderness, no masses, no pulsatile masses. [] Multiple old surgical scars. Cervical motion tenderness. Discharge. Spotting from Os. Rebound to mid abdomen and Lt. lower. Adnexal on Lt. very tender. IUD string noted. Skin: Warm, dry, no erythema, no rash. Tattoos. Tattoo Rt calf partial removal. Back: No tenderness, mid CVA tenderness on Lt. with percussion Extremities: No tenderness, no cyanosis, no clubbing, ROM intact, no edema. [] Neurologic: Alert and oriented X 3, normal motor function, normal sensory function, no gross focal deficits noted. [] Psychologic: Affect anxious,, judgement normal, mood depressed. Radiology/Procedures: Radiology/Procedures: [[address] [address] IMAGING REPORT Signed PATIENT: NANCY DESAI ACCOUNT: [id number] : 1985 LOCATION: ER AGE: 33 SEX: F EXAM STATUS: REG ER ORD. PHYSICIAN: CODY MOORE MD REASON: Nausea, left sided abdomen and hip pain PROCEDURE: ACUTE ABDOMEN SERIES EXAM: Frontal view of the chest, AP views of the abdomen in upright and supine positions. CLINICAL INDICATION: nausea, left-sided abdominal pain COMPARISON: None. FINDINGS and IMPRESSION: The heart is not enlarged. Mediastinal and hilar contours are normal. No focal parenchymal airspace opacity. No pleural effusion or pneumothorax. No abnormal small or large bowel dilatation. Moderate colonic stool content. No abnormal soft tissue mass effect. No suspicious calcifications are seen. No free intraperitoneal gas. Surgical clips are seen in the upper abdomen and mid abdomen. IUD is seen within the pelvis. Electronically signed by: Akash Richard MD (08/25/2019 9:49 PM) [facility] DICTATED AND SIGNED BY: AKASH RICHARD MD DATE: 08/25/192148 CC: CODY MOORE MD; [address] [address] IMAGING REPORT Signed PATIENT: NANCY DESAI ACCOUNT: [id number] : 1985 LOCATION: ER AGE: 33 SEX: F EXAM STATUS: REG ER ORD. PHYSICIAN: CODY MOORE MD REASON: Abdomen/pelvic pain, Hx. multiple surg. ovariancyst PROCEDURE: CT ABD PELV W/ORAL&IV CONTRAST PQRS Compliance Statement: One or more of the following individualized dose reduction techniques were utilized for this examination: 1. Automated exposure control 2. Adjustment of the mA and/or kV according to patient size 3. Use of iterative reconstruction technique CT ABD PELV W/ORAL IV CONTRAST Clinical Indication: Abdominal and pelvic pain. Comparison: CT abdomen and pelvis with contrast February 26, 2019. Technique: Helical CT imaging of the abdomen and pelvis is performed after 75 cc of Omnipaque 300 IV contrast. Oral contrast also administered. Findings: Mild atelectasis or scarring in the posterior lower lobes bilaterally. Cardiac size is normal. Cholecystectomy. The liver, spleen, pancreas, adrenal glands, abdominal aorta, and kidneys are normal. Stable postsurgical changes of the stomach. Oral contrast has reached the colon indicating there is no small bowel obstruction. No dilated small bowel. The appendix is normal. No colon wall thickening is seen. There is no abdominal adenopathy or free fluid. IUD in the uterus. Urinary bladder is normal. Left ovary functional cysts in conglomerate measure 2.8 x 3.4 cm. There is no pelvic free fluid. Right ovary surgically absent. There is minimal right convexity lumbar scoliosis. No acute bone abnormality. IMPRESSION: 1. No acute abdominal or pelvic abnormality. 2. Small left ovary functional cysts. No pelvic free fluid. Electronically signed by: Jag Fraser MD (08/26/2019 2:26 AM) [id number] DICTATED AND SIGNED BY: JAG FRASER MD DATE: 08/26/19225 CC: CODY MOORE MD; [facility] ~ ][place] [address] IMAGING REPORT Signed PATIENT: NANCY DESAI ACCOUNT: [id number] : 1985 LOCATION: ER AGE: 33 SEX: F EXAM STATUS: REG ER ORD. PHYSICIAN: CODY MOORE MD REASON: Nausea, left sided abdomen and hip pain PROCEDURE: ACUTE ABDOMEN SERIES EXAM: Frontal view of the chest, AP views of the abdomen in upright and supine positions. CLINICAL INDICATION: nausea, left-sided abdominal pain COMPARISON: None. FINDINGS and IMPRESSION: The heart is not enlarged. Mediastinal and hilar contours are normal. No focal parenchymal airspace opacity. No pleural effusion or pneumothorax. No abnormal small or large bowel dilatation. Moderate colonic stool content. No abnormal soft tissue mass effect. No suspicious calcifications are seen. No free intraperitoneal gas. Surgical clips are seen in the upper abdomen and mid abdomen. IUD is seen within the pelvis. Electronically signed by: Akash Richard MD (08/25/2019 9:49 PM) [facility] DICTATED AND SIGNED BY: AKASH RICHARD MD DATE: 08/25/19 [id number] CC: CODY MOORE MD; [facility] ESC[facility] Course & Med Decision Making: Course & Med Decision Making Pertinent Labs and Imaging studies reviewed. (See chart for details) Patient follow-up pending cultures. Patient practice safe sex. Patient remain on clear fluid diet while having abdomen pain. No solids. No milk products. Must allow bowel rest. Recommend follow-up with [facility]. Consider colonoscopy to evaluate for colitis. Must follow-up with primary care. Return if any concerns. Patient continue Keflex 500 mg 3 times a day while pending pelvic cultures. Must follow-up Impression: 1.Abdomen Pain 2. Hx. of Ovarian Cysts 3. Constipation 4. Mild elevation in alk phos 167 5. History of multiple abdomen surgeries with suspect adhesions 6. Cervicitis [] Dragon Disclaimer: Dragon Disclaimer: This electronic medical record was generated, in whole or in part, using a voice recognition dictation system. Departure Departure: Disposition: HOME/RESIDENCE PRIOR TO ADM Condition: STABLE Referrals: PANCHITO ESCOBEDO (PCP) Scripts Cephalexin (KEFLEX) 500 Mg Capsule 500 MG PO TID for UTI for 10 Days, BOTTLE Prov: CODY MOORE MD 08/26/19 Brown Disclaimer This chart was dictated in whole or in part using Voice Recognition software in a busy, high-work load, and often noisy Emergency Department environment. It may contain unintended and wholly unrecognized errors or omissions. CODY MOORE MD August 25, 2019 19:54
[2019-08-25 20:02] VITALS: BP 101/54
[2019-08-25 20:37] LABS: AMPHETAMINE/METHAMPHETAMINE NEG (NEG); BARBITURATES NEG (NEG); BENZODIAZEPINES NEG (NEG); CANNABINOIDS NEG (NEG); COCAINE NEG (NEG); METHADONE NEG (NEG); OPIATES NEG (NEG); PHENCYCLIDINE NEG (NEG)
[2019-08-25 20:45] LABS: BACTERIA,URINE FEW /HPF (0-FEW); BILIRUBIN,URINE NEG (NEG); CLARITY,URINE CLOUDY; COLOR,URINE YELLOW; GLUCOSE,URINE NEG (NEG); NITRITE,URINE NEG (NEG); SQUAMOUS EPITHELIAL CELL,UR MOD /LPF; UROBILINOGEN,URINE 0.2 mg/dL (0.2 mg/dL)
[2019-08-25] MEDS ORDERED: AZITHROMYCIN 500 MG VIAL. IV ONE (21:05)
[2019-08-25] MEDS ORDERED: IV NORMAL SALINE 250ML 250 ML ONE (21:05)
[2019-08-25] MEDS ORDERED: IV NORMAL SALINE 50ML 50 ML ONE (21:05)
[2019-08-25] MEDS ORDERED: cefTRIAXone SODIUM 1 GM VIAL ONE (21:05)
[2019-08-25 21:11] LABS: BASO % 0 % (0-3); EOS # 0.2 x10^3/uL (0.0-0.7); EOS % 2 % (0-3); HEMATOCRIT 38.2 % (36.0-47.0); HEMOGLOBIN 12.8 g/dL (12.0-15.5); LYMPH # 3.2 x10^3/uL (1.0-4.8); LYMPH % 39 % (24-48); MEAN CORPUSCULAR HEMOGLOBIN 32 pg (25-35); MEAN CORPUSCULAR HGB CONC 33 g/dL (31-37); MEAN CORPUSCULAR VOLUME 97 fL (79-100); MONO # 0.7 x10^3/uL (0.0-1.1); MONO % 8 % (0-9); NEUT # 4.1 x10^3uL (1.8-7.7); NEUT % 50 % (31-73); PLATELET COUNT 322 x10^3/uL (140-400); RED BLOOD COUNT 3.94 x10^6/uL (3.50-5.40); RED CELL DISTRIBUTION WIDTH 14.3 % (11.5-14.5); WHITE BLOOD COUNT 8.3 x10^3/uL (4.0-11.0)
[2019-08-25 21:20] LABS: CALCIUM 8.7 mg/dL (8.5-10.1); CREATININE 0.6 mg/dL (0.6-1.0); GFR 116.6; POTASSIUM 3.7 mmol/L (3.5-5.1)
[2019-08-25 21:25] LABS: ALBUMIN 3.4 g/dL (3.4-5.0); ALBUMIN/GLOBULIN RATIO 1.1 (1.0-1.7); DIRECT BILIRUBIN 0.1 mg/dL (0.0-0.2); TOTAL BILIRUBIN 0.3 mg/dL (0.2-1.0); TOTAL PROTEIN 6.4 g/dL (6.4-8.2)
[2019-08-25] MEDS ORDERED: ONDANSETRON PF 4 MG/2 ML VIAL. IVP ONE (21:30)
[2019-08-25] MEDS ORDERED: AZITHROMYCIN 500 MG in IV NORMAL SALINE 250ML 250 ML IV ONE (21:30)
[2019-08-25] MEDS ORDERED: MORPHINE SULFATE 10 MG/ML SYRINGE. SQ ONE (21:30)
[2019-08-25] MEDS ORDERED: KETOROLAC 30 MG/ML VIAL. IVP ONE (21:30)
[2019-08-25] MEDS ORDERED: IV RINGERS SOLUTION,LACTATED 1,000 ML IV SCH (21:30)
[2019-08-25] MEDS ORDERED: FAMOTIDINE 20 MG/2 ML VIAL IVP ONE (21:30)
--- NOTE | 2019-08-25 21:52 | RAD ---
EXAM: Frontal view of the chest, AP views of the abdomen in upright and supine positions. CLINICAL INDICATION: nausea, left-sided abdominal pain COMPARISON: None. FINDINGS and IMPRESSION: The heart is not enlarged. Mediastinal and hilar contours are normal. No focal parenchymal airspace opacity. No pleural effusion or pneumothorax. No abnormal small or large bowel dilatation. Moderate colonic stool content. No abnormal soft tissue mass effect. No suspicious calcifications are seen. No free intraperitoneal gas. Surgical clips are seen in the upper abdomen and mid abdomen. IUD is seen within the pelvis. Electronically signed by: Akash Barrera MD (08/25/2019 9:49 PM) [facility]
[2019-08-26] MEDS ORDERED: IOHEXOL 300 MG/ML 75 ML VIAL. IV ONE (00:30)
[2019-08-26] MEDS ORDERED: IOHEXOL 240 MG/ML 50ML VIAL. PO ONE (00:30)
[2019-08-26] MEDS ORDERED: CONTRAST GIVEN MC PRN (00:30)
--- NOTE | 2019-08-26 02:29 | RAD ---
PQRS Compliance Statement: One or more of the following individualized dose reduction techniques were utilized for this examination: 1. Automated exposure control 2. Adjustment of the mA and/or kV according to patient size 3. Use of iterative reconstruction technique CT ABD PELV W/ORAL IV CONTRAST Clinical Indication: Abdominal and pelvic pain. Comparison: CT abdomen and pelvis with contrast February 26, 2019. Technique: Helical CT imaging of the abdomen and pelvis is performed after 75 cc of Omnipaque 300 IV contrast. Oral contrast also administered. Findings: Mild atelectasis or scarring in the posterior lower lobes bilaterally. Cardiac size is normal. Cholecystectomy. The liver, spleen, pancreas, adrenal glands, abdominal aorta, and kidneys are normal. Stable postsurgical changes of the stomach. Oral contrast has reached the colon indicating there is no small bowel obstruction. No dilated small bowel. The appendix is normal. No colon wall thickening is seen. There is no abdominal adenopathy or free fluid. IUD in the uterus. Urinary bladder is normal. Left ovary functional cysts in conglomerate measure 2.8 x 3.4 cm. There is no pelvic free fluid. Right ovary surgically absent. There is minimal right convexity lumbar scoliosis. No acute bone abnormality. IMPRESSION: 1. No acute abdominal or pelvic abnormality. 2. Small left ovary functional cysts. No pelvic free fluid. Electronically signed by: Jag Fraser MD (08/26/2019 2:26 AM) [id number]
[2019-08-26] MEDS ORDERED: CEPH-264 PO (02:55)
[2019-08-26] MEDS ORDERED: MORPHINE SULFATE 10 MG/ML SYRINGE. ONE (02:58)
[2019-08-26] MEDS ORDERED: MAGNESIUM HYDROXIDE 2,400 MG/30 ML ORAL.SUSP. PO ONE (03:30)
[2019-08-29 16:07] LABS: CHLAMYDIA PROBE Negative (Negative)
== END 2019-08-26 03:10 | disposition home or self-care (01) ==
LOC: ER 19:49
DX: N72 Inflammatory disease of cervix uteri (principal); R74.8 Abnormal levels of other serum enzymes; K59.00 Constipation, unspecified; Z90.49 Acquired absence of other specified parts of digestive tract; Z98.84 Bariatric surgery status; Z87.891 Personal history of nicotine dependence; Z88.2 Allergy status to sulfonamides; Z91.041 Radiographic dye allergy status
CPT/HCPCS: 36415; 74022; 74177; 80053; 80076; 80307; 81001; 81025; 82550; 83690; 84484; 85025; 85610; 85730; 87491; 87591; 96365; 96368; 96372; 96375; 99285; J0456; J0696; J1885; J2270; J2405; J3490; J7050; J7120; Q0111; Q9966; Q9967

== ENCOUNTER → 2019-09-06 | Outpatient (CLI) | payer OTHER ==
[2019-08-25 20:02] VITALS: BP 101/54
[~2019-09-06] MED LIST changes: +AMLO-186 PO; -AMLO5TAB10 PO; -ASPI-612 PO; +ASPI-889 PO; +CEPH500C PO; +IBUP-571 PO
--- NOTE | 2019-09-06 14:35 | RAD ---
Endovaginal pelvic ultrasound compared to CT scan of the pelvis dated August 20, 2023 ovarian cysts. TECHNIQUE AND FINDINGS: Real-time grayscale and color Doppler evaluation of the pelvis is performed from and endovaginal route. The uterus measures 9.4 x 5.0 x 4.2 cm and is free of any focal myometrial abnormalities. Endometrial thickness is normal. An IUD is present, and does produce some shadowing limiting evaluation of the small portion of the posterior myometrium. The right ovary is surgically absent. The left ovary measures 3.9 x 2.6 x 2.9 cm is notable for several simple appearing follicles, the largest of which measures 2.3 cm. There is a trace amount of free fluid in the pelvis, likely physiologic. IMPRESSION: 1. Postsurgical changes of a right oophorectomy. 2. Normal follicular appearance of the left ovary. Electronically signed by: Jason Vargas MD (09/06/2019 2:32 PM) [id number]
== END | disposition home or self-care (01) ==
LOC: US 12:35
PROVIDERS: ATTEND Obstetrics & Gynecology
DX: N83.202 Unspecified ovarian cyst, left side (principal); Z90.721 Acquired absence of ovaries, unilateral
CPT/HCPCS: 76830

== ENCOUNTER 2019-09-12 20:32 | Emergency (ER) | payer OTHER ==
[~2019-09-12] VITALS: Ht 170.2 cm; Wt 89.7 kg
[~2019-09-12 20:32] MED LIST changes: -AMLO-186 PO; +AMLO5TAB10 PO; +ASPI-612 PO; -ASPI-889 PO; -CEPH500C PO; -IBUP-571 PO
--- NOTE | 2019-09-12 20:37 | PHYS DOC ---
Past History Past Medical History: Anxiety, Bipolar, Depression, GERD, Ovarian Cyst, Other Additional Past Medical Histor: ULCERS, BORDERLINE PERSONALITY DISORDER Past Surgical History: Cholecystectomy, Gastric Bypass, Other Additional Past Surgical Histo: gastric bypass, RIGHT OVARIAN CYST ABD TUBE REMOVAL 02/21/2019, Smoking: Cigarettes, Quit Greater Than 1 Year Alcohol Use: None Drug Use: None General Adult HPI: HPI: ".. I am having really bad abdomen pain.. and I vomited 4 x.... ".. " I was eating some pizza.. and I vomited...up what looked like bright red blood...". " I have some gut... problems.. but.. it usually lower.. not in my upper abdomen..." Patient is a 33 year old female who presents with above hx and complaints of abdomen pain and vomiting approximate one cup of what appeared to be bright red blood just after eating pizza. Patient denies any excessive NSAID use. But but has had alcohol intake and has been smoking. Patient states no one else eating the same food became ill. Patient currently localizes her abdomen discomfort in epigastric area. Rebound is to right epigastric area. Patient does have a past history of anxiety, bipolar, colon polyps, depression, ovarian cysts, UTI's, borderline personality, GERD, gastric ulcers, tubal ligation on 02/20/2016. Patient has had previous gastric bypass surgery and cholecystectomy. Pt. has lost 105# in past year after her Audrey-en-Y surgery. The patient has had multiple laparoscopic evaluations. Patient uses an IUD for control. No history immunosuppression. No history of recent travel outside the [place] area. Patient works at [employer]. The patient normally follows with . Review of Systems: Review of Systems: Constitutional: Denies fever or chills Eyes: Denies change in visual acuity HENT: Denies nasal congestion or sore throat Respiratory: Denies cough or shortness of breath Cardiovascular: Denies chest pain or edema GI: Complains of epigastric abdominal pain, nausea, vomiting, bright red blood. : Denies dysuria Musculoskeletal: Denies back pain or joint pain Integument: Denies rash Neurologic: Denies headache, focal weakness or sensory changes Endocrine: Denies polyuria or polydipsia Lymphatic: Denies swollen glands Psychiatric: Denies depression or anxiety Heart Score: HEART Score for Chest Pain: HEART Score for Chest Pain Response (Comments) Value History Moderately Suspicious 1 ECG Nonspecific Repolarizatio 1 Age < 45 0 Risk Factors No Risk Factors 0 Troponin < Normal Limit 0 Total 2 Risk Factors: Risk Factors: DM, Current or recent (<one month) smoker, HTN, HLP, family history of CAD, obesity. Risk Scores: Score 0 - 3: 2.5% MACE over next 6 weeks - Discharge Home Score 4 - 6: 20.3% MACE over next 6 weeks - Admit for Clinical Observation Score 7 - 10: 72.7% MACE over next 6 weeks - Early Invasive Strategies Family History: Family History: Noncontributory to presentation Current Medications: Current Meds: See nursing for home meds Allergies: Allergies: Allergies Coded Allergies Type Severity Reaction Last Updated Verified Sulfa (Sulfonamide Antibiotics) Allergy Intermediate hives 02/10/19 Yes yellow dye Allergy Intermediate 02/10/19 Yes Physical Exam: PE: Constitutional: Moderate acute distress, non-toxic appearance. [] HENT: Normocephalic, atraumatic, bilateral external ears normal, oropharynx moist, no oral exudates, nose normal. [] Eyes: PERRLA, EOMI, conjunctiva normal, no discharge. [] Neck: Normal range of motion, no tenderness, supple, no stridor. [] Cardiovascular:Heart rate regular rhythm, no murmur [] Lungs & Thorax: Bilateral breath sounds equal at apex with scattered wheezes on auscultation [] Abdomen: Bowel sounds normal, soft, epigastric tenderness, no masses, no pulsatile masses. [] Rebound to epigastric area. Old surgery scars. Rectal exam no gross blood. NG placed and flushed no blood noted. Skin: Warm, dry, no erythema, no rash. Tattoos Back: No tenderness, no CVA tenderness. [] Extremities: No tenderness, no cyanosis, no clubbing, ROM intact, no edema. [] No psoas sign. Neurologic: Alert and oriented X 3, normal motor function, normal sensory function, no focal deficits noted. [] Psychologic: Affect anxious, judgement normal, mood normal. [] EKG: EKG: My interpretation of EKG shows a sinus tachycardia 102. Left axis. No findings of acute STEMI with contralateral changes. [] Radiology/Procedures: Radiology/Procedures: [][address] [address] IMAGING REPORT Signed PATIENT: NANCY DESAI ACCOUNT: [id number] : 1985 LOCATION: ER AGE: 33 SEX: F EXAM STATUS: REG ER ORD. PHYSICIAN: CODY MOOER MD REASON: Abomen pain Hx: Gastric bypass, cholecystectomy PROCEDURE: ACUTE ABDOMEN SERIES EXAM: Abdomen acute complete. HISTORY: Pain. COMPARISON: CT dated 08/26/2019. FINDINGS: A frontal view the chest and frontal upright and supine views of the abdomen are obtained. There is no infiltrate, pleural effusion or pneumothorax. The heart is normal in size. There is gas and stool within the colon. There is no evidence of bowel obstruction or free air. There are surgical clips and anastomoses within the upper abdomen due to gastric bypass surgery. There is an IUD overlying the pelvis. IMPRESSION: 1. No acute pulmonary finding. 2. Nonobstructive bowel gas pattern. Electronically signed by: Bernie Wallace MD (09/12/2019 10:10 PM) [facility] DICTATED AND SIGNED BY: BERNIE WALLACE MD DATE: 09/12/19 8113 CC: CODY MOORE MD; PANCHITO ESCOBEDO Course & Med Decision Making: Course & Med Decision Making Pertinent Labs and Imaging studies reviewed. (See chart for details) Risk of missed upper GI bleed discussed with pt. Pt. declines transfer and admit at this time. Pt. elects to be discharged and will follow up out pt. Pt. exhibits UCAR capacity . Patient stay on a clear fluid diet only for the next 2 days. No solids or milk products. Patient to allow bowel rest. Patient take Pepcid 20 mg twice a day. Patient follow-up primary care. Patient to get a upper GI and follow-up colon exam because of previous polyps and gastric ulcers.. Patient discouraged from alcohol tobacco use. Patient discouraged from NSAID use. Patient return if any concerns. Impression: 1. Abdomen pain 2. Nausea and Vomiting 3. Gastritis 4. Mild Elevation of Alk Phos 159 5. Alcohol Use 6. History of Audrey-en-Y gastric bypass- 2018 7. History of colon polyps removal in 2015 [] Dragon Disclaimer: Dragon Disclaimer: This electronic medical record was generated, in whole or in part, using a voice recognition dictation system. Departure Departure: Disposition: HOME/RESIDENCE PRIOR TO ADM Condition: STABLE Referrals: PANCHITO ESCOBEDO (PCP) Scripts Ondansetron Hcl (ZOFRAN) 8 Mg Tablet 8 MG PO QIDPRN PRN for active vomiting, #30 BOTTLE Prov: CODY MOORE MD 09/12/19 Famotidine (PEPCID) 20 Mg Tablet 20 MG PO BID for gastritis for 90 Days, #180 TAB Prov: CODY MOORE MD 09/12/19 [place] Disclaimer This chart was dictated in whole or in part using Voice Recognition software in a busy, high-work load, and often noisy Emergency Department environment. It may contain unintended and wholly unrecognized errors or omissions. Dragon Disclaimer This chart was dictated in whole or in part using Voice Recognition software in a busy, high-work load, and often noisy Emergency Department environment. It may contain unintended and wholly unrecognized errors or omissions. CODY MOORE MD September 12, 2019 20:37
[2019-09-12] MEDS ORDERED: IV RINGERS SOLUTION,LACTATED 1,000 ML IV SCH (20:40)
[2019-09-12] MEDS ORDERED: FAMOTIDINE 20 MG/2 ML VIAL IVP ONE (20:45)
[2019-09-12] MEDS ORDERED: MAGNESIUM HYDROXIDE 2,400 MG/30 ML ORAL.SUSP. PO ONE (20:45)
[2019-09-12] MEDS ORDERED: KETOROLAC 30 MG/ML VIAL. IVP ONE (20:45)
[2019-09-12] MEDS ORDERED: ONDANSETRON PF 4 MG/2 ML VIAL. IVP ONE (20:45)
[2019-09-12 21:41] VITALS: BP 105/54
[2019-09-12 21:41] LABS: BASO # 0.1 x10^3/uL (0.0-0.2); BASO % 1 % (0-3); EOS # 0.2 x10^3/uL (0.0-0.7); EOS % 3 % (0-3); HEMATOCRIT 38.5 % (36.0-47.0); HEMOGLOBIN 12.8 g/dL (12.0-15.5); LYMPH # 2.5 x10^3/uL (1.0-4.8); LYMPH % 34 % (24-48); MEAN CORPUSCULAR HEMOGLOBIN 32 pg (25-35); MEAN CORPUSCULAR HGB CONC 33 g/dL (31-37); MEAN CORPUSCULAR VOLUME 97 fL (79-100); MONO # 0.7 x10^3/uL (0.0-1.1); MONO % 9 % (0-9); NEUT # 3.9 x10^3uL (1.8-7.7); NEUT % 53 % (31-73); PLATELET COUNT 295 x10^3/uL (140-400); RED BLOOD COUNT 3.97 x10^6/uL (3.50-5.40); RED CELL DISTRIBUTION WIDTH 14.2 % (11.5-14.5); WHITE BLOOD COUNT 7.4 x10^3/uL (4.0-11.0)
[2019-09-12 21:53] LABS: CALCIUM 8.7 mg/dL (8.5-10.1); CREATININE 0.5 mg/dL (0.6-1.0); GFR 143.9; POTASSIUM 3.7 mmol/L (3.5-5.1)
[2019-09-12 22:01] LABS: ALBUMIN 3.4 g/dL (3.4-5.0); DIRECT BILIRUBIN 0.1 mg/dL (0.0-0.2); TOTAL BILIRUBIN 0.1 mg/dL (0.2-1.0); TOTAL PROTEIN 6.1 g/dL (6.4-8.2)
[2019-09-12 22:07] LABS: BARBITURATES NEG (NEG); BENZODIAZEPINES NEG (NEG); CANNABINOIDS NEG (NEG); COCAINE NEG (NEG); METHADONE NEG (NEG); OPIATES NEG (NEG); PHENCYCLIDINE NEG (NEG)
[2019-09-12 22:09] LABS: AMPHETAMINE/METHAMPHETAMINE NEG (NEG)
--- NOTE | 2019-09-12 22:12 | RAD ---
EXAM: Abdomen acute complete. HISTORY: Pain. COMPARISON: CT dated 08/26/2019. FINDINGS: A frontal view the chest and frontal upright and supine views of the abdomen are obtained. There is no infiltrate, pleural effusion or pneumothorax. The heart is normal in size. There is gas and stool within the colon. There is no evidence of bowel obstruction or free air. There are surgical clips and anastomoses within the upper abdomen due to gastric bypass surgery. There is an IUD overlying the pelvis. IMPRESSION: 1. No acute pulmonary finding. 2. Nonobstructive bowel gas pattern. Electronically signed by: Bernie Mora MD (09/12/2019 10:10 PM) [facility]
[2019-09-12 22:19] LABS: BILIRUBIN,URINE NEG (NEG); CLARITY,URINE CLEAR; COLOR,URINE YELLOW; GLUCOSE,URINE NEG (NEG)
[2019-09-12 22:20] LABS: BACTERIA,URINE FEW /HPF (0-FEW); NITRITE,URINE NEG (NEG); RBC,URINE OCC /HPF (0-2); SQUAMOUS EPITHELIAL CELL,UR FEW /LPF; UROBILINOGEN,URINE 0.2 mg/dL (0.2 mg/dL)
--- NOTE | 2019-09-12 23:14 | RAD ---
EXAM: Abdomen, single view. HISTORY: Nasogastric tube placement COMPARISON: 09/12/2019 FINDINGS: A frontal view of the abdomen is obtained. There is a nasogastric tube within the proximal stomach. There are surgical clips and anastomoses within the upper abdomen due to reported gastric bypass surgery. There is a nonobstructive bowel gas pattern. IMPRESSION: Nasogastric tube within the proximal stomach. Electronically signed by: Bernie Mora MD (09/12/2019 11:11 PM) [facility]
--- NOTE | 2019-09-12 23:20 | EKG ---
[address] [address] Test Date: 2019-09-12 Test Time: 20:47:04 Pat Name: NANCY DESAI Department: Room: Gender: F [employer]: : 1985 Requested By: CODY MOORE Order Number: [id number] Reading MD: Toro Miller Measurements Intervals [place] Rate: 102 P: 10 IL: 136 QRS: -29 QRSD: 102 T: 13 QT: 362 QTc: 476 Interpretive Statements SINUS TACHYCARDIA LEFTWARD AXIS Electronically Signed On 09-13-2019 15:51:57 CDT by Toro Miller
[2019-09-12] MEDS ORDERED: FAMO-63 PO (23:28)
[2019-09-12] MEDS ORDERED: ONDA8TAB9 PO (23:28)
== END 2019-09-12 23:40 | disposition home or self-care (01) ==
LOC: ER 20:32
DX: K29.70 Gastritis, unspecified, without bleeding (principal); R74.8 Abnormal levels of other serum enzymes; Z98.84 Bariatric surgery status; K21.9 Gastro-esophageal reflux disease without esophagitis; Z90.49 Acquired absence of other specified parts of digestive tract; Z87.891 Personal history of nicotine dependence; Z87.440 Personal history of urinary (tract) infections; Z88.2 Allergy status to sulfonamides; Z91.041 Radiographic dye allergy status
CPT/HCPCS: 36415; 74018; 74022; 80048; 80076; 80307; 81001; 81025; 82150; 82550; 83690; 84484; 85025; 85610; 85730; 93005; 96361; 96374; 96375; 99285; J2405; J3490; J7120

== ENCOUNTER 2019-11-17 18:46 | Emergency (ER) | payer OTHER ==
[~2019-11-17] VITALS: Ht 170.2 cm; Wt 89.7 kg
[2019-11-17 19:45] VITALS: BP 112/71
--- NOTE | 2019-11-17 20:14 | PHYS DOC ---
Past History Past Medical History: Anxiety, Bipolar, Depression, GERD, Ovarian Cyst, Other Additional Past Medical Histor: ULCERS, BORDERLINE PERSONALITY DISORDER Past Surgical History: Cholecystectomy, Gastric Bypass, Other Additional Past Surgical Histo: gastric bypass, RIGHT OVARIAN CYST ABD TUBE REMOVAL 02/21/2019, Smoking: Cigarettes, Quit Greater Than 1 Year Alcohol Use: None Drug Use: None General Adult EDM: Chief Complaint: MECHANICAL FALL HPI: HPI: Patient is a 33-year-old female who presents for evaluation of right hip and leg pain following a fall yesterday. Patient had a mechanical fall and landed on pavement onto her right hip and leg area. Patient states the pain is severe with walking and is made worse by walking. Patient also has some low back pain. Patient is some mild tingling in her leg but no focal motor deficits. Patient did not hit her head or have loss of consciousness. Review of Systems: Review of Systems: Constitutional: Denies fever or chills Eyes: Denies change in visual acuity HENT: Denies nasal congestion or sore throat Respiratory: Denies cough or shortness of breath Cardiovascular: Denies chest pain or edema GI: Denies abdominal pain, nausea, vomiting, bloody stools or diarrhea : Denies dysuria Musculoskeletal: Complains of mild lumbar pain Integument: Denies rash Neurologic: Denies headache, focal weakness or sensory changes Endocrine: Denies polyuria or polydipsia Lymphatic: Denies swollen glands Psychiatric: Denies depression or anxiety Heart Score: Risk Factors: Risk Factors: DM, Current or recent (<one month) smoker, HTN, HLP, family history of CAD, obesity. Risk Scores: Score 0 - 3: 2.5% MACE over next 6 weeks - Discharge Home Score 4 - 6: 20.3% MACE over next 6 weeks - Admit for Clinical Observation Score 7 - 10: 72.7% MACE over next 6 weeks - Early Invasive Strategies Allergies: Allergies: Allergies Coded Allergies Type Severity Reaction Last Updated Verified Sulfa (Sulfonamide Antibiotics) Allergy Intermediate hives 02/10/19 Yes yellow dye Allergy Intermediate 02/10/19 Yes Physical Exam: PE: Constitutional: Well developed, well nourished, no acute distress, non-toxic appearance. HENT: No trismus, external ears normal Eyes: Conjunctiva clear, EOMI Neck: Normal range of motion, no tenderness, supple, no stridor. 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 Extremities: Mild tenderness to palpate right hip right femur and right knee. No ligamentous instability. Neurovascular intact distally. Neurologic: Alert and oriented X 3, normal motor function, , no focal deficits noted. Psychologic: Affect normal, judgement normal, mood normal. Current Patient Data: Labs: Laboratory Tests Test 11/17/19 19:51 POC Urine HCG, Qualitative hcg negative (Negative) Vital Signs: Vital Signs Date Time Temp Pulse Resp B/P (MAP) Pulse Ox O2 Delivery O2 Flow Rate FiO2 11/17/19 19:45 97.5 73 18 112/71 (85) 100 Room Air EKG: EKG: [] Radiology/Procedures: Radiology/Procedures: [][address] [address] IMAGING REPORT Signed PATIENT: NANCY DESAI ACCOUNT: [id number] : 1985 LOCATION: ER AGE: 33 SEX: F EXAM STATUS: REG ER ORD. PHYSICIAN: CAROLE DORSEY MD REASON: Fall, lower back, right hip, right upper leg and knee pain PROCEDURE: LUMBAR SPINE 2-3V LUMBAR SPINE 2-3V History: Reason: Fall, lower back, right hip, right upper leg and knee pain / Spl. Instructions: / History: Technique: 3 views lumbar spine. Comparison: None. Findings: Normal alignment. Normal vertebral body height. No fracture. Disc spaces are well-maintained. Chronic T12 anterior vertebral body wedging. Postoperative changes upper abdomen. Impression: 1. No acute osseous abnormality. Electronically signed by: Tay Desai DO (11/17/2019 8:26 PM) [facility] DICTATED AND SIGNED BY: TAY DESAI DO DATE: 11/17/192025 CC: CAROLE DORSEY MD; PANCHITO ESCOBEDO ~ [][address] [address] IMAGING REPORT Signed PATIENT: ISIDRA DESAIA Deandre ACCOUNT: [id number] : 1985 LOCATION: ER AGE: 33 SEX: F EXAM STATUS: REG ER ORD. PHYSICIAN: CAROLE DORSEY MD REASON: Fall, lower back, right hip, right upper leg and knee pain PROCEDURE: RIGHT FEMUR XRAY RIGHT FEMUR XRAY, HIP RIGHT 2V WITH PELVIS, KNEE RIGHT 3V History: Reason: Fall, lower back, right hip, right upper leg and knee pain / Spl. Instructions: / History: Technique: AP view the pelvis and 2 additional views of the right hip, 2 views of the right femur and 3 views of the right knee. Comparison: January 30, 2017 Findings: Normal alignment of the hips. No fracture. Normal alignment of the femur. No fracture. Normal alignment of the knee. No fracture. Mild medial and patellofemoral compartment DJD. No significant knee joint effusion. Impression: 1. No acute osseous abnormality. 2. Mild right knee DJD. Electronically signed by: Tay Desai DO (11/17/2019 8:29 PM) [facility] DICTATED AND SIGNED BY: TAY DESAI DO DATE: 11/17/192028 CC: CAROLE DORSEY MD; PANCHITO ESCOBEDO ~ Course & Med Decision Making: Course & Med Decision Making Pertinent Labs and Imaging studies reviewed. (See chart for details) 33-year-old female with mechanical fall and back and right leg pain. No signs of cauda equina. Imaging is negative. Patient has crutches. Patient be given prescriptions for symptomatic relief. Discussed results with the patient. No questions or concerns. Return precautions given. Dragon Disclaimer: Dragon Disclaimer: This electronic medical record was generated, in whole or in part, using a voice recognition dictation system. Departure Departure: Impression: Primary Impression: Contusion of right hip Additional Impressions: Lumbar back pain Contusion of right knee Disposition: 01 HOME/RESIDENCE PRIOR TO ADM Condition: STABLE Referrals: PANCHITO ESCOBEDO (PCP) 2-3 days Patient Instructions: Contusion Additional Instructions: EMERGENCY DEPARTMENT GENERAL DISCHARGE INSTRUCTIONS THANK YOU for coming to the Emergency Department (ED) today and trusting us with your care. We trust that you had a positive experience in our Emergency Department. YOUR FOLLOW UP INSTRUCTIONS ARE FOLLOWS: Do you have a private doctor? If you do not have a private doctor, please ask for a resource list of physicians or clinics that may be able to assist you with follow up care. The Emergency Physician has interpreted your x-rays. The X-ray specialist will also review them. If there is a change in the findings you will be notified in 48 hours when at all possible. A lab test or lab culture may have been done, your results will be reviewed and you will be notified if you need a change in treatment. ADDITIONAL INSTRUCTIONS AND INFORMATION Your care today has been supervised by a physician who is specially trained in emergency care. Many problems require more than one evaluation for a complete diagnosis and treatment. We recommend that you schedule your follow up appointment as recommended to ensure complete treatment of your illness or injury. If you are unable to obtain follow up care and continue to have a problem, or if your condition worsens we recommend that you return to the ED. We are not able to safely determine your condition over the phone nor are we able to give sound medical advice over the phone. For these safety reasons, if you call for medical advice we will ask you to come to the ED for further evaluation If you have any questions regarding these discharge instructions please call the ED at . SAFETY INFORMATION In the interest of safety, wellness, and injury prevention; we encourage you to wear your seatbelt, if you smoke; quit smoking, and we encourage your family to use protective helmet for bicycling and other sporting events that present an increased risk for head injury. IF YOUR SYMPTOMS WORSEN OR NEW SYMPTOMS DEVELOP, OR YOU HAVE CONCERNS ABOUT YOUR CONDITION; OR IF YOUR CONDITION WORSENS WHILE YOU ARE WAITING FOR YOUR FOLLOW UP APPOINTMENT; EITHER CONTACT YOUR PRIMARY CARE DOCTOR, THE PHYSICIAN WHOSE NAME AND NUMBER YOU WERE GIVEN, OR RETURN TO THE ED IMMEDIATELY. Scripts Hydrocodone Bit/Acetaminophen (NORCO 5-325 TABLET) 1 Each Tablet 1 TAB PO PRN Q6HRS PRN for PAIN, #12 TAB 0 Refills Prov: CAROLE DORSEY MD 11/17/19 Ibuprofen (Ibu) 600 Mg Tablet 1 TAB PO Q6-8HRS for pain, fever, inflammation for 6 Days, #24 TAB 0 Refills Prov: CAROLE DORSEY MD 11/17/19 Justification of Admission: Justification of Admission: Justification of Admission Dx: N/A CAROLE DORSEY MD Nov 17, 2019 20:14
--- NOTE | 2019-11-17 20:29 | RAD ---
LUMBAR SPINE 2-3V History: Reason: Fall, lower back, right hip, right upper leg and knee pain / Spl. Instructions: / History: Technique: 3 views lumbar spine. Comparison: None. Findings: Normal alignment. Normal vertebral body height. No fracture. Disc spaces are well-maintained. Chronic T12 anterior vertebral body wedging. Postoperative changes upper abdomen. Impression: 1. No acute osseous abnormality. Electronically signed by: Tay Jo DO (11/17/2019 8:26 PM) [facility]
--- NOTE | 2019-11-17 20:32 | RAD ---
RIGHT FEMUR XRAY, HIP RIGHT 2V WITH PELVIS, KNEE RIGHT 3V History: Reason: Fall, lower back, right hip, right upper leg and knee pain / Spl. Instructions: / History: Technique: AP view the pelvis and 2 additional views of the right hip, 2 views of the right femur and 3 views of the right knee. Comparison: January 30, 2017 Findings: Normal alignment of the hips. No fracture. Normal alignment of the femur. No fracture. Normal alignment of the knee. No fracture. Mild medial and patellofemoral compartment DJD. No significant knee joint effusion. Impression: 1. No acute osseous abnormality. 2. Mild right knee DJD. Electronically signed by: Tay Jo DO (11/17/2019 8:29 PM) [facility]
[2019-11-17] MEDS ORDERED: HYDR-3165 PO (21:07)
[2019-11-17] MEDS ORDERED: IBUP-571 PO (21:07)
== END 2019-11-17 21:20 | disposition home or self-care (01) ==
LOC: ER 18:46
DX: S70.01XA Contusion of right hip, initial encounter (principal); S80.01XA Contusion of right knee, initial encounter; M54.5 Low back pain; K21.9 Gastro-esophageal reflux disease without esophagitis; F41.9 Anxiety disorder, unspecified; F31.9 Bipolar disorder, unspecified; Z87.891 Personal history of nicotine dependence; Z88.2 Allergy status to sulfonamides; Z91.041 Radiographic dye allergy status; W18.39XA Other fall on same level, initial encounter; Y93.89 Activity, other specified; Y92.89 Other specified places as the place of occurrence of the external cause; Y99.8 Other external cause status
CPT/HCPCS: 72100; 73502; 73552; 73562; 81025; 99284

== ENCOUNTER 2019-12-04 18:16 | Emergency (ER) | payer OTHER ==
[~2019-12-04] VITALS: Ht 170.2 cm; Wt 83.9 kg
[~2019-12-04 18:16] MED LIST changes: -ASPI-612 PO; +ASPI-889 PO; +IBUP-571 PO
[2019-12-04] MEDS ORDERED: IV NORMAL SALINE 1,000ML 1,000 ML IV SCH (18:31)
[2019-12-04] MEDS ORDERED: PANTOPRAZOLE IV 40 MG VIAL. IVP ONE (18:45)
[2019-12-04] MEDS ORDERED: FAMOTIDINE 20 MG/2 ML VIAL IVP ONE (18:45)
[2019-12-04 19:09] LABS: BASO % 1 % (0-3); EOS # 0.2 x10^3/uL (0.0-0.7); EOS % 3 % (0-3); HEMATOCRIT 37.4 % (36.0-47.0); HEMOGLOBIN 12.3 g/dL (12.0-15.5); LYMPH # 3.1 x10^3/uL (1.0-4.8); LYMPH % 45 % (24-48); MEAN CORPUSCULAR HEMOGLOBIN 32 pg (25-35); MEAN CORPUSCULAR HGB CONC 33 g/dL (31-37); MEAN CORPUSCULAR VOLUME 98 fL (79-100); MONO # 0.6 x10^3/uL (0.0-1.1); MONO % 9 % (0-9); NEUT # 2.9 x10^3uL (1.8-7.7); NEUT % 42 % (31-73); PLATELET COUNT 321 x10^3/uL (140-400); RED BLOOD COUNT 3.81 x10^6/uL (3.50-5.40); RED CELL DISTRIBUTION WIDTH 13.3 % (11.5-14.5); WHITE BLOOD COUNT 6.9 x10^3/uL (4.0-11.0)
--- NOTE | 2019-12-04 19:10 | PHYS DOC ---
Past History Past Medical History: Anxiety, Bipolar, Depression, GERD, Ovarian Cyst, Other Additional Past Medical Histor: ULCERS, BORDERLINE PERSONALITY DISORDER Past Surgical History: Cholecystectomy, Gastric Bypass, Other Additional Past Surgical Histo: gastric bypass, RIGHT OVARIAN CYST ABD TUBE REMOVAL 02/21/2019, Smoking: Cigarettes, Quit Greater Than 1 Year Alcohol Use: None Drug Use: None General Adult EDM: Chief Complaint: NAUSEA/VOMITING/DIARRHEA HPI: HPI: Patient is a 33 year old female who presents for evaluation of mild to moderate upper abdominal discomfort as well as recurring episodes of nausea vomiting and loose stools. Symptoms been progressing for the past 3 days. Patient states she has have been exposed to someone with COVID in the past 2 weeks. Patient has a history of prior gastric bypass surgery as well as polycystic ovary disease. Patient was in mild to early moderate distress on arrival. Patient is also complaining of a sore throat. Review of Systems: Review of Systems: Constitutional: Denies fever or chills Eyes: Denies change in visual acuity HENT: Denies nasal congestion has a sore throat Respiratory: Denies cough or shortness of breath Cardiovascular: Denies chest pain or edema GI: has upper abdominal pain,with nausea, vomiting and diarrhead but no bloody stools : Denies dysuria Musculoskeletal: Denies back pain or joint pain Integument: Denies rash Neurologic: Denies headache, focal weakness or sensory changes Endocrine: Denies polyuria or polydipsia Lymphatic: Denies swollen glands Psychiatric: has depression and anxiety Heart Score: Risk Factors: Risk Factors: DM, Current or recent (<one month) smoker, HTN, HLP, family history of CAD, obesity. Risk Scores: Score 0 - 3: 2.5% MACE over next 6 weeks - Discharge Home Score 4 - 6: 20.3% MACE over next 6 weeks - Admit for Clinical Observation Score 7 - 10: 72.7% MACE over next 6 weeks - Early Invasive Strategies Current Medications: Current Meds: Current Medications Medications (Trade) Dose Ordered Sig/Mahad Start Time Stop Time Status Last Admin Dose Admin Famotidine (Pepcid Vial) 20 mg 1X ONCE 12/04/19 18:45 12/04/19 18:46 DC 12/04/19 18:47 20 MG Fentanyl Citrate (Fentanyl 2ml Vial) 50 mcg 1X ONCE 12/04/19 18:45 12/04/19 18:46 DC 12/04/19 18:47 50 MCG Pantoprazole Sodium (Protonix Vial) 40 mg 1X ONCE 12/04/19 18:45 12/04/19 18:46 DC 12/04/19 18:46 40 MG Sodium Chloride 1,000 ml @ 100 mls/hr Q10H 12/04/19 18:31 12/05/19 04:30 12/04/19 18:46 100 MLS/HR Allergies: Allergies: Allergies Coded Allergies Type Severity Reaction Last Updated Verified Sulfa (Sulfonamide Antibiotics) Allergy Intermediate hives 02/10/19 Yes yellow dye Allergy Intermediate 02/10/19 Yes Physical Exam: PE: Constitutional: Well developed, well nourished, mild to moderate acute distress, non-toxic appearance. [] HENT: Normocephalic, atraumatic, bilateral external ears normal, oropharynx moist, no oral exudates, nose normal. [] Eyes: PERRL, EOMI, conjunctiva normal, no discharge. [] Neck: Normal range of motion, no tenderness, supple, no stridor. [] Cardiovascular:Heart rate regular rhythm, no murmur [] Lungs & Thorax: Bilateral breath sounds clear to auscultation [] Abdomen: Bowel sounds normal, soft, upper abd tenderness to palpation, no masses. [] Skin: Warm, dry, no erythema, no rash. [] Back: No tenderness, no CVA tenderness. [] Extremities: No tenderness, no cyanosis, ROM intact, no edema. [] Neurologic: Alert and oriented X 3, normal motor function, normal sensory function, no focal deficits noted. [] Psychologic: Affect abnormal, judgement normal, mood abnormal. [] Current Patient Data: Labs: Laboratory Tests Test 12/04/19 18:40 12/04/19 19:01 White Blood Count 6.9 x10^3/uL Red Blood Count 3.81 x10^6/uL Hemoglobin 12.3 g/dL Hematocrit 37.4 % Mean Corpuscular Volume 98 fL Mean Corpuscular Hemoglobin 32 pg Mean Corpuscular Hemoglobin Concent 33 g/dL Red Cell Distribution Width 13.3 % Platelet Count 321 x10^3/uL Neutrophils (%) (Auto) 42 % Lymphocytes (%) (Auto) 45 % Monocytes (%) (Auto) 9 % Eosinophils (%) (Auto) 3 % Basophils (%) (Auto) 1 % Neutrophils # (Auto) 2.9 x10^3uL Lymphocytes # (Auto) 3.1 x10^3/uL Monocytes # (Auto) 0.6 x10^3/uL Eosinophils # (Auto) 0.2 x10^3/uL Basophils # (Auto) 0.0 x10^3/uL Sodium Level 142 mmol/L Potassium Level 3.8 mmol/L Chloride Level 108 mmol/L Carbon Dioxide Level 29 mmol/L Anion Gap 5 Blood Urea Nitrogen 13 mg/dL Creatinine 1.0 mg/dL Estimated GFR (Cockcroft-Gault) 64.7 BUN/Creatinine Ratio 13 Glucose Level 80 mg/dL Calcium Level 8.2 mg/dL Total Bilirubin 0.2 mg/dL Aspartate Amino Transf (AST/SGOT) 9 U/L Alanine Aminotransferase (ALT/SGPT) 18 U/L Alkaline Phosphatase 117 U/L Total Protein 6.4 g/dL Albumin 3.1 g/dL Albumin/Globulin Ratio 0.9 Lipase 75 U/L Urine Collection Type Unknown Urine Color Yellow Urine Clarity Cloudy Urine pH 6.0 Urine Specific Horatio 1.020 Urine Protein Neg Urine Glucose (UA) Neg mg/dL Urine Ketones (Stick) Neg mg/dL Urine Blood Large Urine Nitrite Neg Urine Bilirubin Neg Urine Urobilinogen Dipstick 0.2 mg/dL Urine Leukocyte Esterase Trace Urine RBC 6-10 /HPF Urine WBC 11-20 /HPF Urine Squamous Epithelial Cells Many /LPF Urine Bacteria Mod /HPF Urine Mucus Slight /LPF Current Medications Medications (Trade) Dose Ordered Sig/Mahad Route PRN Reason Start Time Stop Time Status Last Admin Dose Admin Sodium Chloride 1,000 ml @ 100 mls/hr Q10H IV 12/04/19 18:31 12/05/19 04:30 12/04/19 18:46 Famotidine (Pepcid Vial) 20 mg 1X ONCE IVP 12/04/19 18:45 12/04/19 18:46 DC 12/04/19 18:47 Pantoprazole Sodium (Protonix Vial) 40 mg 1X ONCE IVP 12/04/19 18:45 12/04/19 18:46 DC 12/04/19 18:46 Fentanyl Citrate (Fentanyl 2ml Vial) 50 mcg 1X ONCE IVP 12/04/19 18:45 12/04/19 18:46 DC 12/04/19 18:47 Iohexol (Omnipaque 240 Mg/ml) 30 ml 1X ONCE PO 12/04/19 20:00 12/04/19 20:01 UNV Iohexol (Omnipaque 300 Mg/ml) 75 ml 1X ONCE IV 12/04/19 20:00 12/04/19 20:01 UNV Vital Signs: Vital Signs Date Time Temp Pulse Resp B/P (MAP) Pulse Ox O2 Delivery O2 Flow Rate FiO2 12/04/19 18:47 14 99 Room Air 12/04/19 18:24 98.2 70 117/63 (81) EKG: EKG: [] Radiology/Procedures: Radiology/Procedures: [[place] [address] IMAGING REPORT Signed PATIENT: NANCY DESAI ACCOUNT: [id number] : 1985 LOCATION: ER AGE: 33 SEX: F EXAM STATUS: REG ER ORD. PHYSICIAN: KEELY PERALTA DO REASON: epigastric pain, history of gastric bypass, n/v/d PROCEDURE: CT ABD PELV W/ORAL&IV CONTRAST CT ABD PELV W/ORAL IV CONTRAST History: Reason: epigastric pain, history of gastric bypass, n/v/d / Spl. Instructions: / History: Comparison: 08/26/2019 Technique: After administration of intravenous contrast, helical CT of the abdomen and pelvis was performed from the lung bases through the ischial tuberosities. Coronal and sagittal reconstructions were obtained. 75 mL of Omnipaque 300 were used. One or more of the following dose reduction techniques were utilized: Automated exposure control (AEC), Adjustment of mA and/or kV according to patient size, Use of iterative reconstruction technique such as ASiR, CT scan done according to ALARA and image gently/image wisely Abdomen Findings: The visualized lung bases are clear. The liver, pancreas, spleen, and bilateral adrenal glands are normal. Cholecystectomy. Symmetric renal enhancement. There is no focal renal mass. There is no hydronephrosis. Postsurgical changes of gastric bypass. Normal caliber large and small bowel. Appendix is normal. There is no free fluid. There is no mesenteric or retroperitoneal adenopathy. The abdominal aorta is normal in caliber. Urinary bladder is normal. Uterus is present. No pelvic free fluid. There is no pelvic or inguinal adenopathy. There is no acute bony abnormality. IMPRESSION: No acute findings. Electronically signed by: Antelmo Leone MD (12/04/2019 9:31 PM) [facility] DICTATED AND SIGNED BY: ANTELMO LEONE MD DATE: 12/04/192130 CC: PANCHITO ESCOBEDO; KEELY PERALTA DO ~] Impressions: [place] [address] IMAGING REPORT Signed PATIENT: NANCY DESAI ACCOUNT: [id number] : 1985 LOCATION: ER AGE: 33 SEX: F EXAM STATUS: REG ER ORD. PHYSICIAN: KEELY PERALTA DO REASON: short of air, vomiting PROCEDURE: PORTABLE CHEST 1V AP portable chest radiograph 12/04/2019 Clinical History: Shortness of breath. An AP erect portable digital radiograph of the chest was obtained. Comparison study is dated 05/19/2019. The cardiac and mediastinal silhouettes are within normal limits in size and configuration. No acute pulmonary infiltrate is seen. No pleural effusion or pneumothorax is noted. The osseous structures are grossly intact. Impression: No acute abnormality is seen. Electronically signed by: Hieu Summers MD (12/04/2019 8:16 PM) [id number] DICTATED AND SIGNED BY: HIUE SUMMERS MD DATE: 12/04/192015 CC: PANCHITO ESCOBEDO; KEELY PERALTA DO ~ Course & Med Decision Making: Course & Med Decision Making Pertinent Labs and Imaging studies reviewed. (See chart for details) [] Dragon Disclaimer: Dragon Disclaimer: This electronic medical record was generated, in whole or in part, using a voice recognition dictation system. Prior to discharge patient symptoms were improved. Symptomtic treatment recommended. CT scan abd/pelvis did not show evidence of acute surgical abdomen, obstruction etc. Remainder of lab work was stable and unremarkable. Patient does have a low-grade urinary tract infection Departure Departure: Impression: Primary Impression: Acute upper abdominal pain Additional Impressions: History of gastric bypass Acute UTI Exposure to COVID-19 virus Disposition: HOME/RESIDENCE PRIOR TO ADM Condition: STABLE Referrals: PANCHITO ESCOBEDO (PCP) Patient Instructions: Abdominal Pain, Urinary Tract Infection Additional Instructions: [employer] diet, no spicy foods, call and see your doctor right away in follow-up. You also have a bladder infection. Quarantine until your COVID swab results are known. Scripts Ondansetron (ONDANSETRON ODT) 4 Mg Tab.rapdis 1 TAB PO PRN Q6-8HRS for nausea, #8 TAB Prov: KEELY PERALTA DO 12/04/19 Cephalexin (CEPHALEXIN) 500 Mg Capsule 1 CAP PO QID for UTI for 7 Days, #28 CAP Prov: KEELY PERALTA DO 12/04/19 Justification of Admission: Justification of Admission: Justification of Admission Dx: N/A COVID-19 Assessment COVID-19 Patient Risks: Age 65 or older: No Sign of co-morbidity: Yes Exp to person + for COVID: Yes Exp to PUI: Yes Travel from affected area: No Lower respiratory symptoms: No Fever: Yes Other: No PPE Use: Full PPE with N95 mask or PAPR: Yes KEELY PERALTA DO Dec 04, 2019 19:10
[2019-12-04 19:14] LABS: CALCIUM 8.2 mg/dL (8.5-10.1); GFR 64.7; POTASSIUM 3.8 mmol/L (3.5-5.1)
[2019-12-04 19:20] LABS: ALBUMIN 3.1 g/dL (3.4-5.0); ALBUMIN/GLOBULIN RATIO 0.9 (1.0-1.7); TOTAL BILIRUBIN 0.2 mg/dL (0.2-1.0); TOTAL PROTEIN 6.4 g/dL (6.4-8.2)
[2019-12-04 19:43] LABS: BILIRUBIN,URINE NEG (NEG); CLARITY,URINE CLOUDY; COLOR,URINE YELLOW; GLUCOSE,URINE NEG (NEG); NITRITE,URINE NEG (NEG); UROBILINOGEN,URINE 0.2 mg/dL (0.2 mg/dL)
[2019-12-04 19:44] LABS: BACTERIA,URINE MOD /HPF (0-FEW); SQUAMOUS EPITHELIAL CELL,UR MANY /LPF
[2019-12-04] MEDS ORDERED: IOHEXOL 240 MG/ML 50ML VIAL. PO ONE (20:00)
[2019-12-04] MEDS ORDERED: IOHEXOL 300 MG/ML 75 ML VIAL. IV ONE (20:00)
[2019-12-04] MEDS ORDERED: CONTRAST GIVEN. MC PRN (20:00)
--- NOTE | 2019-12-04 20:20 | RAD ---
AP portable chest radiograph 12/04/2019 Clinical History: Shortness of breath. An AP erect portable digital radiograph of the chest was obtained. Comparison study is dated 05/19/2019. The cardiac and mediastinal silhouettes are within normal limits in size and configuration. No acute pulmonary infiltrate is seen. No pleural effusion or pneumothorax is noted. The osseous structures are grossly intact. Impression: No acute abnormality is seen. Electronically signed by: Hieu Summers MD (12/04/2019 8:16 PM) [id number]
--- NOTE | 2019-12-04 21:34 | RAD ---
CT ABD PELV W/ORAL IV CONTRAST History: Reason: epigastric pain, history of gastric bypass, n/v/d / Spl. Instructions: / History: Comparison: 08/26/2019 Technique: After administration of intravenous contrast, helical CT of the abdomen and pelvis was performed from the lung bases through the ischial tuberosities. Coronal and sagittal reconstructions were obtained. 75 mL of Omnipaque 300 were used. One or more of the following dose reduction techniques were utilized: Automated exposure control (AEC), Adjustment of mA and/or kV according to patient size, Use of iterative reconstruction technique such as ASiR, CT scan done according to ALARA and image gently/image wisely Abdomen Findings: The visualized lung bases are clear. The liver, pancreas, spleen, and bilateral adrenal glands are normal. Cholecystectomy. Symmetric renal enhancement. There is no focal renal mass. There is no hydronephrosis. Postsurgical changes of gastric bypass. Normal caliber large and small bowel. Appendix is normal. There is no free fluid. There is no mesenteric or retroperitoneal adenopathy. The abdominal aorta is normal in caliber. Urinary bladder is normal. Uterus is present. No pelvic free fluid. There is no pelvic or inguinal adenopathy. There is no acute bony abnormality. IMPRESSION: No acute findings. Electronically signed by: Teddy Leone MD (12/04/2019 9:31 PM) [facility]
[2019-12-04] MEDS ORDERED: ONDA4TAB12 PO (22:04)
[2019-12-04] MEDS ORDERED: CEPH500C PO (22:04)
[2019-12-04 22:22] VITALS: BP 114/57
[2019-12-04] MEDS ORDERED: CEPHALEXIN 250 MG CAPSULE PO ONE (22:30)
--- NOTE | 2019-12-07 12:17 | NUR ---
IP: notified patient of COVID result.
== END 2019-12-04 22:25 | disposition home or self-care (01) ==
LOC: ER 18:16
DX: N39.0 Urinary tract infection, site not specified (principal); Z20.828 Contact with and (suspected) exposure to other viral communicable diseases; K21.9 Gastro-esophageal reflux disease without esophagitis; F60.3 Borderline personality disorder; Z98.84 Bariatric surgery status; Z87.891 Personal history of nicotine dependence; Z90.49 Acquired absence of other specified parts of digestive tract; Z88.2 Allergy status to sulfonamides; Z91.041 Radiographic dye allergy status
CPT/HCPCS: 36415; 71045; 74177; 80053; 81001; 81025; 83690; 85025; 96361; 96374; 96375; 99285; C9113; J3010; J3490; J7030; Q9966; Q9967; U0003

== ENCOUNTER 2019-12-06 22:03 | Emergency (ER) | payer OTHER ==
[~2019-12-06] VITALS: Ht 170.2 cm; Wt 83.9 kg
[~2019-12-06 22:03] MED LIST changes: +CEPH500C PO
[2019-12-06 22:10] VITALS: BP 111/69
[2019-12-06 23:10] LABS: AMPHETAMINE/METHAMPHETAMINE NEG (NEG); BARBITURATES NEG (NEG); BENZODIAZEPINES NEG (NEG); CANNABINOIDS NEG (NEG); COCAINE NEG (NEG); METHADONE NEG (NEG); OPIATES POS (NEG); PHENCYCLIDINE NEG (NEG)
--- NOTE | 2019-12-06 23:10 | PHYS DOC ---
Past History Past Medical History: Anxiety, Bipolar, Depression, GERD, Ovarian Cyst, Other Additional Past Medical Histor: ULCERS, BORDERLINE PERSONALITY DISORDER Past Surgical History: Cholecystectomy, Gastric Bypass, Other Additional Past Surgical Histo: gastric bypass, RIGHT OVARIAN CYST ABD TUBE REMOVAL 02/21/2019, Smoking: Cigarettes, Quit Greater Than 1 Year Alcohol Use: None Drug Use: None General Adult EDM: Chief Complaint: SUICIDAL IDEATION HPI: HPI: 33-year-old female presents with suicidal ideation. She has been feeling depressed since last December. This is when she lost custody of her son. She has been thinking about suicide intermittently since that time. The thoughts have become more persistent the last couple of weeks. She has [place] the river. [place] and contemplated this a couple times in the last few weeks. Patient has had previous overdose attempts. She has been hospitalized in the past. Patient was diagnosed in this facility with a UTI few days ago. She has been taking her Keflex. She denies fever chills. She is on control and does not believe she is . S he has no other complaints at this time. Review of Systems: Review of Systems: Constitutional: Denies fever or chills Eyes: Denies change in visual acuity HENT: Denies nasal congestion or sore throat Respiratory: Denies cough or shortness of breath Cardiovascular: Denies chest pain or edema GI: Denies abdominal pain, nausea, vomiting, bloody stools or diarrhea : Recent UTI diagnosis Musculoskeletal: Denies back pain or joint pain Integument: Denies rash Neurologic: Denies headache, focal weakness or sensory changes Endocrine: Denies polyuria or polydipsia Lymphatic: Denies swollen glands Psychiatric: Depression with suicidal ideation Heart Score: Risk Factors: Risk Factors: DM, Current or recent (<one month) smoker, HTN, HLP, family history of CAD, obesity. Risk Scores: Score 0 - 3: 2.5% MACE over next 6 weeks - Discharge Home Score 4 - 6: 20.3% MACE over next 6 weeks - Admit for Clinical Observation Score 7 - 10: 72.7% MACE over next 6 weeks - Early Invasive Strategies Allergies: Allergies: Allergies Coded Allergies Type Severity Reaction Last Updated Verified Sulfa (Sulfonamide Antibiotics) Allergy Intermediate hives 02/10/19 Yes yellow dye Allergy Intermediate 02/10/19 Yes Physical Exam: PE: Constitutional: Well developed, well nourished, no acute distress, non-toxic appearance. [] HENT: Normocephalic, atraumatic, bilateral external ears normal, oropharynx moist, no oral exudates, nose normal. [] Eyes: PERRLA, EOMI, conjunctiva normal, no discharge. [] Neck: Normal range of motion, no tenderness, supple, no stridor. [] Cardiovascular:Heart rate regular rhythm, no murmur [] Lungs & Thorax: Bilateral breath sounds clear to auscultation [] Abdomen: Bowel sounds normal, soft, no tenderness, no masses, no pulsatile masses. [] Skin: Warm, dry, no erythema, no rash. [] Back: No tenderness, no CVA tenderness. [] Extremities: No tenderness, no cyanosis, no clubbing, ROM intact, no edema. [] Neurologic: Alert and oriented X 3, normal motor function, normal sensory function, no focal deficits noted. [] Psychologic: Affect flat, judgement normal, mood depressed. [] Current Patient Data: Labs: Laboratory Tests Test 12/06/19 22:55 POC Urine HCG, Qualitative hcg negative (Negative) Vital Signs: Vital Signs Date Time Temp Pulse Resp B/P (MAP) Pulse Ox O2 Delivery O2 Flow Rate FiO2 12/06/19 22:10 98.6 74 16 111/69 (83) 98 Room Air EKG: EKG: [] Radiology/Procedures: Radiology/Procedures: [] Course & Med Decision Making: Course & Med Decision Making Pertinent Labs and Imaging studies reviewed. (See chart for details) The patient's labs are unremarkable. She is not . Her urinalysis is negative for leukocyte esterase and nitrate. She continues to have white cells which is not surprising given her recent UTI diagnosis. Her urine drug screen is positive for opiates. She is medically stable for psychiatric evaluation and admission if necessary. Her psychiatric evaluation is pending. It was determined that the patient did not meet admission criteria. She will go home with a safety plan. She will follow-up with [facility] tomorrow. [] Dragon Disclaimer: Dragon Disclaimer: This electronic medical record was generated, in whole or in part, using a voice recognition dictation system. Departure Departure: Impression: Primary Impression: Suicidal ideation Disposition: HOME/RESIDENCE PRIOR TO ADM Condition: STABLE Referrals: PANCHITO ESCOBEDO (PCP) Justification of Admission: Justification of Admission: Justification of Admission Dx: N/A ELDER GUTIERREZ DO Dec 06, 2019 23:10
[2019-12-06 23:14] LABS: BILIRUBIN,URINE NEG (NEG); CLARITY,URINE CLOUDY; COLOR,URINE YELLOW; GLUCOSE,URINE NEG (NEG)
[2019-12-06 23:15] LABS: BACTERIA,URINE MOD /HPF (0-FEW); NITRITE,URINE NEG (NEG); RBC,URINE OCC /HPF (0-2); SQUAMOUS EPITHELIAL CELL,UR MANY /LPF
[2019-12-06 23:16] LABS: BASO % 0 % (0-3); EOS # 0.2 x10^3/uL (0.0-0.7); EOS % 2 % (0-3); HEMATOCRIT 35.8 % (36.0-47.0); HEMOGLOBIN 11.9 g/dL (12.0-15.5); LYMPH # 2.7 x10^3/uL (1.0-4.8); LYMPH % 25 % (24-48); MEAN CORPUSCULAR HEMOGLOBIN 33 pg (25-35); MEAN CORPUSCULAR HGB CONC 33 g/dL (31-37); MEAN CORPUSCULAR VOLUME 98 fL (79-100); MONO # 0.6 x10^3/uL (0.0-1.1); MONO % 6 % (0-9); NEUT # 7.3 x10^3uL (1.8-7.7); NEUT % 68 % (31-73); PLATELET COUNT 292 x10^3/uL (140-400); RED BLOOD COUNT 3.67 x10^6/uL (3.50-5.40); RED CELL DISTRIBUTION WIDTH 13.3 % (11.5-14.5); WHITE BLOOD COUNT 10.8 x10^3/uL (4.0-11.0)
[2019-12-06 23:24] LABS: CALCIUM 8.6 mg/dL (8.5-10.1); CREATININE 0.8 mg/dL (0.6-1.0); GFR 83.7; POTASSIUM 3.8 mmol/L (3.5-5.1)
[2019-12-06 23:29] LABS: TOTAL BILIRUBIN 0.2 mg/dL (0.2-1.0); TOTAL PROTEIN 6.1 g/dL (6.4-8.2)
== END 2019-12-07 02:30 | disposition home or self-care (01) ==
LOC: ER 22:03
DX: R45.851 Suicidal ideations (principal); F41.9 Anxiety disorder, unspecified; F31.9 Bipolar disorder, unspecified; K21.9 Gastro-esophageal reflux disease without esophagitis; F60.3 Borderline personality disorder; Z87.440 Personal history of urinary (tract) infections; Z87.891 Personal history of nicotine dependence; Z88.2 Allergy status to sulfonamides; Z91.041 Radiographic dye allergy status
CPT/HCPCS: 36415; 80053; 80307; 81001; 81025; 85025; 87086; 99285

== ENCOUNTER 2020-02-16 22:37 | Emergency (ER) | payer OTHER ==
[~2020-02-16] VITALS: Ht 170.2 cm; Wt 78.6 kg
[~2020-02-16 22:37] MED LIST changes: +AMLO-186 PO; -AMLO5TAB10 PO
--- NOTE | 2020-02-16 23:14 | PHYS DOC ---
Past History Past Medical History: Anxiety, Bipolar, Depression, GERD, Ovarian Cyst, Other Additional Past Medical Histor: ULCERS, BORDERLINE PERSONALITY DISORDER, costchronitis Past Surgical History: Cholecystectomy, Gastric Bypass, Other Additional Past Surgical Histo: gastric bypass, RIGHT OVARIAN CYST ABD TUBE REMOVAL 02/21/2019, Smoking: Cigarettes, Quit Greater Than 1 Year Alcohol Use: None Drug Use: None General Adult EDM: Chief Complaint: MUSCLE SPASM/CRAMP HPI: HPI: History obtained from patient. Patient is a 34-year-old female with a history of depression, borderline personality sorter who presents with complaint of chest wall spasms. She states she has had intermittent chest wall spasms and upper back spasms for the entire day. States the pain began while at rest. States pain occurs every 30 minutes. States last few minutes and resolve on its own. She does note a history of this and states it feels somewhat similar. She has tried a muscle relaxant with minimal relief. Denies any shortness breath. Denies syncope. Denies palpitations. Denies cough or fever. Denies any exertional component to her symptoms. Denies any history of blood clot in the legs or lungs. States that her boyfriend wanted to be examined given the pain has been continuous for so long. She does note that she does not use ibuprofen at home but ulcers. Denies food exacerbating or alleviating her symptoms. Patient denies any history of immobilization greater than 48 hours, recent hospitalizations, recent surgery, recent trauma, , oral contraceptive usage, hormone replacement therapy, air travel greater than 8 hours, recent infectious disease, or general deterioration of their overall condition. Review of Systems: Review of Systems: Constitutional: Denies fever or chills Eyes: Denies change in visual acuity HENT: Denies nasal congestion or sore throat Respiratory: Denies cough or shortness of breath Cardiovascular: Denies chest pain or edema GI: Denies abdominal pain, nausea, vomiting, bloody stools or diarrhea : Denies dysuria Musculoskeletal: Denies back pain or joint pain Integument: Denies rash Neurologic: Denies headache, focal weakness or sensory changes Endocrine: Denies polyuria or polydipsia Lymphatic: Denies swollen glands Psychiatric: Denies depression or anxiety Allergies: Allergies: Allergies Coded Allergies Type Severity Reaction Last Updated Verified Sulfa (Sulfonamide Antibiotics) Allergy Intermediate hives 02/10/19 Yes yellow dye Allergy Intermediate 02/10/19 Yes Physical Exam: PE: Constitutional: Well developed, well nourished, no acute distress, non-toxic appearance. [] HENT: Normocephalic, atraumatic, bilateral external ears normal, oropharynx moist, no oral exudates, nose normal. [] Eyes: PERRLA, EOMI, conjunctiva normal, no discharge. [] Neck: Normal range of motion, no tenderness, supple, no stridor. [] Cardiovascular:Heart rate regular rhythm, no murmur [] Lungs & Thorax: Bilateral breath sounds clear to auscultation [] Abdomen: soft, no tenderness, no masses, no pulsatile masses. [] Skin: Warm, dry, no erythema, no rash. [] Back: No tenderness, no CVA tenderness. [] Extremities: No tenderness, no cyanosis, no clubbing, ROM intact, no edema. [] Neurologic: Alert and oriented X 3, normal motor function, normal sensory function, no focal deficits noted. [] Psychologic: Affect normal, judgement normal, mood normal. [] Current Patient Data: Vital Signs: Vital Signs Date Time Temp Pulse Resp B/P (MAP) Pulse Ox O2 Delivery O2 Flow Rate FiO2 02/16/20 22:37 97.8 83 16 111/69 (83) 100 Room Air EKG: EKG: EKG consistent with normal sinus rhythm. Ventricular rate of 75 bpm. [place] normal. Intervals normal. Flipped T waves noted in lead III. Nonspecific EKG. [] Radiology/Procedures: Radiology/Procedures: [] Heart Score: HEART Score for Chest Pain: HEART Score for Chest Pain Response (Comments) Value History Slighlty/Non-Suspicious 0 ECG Normal 0 Age < 45 0 Risk Factors No Risk Factors 0 Troponin < Normal Limit 0 Total 0 Risk Factors: Risk Factors: DM, Current or recent (<one month) smoker, HTN, HLP, family history of CAD, obesity. Risk Scores: Score 0 - 3: 2.5% MACE over next 6 weeks - Discharge Home Score 4 - 6: 20.3% MACE over next 6 weeks - Admit for Clinical Observation Score 7 - 10: 72.7% MACE over next 6 weeks - Early Invasive Strategies Course & Med Decision Making: Course & Med Decision Making Pertinent Labs and Imaging studies reviewed. (See chart for details) [] Patient is an overall well-appearing 34-year-old female presents with chief complaint of intermittent anterior chest wall and upper thoracic spasms throughout the day. She states she has had these symptoms before. Initial vital signs unremarkable. EKG without ischemic changes. Troponin negative. PERC negative. By my estimation the patient is low risk heart score. Given the chronicity of her symptoms repeat troponin not indicated. I do feel her symptoms are most likely musculoskeletal in nature. I do feel she is appropriate for discharge home. She was encouraged to continue use her muscle relaxant medicine at home as well as [id number] medications. Instructed follow-up with her primary care physician in the next 2 to 3 days. Return precautions discussed understood. Stable for discharge home. Dragon Disclaimer: Brown Disclaimer: This electronic medical record was generated, in whole or in part, using a voice recognition dictation system. Departure Departure: Impression: Primary Impression: Muscle spasm Disposition: 01 DC HOME SELF CARE/HOMELESS Condition: STABLE Referrals: PANCHITO ESCOBEDO (PCP) Patient Instructions: Costochondritis Additional Instructions: Please follow-up with your primary care physician in the next 2 to 3 days. Scripts Sulindac (SULINDAC) 200 Mg Tablet 200 MG PO BID for pain, #14 TAB Prov: KAI DE LEON DO 02/17/20 KAI DE LEON DO Feb 16, 2020 23:14
[2020-02-16 23:31] LABS: BASO % 0 % (0-3); EOS # 0.2 x10^3/uL (0.0-0.7); EOS % 2 % (0-3); HEMATOCRIT 38.1 % (36.0-47.0); HEMOGLOBIN 12.7 g/dL (12.0-15.5); LYMPH # 2.9 x10^3/uL (1.0-4.8); LYMPH % 35 % (24-48); MEAN CORPUSCULAR HEMOGLOBIN 33 pg (25-35); MEAN CORPUSCULAR HGB CONC 33 g/dL (31-37); MEAN CORPUSCULAR VOLUME 98 fL (79-100); MONO # 0.7 x10^3/uL (0.0-1.1); MONO % 8 % (0-9); NEUT # 4.5 x10^3uL (1.8-7.7); NEUT % 55 % (31-73); PLATELET COUNT 333 x10^3/uL (140-400); RED CELL DISTRIBUTION WIDTH 13.9 % (11.5-14.5); WHITE BLOOD COUNT 8.3 x10^3/uL (4.0-11.0)
[2020-02-16 23:38] LABS: CALCIUM 8.8 mg/dL (8.5-10.1); CREATININE 0.7 mg/dL (0.6-1.0); POTASSIUM 3.8 mmol/L (3.5-5.1)
[2020-02-16 23:44] LABS: ALBUMIN 3.6 g/dL (3.4-5.0); ALBUMIN/GLOBULIN RATIO 1.2 (1.0-1.7); TOTAL BILIRUBIN 0.1 mg/dL (0.2-1.0); TOTAL PROTEIN 6.5 g/dL (6.4-8.2)
--- NOTE | 2020-02-16 23:45 | EKG ---
[address] [address] Test Date: 2020-02-16 Test Time: 23:06:34 Pat Name: NANCY DESAI Department: Room: Gender: F Newswriter: MARY ANN : 1985 Requested By: KAI DE LEON Order Number: [id number] Reading MD: Toro Miller Measurements Intervals [place] Rate: 75 P: 36 MS: 130 QRS: -2 QRSD: 104 T: 8 QT: 402 QTc: 452 Interpretive Statements SINUS RHYTHM LEFTWARD AXIS Electronically Signed On 02-21-2020 11:37:53 [employer] by Toro Miller
[2020-02-17] MEDS ORDERED: SULI200T2 PO (00:16)
[2020-02-17 00:20] VITALS: BP 106/52
--- NOTE | 2020-02-17 01:21 | RAD ---
INDICATION: Reason: CP / Spl. Instructions: / History: COMPARISON: November 2019 FINDINGS: Single view of chest obtained. No focal airspace consolidation. Cardiomediastinal contour unremarkable. No acute osseous abnormality. IMPRESSION: * No focal airspace consolidation or edema. Electronically signed by: Baldemar Moe MD (02/17/2020 1:18 AM) [id number]
== END 2020-02-17 00:30 | disposition home or self-care (01) ==
LOC: ER 22:37
DX: M62.830 Muscle spasm of back (principal); R07.89 Other chest pain; K21.9 Gastro-esophageal reflux disease without esophagitis; F41.9 Anxiety disorder, unspecified; F31.9 Bipolar disorder, unspecified; F60.3 Borderline personality disorder; Z90.49 Acquired absence of other specified parts of digestive tract; Z98.84 Bariatric surgery status; Z87.891 Personal history of nicotine dependence; Z88.2 Allergy status to sulfonamides; Z91.041 Radiographic dye allergy status
CPT/HCPCS: 36415; 71045; 80053; 81025; 83690; 84484; 85025; 93005; 99285-25

== ENCOUNTER 2020-02-24 18:38 | Emergency (ER) | payer OTHER ==
[~2020-02-24] VITALS: Ht 170.2 cm; Wt 82.0 kg
[~2020-02-24 18:38] MED LIST changes: +MIRT-37; +MIRT-37 PO; -MIRT15TA; -MIRT15TA PO; +SULI200T2 PO
[2020-02-24 19:10] VITALS: BP 108/31
--- NOTE | 2020-02-24 19:33 | PHYS DOC ---
Past History Past Medical History: Depression, Ovarian Cyst Additional Past Medical Histor: ULCERS, BORDERLINE PERSONALITY DISORDER, costchronitis (MALIA PRUITT APRN) Past Surgical History: Gastric Bypass, Other Additional Past Surgical Histo: OVARIAN CYST SX (MALIA PRUITT APRN) Smoking: Cigarettes, Quit Greater Than 1 Year Alcohol Use: None Drug Use: None (MALIA PRUITT APRN) Adult General Chief Complaint Chief Complaint: HYPERGLYCEMIA HPI HPI Patient is a 34-year-old female patient who presents with hyperglycemia today. Patient reports she has been feeling some malaise for the last couple weeks, had been helping noe work on project in house today when she just had no strength, noe who is diabetic recommended patient check her blood sugar which she did and she found her blood sugar to be 245 when she evaluated. Patient reports she had called her primary care provider, was recommended to come the emergency room to evaluate her blood sugar. Patient reports she has a follow-up appoint with her primary care provider on February 26, reports she has had coronavirus testing recently with negative results, reports she is been eating and drinking normally, has had no change in her weight, said no fevers, does report she is feeling fatigued, and not sleeping very well. (MALIA PRUITT APRN) Review of Systems Review of Systems Constitutional: Denies fever or chills reports generalized malaise [] Eyes: Denies change in visual acuity, redness, or eye pain [] HENT: Denies nasal congestion or sore throat [] Respiratory: Denies cough or shortness of breath [] Cardiovascular: No additional information not addressed in HPI [] GI: Denies abdominal pain, nausea, vomiting, bloody stools or diarrhea [] : Denies dysuria or hematuria [] Musculoskeletal: Denies back pain or joint pain [] Integument: Denies rash or skin lesions [] Neurologic: Denies headache, focal weakness or sensory changes [] Endocrine: Denies polyuria or polydipsia [] All other systems were reviewed and found to be within normal limits, except as documented in this note. (MALIA PRUITT APRN) Allergies Allergies Allergies Coded Allergies Type Severity Reaction Last Updated Verified Sulfa (Sulfonamide Antibiotics) Allergy Intermediate hives 02/10/19 Yes yellow dye Allergy Intermediate 02/10/19 Yes (MALIA PRUITT APRN) Physical Exam Physical Exam Constitutional: Well developed, well nourished, no acute distress, non-toxic appearance. [] HENT: Normocephalic, atraumatic, bilateral external ears normal, oropharynx moist, no oral exudates, nose normal. [] Eyes: PERRLA, EOMI, conjunctiva normal, no discharge. [] Neck: Normal range of motion, no tenderness, supple, no stridor. [] Cardiovascular:Heart rate regular rhythm, no murmur [] Lungs & Thorax: Bilateral breath sounds clear to auscultation [] Abdomen: Bowel sounds normal, soft, no tenderness, no masses, no pulsatile masses. [] Skin: Warm, dry, no erythema, no rash. [] Back: No tenderness, no CVA tenderness. [] Extremities: No tenderness, no cyanosis, no clubbing, ROM intact, no edema. [] Neurologic: Alert and oriented X 3, normal motor function, normal sensory function, no focal deficits noted. [] Psychologic: Affect normal, judgement normal, mood normal. [] (MALIA PRUITT APRN) Current Patient Data Vital Signs Vital Signs Date Time Temp Pulse Resp B/P (MAP) Pulse Ox O2 Delivery O2 Flow Rate FiO2 02/24/20 19:10 98.0 59 18 108/31 (56) 99 Room Air Lab Results Laboratory Tests Test 02/24/20 19:17 Glucose (Fingerstick) 78 mg/dL (70-99) (MALIA PRUITT APRN) EKG EKG [] (MALIA PRUITT APRN) Radiology/Procedures Radiology/Procedures [] (MALIA PRUITT APRN) Heart Score Risk Factors: Risk Factors: DM, Current or recent (<one month) smoker, HTN, HLP, family history of CAD, obesity. Risk Scores: Risk Factors: DM, Current or recent (<one month) smoker, HTN, HLP, family history of CAD, obesity. (MALIA PRUITT APRN) Course & Med Decision Making Course & Med Decision Making Pertinent Labs and Imaging studies reviewed. (See chart for details) [Discussed findings of blood sugar in emergency room, with sugar of 78. Discussed with patient recommendation to draw labs to evaluate for electrolyte abnormalities and a venous blood sample as opposed to a capillary. Patient reports she does not want this at this time, states that she does want to make sure it was not high. States she does have follow-up with her primary care and she wants to follow-up with her primary care at that time. Patient in agreement plan to follow-up, again does not want any lab work done at this time with a noted normal glycemia here. Review of patient lab, 2013, patient has had no hypoglycemic episodes, with only one episode of blood sugar being 149 in 2013 prior to her bariatric surgery. Patient had been seen in this facility proximately 2 weeks ago, noting blood sugar at the time 84. Discussed with patient thyroid testing potentially relating to her fatigue and malaise, reports she has not been on any thyroid medications or any thyroid evaluation done since prior to her bariatric surgery, states she may consider this at her primary care but does not want this done today.] (MALIA PRUITT APRN) Dragon Disclaimer Dragon Disclaimer This electronic medical record was generated, in whole or in part, using a voice recognition dictation system. (MALIA PRUITT APRN) Departure Departure: Impression: Primary Impression: Feared condition not demonstrated Disposition: 01 DC HOME SELF CARE/HOMELESS Condition: STABLE Referrals: PANCHITO ESCOBEDO (PCP) Patient Instructions: Diabetes, FAQs Additional Instructions: As we discussed, your blood sugar here was 78 today. It is possible we are checking on the home machine that there may have been something to contaminate the sample and cause a false elevation in blood sugar, a machine malfunction or missed calibration, or something else. Keep your follow-up appointment with your primary care provider on Thursday. Continue to eat a healthy diet. Try to get some rest. Attending Signature Attending Signature I have participated in the care of this patient and I have reviewed and agree with all pertinent clinical information above including history, exam, and recom mendations. (CODY MOROE MD) Attending Co-Sign Attending Co-Sign The patient was seen and interviewed as well as examined at the bedside. The chart was reviewed. The case was discussed. Agree with the plan of care. (CODY MOORE MD) MALIA PRUITT APRN Feb 24, 2020 19:33 CODY MOORE MD Feb 24, 2020 20:52
== END 2020-02-24 19:37 | disposition home or self-care (01) ==
LOC: ER 18:38
DX: R73.9 Hyperglycemia, unspecified (principal); R53.81 Other malaise; F32.9 Major depressive disorder, single episode, unspecified; F17.210 Nicotine dependence, cigarettes, uncomplicated; Z98.890 Other specified postprocedural states; Z88.2 Allergy status to sulfonamides; Z91.040 Latex allergy status
CPT/HCPCS: 82947; 99283

== ENCOUNTER 2020-03-06 19:20 | Emergency (ER) | payer OTHER ==
[~2020-03-06] VITALS: Ht 170.2 cm; Wt 82.0 kg
[2020-03-06 19:25] VITALS: BP 111/85
[2020-03-06] MEDS ORDERED: HYDROcodone/APAP 5/325MG 1 TAB TABLET PO ONE (19:45)
[2020-03-06] MEDS ORDERED: IBUPROFEN 600 MG TABLET. PO ONE (19:45)
--- NOTE | 2020-03-06 20:22 | RAD ---
Exam: Right knee 4 views INDICATION: Fall on knee cap TECHNIQUE: Frontal, lateral, oblique and sunrise views of the right knee Comparisons: None FINDINGS: Small suprapatellar effusion. Bone mineralization is normal. No acute or healed fractures. Joint spaces are well-maintained. IMPRESSION: Small suprapatellar effusion without underlying osseous abnormality identified. Electronically signed by: Aaron Fisher MD (03/06/2020 8:19 PM) ADRIÁN
--- NOTE | 2020-03-06 20:39 | PHYS DOC ---
Past History Past Medical History: Depression, Ovarian Cyst Additional Past Medical Histor: ULCERS, BORDERLINE PERSONALITY DISORDER, costchronitis (MIHAELA WEBB APRN) Past Surgical History: Gastric Bypass, Other Additional Past Surgical Histo: OVARIAN CYST SX (MIHAELA WEBB APRN) Smoking: Cigarettes, Quit Greater Than 1 Year Alcohol Use: None Drug Use: None (MIHAELA WEBB APRN) Adult General Chief Complaint Chief Complaint: KNEE INJURY [facility] HPI Patient is a 34 year old female who presents with complaints of right knee pain after falling off her porch and landing directly onto her right knee. Patient states that she was taking her dog out for a walk and her dog pulled her off the porch there were no steps as her porch is approximately 8 inches off the ground, patient did not lose consciousness, she states she can walk on it it just hurts to walk. Patient states her pain is a 10/10 on a 1-10 pain scale. Patient denies any numbness or tingling to her right lower extremity, patient denies any other injuries. Patient denies any recent fever chills, nasal congestion, cough, shortness of breath, chest pain or edema, abdominal pain, nausea, vomiting, diarrhea, or constipation. Patient denies any problems urinating, denies vaginal discharge or STI concerns. Patient denies back pains, joint pains, skin rashes, headaches, focal weaknesses, or sensory changes. Patient denies any swelling of her glands, depressions, anxieties, homicidal or suicidal ideations. Patient denies any recent exposure to the COVID-19 virus, denies COVID-19 virus symptoms, does not wish to be tested for the COVID-19 virus today. (MIHAELA WEBB APRN) Review of Systems Review of Systems Constitutional: Denies fever or chills Eyes: Denies change in visual acuity, redness, or eye pain HENT: Denies nasal congestion or sore throat Respiratory: Denies cough or shortness of breath Cardiovascular: No additional information not addressed in HPI GI: Denies abdominal pain, nausea, vomiting, bloody stools or diarrhea : Denies dysuria or hematuria Musculoskeletal: Denies back pain, complains of right knee pain after falling today. Integument: Denies rash or skin lesions Neurologic: Denies headache, focal weakness or sensory changes Psychiatric: Denies homicidal suicidal ideations, denies anxieties or depressions. All other systems were reviewed and found to be within normal limits, except as documented in this note. (MIHAELA WEBB APRN) Current Medications Current Medications Current Medications Medications (Trade) Dose Ordered Sig/Mahad Start Time Stop Time Status Last Admin Dose Admin Acetaminophen/ Hydrocodone Bitart (Lortab 5/325) 1 tab 1X ONCE 03/06/20 19:45 03/06/20 19:50 DC 03/06/20 20:17 1 TAB Ibuprofen (Motrin) 600 mg 1X ONCE 03/06/20 19:45 03/06/20 19:50 DC 03/06/20 20:17 600 MG (MIHAELA WEBB APRN) Allergies Allergies Allergies Coded Allergies Type Severity Reaction Last Updated Verified Sulfa (Sulfonamide Antibiotics) Allergy Intermediate hives 02/10/19 Yes yellow dye Allergy Intermediate 02/10/19 Yes (MIHAELA WEBB APRN) Physical Exam Physical Exam Constitutional: Well developed, well nourished, no acute distress, non-toxic appearance. HENT: Normocephalic, atraumatic, bilateral external ears normal, oropharynx moist, no oral exudates, nose normal. Eyes: PERRLA, EOMI, conjunctiva normal, no discharge. Neck: Normal range of motion, no tenderness, supple, no stridor. Cardiovascular:Heart rate regular rhythm, no murmur Lungs & Thorax: Bilateral breath sounds clear to auscultation Abdomen: Bowel sounds normal, soft, no tenderness, no masses, no pulsatile masses. Skin: Warm, dry, no erythema, no rash. Back: No tenderness, no CVA tenderness. Extremities: No tenderness, no cyanosis, no clubbing, ROM intact, no edema. Patient complains of point tenderness to patella at the 7 o'clock position to palpation, no crepitus noted, no deformity noted, full AROM PROM, negative valgus, negative varus tests, negative posterior drawer test negative Christine's test, no loss of sensation distal to complaint injury, distal cap refill less than 2 seconds, 2+ dorsalis pedis and posterior tibial pulses bilaterally. No swelling, no edema, skin intact. Neurologic: Alert and oriented X 3, normal motor function, normal sensory function, no focal deficits noted. Psychologic: Affect normal, judgement normal, mood normal. (MIHAELA WEBB APRN) Current Patient Data Vital Signs Vital Signs Date Time Temp Pulse Resp B/P (MAP) Pulse Ox O2 Delivery O2 Flow Rate FiO2 03/06/20 20:17 Room Air (MIHAELA WEBB APRN) EKG EKG [] (MIHAELA WEBB APRN) Radiology/Procedures Radiology/Procedures STATUS: REG ER ORD. PHYSICIAN: MIHAELA WEBB APRN REASON: FALL/KNEE CAP PAIN PROCEDURE: KNEE RIGHT 4V Exam: Right knee 4 views INDICATION: Fall on knee cap TECHNIQUE: Frontal, lateral, oblique and sunrise views of the right knee Comparisons: None FINDINGS: Small suprapatellar effusion. Bone mineralization is normal. No acute or healed fractures. Joint spaces are well-maintained. IMPRESSION: Small suprapatellar effusion without underlying osseous abnormality identified. Electronically signed by: Aaron Mejia MD (03/06/2020 8:19 PM) [facility] DICTATED AND SIGNED BY: AARON MEJIA MD DATE: 03/06/202018 CC: MIHAELA WEBB APRN; [facility]; PANCHITO ESCOBEDO ~ (MIHAELA WEBB APRN) Heart Score Risk Factors: Risk Factors: DM, Current or recent (<one month) smoker, HTN, HLP, family history of CAD, obesity. Risk Scores: Risk Factors: DM, Current or recent (<one month) smoker, HTN, HLP, family history of CAD, obesity. (MIHAELA WEBB APRN) Course & Med Decision Making Course & Med Decision Making Pertinent Labs and Imaging studies reviewed. (See chart for details) 34-year-old female presented to emergency department approximately 20 minutes after a fall, stating that her dog pulled her off the porch and she fell onto her knee, patient denies any other injuries, examination was unremarkable except for her complaints of pain at the patellar region specifically near the 7 o'clock position. An x-ray was performed, ice packs were placed per ED nursing staff, 1 5/325 mg [place] and 1 600 mg Motrin were given in the ER. X-ray was read as small suprapatellar effusion, negative for acute fracture. Upon reexamination of the patient, patient states improvement of pain after taking ordered pain medications, discussed findings with patient, will place Xavi wrap, knee immobilizer, give prescription for Motrin, 2 days off of work, patient gave verbal understanding of discharge home instructions, return to ER concerns, prescription instructions, patient had no further questions or concerns, patient discharged home without incident. (MIHAELA WEBB APRN) Dragon Disclaimer Dragon Disclaimer This electronic medical record was generated, in whole or in part, using a voice recognition dictation system. (MIHAELA WEBB APRN) Attending Co-Sign The patient was seen and interviewed as well as examined at the bedside. The chart was reviewed. The case was discussed. Agree with the plan of care. (ELDER GUTIERREZ DO) Departure Departure: Impression: Primary Impression: Contusion of right knee Additional Impression: Right knee pain Disposition: 01 DC HOME SELF CARE/HOMELESS Condition: IMPROVED Referrals: PANCHITO ESCOBEDO (PCP) Patient Instructions: Elastic Bandage and RICE Additional Instructions: Take medications as prescribed, use immobilizer for the next several days until knee feels better, use Xavi wrap for compression, ice, elevation, you will be given a work excuse for the next 2 days, return to the emergency department for worsening symptoms, or other concerns, see your doctor soon. EMERGENCY DEPARTMENT GENERAL DISCHARGE INSTRUCTIONS Thank you for coming to [facility] (ED) today and trusting us with you care. We trust that you had a positivie experience in our Emergency Department. If you wish to speak to the department management, you may call the director at [phone]. YOUR FOLLOW UP INSTRUCTIONS ARE FOLLOWS: 1. Do you have a private Doctor? If you do not have a private doctor, please ask for a resource list of physicians or clinics that may be able to assist you with follow up care. 2. The Emergency Physician has interpreted your x-rays. The X-Ray specialist will also review them. If there is a change in the findings, you will be notified in 48 hours when at all possible. 3. A lab test or culture has been done, your results will be reviewed and you will be notified if you need a change in treatment. ADDITIONAL INSTRUCTIONS AND INFORMATION: 1. Your care today has been supervised by a physician who is specially trained in emergency care. Many problems require more than one evaluation for a complete diagnosis and treatment. We recommend that you schedule your follow up appointment as recommended to ensure complete treatment of you illness or injury. If you are unable to obtain follow up care and continue to have a problem, or if your condition worsens, we recommend that you return to the ED. 2. We are not able to safely determine your condition over the phone nor are we able to give sound medical advice over the phone. For these safety reasons, if you call for medical advice we will ask you to come to the ED for further evaluation. 3. If you have any questions regarding these discharge instructions please call the ED at [phone]. SAFETY INFORMATION: In the interest of safety, wellness, and injury prevention; we encourage you to wear your sealbelt, if you smoke; quite smoking, and we encourage family to use a protective helmet for bicycling and other sporting events that present an increased risk for head injury. IF YOUR SYMPTOMS WORSEN OR NEW SYMPTOMS DEVELOP, OR YOU HAVE CONCERNS ABOUT YOUR CONDITION; OR IF YOUR CONDITION WORSENS WHILE YOU ARE WAITING FOR YOUR FOLLOW UP APPOINTMENT; EITHER CONTACT YOUR PRIMARY CARE DOCTOR, THE PHYSICIAN WHOSE NAME AND NUMBER YOU WERE GIVEN, OR RETURN TO THE ED IMMEDIATELY. Scripts Ibuprofen (Ibu) 600 Mg Tablet 1 TAB PO PRN Q6HRS PRN for pain, fever, inflammation for 7 Days, #28 TAB 0 Refills Prov: MIHAELA WEBB APRN 03/06/20 Problem Qualifiers Primary Impression: Contusion of right knee Encounter type: initial encounter Qualified Codes: S80.01XA - Contusion of right knee, initial encounter Additional Impression: Right knee pain Chronicity: acute Qualified Codes: M25.561 - Pain in right knee MIHAELA WEBB APRN Mar 06, 2020 20:39 ELDER GUTIERREZ DO Mar 07, 2020 05:44
[2020-03-06] MEDS ORDERED: IBUP-571 PO (20:55)
== END 2020-03-06 21:10 | disposition home or self-care (01) ==
LOC: ER 19:20
DX: S80.01XA Contusion of right knee, initial encounter (principal); Z87.891 Personal history of nicotine dependence; Z98.84 Bariatric surgery status; Z88.2 Allergy status to sulfonamides; Z91.041 Radiographic dye allergy status; W17.89XA Other fall from one level to another, initial encounter; Y93.01 Activity, walking, marching and hiking; Y92.89 Other specified places as the place of occurrence of the external cause; Y99.8 Other external cause status
CPT/HCPCS: 29505; 73564; 99283

== ENCOUNTER 2020-03-16 21:56 | Emergency (ER) | payer OTHER ==
[~2020-03-16] VITALS: Ht 170.2 cm; Wt 79.0 kg
--- NOTE | 2020-03-16 22:34 | PHYS DOC ---
Past History Past Medical History: Depression, Ovarian Cyst Additional Past Medical Histor: ULCERS, BORDERLINE PERSONALITY DISORDER, costchronitis Past Surgical History: Gastric Bypass, Other Additional Past Surgical Histo: OVARIAN CYST SX Smoking: Cigarettes, Quit Greater Than 1 Year Alcohol Use: None Drug Use: None General Adult EDM: Chief Complaint: LOWER EXT PAIN HPI: HPI: Patient is a 32-year-old female coming in for pain in right thigh, says the pain radiates from her right hip to her right knee. Patient has been having some pain for the past few days that was tolerable she attributes to sciatica. States she has a history of degenerative joints. States she was walking today when the pain got acutely worse and felt like her thigh tensed up and she was unable to walk. Has difficulty bearing weight. Pain is worse with trying to extend her leg. Review of Systems: Review of Systems: Constitutional: Denies fever or chills Eyes: Denies change in visual acuity HENT: Denies nasal congestion or sore throat Respiratory: Denies cough or shortness of breath Cardiovascular: Denies chest pain or edema GI: Denies abdominal pain, nausea, vomiting, bloody stools or diarrhea : Denies dysuria Musculoskeletal: Denies back pain , but has right hip, right thigh, right knee pain Integument: Denies rash Neurologic: Denies headache, focal weakness or sensory changes Endocrine: Denies polyuria or polydipsia Lymphatic: Denies swollen glands Psychiatric: Denies depression or anxiety Allergies: Allergies: Allergies Coded Allergies Type Severity Reaction Last Updated Verified Sulfa (Sulfonamide Antibiotics) Allergy Intermediate hives 02/10/19 Yes yellow dye Allergy Intermediate 02/10/19 Yes Physical Exam: PE: Constitutional: Well developed, well nourished, no acute distress, non-toxic appearance. [] HENT: Normocephalic, atraumatic, bilateral external ears normal, oropharynx moist, no oral exudates, nose normal. [] Eyes: PERRLA, EOMI, conjunctiva normal, no discharge. [] Neck: Normal range of motion, no tenderness, supple, no stridor. [] Cardiovascular:Heart rate regular rhythm, no murmur [] Lungs & Thorax: Bilateral breath sounds clear to auscultation [] Abdomen: Bowel sounds normal, soft, no tenderness, no masses, no pulsatile masses. [] Skin: Warm, dry, no erythema, no rash. [] Back: No tenderness, no CVA tenderness. [] Extremities: No tenderness, no cyanosis, no clubbing, tenderness in right groin, limited tenderness in right knee, pain on right lateral hip, supine straight leg raise negative on both sides. Pain with passive leg roll Neurologic: Alert and oriented X 3, normal motor function, normal sensory function, no focal deficits noted. [] Psychologic: Affect normal, judgement normal, mood normal. [] EKG: EKG: [] Radiology/Procedures: Radiology/Procedures: CT LOWER EXTREMITY WO RIGHT History: Reason: groin/hip and thigh pain / Spl. Instructions: Hip to knee / History: Comparison: December 04, 2019 Technique: Noncontrast CT imaging was performed of the right femur. Coronal and sagittal reconstructions were performed. Exposure: One or more of the following individualized dose reduction techniques were utilized for this examination: 1. Automated exposure control 2. Adjustment of the mA and/or kV according to patient size 3. Use of iterative reconstruction technique. Findings: Normal alignment of the right hip. No fracture. Mild knee degenerative changes. Mild tendinous structures are intact. No mass or fluid collection identified. Subtle regions of increased density within the distal femur, similar compared to prior radiograph Impression: 1. No acute osseous abnormality. If persistent clinical concern, MRI can further evaluate. [] Heart Score: Risk Factors: Risk Factors: DM, Current or recent (<one month) smoker, HTN, HLP, family history of CAD, obesity. Risk Scores: Score 0 - 3: 2.5% MACE over next 6 weeks - Discharge Home Score 4 - 6: 20.3% MACE over next 6 weeks - Admit for Clinical Observation Score 7 - 10: 72.7% MACE over next 6 weeks - Early Invasive Strategies Course & Med Decision Making: Course & Med Decision Making Location of pain and exam consistent more for sartorius muscle spasm, possible femoral nerve entrapment. Discussed stretches and exercises for both. Patient has asymptomatic bacteremia but is trying to become . Discussed with patient increase fluid intake and if she does become to follow-up with her CLIENT ADMINISTRATOR to retest her urine at that time. [] [place] Disclaimer: Brown Disclaimer: This electronic medical record was generated, in whole or in part, using a voice recognition dictation system. Departure Departure: Impression: Primary Impression: Asymptomatic bacteriuria Additional Impression: Muscle strain of right thigh Disposition: 02 DC/TRF OTHER SHORT TERM HOS Condition: STABLE Referrals: PANCHITO ESCOBEDO (PCP) [facility] Patient Instructions: Muscle Cramps Additional Instructions: Lookup stretches for sartorius muscle spasm and femoral nerve entrapment Scripts Ibuprofen (IBUPROFEN) 600 Mg Tablet 600 MG PO PRN Q6-8HRS PRN for PAIN for 10 Days, #30 TAB Prov: DARIUSZ SANCHEZ MD 03/17/20 Cyclobenzaprine Hcl (CYCLOBENZAPRINE HCL) 5 Mg Tablet 1 TAB PO PRN BID PRN for MUSCLE PAIN for 5 Days, #10 TAB Prov: DARIUSZ SANCHEZ MD 03/17/20 DARIUSZ SANCHEZ MD Mar 16, 2020 22:34
[2020-03-16] MEDS ORDERED: KETOROLAC 60 MG/2 ML VIAL. IM ONE (22:45)
[2020-03-16] MEDS ORDERED: ORPHENADRINE CITRATE 60 MG/2 ML VIAL. IM ONE (22:45)
--- NOTE | 2020-03-16 23:21 | RAD ---
CT LOWER EXTREMITY WO RIGHT History: Reason: groin/hip and thigh pain / Spl. Instructions: Hip to knee / History: Comparison: December 04, 2019 Technique: Noncontrast CT imaging was performed of the right femur. Coronal and sagittal reconstructions were performed. Exposure: One or more of the following individualized dose reduction techniques were utilized for this examination: 1. Automated exposure control 2. Adjustment of the mA and/or kV according to patient size 3. Use of iterative reconstruction technique. Findings: Normal alignment of the right hip. No fracture. Mild knee degenerative changes. Mild tendinous structures are intact. No mass or fluid collection identified. Subtle regions of increased density within the distal femur, similar compared to prior radiograph Impression: 1. No acute osseous abnormality. If persistent clinical concern, MRI can further evaluate. Electronically signed by: Tay Jo DO (03/16/2020 11:18 PM) [facility]
[2020-03-16 23:30] LABS: BILIRUBIN,URINE NEG (NEG); CLARITY,URINE HAZY; COLOR,URINE YELLOW; GLUCOSE,URINE 100 mg/dL (NEG)
[2020-03-16 23:31] LABS: BACTERIA,URINE MOD /HPF (0-FEW); NITRITE,URINE NEG (NEG); RBC,URINE 0 /HPF (0-2); SQUAMOUS EPITHELIAL CELL,UR MOD /LPF; UROBILINOGEN,URINE 0.2 mg/dL (0.2 mg/dL)
[2020-03-17 00:07] LABS: BASO % 0 % (0-3); EOS # 0.2 x10^3/uL (0.0-0.7); EOS % 1 % (0-3); HEMOGLOBIN 11.5 g/dL (12.0-15.5); LYMPH # 2.9 x10^3/uL (1.0-4.8); LYMPH % 26 % (24-48); MEAN CORPUSCULAR HEMOGLOBIN 32 pg (25-35); MEAN CORPUSCULAR HGB CONC 32 g/dL (31-37); MEAN CORPUSCULAR VOLUME 98 fL (79-100); MONO % 9 % (0-9); NEUT # 7.1 x10^3uL (1.8-7.7); NEUT % 64 % (31-73); PLATELET COUNT 320 x10^3/uL (140-400); RED BLOOD COUNT 3.66 x10^6/uL (3.50-5.40); RED CELL DISTRIBUTION WIDTH 13.4 % (11.5-14.5); WHITE BLOOD COUNT 11.2 x10^3/uL (4.0-11.0)
[2020-03-17] MEDS ORDERED: IBUP600T16 PO (00:30)
[2020-03-17] MEDS ORDERED: CYCL5TAB PO (00:30)
[2020-03-17 00:40] VITALS: BP 97/51
== END 2020-03-17 00:50 | disposition home or self-care (01) ==
LOC: ER 21:56
DX: S76.811A Strain of other specified muscles, fascia and tendons at thigh level, right thigh, initial encounter (principal); M25.561 Pain in right knee; R82.71 Bacteriuria; Z88.2 Allergy status to sulfonamides; Z91.040 Latex allergy status; F32.9 Major depressive disorder, single episode, unspecified; F17.210 Nicotine dependence, cigarettes, uncomplicated; Z98.890 Other specified postprocedural states; X58.XXXA Exposure to other specified factors, initial encounter; Y93.89 Activity, other specified; Y92.89 Other specified places as the place of occurrence of the external cause; Y99.8 Other external cause status
CPT/HCPCS: 36415; 73700; 81001; 81025; 85025; 86140; 87086; 96372; 99285; J1885; J2360

== ENCOUNTER 2020-03-25 21:14 | Emergency (ER) | payer OTHER ==
[~2020-03-25] VITALS: Ht 170.2 cm; Wt 78.1 kg
[~2020-03-25 21:14] MED LIST changes: +CYCL5TAB PO; +IBUP600T16 PO
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
[2020-03-25] MEDS: IV RINGERS SOLUTION,LACTATED 1,000 ML IV SCH (21:58)
[2020-03-25 22:08] LABS: BASO % 0 % (0-3); EOS # 0.2 x10^3/uL (0.0-0.7); EOS % 2 % (0-3); HEMATOCRIT 35.5 % (36.0-47.0); HEMOGLOBIN 11.5 g/dL (12.0-15.5); LYMPH # 2.3 x10^3/uL (1.0-4.8); LYMPH % 31 % (24-48); MEAN CORPUSCULAR HEMOGLOBIN 32 pg (25-35); MEAN CORPUSCULAR HGB CONC 32 g/dL (31-37); MEAN CORPUSCULAR VOLUME 98 fL (79-100); MONO # 0.7 x10^3/uL (0.0-1.1); MONO % 9 % (0-9); NEUT # 4.4 x10^3uL (1.8-7.7); NEUT % 58 % (31-73); PLATELET COUNT 333 x10^3/uL (140-400); RED BLOOD COUNT 3.62 x10^6/uL (3.50-5.40); RED CELL DISTRIBUTION WIDTH 13.6 % (11.5-14.5); WHITE BLOOD COUNT 7.6 x10^3/uL (4.0-11.0)
[2020-03-25 22:26] LABS: CALCIUM 8.6 mg/dL (8.5-10.1); GFR 64.3; POTASSIUM 4.2 mmol/L (3.5-5.1)
[2020-03-25 22:29] LABS: BILIRUBIN,URINE NEG (NEG); CLARITY,URINE CLEAR; COLOR,URINE YELLOW; GLUCOSE,URINE NEG (NEG)
[2020-03-25 22:30] LABS: BACTERIA,URINE 0 /HPF (0-FEW); NITRITE,URINE NEG (NEG); SQUAMOUS EPITHELIAL CELL,UR MOD /LPF
[2020-03-25 22:34] LABS: INFLUENZA A PATIENT NEGATIVE (NEGATIVE); INFLUENZA B PATIENT NEGATIVE (NEGATIVE)
[2020-03-25 22:36] LABS: BARBITURATES NEG (NEG); BENZODIAZEPINES NEG (NEG); CANNABINOIDS NEG (NEG); COCAINE NEG (NEG); METHADONE NEG (NEG); OPIATES POS (NEG); PHENCYCLIDINE NEG (NEG)
[2020-03-25 22:39] LABS: ALBUMIN 3.2 g/dL (3.4-5.0); DIRECT BILIRUBIN 0.1 mg/dL (0.0-0.2); MAGNESIUM 2.2 mg/dL (1.8-2.4); TOTAL BILIRUBIN 0.1 mg/dL (0.2-1.0); TOTAL PROTEIN 5.8 g/dL (6.4-8.2)
[2020-03-25 22:41] LABS: AMPHETAMINE/METHAMPHETAMINE NEG (NEG)
[2020-03-25 22:51] LABS: VAL ACID < 3 mcg/mL (50-100)
[2020-03-26] MEDS: KETOROLAC 30 MG/ML VIAL. IVP ONE
[2020-03-26] MEDS: ONDANSETRON PF 4 MG/2 ML VIAL. IVP ONE
[2020-03-26] MEDS: DIVALPROEX ER 500 MG TAB.ER.24H PO ONE (00:08)
[2020-03-26 01:40] VITALS: BP 98/56
--- NOTE | 2020-03-26 08:34 | EKG ---
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
== END 2020-03-26 01:40 | disposition home or self-care (01) ==
LOC: ER 21:14
DX: B34.9 Viral infection, unspecified (principal); F41.9 Anxiety disorder, unspecified; G40.A09 Absence epileptic syndrome, not intractable, without status epilepticus; M19.90 Unspecified osteoarthritis, unspecified site; F32.9 Major depressive disorder, single episode, unspecified; Z87.891 Personal history of nicotine dependence; Z88.2 Allergy status to sulfonamides; Z91.041 Radiographic dye allergy status
CPT/HCPCS: 36415; 80048; 80076; 80164; 80307; 81001; 81025; 82550; 83690; 83735; 84443; 84484; 85025; 85730; 87070; 87086; 87804; 87880; 93005; 96361; 96374; 96375; 99284; J7120

== ENCOUNTER 2020-04-02 19:32 | Emergency (ER) | payer OTHER ==
[~2020-04-02] VITALS: Ht 170.2 cm; Wt 78.1 kg
[2020-04-02 19:32] VITALS: BP 113/67
--- NOTE | 2020-04-02 19:53 | PHYS DOC ---
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 Patient reports abdominal pain and is being treated for UTI. Patient reports taking Reglan for nausea with little relief. Patient reports period is 2 weeks late and thinks she may be . Patient denies fever. (MALIA PRUITT APRN) Review of Systems: Review of Systems: Constitutional: Denies fever or chills Eyes: Denies change in visual acuity HENT: Denies nasal congestion or sore throat Respiratory: Denies cough or shortness of breath Cardiovascular: Denies chest pain or edema GI: Denies abdominal pain, nausea, vomiting, bloody stools or diarrhea : Denies dysuria Musculoskeletal: Denies back pain or joint pain Integument: Denies rash Neurologic: Denies headache, focal weakness or sensory changes Endocrine: Denies polyuria or polydipsia Lymphatic: Denies swollen glands Psychiatric: Denies depression or anxiety (CODY MOORE MD) Review of Systems: Constitutional: No fever, chills Eyes: No eye pain or blurred vision Skin: No rash or itching Cardiovascular: No chest pain, syncope, palpitations, dyspnea on exertion, or edema Respiratory: No cough or difficulty breathing Gastrointestinal: nausea, vomiting, abdominal pain Neurologic: No headaches or focal neurologic deficits Endocrine: No heat or cold intolerance Genitourinary: No incontinence or hematuria Musculoskeletal: No joint pain or swelling Lymphatics: No enlarged lymph nodes Psychiatric: No anxiety or depression (MALIA PRUITT APRN) Allergies: Allergies: Allergies Coded Allergies Type Severity Reaction Last Updated Verified Sulfa (Sulfonamide Antibiotics) Allergy Intermediate hives 02/10/19 Yes yellow dye Allergy Intermediate 02/10/19 Yes (CODY MOORE MD) Physical Exam: PE: Constitutional: Well developed, well nourished, no acute distress, non-toxic appearance. [] HENT: Normocephalic, atraumatic, bilateral external ears normal, oropharynx moist, no oral exudates, nose normal. [] Eyes: PERRLA, EOMI, conjunctiva normal, no discharge. [] Neck: Normal range of motion, no tenderness, supple, no stridor. [] Cardiovascular:Heart rate regular rhythm, no murmur [] Lungs & Thorax: Bilateral breath sounds clear to auscultation [] Abdomen: Bowel sounds normal, soft, no tenderness, no masses, no pulsatile masses. [] Skin: Warm, dry, no erythema, no rash. [] Back: No tenderness, no CVA tenderness. [] Extremities: No tenderness, no cyanosis, no clubbing, ROM intact, no edema. [] Neurologic: Alert and oriented X 3, normal motor function, normal sensory function, no focal deficits noted. [] Psychologic: Affect normal, judgement normal, mood normal. [] (CODY MOORE MD) PE: Constitutional: Well developed, well nourished, no acute distress, non-toxic appearance. [] HENT: Normocephalic, atraumatic, bilateral external ears normal, oropharynx moist, no oral exudates, nose normal. [] Eyes: PERRLA, EOMI, conjunctiva normal, no discharge. [] Neck: Normal range of motion, no tenderness, supple, no stridor. [] Cardiovascular:Heart rate regular rhythm, no murmur [] Lungs & Thorax: Bilateral breath sounds clear to auscultation [] Abdomen: Bowel sounds normal, soft, no tenderness, no masses, no pulsatile masses. [] Skin: Warm, dry, no erythema, no rash. [] Back: No tenderness, no CVA tenderness. [] Extremities: No tenderness, no cyanosis, no clubbing, ROM intact, no edema. [] Neurologic: Alert and oriented X 3, normal motor function, normal sensory function, no focal deficits noted. [] Psychologic: Affect normal, judgement normal, mood normal. [] (MALIA PRUITT APRN) EKG: EKG: [] (CODY MOORE MD) Radiology/Procedures: Radiology/Procedures: [] (CODY MOORE MD) Heart Score: Risk Factors: Risk Factors: DM, Current or recent (<one month) smoker, HTN, HLP, family history of CAD, obesity. Risk Scores: Score 0 - 3: 2.5% MACE over next 6 weeks - Discharge Home Score 4 - 6: 20.3% MACE over next 6 weeks - Admit for Clinical Observation Score 7 - 10: 72.7% MACE over next 6 weeks - Early Invasive Strategies (CODY MOORE MD) Course & Med Decision Making: Course & Med Decision Making Pertinent Labs and Imaging studies reviewed. (See chart for details) [] (CODY MOORE MD) Course & Med Decision Making Patients currently on antibiotics for UTI. I believe her lower abdominal issues are related to UTI as well as nausea likely related to medication. (MALIA PRUITT APRN) Dragon Disclaimer: Dragon Disclaimer: This electronic medical record was generated, in whole or in part, using a voice recognition dictation system. (CODY MOORE MD) Departure Departure: Impression: Primary Impression: Nausea and vomiting Qualified Codes: R11.2 - Nausea with vomiting, unspecified Additional Impression: Malaise Disposition: 01 DC HOME SELF CARE/HOMELESS Condition: GOOD Referrals: PANCHITO ESCOBEDO (PCP) Patient Instructions: Nausea and Vomiting, [id number] Additional Instructions: Continue to talk antibiotics as prescribed for UTI. Increase hydration. Take probiotics. Take nausea medication as prescribed. Follow up with PCP if symptoms not improved. test today was Negative. Do not take the Promethazine together with the metoclopramide, wait at least 6 hours between them before taking them. Scripts Promethazine Hcl (PROMETHAZINE HCL) 25 Mg Tablet 25 MG PO Q6HRS PRN for NAUSEA, #10 TAB Prov: MALIA PRUITT APRN 04/02/20 Dragon Disclaimer This chart was dictated in whole or in part using Voice Recognition software in a busy, high-work load, and often noisy Emergency Department environment. It may contain unintended and wholly unrecognized errors or omissions. (CODY MOORE MD) Attending Signature Attending Signature I have participated in the care of this patient and I have reviewed and agree with all pertinent clinical information above including history, exam, and rec ommendations. (CODY MOORE MD) CODY MOORE MD Apr 02, 2020 19:53 MALIA PRUITT APRN Apr 02, 2020 20:23
[2020-04-02] MEDS ORDERED: PROM25TA10 PO (20:47)
== END 2020-04-02 20:55 | disposition home or self-care (01) ==
LOC: ER 19:32
DX: R11.2 Nausea with vomiting, unspecified (principal); R53.81 Other malaise; R53.1 Weakness; F41.9 Anxiety disorder, unspecified; M19.90 Unspecified osteoarthritis, unspecified site; Z87.891 Personal history of nicotine dependence; Z90.49 Acquired absence of other specified parts of digestive tract; Z98.84 Bariatric surgery status; Z90.722 Acquired absence of ovaries, bilateral; Z88.2 Allergy status to sulfonamides; Z91.041 Radiographic dye allergy status
CPT/HCPCS: 81025; 99283

== ENCOUNTER 2020-04-06 19:52 | Emergency (ER) | payer OTHER ==
[~2020-04-06] VITALS: Ht 170.2 cm; Wt 77.4 kg
[~2020-04-06 19:52] MED LIST changes: +PROM25TA10 PO
[2020-04-06] MEDS ORDERED: ACETAMINOPHEN 500 MG TABLET PO ONE (20:00)
--- NOTE | 2020-04-06 20:00 | PHYS DOC ---
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 Patient has longstanding history of "absence "seizures for which she is seen and managed in outpatient setting by Dr. Newman. Patient reports she has had unremarkable EEG performed and is currently not on any antiepileptics due to being allergic to several dyes on medications. She is pending extended stay observation with surveillance at [facility] and/or [facility] given her seizures per patient. States she has the seizures daily. They are self-limiting and patient is able to recount entirety of events. States she had a seizure earlier this evening that lasted approximately 3 minutes with no loss of consciousness, no oropharyngeal trauma and/or bladder incontinence. She subsequently had additional seizure- like activity that lasted for approximately 10 minutes and resolved without any intervention, no loss of consciousness was reported by family member but given concerning seizure-like activity, EMS was called to transport patient to our facility for evaluation Review of Systems Review of Systems Fourteen body systems of review of systems have been reviewed. See HPI for pertinent positives and negative responses, other lucero all other systems are negative, non-pertinent or non-contributory Allergies Allergies Allergies Coded Allergies Type Severity Reaction Last Updated Verified Sulfa (Sulfonamide Antibiotics) Allergy Intermediate hives 02/10/19 Yes yellow dye Allergy Intermediate 02/10/19 Yes Physical Exam Physical Exam Constitutional: Pt is oriented to person, place, and time. Pt appears well-developed and well- nourished. HEENT: Head: Normocephalic and atraumatic. External ears unremarkable Conjunctivae and EOM are normal. Pupils are equal, round, and reactive to light. Oropharynx is clear and moist. No hematomas or lacerations or abrasions to face or scalp OP clear, no blood, no malocclusion, dentition intact Nares clear, no nasal septal hematoma Midface stable Neck: C-spine midline nontender, no step-offs Cardiovascular: Normal rate, regular rhythm and normal heart sounds. Pulmonary/Chest: Effort normal and breath sounds normal. No respiratory distress. No wheezes. CTA bilaterally Abdominal: Soft. Bowel sounds are normal. Pt exhibits no distension. There is no tenderness. Musculoskeletal: No bony tenderness to extremities, no deformities, full ROM extremities Chest wall stable Pelvis stable and non-tender No vertebral TTP and spine without stepoffs Neurological: Pt is alert and oriented to person, place, and time. Moving all extremities willfully, able to wiggle all fingers and toes Alert and oriented x 3 Sensation grossly intact Skin: Skin is warm and dry. No abrasions, no lacerations Psychiatric: Behavior is appropriate for situation Current Patient Data Vital Signs Vital Signs Date Time Temp Pulse Resp B/P (MAP) Pulse Ox O2 Delivery O2 Flow Rate FiO2 04/06/20 20:08 98.2 73 20 100/68 (79) 98 Room Air EKG EKG [] Radiology/Procedures Radiology/Procedures [] Heart Score HEART Score for Chest Pain: HEART Score for Chest Pain Response (Comments) Value History Slighlty/Non-Suspicious 0 Age < 45 0 Risk Factors No Risk Factors 0 Total 0 Risk Factors: Risk Factors: DM, Current or recent (<one month) smoker, HTN, HLP, family history of CAD, obesity. Risk Scores: Risk Factors: DM, Current or recent (<one month) smoker, HTN, HLP, family history of CAD, obesity. Course & Med Decision Making Course & Med Decision Making [id number] glucose unremarkable and hemodynamically stable well-appearing and ambulatory patient Comprehensive history and physical examination nonconcerning. Patient's seizure history is questionable. Patient's neurologist called and case discussed. Patient's neurologist agreed patient is suffering from psychogenic seizures, no work-up and/or intervention indicated I discussed this with patient. I discussed need to call neurologist first thing Thursday morning to review ER visit today and need for extended observation and surveillance at [facility] or [facility] as advised by her neurologist given her d iagnosis of psychogenic seizures I did disclose this might be an acute presentation of more concerning pathology and so, close follow-up with neurologist and PCP this upcoming week was advised Strict return precautions were discussed with good understanding by patient, all questions and concerns addressed prior to ER departure in stable condition Brown Disclaimer [place] Disclaimer This electronic medical record was generated, in whole or in part, using a voice recognition dictation system. Departure Departure: Impression: Primary Impression: Psychogenic nonepileptic seizure Disposition: 01 DC HOME SELF CARE/HOMELESS Condition: STABLE Referrals: PANCHITO ESCOBEDO (PCP) Additional Instructions: It is unclear what caused your seizure. You should follow up with your neurologist given your poor seizure control. I contacted your neurologist this evening who advised me to relay to you to call him first thing Thursday morning for evaluation. You have had an unremarkable EEG recently, we recommend the need for you to follow-up in outpatient setting with [facility] or [facility] for p rolonged surveillance of your suspect seizure-like activity. If any concerning signs or symptoms present prior to outpatient follow-up please do not hesitate to come back for repeat evaluation. It was a pleasure to take care of you and I wish you the best going forward SEE HOWELL DO Apr 06, 2020 20:00
[2020-04-06 20:08] VITALS: BP 100/68
== END 2020-04-06 21:32 | disposition home or self-care (01) ==
LOC: ER 19:52
DX: R56.9 Unspecified convulsions (principal); F41.9 Anxiety disorder, unspecified; F32.9 Major depressive disorder, single episode, unspecified; M19.90 Unspecified osteoarthritis, unspecified site; Z90.49 Acquired absence of other specified parts of digestive tract; Z90.89 Acquired absence of other organs; Z98.890 Other specified postprocedural states; Z87.891 Personal history of nicotine dependence; Z88.2 Allergy status to sulfonamides; Z91.040 Latex allergy status
CPT/HCPCS: 99283

== ENCOUNTER 2020-04-14 21:47 | Emergency (ER) | payer OTHER ==
[~2020-04-14] VITALS: Ht 170.2 cm; Wt 73.6 kg
--- NOTE | 2020-04-14 21:54 | PHYS DOC ---
Past History Past Medical History: Anxiety, Depression, GERD, Migraines, Ovarian Cyst, Seizure, Other Additional Past Medical Histor: PCOS; costochondritis Past Surgical History: Gastric Bypass, Other Additional Past Surgical Histo: ovarian cyst removal last yr Smoking: Cigarettes, Quit Greater Than 1 Year Alcohol Use: None Drug Use: None General Adult HPI: HPI: ".. I ve had three tonic clonic seizures tonight.. " Patient is a 34 year old female who presents with above hx and complaints 3 tonic-clonic seizures episodes tonight. Patient has longstanding history of absence seizure's, and tonic-clonic seizures. Her seizure issues have been managed by in the out pt. setting. Patient has had multiple ED visits for seizures and other somatic complaints. Has been seen in the emergency department on , 04/02 and 04/06. Patient has history of anxiety, arthritis, depression, ovarian cyst, degenerative joint disease, chronic low back pain,. Has past surgical history of cholecystectomy, gastric bypass, oophorectomy on right due to ovarian cyst, wisdom teeth extractions, and laparoscopic evaluations of abdomen pain. Patient has history of tobacco abuse but states she quit approximately a year ago. Patient reports she has had unremarkable EEGs in the past and has not on any current antiepileptic therapy. Has had extended stay in observations at [facility] as well as . States she has seizures daily. Seizures are self-limiting. Most recently tried on Depakote, however she stopped the drug because she felt it made seizures worse . Patient had no urine or stool incontinence with seizure tonight. Has no oral pharyngeal trauma. No other external trauma appreciated. Patient was transferred to the emergency department for evaluation by EMS when family requested she be evaluated. Most recently Dr. James has requested Dr. Jernigan to have pt. have a prolonged video monitoring x [address] [facility] to determine type of her recurrent seizures and if any cardiac dysrhythmia occurs. Patient currently follows with Dr. Jernigan. Review of Systems: Review of Systems: Constitutional: Denies fever or chills Eyes: Denies change in visual acuity HENT: Denies nasal congestion or sore throat Respiratory: Denies cough or shortness of breath Cardiovascular: Denies chest pain or edema GI: Denies abdominal pain, nausea, vomiting, bloody stools or diarrhea : Denies dysuria Musculoskeletal: Denies back pain or joint pain Integument: Denies rash Neurologic: Denies headache, focal weakness or sensory changes . Reports 3 episodes of tonic-clonic seizures at home. Poorly observed by family members Endocrine: Denies polyuria or polydipsia Lymphatic: Denies swollen glands Psychiatric: Does have complaints depression and anxiety denies any current suicidal or homicidal ideation Family History: Family History: Noncontributory to presentation Current Medications: Current Meds: See nursing for home meds Allergies: Allergies: Allergies Coded Allergies Type Severity Reaction Last Updated Verified Sulfa (Sulfonamide Antibiotics) Allergy Intermediate hives 04/06/20 Yes yellow dye Allergy Intermediate 04/06/20 Yes Physical Exam: PE: Constitutional: Well developed, well nourished, no acute distress, non-toxic appearance. [] HENT: Normocephalic, atraumatic, bilateral external ears normal, oropharynx moist, no oral exudates, nose normal. No oral trauma Eyes: PERRLA, EOMI, conjunctiva normal, no discharge. [] Neck: Normal range of motion, no tenderness, supple, no stridor. [] Cardiovascular:Heart rate regular rhythm, no murmur [] Lungs & Thorax: Bilateral breath sounds equal apex on auscultation [] Abdomen: Bowel sounds normal, soft, no tenderness, no masses, no pulsatile masses. Old surgery scars Skin: Warm, dry, no erythema, no rash. Tattoos Back: No tenderness, no CVA tenderness. [] Extremities: No tenderness, no cyanosis, no clubbing, ROM intact, no edema. [] Neurologic: Alert and oriented X 3, moves all extremities on request, does have distal sensory no focal deficits noted. DTRs +2 patella and brachial. No drift. [employer] equal. Is ambulatory without problems Psychologic: Affect patient reports she is anxious,, judgement normal, mood patient reports she does have depression but no suicidal ideation EKG: EKG: EKG shows a sinus rhythm at 68 bpm. Left axis. No findings of acute morphology. No acute changes as compared to other EKGs on file [] Radiology/Procedures: Radiology/Procedures: [address] [address] IMAGING REPORT Signed PATIENT: NANCY DESAI ACCOUNT: [id number] : 1985 LOCATION: ER AGE: 34 SEX: F EXAM STATUS: REG ER ORD. PHYSICIAN: CODY MOORE MD REASON: AMAYA, Seizure, PROCEDURE: CT HEAD WO CONTRAST PQRS Compliance Statement: One or more of the following individualized dose reduction techniques were utilized for this examination: 1. Automated exposure control 2. Adjustment of the mA and/or kV according to patient size 3. Use of iterative reconstruction technique CT head without contrast 04/15/2020 1:01 AM INDICATION: Headache, seizure COMPARISON: None available TECHNIQUE: Multiple axial CT images of the head were obtained from skull base through the vertex without intravenous contrast. FINDINGS: Head: Ventricles, sulci and basal cisterns are within normal limits. There is no hydrocephalus. White-white matter differentiation is normal. There is no acute intracranial hemorrhage. There is no mass, mass effect or midline shift. Posterior fossa is normal in appearance. Visualized portions of the orbits are normal. Paranasal sinuses are well aerated. Mastoid air cells are well aerated. Scalp and calvaria are normal. IMPRESSION: No acute intracranial hemorrhage. Electronically signed by: Mesfin Templeton MD (04/15/2020 1:22 AM) [facility] DICTATED AND SIGNED BY: MESFIN TEMPLETON MD DATE: 04/15/20120 CC: CODY MOORE MD; PANCHITO JERNIGAN ~MTH0 0 [][place] [address] IMAGING REPORT Signed PATIENT: NANCY DESAI ACCOUNT: [id number] : 1985 LOCATION: ER AGE: 34 SEX: F EXAM STATUS: REG ER ORD. PHYSICIAN: CODY MOORE MD REASON: cough PROCEDURE: CHEST AP ONLY XR CHEST 1V 04/15/2020 1:01 AM INDICATION: Cough. COMPARISON: 02/16/2020 TECHNIQUE: Portable frontal view of the chest is provided. FINDINGS: The cardiomediastinal silhouette is within normal limits. Lungs are clear. There are no significant pleural effusions. There is no pulmonary vascular congestion. No pneumothorax. No suspicious osseous abnormality. Surgical changes are identified in the epigastric region of the abdomen. IMPRESSION: There is no acute cardiopulmonary process. Electronically signed by: Mesfin Templeton MD (04/15/2020 1:22 AM) [facility] DICTATED AND SIGNED BY: MESFIN TEMPLETON MD DATE: 04/15/20 0122 CC: CODY MOORE MD; PANCHITO JERNIGAN ~MTH0 [address] [address] Heart Score: HEART Score for Chest Pain: HEART Score for Chest Pain Response (Comments) Value History Slighlty/Non-Suspicious 0 ECG Normal 0 Age < 45 0 Risk Factors No Risk Factors 0 Troponin < Normal Limit 0 Total 0 Risk Factors: Risk Factors: DM, Current or recent (<one month) smoker, HTN, HLP, family history of CAD, obesity. Risk Scores: Score 0 - 3: 2.5% MACE over next 6 weeks - Discharge Home Score 4 - 6: 20.3% MACE over next 6 weeks - Admit for Clinical Observation Score 7 - 10: 72.7% MACE over next 6 weeks - Early Invasive Strategies Course & Med Decision Making: Course & Med Decision Making Pertinent Labs and Imaging studies reviewed. (See chart for details) Patient observed in the emergency department for extended period. No seizure activity noted during stay. Patient keep follow-up with primary. Patient keep follow-up with Dr. Newman. Impression: 1. History seizure seizure-like activity 2. Anemia-hemoglobin 11.4 3. Hx suggestive of Pseudo seizures or Seizure activity for secondary gain [] Dragon Disclaimer: Dragon Disclaimer: This electronic medical record was generated, in whole or in part, using a voice recognition dictation system. Departure Departure: Referrals: PANCHITO JERNIGAN (PCP) [place] Disclaimer This chart was dictated in whole or in part using Voice Recognition software in a busy, high-work load, and often noisy Emergency Department environment. It may contain unintended and wholly unrecognized errors or omissions. Dragon Disclaimer This chart was dictated in whole or in part using Voice Recognition software in a busy, high-work load, and often noisy Emergency Department environment. It may contain unintended and wholly unrecognized errors or omissions. Dragon Disclaimer This chart was dictated in whole or in part using Voice Recognition software in a busy, high-work load, and often noisy Emergency Department environment. It may contain unintended and wholly unrecognized errors or omissions. CODY MOORE MD Apr 14, 2020 21:54
[2020-04-14] MEDS ORDERED: IV RINGERS SOLUTION,LACTATED 1,000 ML IV ONE (22:00)
[2020-04-14 23:05] LABS: ANION GAP 7 (6-14); BASO % 0 % (0-3); BLOOD UREA NITROGEN 14 mg/dL (7-20); CALCIUM 8.5 mg/dL (8.5-10.1); CARBON DIOXIDE 28 mmol/L (21-32); CHLORIDE 106 mmol/L (98-107); CREATININE 0.7 mg/dL (0.6-1.0); EOS # 0.1 x10^3/uL (0.0-0.7); EOS % 1 % (0-3); GLUCOSE 84 mg/dL (70-99); HEMATOCRIT 35.2 % (36.0-47.0); HEMOGLOBIN 11.4 g/dL (12.0-15.5); LYMPH # 2.8 x10^3/uL (1.0-4.8); LYMPH % 33 % (24-48); MEAN CORPUSCULAR HEMOGLOBIN 32 pg (25-35); MEAN CORPUSCULAR HGB CONC 33 g/dL (31-37); MEAN CORPUSCULAR VOLUME 98 fL (79-100); MONO # 0.6 x10^3/uL (0.0-1.1); MONO % 7 % (0-9); NEUT % 59 % (31-73); PLATELET COUNT 317 x10^3/uL (140-400); POTASSIUM 3.8 mmol/L (3.5-5.1); RED BLOOD COUNT 3.59 x10^6/uL (3.50-5.40); SODIUM 141 mmol/L (136-145); WHITE BLOOD COUNT 8.5 x10^3/uL (4.0-11.0)
[2020-04-14 23:24] LABS: VAL ACID < 3 mcg/mL (50-100)
[2020-04-15 01:06] LABS: U PREG PATIENT NEGATIVE (NEG)
--- NOTE | 2020-04-15 01:24 | RAD ---
RS Compliance Statement: One or more of the following individualized dose reduction techniques were utilized for this examinat ion: 1. Automated exposure control 2. Adjustment of the mA and/or kV according to patient size 3. Use of iterative reconstruction technique CT head without contrast 04/15/2020 1:01 AM INDICATION: Headache, seizure COMPARISON: None available TECHNIQUE: Multiple axial CT images of the head were obtained from skull base through the vertex with out intravenous contrast. FINDINGS: Head: Ventricles, sulci and basal cisterns are within normal limits. There is no hydrocephalus. White-white matter differentiation is normal. There is no acute intracranial hemorrhage. There is no mass, mass e ffect or midline shift. Posterior fossa is normal in appearance. Visualized portions of the orbits are normal. Paranasal sinuses are well aerated. Mastoid air cells a re well aerated. Scalp and calvaria are normal. IMPRESSION: No acute intracranial hemorrhage. Electronically signed by: Emily Stanley MD (04/15/2020 1:22 AM) [facility]
--- NOTE | 2020-04-15 01:25 | RAD ---
XR CHEST 1V 04/15/2020 1:01 AM INDICATION: Cough. COMPARISON: 02/16/2020 TECHNIQUE: Portable frontal view of the chest is provided. FINDINGS: The cardiomediastinal silhouette is within normal limits. Lungs are clear. There are no significant pleural effusions. There is no pulmonary vascular congestion. No pneumothora x. No suspicious osseous abnormality. Surgical changes are identified in the epigastric region of the ab domen. IMPRESSION: There is no acute cardiopulmonary process. Electronically signed by: Emily Stanley MD (04/15/2020 1:22 AM) [facility]
[2020-04-15 03:21] VITALS: BP 105/58
[2020-04-15 03:32] LABS: CLARITY,URINE HAZY; COLOR,URINE YELLOW
[2020-04-15 03:33] LABS: BACTERIA,URINE FEW /HPF (0-FEW); BILIRUBIN,URINE NEG (NEG); GLUCOSE,URINE NEG (NEG); NITRITE,URINE NEG (NEG); RBC,URINE 0 /HPF (0-2); SQUAMOUS EPITHELIAL CELL,UR MOD /LPF; WBC,URINE OCC /HPF (0-4)
[2020-04-15 03:40] LABS: BARBITURATES NEG (NEG); BENZODIAZEPINES NEG (NEG); CANNABINOIDS NEG (NEG); COCAINE NEG (NEG); METHADONE NEG (NEG); OPIATES NEG (NEG); PHENCYCLIDINE NEG (NEG)
[2020-04-15 03:43] LABS: AMPHETAMINE/METHAMPHETAMINE NEG (NEG)
--- NOTE | 2020-04-16 09:55 | EKG ---
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
== END 2020-04-15 03:40 | disposition home or self-care (01) ==
LOC: ER 21:47
DX: G40.89 Other seizures (principal); D64.9 Anemia, unspecified; F41.9 Anxiety disorder, unspecified; M19.90 Unspecified osteoarthritis, unspecified site; F32.9 Major depressive disorder, single episode, unspecified; G89.29 Other chronic pain; K21.9 Gastro-esophageal reflux disease without esophagitis; G43.909 Migraine, unspecified, not intractable, without status migrainosus; Z87.891 Personal history of nicotine dependence; Z98.84 Bariatric surgery status; Z90.49 Acquired absence of other specified parts of digestive tract; Z88.2 Allergy status to sulfonamides; Z91.041 Radiographic dye allergy status
CPT/HCPCS: 36415; 70450; 71045; 80048; 80164; 80307; 81001; 81025; 82550; 84146; 84484; 85025; 93005; 96360; 99285; J7120

== ENCOUNTER 2020-04-26 17:35 | Emergency (ER) | payer OTHER ==
[~2020-04-26] VITALS: Ht 170.2 cm; Wt 78.1 kg
[2020-04-26 18:00] VITALS: BP 113/46
--- NOTE | 2020-04-26 18:15 | PHYS DOC ---
Past History Past Medical History: Anxiety, Constipation, Depression, Fibromyalgia, GERD, Migraines, Ovarian Cyst, Seizure, URI, UTI, Other Additional Past Medical Histor: PCOS; costochondritis Past Surgical History: Gastric Bypass Additional Past Surgical Histo: ovarian cyst removal last yr Smoking: Cigarettes, Quit Greater Than 1 Year Alcohol Use: None Drug Use: None General Adult EDM: Chief Complaint: ABDOMINAL PAIN HPI: HPI: '.. I having bad Rt. flank pain since this morning.. ".. Nausea and wanting to vomit.. ." Patient is a 34 year old female who presents with above hx and complaints of right flank pain, nausea and vomiting. Patient denies any trauma. Patient denies any travel. No history of sick ill contacts. No history of bad food intake. No previous history of kidney stones. No history of colitis with her family members. Has some history of IBS complaints, ovarian cyst, anxiety, GERD,, fibromyalgia, costochondritis, migraines, constipation, morbid obesity, status post gastric bypass with significant weight loss, and urinary tract infections. Patient denies any risk for STD or vaginal discharge. Denies any tarry stools. Patient has had 1 previous episode of similar pain with felt to be secondary to urinary tract infection. Patient does smoke cigarettes. Patient normally follows with Dr. Jernigan. Review of Systems: Review of Systems: Constitutional: Denies fever or chills Eyes: Denies change in visual acuity HENT: Denies nasal congestion or sore throat Respiratory: Denies cough or shortness of breath Cardiovascular: Denies chest pain or edema GI: Complains of right flank abdominal pain, nausea,. No vomiting, bloody stools or diarrhea : Denies dysuria Musculoskeletal: Complains of right flank back pain . Integument: Denies rash Neurologic: Denies headache, focal weakness or sensory changes Endocrine: Denies polyuria or polydipsia Lymphatic: Denies swollen glands Psychiatric: Denies depression or anxiety Family History: Family History: Noncontributory to presentation Current Medications: Current Meds: See nursing for home medications Allergies: Allergies: Allergies Coded Allergies Type Severity Reaction Last Updated Verified Sulfa (Sulfonamide Antibiotics) Allergy Intermediate hives 04/06/20 Yes yellow dye Allergy Intermediate 04/06/20 Yes Physical Exam: PE: Constitutional: Moderate acute distress, non-toxic appearance. [] HENT: Normocephalic, atraumatic, bilateral external ears normal, oropharynx moist, no oral exudates, nose normal. [] Eyes: PERRLA, EOMI, conjunctiva normal, no discharge. [] Neck: Normal range of motion, no tenderness, supple, no stridor. [] Cardiovascular:Heart rate regular rhythm, no murmur [] Lungs & Thorax: Bilateral breath sounds equal apex with scattered wheezes on auscultation [] Abdomen: Bowel sounds decreased, soft, right mid and flank tenderness, no masses, no pulsatile masses. Very distended. Old surgery scars. Patient declined pelvic exam at this time. Denies any discharge. Skin: Warm, dry, no erythema, no rash. [] Back: No tenderness, right CVA tenderness. [] Extremities: No tenderness, no cyanosis, no clubbing, ROM intact, no edema. No psoas sign. Neurologic: Alert and oriented X., patient moves all extremities on request. Assess stools no focal deficits noted. [] Psychologic: Affect anxious, judgement normal, mood normal. [] EKG: EKG: [] Radiology/Procedures: Radiology/Procedures: [][place] [address] IMAGING REPORT Signed PATIENT: NANCY DESAI ACCOUNT: [id number] : 1985 LOCATION: ER AGE: 34 SEX: F EXAM STATUS: REG ER ORD. PHYSICIAN: CODY MOORE MD REASON: Rt. flank pain PROCEDURE: ACUTE ABDOMEN SERIES Acute Abdominal Series: Technique: PA view of the chest and supine and upright views of the abdomen were obtained. History: Pain. Comparison: None. Findings: The lungs and pleural margins are clear. There is air and stool scattered throughout the colon. There is relative paucity small bowel gas. There are multiple sutures in the upper abdomen. There is no free air. Impression: Nonobstructive bowel gas pattern suggesting a mild colonic ileus. Electronically signed by: Katina Olson III, MD (04/26/2020 7:20 PM) [facility] DICTATED AND SIGNED BY: KATINA OLSON III, MD DATE: 04/26/201917 CC: CODY MOORE MD; PANCHITO JERNIGAN ~MTH0 0 Heart Score: Risk Factors: Risk Factors: DM, Current or recent (<one month) smoker, HTN, HLP, family history of CAD, obesity. Risk Scores: Score 0 - 3: 2.5% MACE over next 6 weeks - Discharge Home Score 4 - 6: 20.3% MACE over next 6 weeks - Admit for Clinical Observation Score 7 - 10: 72.7% MACE over next 6 weeks - Early Invasive Strategies Course & Med Decision Making: Course & Med Decision Making Pertinent Labs and Imaging studies reviewed. (See chart for details) Patient pain gradually resolved with observation in the emergency department. The patient did receive fluids and Toradol. Patient eventually given a bottle of mag citrate. Recommend patient complete the bottle of mag citrate and if still having pain after diarrhea episodes from the mag citrate to consider to have reexamined for evaluation of colitis or other cause of her abdomen pain. Possible CT With contrast at that time. Currently with the stool burden, doubt if she would have an less effective evaluation of abdomen with CT at this time.. Patient to return for reexam if no improvement over the next few hours. Patient is to expect some cramping with the passage of stool burden. Patient instructed to stay on a absolutely clear fluid diet for the next 24 to 48 hours. No solids. No milk products. Must allow bowel rest. Patient consider colonoscopy. Patient to review ED work-up and labs with primary. Patient return if any concerns. Impression: 1. Abdomen pain 2. Constipation [] Dragon Disclaimer: Dragon Disclaimer: This electronic medical record was generated, in whole or in part, using a voice recognition dictation system. Departure Departure: Referrals: PANCHITO JERNIGAN (PCP) [place] Disclaimer This chart was dictated in whole or in part using Voice Recognition software in a busy, high-work load, and often noisy Emergency Department environment. It may contain unintended and wholly unrecognized errors or omissions. Dragon Disclaimer This chart was dictated in whole or in part using Voice Recognition software in a busy, high-work load, and often noisy Emergency Department environment. It may contain unintended and wholly unrecognized errors or omissions. CODY MOORE MD Apr 26, 2020 18:15
[2020-04-26] MEDS ORDERED: ONDANSETRON ODT 4 MG TAB.RAPDIS PO ONE (18:30)
[2020-04-26] MEDS ORDERED: FAMOTIDINE 20 MG/2 ML VIAL IVP ONE (18:45)
[2020-04-26] MEDS ORDERED: IV RINGERS SOLUTION,LACTATED 1,000 ML IV SCH (18:45)
[2020-04-26] MEDS ORDERED: ONDANSETRON PF 4 MG/2 ML VIAL. IVP ONE (18:45)
[2020-04-26 19:19] LABS: BARBITURATES NEG (NEG); BENZODIAZEPINES NEG (NEG); CANNABINOIDS NEG (NEG); COCAINE NEG (NEG); METHADONE NEG (NEG); OPIATES NEG (NEG); PHENCYCLIDINE NEG (NEG)
[2020-04-26 19:21] LABS: AMPHETAMINE/METHAMPHETAMINE NEG (NEG)
--- NOTE | 2020-04-26 19:22 | RAD ---
Acute Abdominal Series: Technique: PA view of the chest and supine and upright views of the abdomen were obtained. History: Pain. Comparison: None. Findings: The lungs and pleural margins are clear. There is air and stool scattered throughout the colon. There is relative paucity small bowel gas. There are multiple sutures in the upper abdomen. There is no f ree air. Impression: Nonobstructive bowel gas pattern suggesting a mild colonic ileus. Electronically signed by: Delano Solomon III, MD (04/26/2020 7:20 PM) [facility]
[2020-04-26 19:29] LABS: BASO # 0.1 x10^3/uL (0.0-0.2); BASO % 1 % (0-3); EOS # 0.1 x10^3/uL (0.0-0.7); EOS % 1 % (0-3); HEMOGLOBIN 11.8 g/dL (12.0-15.5); LYMPH # 2.8 x10^3/uL (1.0-4.8); LYMPH % 35 % (24-48); MEAN CORPUSCULAR HEMOGLOBIN 32 pg (25-35); MEAN CORPUSCULAR HGB CONC 34 g/dL (31-37); MEAN CORPUSCULAR VOLUME 95 fL (79-100); MONO # 0.6 x10^3/uL (0.0-1.1); MONO % 8 % (0-9); NEUT # 4.5 x10^3uL (1.8-7.7); NEUT % 56 % (31-73); PLATELET COUNT 261 x10^3/uL (140-400); RED BLOOD COUNT 3.67 x10^6/uL (3.50-5.40); RED CELL DISTRIBUTION WIDTH 13.2 % (11.5-14.5); WHITE BLOOD COUNT 8.1 x10^3/uL (4.0-11.0)
[2020-04-26 19:35] LABS: CALCIUM 8.1 mg/dL (8.5-10.1); CREATININE 0.7 mg/dL (0.6-1.0); POTASSIUM 4.3 mmol/L (3.5-5.1)
[2020-04-26 19:40] LABS: BACTERIA,URINE 0 /HPF (0-FEW); BILIRUBIN,URINE NEG (NEG); CLARITY,URINE CLEAR; COLOR,URINE YELLOW; GLUCOSE,URINE NEG (NEG); NITRITE,URINE NEG (NEG); RBC,URINE RARE /HPF (0-2); SQUAMOUS EPITHELIAL CELL,UR FEW /LPF; WBC,URINE OCC /HPF (0-4)
[2020-04-26] MEDS ORDERED: KETOROLAC 30 MG/ML VIAL. IVP ONE (20:00)
[2020-04-26] MEDS ORDERED: MAGNESIUM CITRATE 296 ML SOLUTION. PO ONE (20:00)
== END 2020-04-26 21:51 | disposition home or self-care (01) ==
LOC: ER 17:35
DX: K59.00 Constipation, unspecified (principal); R10.9 Unspecified abdominal pain; R11.2 Nausea with vomiting, unspecified; M54.9 Dorsalgia, unspecified; F41.9 Anxiety disorder, unspecified; F32.9 Major depressive disorder, single episode, unspecified; M79.7 Fibromyalgia; K21.9 Gastro-esophageal reflux disease without esophagitis; G43.909 Migraine, unspecified, not intractable, without status migrainosus; F17.210 Nicotine dependence, cigarettes, uncomplicated; Z98.890 Other specified postprocedural states; Z88.2 Allergy status to sulfonamides; Z91.040 Latex allergy status
CPT/HCPCS: 36415; 74022; 80048; 80307; 81001; 81025; 85025; 96361; 96374; 96375; 99284; J1885; J2405; J3490; J7120; Q0162

== ENCOUNTER 2020-05-09 19:06 | Emergency (ER) | payer OTHER ==
[~2020-05-09] VITALS: Ht 170.2 cm; Wt 77.3 kg
[2020-05-09] MEDS ORDERED: KETOROLAC 15 MG/ML VIAL. IVP ONE (20:00)
[2020-05-09] MEDS ORDERED: ONDANSETRON PF 4 MG/2 ML VIAL. IVP ONE (20:00)
[2020-05-09] MEDS ORDERED: IV NORMAL SALINE 500ML 500 ML IV ONE (20:00)
--- NOTE | 2020-05-09 20:13 | PHYS DOC ---
Past History Past Medical History: Anxiety, Constipation, Depression, Fibromyalgia, GERD, Migraines, Ovarian Cyst, Seizure, URI, UTI, Other Additional Past Medical Histor: PCOS; costochondritis (JASON PRUITT APRN) Past Surgical History: Cholecystectomy, Gastric Bypass Additional Past Surgical Histo: ovarian cyst removal last yr (JASON PRUITT APRN) Smoking: Cigarettes, Quit Greater Than 1 Year Alcohol Use: None Drug Use: None (JASON PRUITT APRN) Adult General Chief Complaint Chief Complaint: ABDOMINAL PAIN HPI HPI Patient is a 34 year old female patient who presents with abdominal pain "for quite some time". states she has had some burning pain on and off for a few weeks, but reports she saw her PCP a week ago and had no concerns at that time. States she had a small bout of diarrhea today, has had 3 episodes. Denies any bloody stools. Denies any change in urination. States she has had some nausea, has not vomited. Does have a history of constipation, had been seen in this facility for constipation 2 weeks ago. States she had tried some tylenol this morning and it didn't help her discomfort, also tried some mylanta and it didn't help either. States history of ovarian cyst removal, cholecystectomy, and gastric bypass. (JASON PRUITT APRN) Review of Systems Review of Systems Constitutional: Denies fever or chills [] Eyes: Denies change in visual acuity, redness, or eye pain [] HENT: Denies nasal congestion or sore throat [] Respiratory: Denies cough or shortness of breath [] Cardiovascular: No additional information not addressed in HPI [] GI: [] Denies bloody stools or vomiting, states some diarrhea x 3 today, states some lower abdominal discomfort. : Denies dysuria or hematuria [] Musculoskeletal: Denies back pain or joint pain [] Integument: Denies rash or skin lesions [] Neurologic: Denies headache, focal weakness or sensory changes [] Endocrine: Denies polyuria or polydipsia [] All other systems were reviewed and found to be within normal limits, except as documented in this note. (JASON PRUITT APRN) Current Medications Current Medications Current Medications Medications (Trade) Dose Ordered Sig/Mahad Start Time Stop Time Status Last Admin Dose Admin Ketorolac Tromethamine (Toradol 15mg Vial) 15 mg 1X ONCE 05/09/20 20:00 05/09/20 20:01 DC Ondansetron HCl (Zofran) 4 mg 1X ONCE 05/09/20 20:00 05/09/20 20:01 DC Sodium Chloride 500 ml @ 0 mls/hr 1X ONCE 05/09/20 20:00 05/09/20 20:01 DC (JASON PRUITT APRN) Allergies Allergies Allergies Coded Allergies Type Severity Reaction Last Updated Verified Sulfa (Sulfonamide Antibiotics) Allergy Intermediate hives 04/26/20 Yes yellow dye Allergy Intermediate 04/26/20 Yes (JASON PRUITT APRN) Physical Exam Physical Exam Constitutional: Well developed, well nourished, no acute distress, non-toxic appearance. [] HENT: Normocephalic, atraumatic, bilateral external ears normal, oropharynx moist, no oral exudates, nose normal. [] Eyes: PERRLA, EOMI, conjunctiva normal, no discharge. [] Neck: Normal range of motion, no tenderness, supple, no stridor. [] Cardiovascular:Heart rate regular rhythm, no murmur [] Lungs & Thorax: Bilateral breath sounds clear to auscultation [] Abdomen: Bowel sounds normal, soft, no masses, no pulsatile masses. [] minimal tenderness noted to lower abdomen Skin: Warm, dry, no erythema, no rash. [] Back: No tenderness, no CVA tenderness. [] Extremities: No tenderness, no cyanosis, no clubbing, ROM intact, no edema. [] Neurologic: Alert and oriented X 3, normal motor function, normal sensory function, no focal deficits noted. [] Psychologic: Affect normal, judgement normal, mood normal. [] (JASON PRUITT APRN) Physical Exam Constitutional: Well developed, well nourished, no acute distress, non-toxic appearance HENT: Normocephalic, atraumatic Eyes: Conjunctiva normal, no discharge Lungs & Thorax: No respiratory distress, equal chest rise and fall Abdomen: Soft, no tenderness, no guarding/rebound tenderness/distention Skin: Warm, dry, no erythema, no rash Extremities: No tenderness, ROM intact, no edema Neurologic: Alert and oriented X 3, no focal deficits noted Psychologic: Affect normal, judgment normal (PATRICIO HAJI DO) Current Patient Data Vital Signs Vital Signs Date Time Temp Pulse Resp B/P (MAP) Pulse Ox O2 Delivery O2 Flow Rate FiO2 05/09/20 19:30 98.0 70 16 98/50 (66) 100 Room Air (JASON PRUITT APRN) EKG EKG [] (JASON PRUITT APRN) Radiology/Procedures Radiology/Procedures [] (JASON PRUITT APRN) Radiology/Procedures PROCEDURE: ACUTE ABDOMEN SERIES Abdominal Series dated 05/09/2020. No comparison available. Clinical Indication: Abdominal pain. Findings: Single upright PA view the chest shows normal heart and mediastinal contours. The lungs are clear without focal consolidation. Vascular interstitium is within normal limits. Flat and upright views of the abdomen show nondilated gas filled loops of bowel. There are a few scattered colonic air-fluid levels on the upright view. Clips in the right upper quadrant compatible with prior cholecystectomy. No abnormal calcifications are identified. There is no evidence of pneumoperitoneum. Impression chest: No acute radiographic abnormality. Impression abdomen: Nonobstructive bowel gas pattern. There are a few scattered air-fluid levels, nonspecific. Consider enteritis or ileus. Electronically signed by: Patricio Hamilton MD (05/09/2020 9:21 PM) [id number] (PATRICIO HAJI DO) Heart Score Risk Factors: Risk Factors: DM, Current or recent (<one month) smoker, HTN, HLP, family history of CAD, obesity. Risk Scores: Risk Factors: DM, Current or recent (<one month) smoker, HTN, HLP, family history of CAD, obesity. (JASON PRUITT APRN) Course & Med Decision Making Course & Med Decision Making Pertinent Labs and Imaging studies reviewed. (See chart for details) care assumed by Dr Haji awaiting labs, imaging and medication [] (JASON PRUITT APRN) Course & Med Decision Making Patient presents with abdominal pain. Initially seen and evaluated evaluated by PHP ARCHITECT. Sign out received pending patient labs and acute abdominal series x- ray. Labs and x-ray without acute process. Symptomatic treatment provided. Patient stable for discharge with outpatient follow-up with PCP/GI. GI referral provided. Discussed findings and plan with patient, who acknowledges understanding and agreement. (PATRICIO HAJI DO) Dragon Disclaimer Dragon Disclaimer This electronic medical record was generated, in whole or in part, using a voice recognition dictation system. (JASON PRUITT APRN) Departure Departure: Impression: Primary Impression: Abdominal pain Disposition: 01 DC HOME SELF CARE/HOMELESS Condition: STABLE Referrals: PANCHITO ESCOBEDO (PCP) CAROLE CORTEZ MD Patient Instructions: Abdominal Pain (Nonspecific) Scripts Hyoscyamine Sulfate (LEVSIN-SL) 0.125 Mg Tab.subl 0.125 MG SL Q4-6HRS PRN for PAIN, #20 TAB Prov: PATRICIO HAJI DO 05/09/20 Famotidine (PEPCID) 20 Mg Tablet 1 TAB PO BID for Gastritis, #30 TAB Prov: PATRICIO HAJI DO 05/09/20 Attending Signature Attending Signature I have personally interviewed and examined the patient. All charts, labs, and imaging studies were reviewed. I agree with the PA/PHP ARCHITECT's findings, exam, and plan. (PATRICIO HAJI DO) Problem Qualifiers Primary Impression: Abdominal pain Abdominal location: unspecified location Qualified Codes: R10.9 - Unspecified abdominal pain JASON PRUITT APRN May 09, 2020 20:13 PATRICIO HAJI DO May 09, 2020 21:13
[2020-05-09 20:32] LABS: BASO % 0 % (0-3); EOS # 0.2 x10^3/uL (0.0-0.7); EOS % 3 % (0-3); HEMATOCRIT 35.5 % (36.0-47.0); HEMOGLOBIN 11.7 g/dL (12.0-15.5); LYMPH % 38 % (24-48); MEAN CORPUSCULAR HEMOGLOBIN 32 pg (25-35); MEAN CORPUSCULAR HGB CONC 33 g/dL (31-37); MEAN CORPUSCULAR VOLUME 96 fL (79-100); MONO # 0.7 x10^3/uL (0.0-1.1); MONO % 9 % (0-9); NEUT # 3.8 x10^3uL (1.8-7.7); NEUT % 49 % (31-73); PLATELET COUNT 329 x10^3/uL (140-400); RED BLOOD COUNT 3.69 x10^6/uL (3.50-5.40); RED CELL DISTRIBUTION WIDTH 13.5 % (11.5-14.5); WHITE BLOOD COUNT 7.8 x10^3/uL (4.0-11.0)
[2020-05-09 20:39] LABS: CALCIUM 8.3 mg/dL (8.5-10.1); CREATININE 0.8 mg/dL (0.6-1.0); GFR 83.1; POTASSIUM 3.6 mmol/L (3.5-5.1)
[2020-05-09 20:45] LABS: ALBUMIN 3.3 g/dL (3.4-5.0); ALBUMIN/GLOBULIN RATIO 1.2 (1.0-1.7); TOTAL BILIRUBIN 0.1 mg/dL (0.2-1.0); TOTAL PROTEIN 6.1 g/dL (6.4-8.2)
[2020-05-09 20:59] LABS: U PREG PATIENT NEGATIVE (NEG)
--- NOTE | 2020-05-09 21:23 | RAD ---
Abdominal Series dated 05/09/2020. No comparison available. Clinical Indication: Abdominal pain. Findings: Single upright PA view the chest shows normal heart and mediastinal contours. The lungs are clear wit hout focal consolidation. Vascular interstitium is within normal limits. Flat and upright views of the abdomen show nondilated gas filled loops of bowel. There are a few scat tered colonic air-fluid levels on the upright view. Clips in the right upper quadrant compatible with prior cholecystectomy. No abnormal calcifications are identified. There is no evidence of pneumoperi toneum. Impression chest: No acute radiographic abnormality. Impression abdomen: Nonobstructive bowel gas pattern. There are a few scattered air-fluid levels, nonspecific. Consider e nteritis or ileus. Electronically signed by: Patricio Hamilton MD (05/09/2020 9:21 PM) [id number]
[2020-05-09 21:37] LABS: BACTERIA,URINE FEW /HPF (0-FEW); BILIRUBIN,URINE NEG (NEG); CLARITY,URINE CLOUDY; GLUCOSE,URINE NEG (NEG); NITRITE,URINE NEG (NEG); SQUAMOUS EPITHELIAL CELL,UR OCC /LPF; UROBILINOGEN,URINE 0.2 mg/dL (0.2 mg/dL)
[2020-05-09 21:39] LABS: COLOR,URINE AMBER
[2020-05-09 21:51] VITALS: BP 90/50
[2020-05-09] MEDS ORDERED: HYOS0.1265 SL (21:54)
[2020-05-09] MEDS ORDERED: FAMO-63 PO (21:54)
== END 2020-05-09 22:10 | disposition home or self-care (01) ==
LOC: ER 19:06
DX: R10.30 Lower abdominal pain, unspecified (principal); R19.7 Diarrhea, unspecified; R11.0 Nausea; M79.7 Fibromyalgia; K21.9 Gastro-esophageal reflux disease without esophagitis; G43.909 Migraine, unspecified, not intractable, without status migrainosus; Z87.440 Personal history of urinary (tract) infections; Z90.49 Acquired absence of other specified parts of digestive tract; Z98.84 Bariatric surgery status; Z87.891 Personal history of nicotine dependence; Z88.2 Allergy status to sulfonamides; Z91.041 Radiographic dye allergy status
CPT/HCPCS: 36415; 74022; 80053; 81001; 81025; 82150; 85025; 96374; 96375; 99284; J1885; J2405; J7040

== ENCOUNTER 2020-05-27 17:13 | Emergency (ER) | payer OTHER ==
[~2020-05-27] VITALS: Ht 170.2 cm; Wt 80.0 kg
[~2020-05-27 17:13] MED LIST changes: +HYOS0.1265 SL
--- NOTE | 2020-05-27 17:51 | PHYS DOC ---
Past History Past Medical History: Anxiety, Constipation, Depression, Fibromyalgia, GERD, Migraines, Ovarian Cyst, Seizure, URI, UTI, Other Additional Past Medical Histor: PCOS; costochondritis, pancreatitis Past Surgical History: Cholecystectomy, Gastric Bypass Additional Past Surgical Histo: ovarian cyst removal last yr Smoking: Cigarettes, Quit Greater Than 1 Year Alcohol Use: None Drug Use: None General Adult EDM: Chief Complaint: ABDOMINAL PAIN HPI: HPI: Patient is a 4-year-old female who presents with right sided abdominal pain. States that the pain started 3 days ago, pain is sharp and dull. Patient reports having a history of pancreatitis and states "this feels like when I have pancreatitis before". Patient denies nausea, vomiting, diarrhea, fevers. Patient's been taking naproxen at home with little relief. Patient has history of GERD, fibromyalgia, anxiety Review of Systems: Review of Systems: Constitutional: Denies fever or chills Eyes: Denies change in visual acuity HENT: Denies nasal congestion or sore throat Respiratory: Denies cough or shortness of breath Cardiovascular: Denies chest pain or edema GI: Reports abdominal pain, denies nausea, vomiting, bloody stools or diarrhea : Denies dysuria Musculoskeletal: Denies back pain or joint pain Integument: Denies rash Neurologic: Denies headache, focal weakness or sensory changes Endocrine: Denies polyuria or polydipsia Lymphatic: Denies swollen glands Psychiatric: Denies depression or anxiety Allergies: Allergies: Allergies Coded Allergies Type Severity Reaction Last Updated Verified Sulfa (Sulfonamide Antibiotics) Allergy Intermediate hives 05/27/20 Yes yellow dye Allergy Intermediate 05/27/20 Yes Physical Exam: PE: Constitutional: Well developed, well nourished, no acute distress, non-toxic appearance. [] HENT: Normocephalic, atraumatic, bilateral external ears normal, oropharynx moist, no oral exudates, nose normal. [] Eyes: PERRLA, EOMI, conjunctiva normal, no discharge. [] Neck: Normal range of motion, no tenderness, supple, no stridor. [] Cardiovascular:Heart rate regular rhythm, no murmur [] Lungs & Thorax: Bilateral breath sounds clear to auscultation [] Abdomen: Bowel sounds normal, soft, right-sided tenderness Skin: Warm, dry, no erythema, no rash. [] Back: No tenderness, no CVA tenderness. [] Extremities: No tenderness, no cyanosis, no clubbing, ROM intact, no edema. [] Neurologic: Alert and oriented X 3, normal motor function, normal sensory function, no focal deficits noted. [] Psychologic: Affect normal, judgement normal, mood normal. [] Current Patient Data: Vital Signs: Vital Signs Date Time Temp Pulse Resp B/P (MAP) Pulse Ox O2 Delivery O2 Flow Rate FiO2 05/27/20 17:30 98.4 82 16 124/64 (84) 97 EKG: EKG: SINUS RHYTHM. HR 74 BPM. [] Radiology/Procedures: Radiology/Procedures: []EXAM: CHEST ONE VIEW. HISTORY: Chest/abdominal pain. COMPARISON: 04/15/2020. FINDINGS: A frontal view of the chest is obtained. There are no confluent infiltrates. There is no pneumothorax or pleural effusion. The heart is not enlarged. There are surgical clips in the upper abdomen. IMPRESSION: 1. No confluent infiltrates. Electronically signed by: Eagle Barrientos MD (05/27/2020 7:15 PM) [facility] Exam: CT of abdomen and pelvis without contrast INDICATION: Abdominal pain TECHNIQUE: Sequential axial images through the abdomen and pelvis obtained without IV contrast. Sagittal and coronal reformatted images were reconstructed from the axial data and reviewed. Comparisons: 05/09/2020 FINDINGS: Heart size is normal. No pericardial effusion. Visualized lung bases are clear. No pleural effusion. Evaluation of the solid organs limited secondary to noncontrast technique. Liver, spleen, pancreas and adrenals are unremarkable. Gallbladder surgically absent. No perinephric inflammation or hydronephrosis. No renal or ureteral calculi are identified. Bladder is decompressed not well evaluated. Uterus is not enlarged. There is a cystic lesion at the left adnexa which measures 5.2 cm in diameter. Large and small bowel are unremarkable. Postoperative changes at the stomach are noted. Appendix is normal. No free intra-abdominal air or fluid. No obstruction. Abdominal aorta has a normal course and caliber. No enlarged abdominal lymph nodes. No suspicious osseous lesions or acute fractures. IMPRESSION: 1. Cystic lesion at the left adnexa measuring approximately 5.2 cm in diameter. This likely represents cystic lesion in the left ovary however incompletely characterized on CT. 2. Otherwise, no acute process identified within the abdomen or pelvis. Heart Score: Risk Factors: Risk Factors: DM, Current or recent (<one month) smoker, HTN, HLP, family history of CAD, obesity. Risk Scores: Score 0 - 3: 2.5% MACE over next 6 weeks - Discharge Home Score 4 - 6: 20.3% MACE over next 6 weeks - Admit for Clinical Observation Score 7 - 10: 72.7% MACE over next 6 weeks - Early Invasive Strategies Course & Med Decision Making: Course & Med Decision Making Pertinent Labs and Imaging studies reviewed. (See chart for details) []Patient is a 4-year-old female who presents with right sided abdominal pain. States that the pain started 3 days ago, pain is sharp and dull. Patient reports having a history of pancreatitis and states "this feels like when I have pancreatitis before". Patient denies nausea, vomiting, diarrhea, fevers. Patient's been taking naproxen at home with little relief. Patient has history of GERD, fibromyalgia, anxiety. CBC, CMP, CT abdomen, UA ordered. Morphine given for pain. Patient still reporting pain. 4 mg of morphine given. Chest x-ray negative. CT abdomen and pelvis shows no acute process identified within the abdomen or pelvis. Labs are unremarkable. Patient will be discharged home and follow-up with PCP for further evaluation if symptoms continue. Patient to return to emergency room with worsening symptoms. Brown Disclaimer: Brown Disclaimer: This electronic medical record was generated, in whole or in part, using a voice recognition dictation system. Departure Departure: Impression: Primary Impression: Abdominal pain Qualified Codes: R10.11 - Right upper quadrant pain Disposition: 01 DC HOME SELF CARE/HOMELESS Condition: GOOD Referrals: PANCHITO ESCOBEDO (PCP) Patient Instructions: Abdominal Pain Additional Instructions: You were seen in emergency room today for abdominal pain. CT of your abdomen was negative for any acute findings. Please follow-up with your primary care physician if symptoms do not improve for further evaluation. Please return to the emergency room for worsening symptoms or concerns. EMERGENCY DEPARTMENT GENERAL DISCHARGE INSTRUCTIONS Thank you for coming to [facility] (ED) today and trusting us with you care. We trust that you had a positivie experience in our Emergency Department. If you wish to speak to the department management, you may call the director at [phone]. YOUR FOLLOW UP INSTRUCTIONS ARE FOLLOWS: 1. Do you have a private Doctor? If you do not have a private doctor, please ask for a resource list of physicians or clinics that may be able to assist you with follo w up care. 2. The Emergency Physician has interpreted your x-rays. The X-Ray specialist will also review them. If there is a change in the findings, you will be notified in 48 hours when at all possible. 3. A lab test or culture has been done, your results will be reviewed and you will be notified if you need a change in treatment. ADDITIONAL INSTRUCTIONS AND INFORMATION: 1. Your care today has been supervised by a physician who is specially trained in emergency care. Many problems require more than one evaluation for a complete diagnosis and treatment. We recommend that you schedule your follow up appointment as rec ommended to ensure complete treatment of you illness or injury. If you are unable to obtain follow up care and continue to have a problem, or if your condition worsens, we recommend that you return to the ED. 2. We are not able to safely determine your condition over the phone nor are we able to give sound medical advice over the phone. For these safety reasons, if you call for medical advice we will ask you to come to the ED for further evaluation. 3. If you have any questions regarding these discharge instructions please call the ED at [phone]. SAFETY INFORMATION: In the interest of safety, wellness, and injury prevention; we encourage you to wear your sealbelt, if you smoke; quite smoking, and we encourage family to use a protective helmet for bicycling and other sporting events that present an increased risk for head injury. IF YOUR SYMPTOMS WORSEN OR NEW SYMPTOMS DEVELOP, OR YOU HAVE CONCERNS ABOUT YOUR CONDITION; OR IF YOUR CONDITION WORSENS WHILE YOU ARE WAITING FOR YOUR FOLLOW UP APPOINTMENT; EITHER CONTACT YOUR PRIMARY CARE DOCTOR, THE PHYSICIAN WHOSE NAME AND NUMBER YOU WERE GIVEN, OR RETURN TO THE ED IMMEDIATELY. ESTRELLITA YIP APRN May 27, 2020 17:51
[2020-05-27] MEDS ORDERED: MORPHINE SULFATE 4 MG/ML DISP.SYRIN. IV ONE ×2 (18:00→19:30)
[2020-05-27] MEDS ORDERED: ONDANSETRON PF 4 MG/2 ML VIAL. IVP ONE (18:00)
--- NOTE | 2020-05-27 18:10 | EKG ---
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
[2020-05-27 18:16] LABS: BASO % 1 % (0-3); EOS # 0.1 x10^3/uL (0.0-0.7); EOS % 2 % (0-3); HEMATOCRIT 35.9 % (36.0-47.0); HEMOGLOBIN 11.8 g/dL (12.0-15.5); LYMPH # 2.5 x10^3/uL (1.0-4.8); LYMPH % 33 % (24-48); MEAN CORPUSCULAR HEMOGLOBIN 32 pg (25-35); MEAN CORPUSCULAR HGB CONC 33 g/dL (31-37); MEAN CORPUSCULAR VOLUME 98 fL (79-100); MONO # 0.6 x10^3/uL (0.0-1.1); MONO % 8 % (0-9); NEUT # 4.4 x10^3uL (1.8-7.7); NEUT % 57 % (31-73); PLATELET COUNT 301 x10^3/uL (140-400); RED BLOOD COUNT 3.67 x10^6/uL (3.50-5.40); RED CELL DISTRIBUTION WIDTH 13.5 % (11.5-14.5); WHITE BLOOD COUNT 7.7 x10^3/uL (4.0-11.0)
[2020-05-27 18:23] LABS: CALCIUM 8.2 mg/dL (8.5-10.1); CREATININE 0.7 mg/dL (0.6-1.0); POTASSIUM 3.7 mmol/L (3.5-5.1)
[2020-05-27 18:29] LABS: ALBUMIN/GLOBULIN RATIO 0.9 (1.0-1.7); TOTAL BILIRUBIN 0.1 mg/dL (0.2-1.0); TOTAL PROTEIN 6.3 g/dL (6.4-8.2)
[2020-05-27 18:38] LABS: COLOR,URINE AMBER
[2020-05-27 18:39] LABS: BACTERIA,URINE 0 /HPF (0-FEW); BILIRUBIN,URINE NEG (NEG); CLARITY,URINE CLEAR; GLUCOSE,URINE NEG (NEG); NITRITE,URINE NEG (NEG); SQUAMOUS EPITHELIAL CELL,UR MANY /LPF
--- NOTE | 2020-05-27 19:17 | RAD ---
EXAM: CHEST ONE VIEW. HISTORY: Chest/abdominal pain. COMPARISON: 04/15/2020. FINDINGS: A frontal view of the chest is obtained. There are no confluent infiltrates. There is no pneumothorax or pleural effusion. The heart is not en larged. There are surgical clips in the upper abdomen. IMPRESSION: 1. No confluent infiltrates. Electronically signed by: Eagle Barrientos MD (05/27/2020 7:15 PM) [facility]
--- NOTE | 2020-05-27 19:18 | RAD ---
Exam: CT of abdomen and pelvis without contrast INDICATION: Abdominal pain TECHNIQUE: Sequential axial images through the abdomen and pelvis obtained without IV contrast. Sagit carlos and coronal reformatted images were reconstructed from the axial data and reviewed. Comparisons: 05/09/2020 FINDINGS: Heart size is normal. No pericardial effusion. Visualized lung bases are clear. No pleural effusion. Evaluation of the solid organs limited secondary to noncontrast technique. Liver, spleen, pancreas and adrenals are unremarkable. Gallbladder surgically absent. No perinephric inflammation or hydronephrosis. No renal or ureteral calculi are identified. Bladder is decompressed not well evaluated. Uterus is not enlarged. There is a cystic lesion at the l eft adnexa which measures 5.2 cm in diameter. Large and small bowel are unremarkable. Postoperative changes at the stomach are noted. Appendix is n ormal. No free intra-abdominal air or fluid. No obstruction. Abdominal aorta has a normal course and caliber. No enlarged abdominal lymph nodes. No suspicious osseous lesions or acute fractures. IMPRESSION: 1. Cystic lesion at the left adnexa measuring approximately 5.2 cm in diameter. This likely represen ts cystic lesion in the left ovary however incompletely characterized on CT. 2. Otherwise, no acute process identified within the abdomen or pelvis. Exposure: One or more of the following in the visualized dose reduction techniques were utilized for this examination: 1. Automated exposure control 2. Adjustment of the MA and/or KV according to patient size 3. Use of iterative of reconstructive technique Electronically signed by: Aaron Fisher MD (05/27/2020 7:16 PM) [facility]
[2020-05-27 20:25] VITALS: BP 109/36
== END 2020-05-27 20:25 | disposition home or self-care (01) ==
LOC: ER 17:13
DX: R10.11 Right upper quadrant pain (principal); F41.9 Anxiety disorder, unspecified; F32.9 Major depressive disorder, single episode, unspecified; M79.7 Fibromyalgia; K21.9 Gastro-esophageal reflux disease without esophagitis; G43.909 Migraine, unspecified, not intractable, without status migrainosus; Z87.440 Personal history of urinary (tract) infections; Z87.891 Personal history of nicotine dependence; Z90.49 Acquired absence of other specified parts of digestive tract; Z98.84 Bariatric surgery status; Z88.2 Allergy status to sulfonamides; Z91.041 Radiographic dye allergy status
CPT/HCPCS: 36415; 71045; 74176; 80053; 81001; 81025; 83690; 85025; 93005; 96374; 96375; 96376; 99285; J2270; J2405

== ENCOUNTER 2020-06-01 22:04 | Emergency (ER) | payer OTHER ==
[~2020-06-01] VITALS: Ht 170.2 cm; Wt 76.4 kg
--- NOTE | 2020-06-01 22:14 | PHYS DOC ---
Past History Past Medical History: Anxiety, Bipolar, Constipation, Depression, Fibromyalgia, GERD, IBS, Migraines, Ovarian Cyst, Pancreatitis, Seizure, URI, UTI, Other Additional Past Medical Histor: PCOS; costochondritis, pancreatitis (CODY MORALES MD) Past Surgical History: Cholecystectomy, Gastric Bypass Additional Past Surgical Histo: ovarian cyst removal last yr (CODY MORALES MD) Smoking: Cigarettes, Quit Greater Than 1 Year Alcohol Use: None Drug Use: None (CODY MORALES MD) General Adult HPI: HPI: ".. I ve been thinking about killing myself.. a lot more... I was going to drive my car into a wall at high speed... or drive it into the river.. down by the bridge... . but I first would like to run over my ex-boyfriend... he been writing stuff to me on Face book.. and he ' s not to have any contact with me... " Patient is a 34 year old female who presents with above hx and complaints homicidal and suicidal ideation. Patient has long history of depression anxiety. Patient also has had thoughts of running over her boyfriend for car. Patient has had previous hospitalizations for depression and anxiety. Does follow with counselor. Patient denies any recent travel or severe ill contacts. Patient denies any drug overdoses or uses of meds to kill himself tonight. Patient has past history of ovarian cyst, degenerative joint disease, polycystic ovary disease, pancreatitis, GERD, chronic abdomen pain, constipation, and pseudoseizures. Patient had a extended stays under observation at [facility] and [facility] for evaluation of her seizures and uses analeptics. Patient seizures have been self-limiting. Seizure meds did not seem to shorten duration or recurrence. There is a history somewhat consistent with pseudoseizures. Patient normally follows with Dr. Jernigan. (CODY MORALES MD) Review of Systems: Review of Systems: Constitutional: Denies fever or chills Eyes: Denies change in visual acuity HENT: Denies nasal congestion or sore throat Respiratory: Denies cough or shortness of breath Cardiovascular: Denies chest pain or edema GI: Denies abdominal pain, nausea, vomiting, bloody stools or diarrhea : Denies dysuria Musculoskeletal: Denies back pain or joint pain Integument: Denies rash Neurologic: Denies headache, focal weakness or sensory changes Endocrine: Denies polyuria or polydipsia Lymphatic: Denies swollen glands Psychiatric: Complains of suicidal and homicidal ideation, depression and anxiety (CODY MORALSE MD) Family History: Family History: Noncontributory to presentation (CODY MORALES MD) Current Medications: Current Meds: See nursing for home meds (CODY MORALES MD) Allergies: Allergies: Allergies Coded Allergies Type Severity Reaction Last Updated Verified Sulfa (Sulfonamide Antibiotics) Allergy Intermediate hives 05/27/20 Yes yellow dye Allergy Intermediate 05/27/20 Yes (CODY MORALES MD) Physical Exam: PE: Constitutional: no acute distress, non-toxic appearance. [] HENT: Normocephalic, atraumatic, bilateral external ears normal, oropharynx moist, no oral exudates, nose normal. 2 eyebrow studs Eyes: PERRLA, EOMI, conjunctiva normal, no discharge. [] Neck: Normal range of motion, no tenderness, supple, no stridor. [] Cardiovascular:Heart rate regular rhythm, no murmur [] Lungs & Thorax: Bilateral breath sounds equal apex on auscultation [] Abdomen: Bowel sounds normal, soft, no tenderness, no masses, no pulsatile masses. Mild distention. Old surgery scars. Skin: Warm, dry, no erythema, no rash. [] Back: No tenderness, no CVA tenderness. [] Extremities: No tenderness, no cyanosis, no clubbing, ROM intact, no edema. [] Neurologic: Alert and oriented X 3, 70s on request has distal sensory no focal deficits noted. [] Psychologic: Affect anxious, judgement normal, mood depressed. Reports suicidal ideation and homicidal ideation towards her ex boyfriend (CODY MORALES MD) EKG: EKG: My interpretation EKG shows a sinus rhythm at 71 bpm. Mild leftward axis. No findings acute STEMI of contralateral changes [] (CODY MORALES MD) Radiology/Procedures: Radiology/Procedures: [][address] [address] IMAGING REPORT Signed PATIENT: NANCY DESAI ACCOUNT: [id number] : 1985 LOCATION: ER AGE: 34 SEX: F EXAM STATUS: PRE ER ORD. PHYSICIAN: CODY MORALES MD REASON: dyspnea PROCEDURE: PORTABLE CHEST 1V XR CHEST 1V 06/01/2020 11:38 PM INDICATION: Dyspnea COMPARISON: May 27, 2020 TECHNIQUE: Portable frontal view of the chest is provided. FINDINGS: The cardiomediastinal silhouette is within normal limits. Lungs are clear. There are no significant pleural effusions. There is no pulmonary vascular conge stion. No pneumothorax. No suspicious osseous abnormality. IMPRESSION: There is no acute cardiopulmonary process. Electronically signed by: Mesfin Templeton MD (06/01/2020 11:56 PM) [facility] DICTATED AND SIGNED BY: MESFIN TEMPLETON MD DATE: 06/01/20 [id number] CC: CODY MORALES MD; PANCHITO JERNIGAN ~MTH0 0 [facility] [address] [place] [id number] (CODY MORALES MD) Heart Score: HEART Score for Chest Pain: HEART Score for Chest Pain Response (Comments) Value History Slighlty/Non-Suspicious 0 ECG Normal 0 Age < 45 0 Risk Factors 1 or 2 Risk Factors 1 Troponin < Normal Limit 0 Total 1 Risk Factors: Risk Factors: DM, Current or recent (<one month) smoker, HTN, HLP, family history of CAD, obesity. Risk Scores: Score 0 - 3: 2.5% MACE over next 6 weeks - Discharge Home Score 4 - 6: 20.3% MACE over next 6 weeks - Admit for Clinical Observation Score 7 - 10: 72.7% MACE over next 6 weeks - Early Invasive Strategies (CODY MORALES MD) Course & Med Decision Making: Course & Med Decision Making Pertinent Labs and Imaging studies reviewed. (See chart for details) See psych evaluation. Plan placement. Covid test pending. Impression: 1. History of depression 2. History of anxiety 3. History of pseudoseizures 4. History of chronic abdomen pain/IBS 5. Complaints of suicidal ideation 6. Homicidal ideation towards ex-boyfriend [] (CODY MORALES MD) Course & Med Decision Making Assumed care of patient at checkout from Dr. Morales. At checkout patient was pending placement. During the day patient has decided that she no longer wants to go to a psychiatric facility. She states she is no longer suicidal or homici calvin. Of note patient did come in at the same time as an adoptive sibling from the same household. This sibling also was complaining of suicidal ideations. At this time patient has completed a safety plan. She does not appear to be a harm to herself or others at this time. Patient's test results and vitals while in the ED were fully reviewed and discussed with the patient. Patient is stable and at this time does not need admission to the hospital. We have discussed strict return precautions and the importance of following up with their Primary Care Physician. Patient stated understanding and was given an opportunity to ask any questions. Patient is in agreement with plan. (SARA YOUNG MD) Dragon Disclaimer: Dragon Disclaimer: This electronic medical record was generated, in whole or in part, using a voice recognition dictation system. (CODY MORALES MD) Departure Departure: Impression: Primary Impression: Borderline personality disorder Additional Impression: Mood disorder Disposition: 01 DC HOME SELF CARE/HOMELESS Condition: IMPROVED Referrals: PANCHITO JERNIGAN (PCP) Patient Instructions: Suicidal Feelings, How to Help Yourself CODY MORALES MD Jun 01, 2020 22:13 SARA YOUNG MD Jun 02, 2020 15:56
[2020-06-01] MEDS ORDERED: IV RINGERS SOLUTION,LACTATED 1,000 ML IV SCH (22:15)
[2020-06-01 23:40] LABS: BASO % 1 % (0-3); EOS # 0.3 x10^3/uL (0.0-0.7); EOS % 3 % (0-3); HEMATOCRIT 34.3 % (36.0-47.0); HEMOGLOBIN 11.3 g/dL (12.0-15.5); LYMPH # 1.9 x10^3/uL (1.0-4.8); LYMPH % 25 % (24-48); MEAN CORPUSCULAR HEMOGLOBIN 32 pg (25-35); MEAN CORPUSCULAR HGB CONC 33 g/dL (31-37); MEAN CORPUSCULAR VOLUME 98 fL (79-100); MONO # 0.7 x10^3/uL (0.0-1.1); MONO % 9 % (0-9); NEUT # 4.8 x10^3uL (1.8-7.7); NEUT % 62 % (31-73); PLATELET COUNT 330 x10^3/uL (140-400); RED BLOOD COUNT 3.51 x10^6/uL (3.50-5.40); RED CELL DISTRIBUTION WIDTH 13.9 % (11.5-14.5); WHITE BLOOD COUNT 7.6 x10^3/uL (4.0-11.0)
[2020-06-01 23:51] LABS: BILIRUBIN,URINE NEG (NEG); CLARITY,URINE CLEAR; COLOR,URINE YELLOW; GLUCOSE,URINE NEG (NEG); NITRITE,URINE NEG (NEG)
[2020-06-01 23:52] LABS: BACTERIA,URINE 0 /HPF (0-FEW); RBC,URINE 0 /HPF (0-2); SQUAMOUS EPITHELIAL CELL,UR FEW /LPF; WBC,URINE OCC /HPF (0-4)
[2020-06-01 23:58] LABS: CALCIUM 8.5 mg/dL (8.5-10.1); CREATININE 0.7 mg/dL (0.6-1.0); POTASSIUM 3.5 mmol/L (3.5-5.1)
--- NOTE | 2020-06-01 23:58 | RAD ---
XR CHEST 1V 06/01/2020 11:38 PM INDICATION: Dyspnea COMPARISON: May 27, 2020 TECHNIQUE: Portable frontal view of the chest is provided. FINDINGS: The cardiomediastinal silhouette is within normal limits. Lungs are clear. There are no significant pleural effusions. There is no pulmonary vascular congestion. No pneumothora x. No suspicious osseous abnormality. IMPRESSION: There is no acute cardiopulmonary process. Electronically signed by: Emily Stanley MD (06/01/2020 11:56 PM) [facility]
[2020-06-01 23:59] LABS: BARBITURATES NEG (NEG); BENZODIAZEPINES NEG (NEG); CANNABINOIDS NEG (NEG); COCAINE NEG (NEG); METHADONE NEG (NEG); OPIATES NEG (NEG); PHENCYCLIDINE NEG (NEG)
[2020-06-02 00:04] LABS: ALBUMIN 3.4 g/dL (3.4-5.0); DIRECT BILIRUBIN 0.1 mg/dL (0.0-0.2); TOTAL BILIRUBIN 0.3 mg/dL (0.2-1.0); TOTAL PROTEIN 6.5 g/dL (6.4-8.2)
[2020-06-02 00:09] LABS: AMPHETAMINE/METHAMPHETAMINE NEG (NEG)
[2020-06-02 00:09] LABS: ACETAMIN < 2 mcg/mL (10-30); SALIC < 2.8 mg/dL (2.8-20.0)
--- NOTE | 2020-06-02 03:27 | EKG ---
[address] [address] Test Date: 2020-06-01 Test Time: 22:29:43 Pat Name: NANCY DESAI Department: Room: Gender: F Regional Liaison: : 1985 Requested By: CODY MOORE Order Number: [id number] Reading MD: Measurements Intervals [place] Rate: 71 P: 32 SD: 132 QRS: -5 QRSD: 102 T: 10 QT: 404 QTc: 444 Interpretive Statements SINUS RHYTHM LEFTWARD AXIS OTHERWISE NORMAL ECG RI6.02 No previous ECG available for comparison
[2020-06-02 16:24] VITALS: BP 121/66
== END 2020-06-02 16:23 | disposition home or self-care (01) ==
LOC: ER 22:04
DX: R45.851 Suicidal ideations (principal); F31.9 Bipolar disorder, unspecified; F60.3 Borderline personality disorder; K21.9 Gastro-esophageal reflux disease without esophagitis; Z88.2 Allergy status to sulfonamides; Z20.822 Contact with and (suspected) exposure to COVID-19
CPT/HCPCS: 36415; 71045; 80048; 80076; 80307; 80329; 81001; 81025; 82550; 83690; 83735; 84443; 84484; 85025; 85610; 85730; 87086; 93005; 96360; 99285; C9803; G0480; J7120; U0003; 96365

== ENCOUNTER 2020-06-07 15:10 | Emergency (ER) | payer OTHER ==
[~2020-06-07] VITALS: Ht 170.2 cm; Wt 76.4 kg
[2020-06-07 16:20] LABS: BARBITURATES NEG (NEG); BENZODIAZEPINES NEG (NEG); CANNABINOIDS NEG (NEG); COCAINE NEG (NEG); METHADONE NEG (NEG); OPIATES NEG (NEG); PHENCYCLIDINE NEG (NEG)
[2020-06-07 16:21] LABS: AMPHETAMINE/METHAMPHETAMINE NEG (NEG)
[2020-06-07 16:23] LABS: BILIRUBIN,URINE NEG (NEG); CLARITY,URINE CLEAR; COLOR,URINE YELLOW; GLUCOSE,URINE NEG (NEG)
[2020-06-07 16:24] LABS: BACTERIA,URINE FEW /HPF (0-FEW); NITRITE,URINE NEG (NEG); RBC,URINE OCC /HPF (0-2); SQUAMOUS EPITHELIAL CELL,UR MOD /LPF; UROBILINOGEN,URINE 0.2 mg/dL (0.2 mg/dL)
[2020-06-07 16:26] LABS: CALCIUM 8.1 mg/dL (8.5-10.1); CREATININE 0.6 mg/dL (0.6-1.0); GFR 115.9; POTASSIUM 3.6 mmol/L (3.5-5.1)
[2020-06-07 16:26] LABS: U PREG PATIENT NEGATIVE (NEG)
[2020-06-07 16:31] LABS: ACETAMIN < 2.0 mcg/mL (10-30); ETHANOL < 10 mg/dL (0-10); SALIC < 2.8 mg/dL (2.8-20.0)
[2020-06-07 16:33] LABS: ALBUMIN 3.3 g/dL (3.4-5.0); MAGNESIUM 1.9 mg/dL (1.8-2.4); TOTAL BILIRUBIN 0.1 mg/dL (0.2-1.0); TOTAL PROTEIN 6.7 g/dL (6.4-8.2)
--- NOTE | 2020-06-07 18:09 | PHYS DOC ---
Past History Past Medical History: Anxiety, Bipolar, Constipation, Depression, Fibromyalgia, GERD, IBS, Migraines, Ovarian Cyst, Pancreatitis, Seizure, URI, UTI, Other Additional Past Medical Histor: PCOS; costochondritis, pancreatitis;PTSD (GOMEZ SALAS APRN) Past Medical History: Anxiety, Depression (CODY MORALES MD) Past Surgical History: Cholecystectomy, Gastric Bypass, Oophorectomy Additional Past Surgical Histo: ovarian cyst removal last yr' (GOMEZ SALAS APRN) Smoking: Cigarettes, Quit Greater Than 1 Year Alcohol Use: None Drug Use: None (GOMEZ SALAS APRN) General Adult EDM: Chief Complaint: SUICIDAL IDEATION HPI: HPI: Patient is a 34-year-old female who presents emergency department for suicidal ideations and an attempted overdose. Patient reports she took a handful of hydroxyzine sometime during the night last night in hopes that she would not wake up. Patient reports she has a history of depression. States she has really been struggling with not having custody of her son. Patient reports that her son was taken away from her custody 2 years ago. Patient denies any prior attempts to kill herself. She does have a history of self-harm and reports self-inflicted cutting to her right thigh but denies any recent cutting. Patient denies any nausea, vomiting, diarrhea, abdominal pain, chest pain, shortness of breath, body aches, or fever. She currently denies any pain. (GOMEZ SALAS APRN) Review of Systems: Review of Systems: Complete ROS is negative unless otherwise noted in HPI. (GOMEZ SALAS APRN) Allergies: Allergies: Allergies Coded Allergies Type Severity Reaction Last Updated Verified Sulfa (Sulfonamide Antibiotics) Allergy Intermediate hives 05/27/20 Yes yellow dye Allergy Intermediate 05/27/20 Yes (GOMEZ SALAS APRN) Physical Exam: PE: See Above Constitutional: Well developed, well nourished, no acute distress, non-toxic appearance. [] HENT: Normocephalic, atraumatic, bilateral external ears normal, nose normal. [] Eyes: PERRLA, EOMI, conjunctiva normal, no discharge. [] Neck: Normal range of motion, no stridor. [] Cardiovascular:Heart rate regular rhythm Lungs & Thorax: Respirations even and unlabored, no retractions, no respiratory distress Abdomen: soft, no tenderness Skin: Warm, dry, no erythema, no rash. [] Extremities: No cyanosis, ROM intact, no edema. [] Neurologic: Alert and oriented X 3, no focal deficits noted. [] Psychologic: Affect depressed, judgement normal, mood sad (GOMEZ SALAS APRN) Current Patient Data: Labs: Laboratory Tests Test 06/07/20 15:43 06/07/20 15:53 06/07/20 15:55 Urine Collection Type Unknown Urine Color Yellow Urine Clarity Clear Urine pH 6.5 Urine Specific [place] 1.020 Urine Protein Neg (NEG-TRACE) Urine Glucose (UA) Neg mg/dL (NEG) Urine Ketones (Stick) Neg mg/dL (NEG) Urine Blood Neg (NEG) Urine Nitrite Neg (NEG) Urine Bilirubin Neg (NEG) Urine Urobilinogen Dipstick 0.2 mg/dL (0.2 mg/dL) Urine Leukocyte Esterase Small (NEG) Urine RBC Occ /HPF (0-2) Urine WBC 5-10 /HPF (0-4) Urine Squamous Epithelial Cells Mod /LPF Urine Bacteria Few /HPF (0-FEW) Urine Test Negative (NEG) Urine Opiates Screen Neg (NEG) Urine Methadone Screen Neg (NEG) Urine Barbiturates Neg (NEG) Urine Phencyclidine Screen Neg (NEG) Urine Amphetamine/Methamphetamine Neg (NEG) Urine Benzodiazepines Screen Neg (NEG) Urine Cocaine Screen Neg (NEG) Urine Cannabinoids Screen Neg (NEG) Urine Ethyl Alcohol Neg (NEG) Salicylates Level < 2.8 mg/dL (2.8-20.0) L Salicylate Last Dose Date 06/07/20 Salicylate Last Dose Time 1600 Acetaminophen Level < 2.0 mcg/mL (10-30) L Acetaminophen Last Dose Date 06/07/20 Acetaminophen Last Dose Time 1600 Ethyl Alcohol Level < 10 mg/dL (0-10) Sodium Level 139 mmol/L (136-145) Potassium Level 3.6 mmol/L (3.5-5.1) Chloride Level 104 mmol/L (98-107) Carbon Dioxide Level 28 mmol/L (21-32) Anion Gap 7 (6-14) Blood Urea Nitrogen 20 mg/dL (7-20) Creatinine 0.6 mg/dL (0.6-1.0) Estimated GFR (Cockcroft-Gault) 115.9 BUN/Creatinine Ratio 33 (6-20) H Glucose Level 89 mg/dL (70-99) Calcium Level 8.1 mg/dL (8.5-10.1) L Magnesium Level 1.9 mg/dL (1.8-2.4) Total Bilirubin 0.1 mg/dL (0.2-1.0) L Aspartate Amino Transferase (AST) 12 U/L (15-37) L Alanine Aminotransferase (ALT) 26 U/L (14-59) Alkaline Phosphatase 156 U/L (46-116) H Total Protein 6.7 g/dL (6.4-8.2) Albumin 3.3 g/dL (3.4-5.0) L Albumin/Globulin Ratio 1.0 (1.0-1.7) Vital Signs: Vital Signs Date Time Temp Pulse Resp B/P (MAP) Pulse Ox O2 Delivery O2 Flow Rate FiO2 06/07/20 15:10 98.2 77 16 117/70 (86) 100 Room Air (GOMEZ SALAS APRN) EKG: EK-sinus rhythm rate 89, leftward axis otherwise normal EKG no STEMI, read by Dr. Morales [] (GOMEZ SALAS APRN) Radiology/Procedures: Radiology/Procedures: [] (GOMEZ SALAS APRN) Heart Score: Risk Factors: Risk Factors: DM, Current or recent (<one month) smoker, HTN, HLP, family history of CAD, obesity. Risk Scores: Score 0 - 3: 2.5% MACE over next 6 weeks - Discharge Home Score 4 - 6: 20.3% MACE over next 6 weeks - Admit for Clinical Observation Score 7 - 10: 72.7% MACE over next 6 weeks - Early Invasive Strategies (GOMEZ SALAS APRN) Course & Med Decision Making: Course & Med Decision Making Pertinent Labs and Imaging studies reviewed. (See chart for details) Maryellen with the pat team came out and evaluated the patient. It has been determined the patient is suicidal and needs to be treated as an inpatient. Nursing staff will fax information over to [facility] when the Covid is back. [] (GOMEZ SALAS APRN) Course & Med Decision Making Pt. accepted at [facility]-Dr. Christie accepting [pt. See Andie Salas APRN Notes for details See PAT notes for details. Impression: 1. Anxiety 2. Depression 3. Suicidal ideation (CODY MORALES MD) Dragon Disclaimer: Brown Disclaimer: This electronic medical record was generated, in whole or in part, using a voice recognition dictation system. (GOMEZ SALAS APRN) Departure Departure: Impression: Primary Impression: Suicidal ideations Additional Impression: Intentional hydroxyzine overdose Qualified Codes: T43.592A - Poisoning by other antipsychotics and neuroleptics, intentional self-harm, initial encounter Disposition: 65 DC/TRF TO PSYCH HOSP Referrals: PANCHITO ESCOBEDO (PCP) GOMEZ SALAS APRN Jun 07, 2020 18:09 CODY MORALES MD Jun 07, 2020 22:13
[2020-06-07 19:48] LABS: BASO % 0 % (0-3); EOS # 0.3 x10^3/uL (0.0-0.7); EOS % 4 % (0-3); HEMATOCRIT 32.1 % (36.0-47.0); HEMOGLOBIN 10.5 g/dL (12.0-15.5); LYMPH # 2.2 x10^3/uL (1.0-4.8); LYMPH % 32 % (24-48); MEAN CORPUSCULAR HEMOGLOBIN 32 pg (25-35); MEAN CORPUSCULAR HGB CONC 33 g/dL (31-37); MEAN CORPUSCULAR VOLUME 98 fL (79-100); MONO # 0.6 x10^3/uL (0.0-1.1); MONO % 9 % (0-9); NEUT # 3.7 x10^3uL (1.8-7.7); NEUT % 55 % (31-73); PLATELET COUNT 320 x10^3/uL (140-400); RED BLOOD COUNT 3.29 x10^6/uL (3.50-5.40); RED CELL DISTRIBUTION WIDTH 13.5 % (11.5-14.5); WHITE BLOOD COUNT 6.8 x10^3/uL (4.0-11.0)
--- NOTE | 2020-06-07 20:51 | EKG ---
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
[2020-06-07 21:21] VITALS: BP 105/60
== END 2020-06-07 23:18 ==
LOC: ER 15:10
DX: F41.9 Anxiety disorder, unspecified (principal); T43.592A Poisoning by other antipsychotics and neuroleptics, intentional self-harm, initial encounter; Z20.822 Contact with and (suspected) exposure to COVID-19; R45.851 Suicidal ideations; F32.9 Major depressive disorder, single episode, unspecified; K21.9 Gastro-esophageal reflux disease without esophagitis; M79.7 Fibromyalgia; G43.909 Migraine, unspecified, not intractable, without status migrainosus; Z88.2 Allergy status to sulfonamides; Z91.040 Latex allergy status; Y92.89 Other specified places as the place of occurrence of the external cause
CPT/HCPCS: 36415; 80053; 80307; 80329; 81001; 81025; 83735; 85025; 87086; 87426; 93005; 99285; C9803; G0480; U0003

== ENCOUNTER 2020-07-04 20:21 | Emergency (ER) | payer OTHER ==
[~2020-07-04] VITALS: Ht 170.2 cm; Wt 80.0 kg
[2020-07-04] MEDS ORDERED: IBUPROFEN 600 MG TABLET. PO ONE (21:00)
[2020-07-04 21:09] LABS: BILIRUBIN,URINE NEG (NEG); CLARITY,URINE HAZY; COLOR,URINE YELLOW; GLUCOSE,URINE NEG (NEG); NITRITE,URINE NEG (NEG)
[2020-07-04 21:10] LABS: BACTERIA,URINE FEW /HPF (0-FEW); SQUAMOUS EPITHELIAL CELL,UR MANY /LPF
[2020-07-04 21:21] LABS: BASO # 0.1 x10^3/uL (0.0-0.2); BASO % 1 % (0-3); EOS # 0.2 x10^3/uL (0.0-0.7); EOS % 3 % (0-3); HEMOGLOBIN 11.5 g/dL (12.0-15.5); LYMPH # 2.5 x10^3/uL (1.0-4.8); LYMPH % 37 % (24-48); MEAN CORPUSCULAR HEMOGLOBIN 32 pg (25-35); MEAN CORPUSCULAR HGB CONC 33 g/dL (31-37); MEAN CORPUSCULAR VOLUME 96 fL (79-100); MONO # 0.8 x10^3/uL (0.0-1.1); MONO % 11 % (0-9); NEUT # 3.4 x10^3uL (1.8-7.7); NEUT % 48 % (31-73); PLATELET COUNT 401 x10^3/uL (140-400); RED BLOOD COUNT 3.64 x10^6/uL (3.50-5.40); RED CELL DISTRIBUTION WIDTH 13.1 % (11.5-14.5)
--- NOTE | 2020-07-04 21:21 | PHYS DOC ---
Past History Past Medical History: Anxiety, Depression, Seizure Additional Past Medical Histor: PCOS; costochondritis, pancreatitis;PTSD Past Surgical History: Cholecystectomy, Gastric Bypass, Oophorectomy Additional Past Surgical Histo: ovarian cyst removal last yr' Smoking: Cigarettes, Quit Greater Than 1 Year Alcohol Use: None Drug Use: None Adult General Chief Complaint Chief Complaint: ABDOMINAL PAIN HPI HPI Patient is a 34-year-old female with a past medical history significant for ovarian cysts and chronic abdominal pain who presents with left lower quadrant/pelvic abdominal pain. States that it started earlier in the day has been relatively constant, 3-5 out of 10, dull and achy in nature with no radiation. States he has had this several times in the past, has been worked up before and it usually ends up being a cyst but she just wants to be sure. Denies any recent traumas, illnesses, fevers, chest pain, shortness of breath, abdominal pain, nausea, vomiting, dysuria, hematuria, blood in the stool. Denies any vaginal bleeding, discharge, pain, history of sexually transmitted infections. States she has not been sexually active in almost a year. States she is otherwise eating and drinking normally. States he is making urine and stool normally for her. Review of Systems Review of Systems Review of systems otherwise unremarkable except noted in HPI Current Medications Current Medications Current Medications Medications (Trade) Dose Ordered Sig/Mahad Start Time Stop Time Status Last Admin Dose Admin Ibuprofen (Motrin) 600 mg 1X ONCE 07/04/20 21:00 07/04/20 21:06 DC 07/04/20 21:06 600 MG Allergies Allergies Allergies Coded Allergies Type Severity Reaction Last Updated Verified Sulfa (Sulfonamide Antibiotics) Allergy Intermediate hives 07/04/20 Yes yellow dye Allergy Intermediate 07/04/20 Yes Physical Exam Physical Exam Constitutional: Well developed, well nourished, no acute distress, non-toxic appearance. [] HENT: Normocephalic, atraumatic, bilateral external ears normal, oropharynx moist, no oral exudates, nose normal. [] Eyes: conjunctiva normal, no discharge. [] Cardiovascular:Heart rate regular rhythm, no murmur [] Lungs & Thorax: Bilateral breath sounds clear to auscultation [] Abdomen: soft, no tenderness, no masses, no pulsatile masses. [] Skin: Warm, dry, no erythema, no rash. [] Back: no CVA tenderness. [] Neurologic: Alert and oriented X 3, normal motor function, normal sensory function, no focal deficits noted. [] Psychologic: Affect normal, judgement normal, mood normal. [] Current Patient Data Vital Signs Vital Signs Date Time Temp Pulse Resp B/P (MAP) Pulse Ox O2 Delivery O2 Flow Rate FiO2 07/04/20 20:33 98.6 92 16 128/67 (87) 98 Room Air Lab Results Laboratory Tests Test 07/04/20 20:35 07/04/20 20:39 Urine Collection Type Unknown Urine Color Yellow Urine Clarity [place] Urine pH 5.5 Urine Specific [place] >=1.030 Urine Protein Neg (NEG-TRACE) Urine Glucose (UA) Neg mg/dL (NEG) Urine Ketones (Stick) Neg mg/dL (NEG) Urine Blood Neg (NEG) Urine Nitrite Neg (NEG) Urine Bilirubin Neg (NEG) Urine Urobilinogen Dipstick 1.0 mg/dL (0.2 mg/dL) Urine Leukocyte Esterase Trace (NEG) Urine RBC 1-2 /HPF (0-2) Urine WBC 5-10 /HPF (0-4) Urine Squamous Epithelial Cells Many /LPF Urine Bacteria Few /HPF (0-FEW) Urine Mucus Marked /LPF POC Urine HCG, Qualitative hcg negative (Negative) EKG EKG [] Radiology/Procedures Radiology/Procedures [] EXAM: ULTRASOUND PELVIS INDICATION: LLQ/pelvic pain. Last menstrual period was end of May. COMPARISON: None available. TECHNIQUE: Transabdominal sonography was performed. FINDINGS: The uterus measures 7 x 6 x 4.4 cm. The endometrium measures 0.5 cm. There is no focal myometrial abnormality There has been an oophorectomy. The left ovary measures 4 x 2.8 x 2.3 cm. Left ovarian follicles measuring up to 2 cm. Flow is seen to the left ovary. There is no free fluid. IMPRESSION: 1. Normal sonographic survey of the uterus and left adnexa. 2. There has been a right oophorectomy. 3. No significant free pelvic fluid. Electronically signed by: Akash Barrera MD (07/04/2020 10:08 PM) [facility] DICTATED AND SIGNED BY: AKASH BARRERA MD DATE: 07/04/206 CC: KEELY CASANOVA MD; PANCHITO ESCOBEDO ~MTH0 0 Heart Score C/O Chest Pain: No Risk Factors: Risk Factors: DM, Current or recent (<one month) smoker, HTN, HLP, family history of CAD, obesity. Risk Scores: Risk Factors: DM, Current or recent (<one month) smoker, HTN, HLP, family history of CAD, obesity. Course & Med Decision Making Course & Med Decision Making Patient is a 34-year-old female who presents with left lower quadrant/pelvic pain Vital signs not concerning. Physical exam noted above. Patient given ibuprofen. Given patient's history, transabdominal ultrasound ordered for evaluation as transvaginal ultrasound unavailable currently. Transabdominal ultrasound showed ovary with approximately 2 cm follicle/cyst and normal blood flow. On reassessment patient was feeling better. Laboratory analysis not concerning. Urinalysis suggestive of either contaminated dirty urine or urinary tract infection, patient states he is having absolutely no urinary symptoms. Decided not to treat at this time after shared decision making. 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 Gave return precautions to the ED. Patient grateful, verbalized understanding and agreed with plan of discharge. [] Dragon Disclaimer Dragon Disclaimer This electronic medical record was generated, in whole or in part, using a voice recognition dictation system. Departure Departure: Impression: Primary Impression: Abdominal discomfort in left lower quadrant Disposition: 01 DC HOME SELF CARE/HOMELESS Condition: GOOD Referrals: PANCHITO ESCOBEDO (PCP) Patient Instructions: Ovarian Cyst Additional Instructions: Please read all the attached information. You can use Tylenol, ibuprofen and Benadryl as needed at home. Please call your LAP WINDING MACHINE OPERATOR first thing in the morning to make them aware that you had an appointment and missed it because you are out of town and want to set up a follow-up within the next week to discuss recent ED visits. Please come back to the emergency department immediately with new or concerning symptoms as discussed KEELY CASANOVA MD Jul 04, 2020 21:21
[2020-07-04 21:26] LABS: CALCIUM 8.8 mg/dL (8.5-10.1); CREATININE 0.6 mg/dL (0.6-1.0); GFR 115.9; POTASSIUM 3.5 mmol/L (3.5-5.1)
--- NOTE | 2020-07-04 22:10 | RAD ---
EXAM: ULTRASOUND PELVIS INDICATION: LLQ/pelvic pain. Last menstrual period was end of May. COMPARISON: None available. TECHNIQUE: Transabdominal sonography was performed. FINDINGS: The uterus measures 7 x 6 x 4.4 cm. The endometrium measures 0.5 cm. There is no focal myometrial ab normality There has been an oophorectomy. The left ovary measures 4 x 2.8 x 2.3 cm. Left ovarian follicles measuring up to 2 cm. Flow is seen to the left ovary. There is no free fluid. IMPRESSION: 1. Normal sonographic survey of the uterus and left adnexa. 2. There has been a right oophorectomy. 3. No significant free pelvic fluid. Electronically signed by: Akash Barrera MD (07/04/2020 10:08 PM) [facility]
[2020-07-04 22:18] VITALS: BP 112/56
== END 2020-07-04 22:30 | disposition home or self-care (01) ==
LOC: ER 20:21
DX: R10.32 Left lower quadrant pain (principal); R10.2 Pelvic and perineal pain; G89.29 Other chronic pain; F43.10 Post-traumatic stress disorder, unspecified; F41.9 Anxiety disorder, unspecified; F32.9 Major depressive disorder, single episode, unspecified; Z87.891 Personal history of nicotine dependence; Z98.84 Bariatric surgery status; Z90.49 Acquired absence of other specified parts of digestive tract; Z88.2 Allergy status to sulfonamides; Z91.041 Radiographic dye allergy status
CPT/HCPCS: 36415; 76856; 80048; 81001; 81025; 85025; 87086; 99284

== ENCOUNTER 2020-07-10 19:50 | Emergency (ER) | payer OTHER ==
[~2020-07-10] VITALS: Ht 170.2 cm; Wt 80.0 kg
--- NOTE | 2020-07-10 21:14 | PHYS DOC ---
Past History Past Medical History: Anxiety, Depression, Seizure Additional Past Medical Histor: PCOS; costochondritis, pancreatitis;PTSD Past Surgical History: Cholecystectomy, Gastric Bypass, Oophorectomy Additional Past Surgical Histo: ovarian cyst removal last yr' Smoking: Cigarettes, Quit Greater Than 1 Year Alcohol Use: None Drug Use: None Adult General Chief Complaint Chief Complaint: HIP PAIN HPI HPI Patient is a 34yo female with right hip pain. Onset was earlier today. States she noticed this after an extended walk, no trauma falls or other concerning exercises/ROM. Leaning forward makes better, extending and palpation to right anterior hip make worse. PAtient reports mild anterior right thigh numbness and "electric" type pain the radiates to above her knee. Symptoms have been waxing and waning since onset with increased frequency when walking/standing upright. She has never experienced this before. She has taken previously prescribed NSAID and flexeril with mild relief. She is here for pain control. No fever, chronic steroid use, midline spinal pain, incontinence or saddle anesthesia Review of Systems Review of Systems Fourteen body systems of review of systems have been reviewed. See HPI for pertinent positives and negative responses, other lucero all other systems are negative, non-pertinent or non-contributory Allergies Allergies Allergies Coded Allergies Type Severity Reaction Last Updated Verified Sulfa (Sulfonamide Antibiotics) Allergy Intermediate hives 07/04/20 Yes yellow dye Allergy Intermediate 07/04/20 Yes Physical Exam Physical Exam Constitutional: Well developed, well nourished, no acute distress, non-toxic appearance. HENT: Normocephalic, atraumatic, bilateral external ears normal, oropharynx moist, no oral exudates, nose normal. Eyes: PERRLA, EOMI, conjunctiva normal, no discharge. Neck: Normal range of motion, no tenderness, supple, no stridor. Cardiovascular: Heart rate regular, sinus rhythm, no murmurs rubs or gallops Lungs & Thorax: Bilateral breath sounds clear to auscultation Abdomen: Bowel sounds normal, soft, no tenderness, no masses, no pulsatile masses. Nonsurgical abdomen, no peritoneal signs Skin: Warm, dry, no erythema, no rash. Back: No tenderness, no CVA tenderness. no midline tenderness of entire spine Extremities: No tenderness, no cyanosis, no clubbing, ROM intact, no edema. MSK: Tenderpoint recreating symptoms with palpation over medial border of right ASIS, improves with flexion and external rotation of right hip. negative straight leg raise Neurologic: Alert and oriented X 3, no saddle anesthesia, bilateral patellar reflexes 2+ and symmetric, normal motor & sensory function, no focal deficits noted. Psychologic: Anxious mood and affect Current Patient Data Vital Signs Vital Signs Date Time Temp Pulse Resp B/P (MAP) Pulse Ox O2 Delivery O2 Flow Rate FiO2 07/10/20 19:50 98.6 91 18 141/68 (92) 99 Room Air Vital Signs Date Time Temp Pulse Resp B/P (MAP) Pulse Ox O2 Delivery O2 Flow Rate FiO2 07/10/20 23:08 87 112/56 (74) 99 Room Air 07/10/20 19:50 98.6 18 EKG EKG [] Radiology/Procedures Radiology/Procedures [] Heart Score C/O Chest Pain: No Risk Factors: Risk Factors: DM, Current or recent (<one month) smoker, HTN, HLP, family history of CAD, obesity. Risk Scores: Risk Factors: DM, Current or recent (<one month) smoker, HTN, HLP, family history of CAD, obesity. Course & Med Decision Making Course & Med Decision Making Hemodynamically stable aptient with HPI and physical exam consistent with meralgia parestheteca. Patient responded to IM toradol and muscle relaxer in ER with instructions to hold remaining PO NSAID and flexeril today Patient educated on disease process and importance of continued supportive care practices such as stretching. She has a PCP and can be seen by the end of the week for repeat evaluation. Return precautions discussed with good understanding, all questions and concerns addressed prior to departure Loion Disclaimer Loion Disclaimer This electronic medical record was generated, in whole or in part, using a voice recognition dictation system. Departure Departure: Impression: Primary Impression: Meralgia paresthetica of right side Disposition: 01 DC HOME SELF CARE/HOMELESS Condition: STABLE Referrals: PANCHITO ESCOBEDO (PCP) Patient Instructions: Back Exercises, Generic, SportsMed, Hip Exercises, Generic, SportsMed Additional Instructions: It is likely that you have experienced a compression of your right lateral femoral cutaneous nerve that is causing you pain. Continued right lower leg exercises, lower back exercises, NSAIDs and muscle relaxers are advised. As discussed, please follow up with your primary doctor as you might need to follow-up with a specialist if this not does not resolve. Please return to the ED if new or worrisome symptoms arise. SEE HOWELL DO Jul 10, 2020 21:14
[2020-07-10] MEDS ORDERED: ORPHENADRINE CITRATE 60 MG/2 ML VIAL. IM ONE (22:00)
[2020-07-10] MEDS ORDERED: KETOROLAC 60 MG/2 ML VIAL. IM ONE (22:00)
[2020-07-10] MEDS ORDERED: ONDANSETRON ODT 4 MG TAB.RAPDIS ONE (23:04)
[2020-07-10 23:08] VITALS: BP 112/56
[2020-07-10] MEDS ORDERED: ONDANSETRON ODT 4 MG TAB.RAPDIS PO ONE (23:15)
== END 2020-07-10 23:08 | disposition home or self-care (01) ==
LOC: ER 19:50
DX: G57.11 Meralgia paresthetica, right lower limb (principal); M25.551 Pain in right hip; R35.0 Frequency of micturition; F41.9 Anxiety disorder, unspecified; F32.9 Major depressive disorder, single episode, unspecified; F43.10 Post-traumatic stress disorder, unspecified; Z87.891 Personal history of nicotine dependence; Z98.84 Bariatric surgery status; Z88.2 Allergy status to sulfonamides; Z91.041 Radiographic dye allergy status
CPT/HCPCS: 96372; 99284; J1885; J2360; Q0162

== ENCOUNTER 2020-08-14 19:59 | Emergency (ER) | payer OTHER ==
[~2020-08-14] VITALS: Ht 170.2 cm; Wt 80.0 kg
[2020-08-14 21:58] VITALS: BP 140/61
== END 2020-08-14 23:03 | disposition short-term general hospital (02) ==
LOC: ER 19:59
DX: K56.609 Unspecified intestinal obstruction, unspecified as to partial versus complete obstruction (principal); F41.9 Anxiety disorder, unspecified; F32.9 Major depressive disorder, single episode, unspecified; Z87.891 Personal history of nicotine dependence; Z90.49 Acquired absence of other specified parts of digestive tract; Z98.84 Bariatric surgery status; Z90.722 Acquired absence of ovaries, bilateral; Z88.2 Allergy status to sulfonamides; Z91.041 Radiographic dye allergy status
CPT/HCPCS: 36415; 74177; 80053; 81001; 81025; 83605; 83690; 85025; 87086; 96361; 96374; 96375; 96376; 99285; J0780; J2270; J2405; J7030; Q9967

== ENCOUNTER 2020-10-31 19:13 | Emergency (ER) | payer OTHER ==
[~2020-10-31] VITALS: Ht 170.2 cm; Wt 75.8 kg
--- NOTE | 2020-10-31 19:22 | PHYS DOC ---
Past History Past Medical History: Anemia, Anxiety, Depression, Ovarian Cyst, Seizure Additional Past Medical Histor: PCOS; costochondritis, pancreatitis;PTSD Past Surgical History: Cholecystectomy, Gastric Bypass, Oophorectomy Additional Past Surgical Histo: ovarian cyst removal last yr' Smoking: Cigarettes, Quit Greater Than 1 Year Alcohol Use: None Drug Use: None General Adult EDM: Chief Complaint: PSYCH EVALUATION HPI: HPI: ".. I was at [facility] about a month.ago for a week.... but the meds don't seem to be working.. I am still depresed,.. thinking of suicide. like driving my car into the river. .. I am angry all the time.. .. I dont think the shots are working. the Ambilify.. I got one in August, then September and one at lst of October... . My counselor told me to come back in and see about adjustment of my meds..." Patient is a 34 year old female who presents with above hx and complaints of depression, suicidal ideation and self injury. Patient also having bouts of anger. Patient denies other illicit meds. Patient in the past had diagnoses of anxiety, bipolar, constipation, depression, fibromyalgia, GERD, irritable bowel syndrome, migraines, ovarian cyst, pancreatitis, seizure disorder, upper respiratory infections, UTIs, costochondritis, borderline personality, and morbid obesity. Patient has had recent surgery of left open recyst removal this is a second time for this ovary. Patient has had cholecystectomy and gastric bypass. Patient currently not smoking and has quit for approximately 1 year now. Patient is following with a counselor. Also follows with Dr. Jernigan as a primary. Review of Systems: Review of Systems: Constitutional: Denies fever or chills Eyes: Denies change in visual acuity HENT: Denies nasal congestion or sore throat Respiratory: Denies cough or shortness of breath Cardiovascular: Denies chest pain or edema GI: Denies abdominal pain, nausea, vomiting, bloody stools or diarrhea : Denies dysuria Musculoskeletal: Denies back pain or joint pain Integument: Denies rash Neurologic: Denies headache, focal weakness or sensory changes Endocrine: Denies polyuria or polydipsia Lymphatic: Denies swollen glands Psychiatric: Complains of depression, suicidal ideation and anxiety Family History: Family History: Noncontributory to presentation. Current Medications: Current Meds: See nursing for home meds Allergies: Allergies: Allergies Coded Allergies Type Severity Reaction Last Updated Verified Sulfa (Sulfonamide Antibiotics) Allergy Intermediate hives 07/04/20 Yes yellow dye Allergy Intermediate 07/04/20 Yes Physical Exam: PE: Constitutional: Moderate acute emotional distress, non-toxic appearance. [] HENT: Normocephalic, atraumatic, bilateral external ears normal, oropharynx moist, no oral exudates, nose normal. [] Eyes: PERRLA, EOMI, conjunctiva normal, no discharge. [] Neck: Normal range of motion, no tenderness, supple, no stridor. [] Cardiovascular:Heart rate regular rhythm, no murmur [] Lungs & Thorax: Bilateral breath sounds equal apex on auscultation Abdomen: Bowel sounds normal, soft, no tenderness, no masses, no pulsatile masses. Old surgery scars Skin: Warm, dry, no erythema, no rash. [] Back: No tenderness, no CVA tenderness. [] Extremities: Right knee tenderness, no cyanosis, no clubbing, ROM intact, no edema. [] Neurologic: Alert and oriented X 3, moves all extremities on request, has distal sensory, no focal deficits noted. [] Psychologic: Affect reports anger and suicidal ideation,, judgement appears to have insight to her mental illness, mood depressed. EKG: EKG: My interpretation EKG shows a sinus rhythm at 72 bpm. Left axis. No findings of acute STEMI or contralateral changes. [] Radiology/Procedures: Radiology/Procedures: [] Heart Score: C/O Chest Pain: N/A Risk Factors: Risk Factors: DM, Current or recent (<one month) smoker, HTN, HLP, family history of CAD, obesity. Risk Scores: Score 0 - 3: 2.5% MACE over next 6 weeks - Discharge Home Score 4 - 6: 20.3% MACE over next 6 weeks - Admit for Clinical Observation Score 7 - 10: 72.7% MACE over next 6 weeks - Early Invasive Strategies Course & Med Decision Making: Course & Med Decision Making Pertinent Labs and Imaging studies reviewed. (See chart for details )See PAT evaluation. Pt. medically clear for admission to Psych. Unit. Awaiting COVID serium, Rapid was negative. Serium negative. Awaiting [facility] - call back for acceptance.2300 hrs.; Awaiting [facility]- call back for acceptance 0330 hrs. Notified by [facility] they could not read the fax at 0500 hrs Notified no times on vitals and requested copy of H and P. 0540 hrs. Awaiting [facility] - call back on acceptance 0550 hrs. Pt. endorsed to Dr. Jaime at shift change. He will make disposition. Impression: 1. Depression 2. Suicidal Ideation 3. Anxiety 4. Hx of Pseudoseizures 5. Hx. of Chronic Abd. Pain 6. Hx. Mood disorder 7. Hx. of Borderline Personality 8. Anemia Hgb. 11 [] Dragon Disclaimer: Dragon Disclaimer: This electronic medical record was generated, in whole or in part, using a voice recognition dictation system. Departure Departure: Referrals: PANCHITO JERNIGAN (PCP) Brown Disclaimer This chart was dictated in whole or in part using Voice Recognition software in a busy, high-work load, and often noisy Emergency Department environment. It may contain unintended and wholly unrecognized errors or omissions. Dragon Disclaimer This chart was dictated in whole or in part using Voice Recognition software in a busy, high-work load, and often noisy Emergency Department environment. It may contain unintended and wholly unrecognized errors or omissions. CODY MOORE MD Oct 31, 2020 19:22
[2020-10-31] MEDS ORDERED: IV RINGERS SOLUTION,LACTATED 1,000 ML IV SCH (19:30)
[2020-10-31 19:53] LABS: BARBITURATES NEG (NEG); BENZODIAZEPINES NEG (NEG); CANNABINOIDS NEG (NEG); COCAINE NEG (NEG); METHADONE NEG (NEG); OPIATES NEG (NEG); PHENCYCLIDINE NEG (NEG)
[2020-10-31 19:56] LABS: AMPHETAMINE/METHAMPHETAMINE NEG (NEG)
[2020-10-31 20:01] LABS: BILIRUBIN,URINE NEG (NEG); CLARITY,URINE HAZY; COLOR,URINE YELLOW; GLUCOSE,URINE NEG (NEG)
[2020-10-31 20:02] LABS: BACTERIA,URINE 0 /HPF (0-FEW); NITRITE,URINE NEG (NEG); RBC,URINE >40 /HPF (0-2); SQUAMOUS EPITHELIAL CELL,UR MOD /LPF; UROBILINOGEN,URINE 0.2 mg/dL (0.2 mg/dL); WBC,URINE OCC /HPF (0-4)
[2020-10-31 20:03] LABS: BASO % 1 % (0-3); EOS # 0.3 x10^3/uL (0.0-0.7); EOS % 5 % (0-3); HEMATOCRIT 33.7 % (36.0-47.0); HEMOGLOBIN 11.1 g/dL (12.0-15.5); LYMPH # 2.1 x10^3/uL (1.0-4.8); LYMPH % 36 % (24-48); MEAN CORPUSCULAR HEMOGLOBIN 31 pg (25-35); MEAN CORPUSCULAR HGB CONC 33 g/dL (31-37); MEAN CORPUSCULAR VOLUME 94 fL (79-100); MONO # 0.4 x10^3/uL (0.0-1.1); MONO % 8 % (0-9); NEUT % 51 % (31-73); PLATELET COUNT 375 x10^3/uL (140-400); RED CELL DISTRIBUTION WIDTH 14.9 % (11.5-14.5); WHITE BLOOD COUNT 5.8 x10^3/uL (4.0-11.0)
[2020-10-31 20:10] LABS: ANION GAP 8 (6-14); BLOOD UREA NITROGEN 11 mg/dL (7-20); CALCIUM 8.7 mg/dL (8.5-10.1); CARBON DIOXIDE 27 mmol/L (21-32); CHLORIDE 110 mmol/L (98-107); CREATININE 0.6 mg/dL (0.6-1.0); GFR 115.9; GLUCOSE 86 mg/dL (70-99); POTASSIUM 3.5 mmol/L (3.5-5.1); SODIUM 145 mmol/L (136-145)
[2020-10-31 20:17] LABS: ALBUMIN 3.4 g/dL (3.4-5.0); ALK PHOS 111 U/L (46-116); ALT (SGPT) 19 U/L (14-59); AST (SGOT) 15 U/L (15-37); TOTAL BILIRUBIN 0.2 mg/dL (0.2-1.0); TOTAL PROTEIN 6.6 g/dL (6.4-8.2)
[2020-10-31 20:18] LABS: DIRECT BILIRUBIN < 0.1 mg/dL (0.0-0.2)
[2020-10-31] MEDS ORDERED: ARIPIPRAZOLE (21:37)
--- NOTE | 2020-10-31 23:33 | EKG ---
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
[2020-11-01 07:07] VITALS: BP 123/53
== END 2020-11-01 08:15 ==
LOC: ER 19:13
DX: R45.851 Suicidal ideations (principal); F32.9 Major depressive disorder, single episode, unspecified; F41.9 Anxiety disorder, unspecified; F39 Unspecified mood [affective] disorder; Z20.822 Contact with and (suspected) exposure to COVID-19
CPT/HCPCS: 36415; 80048; 80076; 80307; 81001; 81025; 82550; 83735; 84443; 84484; 85025; 87086; 87426; 93005; 96360; 99285; G0480; J7120; U0003

== ENCOUNTER 2020-11-12 22:28 | Emergency (ER) | payer OTHER ==
[~2020-11-12] VITALS: Ht 170.2 cm; Wt 76.0 kg
[~2020-11-12 22:28] MED LIST changes: +ARIPIPRAZOLE; +OLAN5TAB67 PO; -OLAN5TAB9 PO
[2020-11-12] MEDS ORDERED: IV NORMAL SALINE 1,000ML 1,000 ML IV ONE (22:45)
--- NOTE | 2020-11-12 22:59 | PHYS DOC ---
Past History Past Medical History: Anemia, Anxiety, Depression, Ovarian Cyst, Seizure Additional Past Medical Histor: PCOS; costochondritis, pancreatitis;PTSD, SI Past Surgical History: Cholecystectomy, Gastric Bypass, Oophorectomy Additional Past Surgical Histo: ovarian cyst removal last yr' Smoking: Cigarettes, Quit Greater Than 1 Year Alcohol Use: None Drug Use: None General Adult EDM: Chief Complaint: UPPER EXTREMITY PAIN HPI: HPI: 34-year-old female presents via EMS with neck pain and left shoulder pain. The patient was at her sister's house when she believes that she had a seizure or seizure-like activity. The patient has a history of pseudoseizure and is not on any medications. Her sister told her that it lasted for a couple minutes. Afterwards, the patient went to stand up and she was too weak and fell to the floor on her left side. She has some left lateral shoulder pain and neck pain. She denies numbness, tingling, or altered sensation. EMS had the patient's blood sugar at 63. They gave her 15 of oral glucose and it improved to 71. Review of Systems: Review of Systems: Constitutional: Denies fever or chills Eyes: Denies change in visual acuity HENT: Neck pain Respiratory: Denies cough or shortness of breath Cardiovascular: Denies chest pain or edema GI: Denies abdominal pain, nausea, vomiting, bloody stools or diarrhea : Denies dysuria Musculoskeletal: Left shoulder pain Integument: Denies rash Neurologic: Seizure-like activity. Denies headache, focal weakness or sensory changes Endocrine: Denies polyuria or polydipsia Lymphatic: Denies swollen glands Psychiatric: Denies depression or anxiety Current Medications: Current Meds: Current Medications Medications (Trade) Dose Ordered Sig/Mahad Start Time Stop Time Status Last Admin Dose Admin Sodium Chloride 1,000 ml @ 1,000 mls/hr 1X ONCE 11/12/20 22:45 11/12/20 23:44 Allergies: Allergies: Allergies Coded Allergies Type Severity Reaction Last Updated Verified Sulfa (Sulfonamide Antibiotics) Allergy Intermediate hives 07/04/20 Yes yellow dye Allergy Intermediate 07/04/20 Yes Physical Exam: PE: Constitutional: Well developed, well nourished, no acute distress, non-toxic appearance. [] HENT: Normocephalic, atraumatic, bilateral external ears normal, oropharynx [address], no oral exudates, nose normal. [] Eyes: PERRLA, EOMI, conjunctiva normal, no discharge. [] Neck: Tenderness C4-C5. In a cervical collar [] Cardiovascular: Heart rate regular rhythm, no murmur [] Lungs & Thorax: Bilateral breath sounds clear to auscultation [] Abdomen: Bowel sounds normal, soft, no tenderness, no masses, no pulsatile masses. [] Skin: Warm, dry, no erythema, no rash. [] Back: No tenderness, no CVA tenderness. [] Extremities: Tenderness to palpation of the left lateral shoulder, range of motion deferred at this time. [] Neurologic: Alert and oriented X 3, normal motor function, normal sensory function, no focal deficits noted. [] Psychologic: Affect normal, judgement normal, mood normal. [] EKG: EKG: [] Radiology/Procedures: Radiology/Procedures: [] Impressions: EXAMINATION: Left shoulder and cervical spine radiographs. VIEWS: 3 views of the left shoulder and 4 views of the cervical spine COMPARISON: None INDICATION:34 years, Female, neck pain, fall into the left side. FINDINGS: Left shoulder: No acute fracture, dislocation or subluxation. No bone erosion or periosteal reaction. No soft tissue swelling. Cervical spine: The vertebral bodies are normal in height and alignment. No acute fracture or subluxation. C1/C2 articulation and odontoid process are preserved. Prevertebral soft tissue pelvis unremarkable. Visualized lungs are unremarkable. IMPRESSION: No acute osseous abnormality of the left shoulder and cervical spine. Electronically signed by: Alyssia Tejada MD (11/12/2020 11:40 PM) [facility] DICTATED AND SIGNED BY: ALYSSIA TEJADA MD DATE: 11/12/20 5131 CC: ELDER GUTIERREZ DO; PANCHITO ESCOBEDO ~MTH0 0 Heart Score: C/O Chest Pain: N/A Risk Factors: Risk Factors: DM, Current or recent (<one month) smoker, HTN, HLP, family history of CAD, obesity. Risk Scores: Score 0 - 3: 2.5% MACE over next 6 weeks - Discharge Home Score 4 - 6: 20.3% MACE over next 6 weeks - Admit for Clinical Observation Score 7 - 10: 72.7% MACE over next 6 weeks - Early Invasive Strategies Course & Med Decision Making: Course & Med Decision Making Pertinent Labs and Imaging studies reviewed. (See chart for details) The patient's x-rays are negative for fracture. The patient's labs are unremarkable. She does have a low potassium at 3.2. I have given her p.o. potassium. Her repeat blood sugar is 83. Not sure if the low blood sugar triggered the event or if the event. The low blood sugar. She has seen specialist in the past and they have determined that seizure medications were not helpful. I have advised that she follow-up with her primary physician. She is stable for discharge at this time. [] Brown Disclaimer: Brown Disclaimer: This electronic medical record was generated, in whole or in part, using a voice recognition dictation system. Departure Departure: Impression: Primary Impression: Left shoulder pain Qualified Codes: M25.512 - Pain in left shoulder Disposition: 01 HOME / SELF CARE / HOMELESS Condition: STABLE Referrals: PANCHITO ESCOBEDO (PCP) Patient Instructions: Shoulder Pain, [id number] ELDER GUTIERREZ DO Nov 12, 2020 22:59
[2020-11-12 23:19] LABS: BASO % 1 % (0-3); EOS # 0.2 x10^3/uL (0.0-0.7); EOS % 4 % (0-3); HEMATOCRIT 35.7 % (36.0-47.0); HEMOGLOBIN 11.6 g/dL (12.0-15.5); LYMPH # 2.8 x10^3/uL (1.0-4.8); LYMPH % 41 % (24-48); MEAN CORPUSCULAR HEMOGLOBIN 31 pg (25-35); MEAN CORPUSCULAR HGB CONC 33 g/dL (31-37); MEAN CORPUSCULAR VOLUME 94 fL (79-100); MONO # 0.6 x10^3/uL (0.0-1.1); MONO % 9 % (0-9); NEUT # 3.1 x10^3uL (1.8-7.7); NEUT % 46 % (31-73); PLATELET COUNT 367 x10^3/uL (140-400); RED BLOOD COUNT 3.78 x10^6/uL (3.50-5.40); RED CELL DISTRIBUTION WIDTH 14.6 % (11.5-14.5); WHITE BLOOD COUNT 6.8 x10^3/uL (4.0-11.0)
[2020-11-12 23:30] LABS: CALCIUM 8.1 mg/dL (8.5-10.1); CREATININE 0.7 mg/dL (0.6-1.0); POTASSIUM 3.2 mmol/L (3.5-5.1)
[2020-11-12 23:35] LABS: ALBUMIN 3.5 g/dL (3.4-5.0); ALBUMIN/GLOBULIN RATIO 1.1 (1.0-1.7); TOTAL BILIRUBIN 0.1 mg/dL (0.2-1.0); TOTAL PROTEIN 6.8 g/dL (6.4-8.2)
--- NOTE | 2020-11-12 23:42 | RAD ---
EXAMINATION: Left shoulder and cervical spine radiographs. VIEWS: 3 views of the left shoulder and 4 views of the cervical spine COMPARISON: None INDICATION:34 years, Female, neck pain, fall into the left side. FINDINGS: Left shoulder: No acute fracture, dislocation or subluxation. No bone erosion or periosteal reaction. No soft tissue swelling. Cervical spine: The vertebral bodies are normal in height and alignment. No acute fracture or subluxa tion. C1/C2 articulation and odontoid process are preserved. Prevertebral soft tissue pelvis unremark able. Visualized lungs are unremarkable. IMPRESSION: No acute osseous abnormality of the left shoulder and cervical spine. Electronically signed by: Arlene Tejada MD (11/12/2020 11:40 PM) [facility]
[2020-11-13] MEDS ORDERED: POTASSIUM CHLORIDE 20 MEQ TABLET.ER. PO ONE (00:45)
[2020-11-13 00:46] VITALS: BP 107/68
== END 2020-11-13 00:50 | disposition home or self-care (01) ==
LOC: ER 22:28
DX: M25.512 Pain in left shoulder (principal); M54.2 Cervicalgia; R56.9 Unspecified convulsions; F41.9 Anxiety disorder, unspecified; F31.9 Bipolar disorder, unspecified; F43.10 Post-traumatic stress disorder, unspecified; Z86.2 Personal history of diseases of the blood and blood-forming organs and certain disorders involving the immune mechanism; Z87.891 Personal history of nicotine dependence; Z98.84 Bariatric surgery status; Z88.2 Allergy status to sulfonamides; Z91.041 Radiographic dye allergy status; W18.39XA Other fall on same level, initial encounter; Y93.89 Activity, other specified; Y92.89 Other specified places as the place of occurrence of the external cause; Y99.8 Other external cause status
CPT/HCPCS: 36415; 72040; 73030; 80053; 82947; 85025; 96360; 99284; J7030

== ENCOUNTER 2020-11-19 22:17 | Emergency (ER) | payer OTHER ==
[~2020-11-19] VITALS: Ht 170.2 cm; Wt 79.7 kg
--- NOTE | 2020-11-19 22:31 | PHYS DOC ---
Past History Past Medical History: Anemia, Anxiety, Depression, Ovarian Cyst, Seizure Additional Past Medical Histor: PTSD, PCOS Past Surgical History: Cholecystectomy, Gastric Bypass, Other Additional Past Surgical Histo: ovarian cyst removal Smoking: Cigarettes, Quit Greater Than 1 Year Alcohol Use: None Drug Use: None Adult General HPI HPI Patient is a 34-year-old female with past medical history significant for anxiety and depression and nonepileptic seizures who presents to the emergency department with a chief complaint of seizure activity. States that today she had a couple of seizures with the last one just before coming into the emergency department. States her seizures consist of eye fluttering. States that she had some eye fluttering that lasted about 30 minutes before coming to the emergency department. States that she is fully awake and aware when these are going on and had no syncope or other tonic-clonic movements. States he is taking all of her medications as prescribed. States she is not on any medications for the seizures. Denies recent traumas, travels, illnesses, fevers, headache, chest pain, shortness of breath, abdominal pain, nausea, vomiting, dysuria, hematuria or blood in the stool. Does state that she has been having daily thoughts of committing suicide, by cutting her wrists. States she has cut in the past for anxiety relief but was recently thinking about doing it in her life. States she has been thinking about this off and on for the last year and does go to the guidance Center. States she brought this up with the guidance Center and told her it was probably side effects from her medications but did not take her off her medications. Review of Systems Review of Systems Review of systems otherwise unremarkable except noted in HPI Allergies Allergies Allergies Coded Allergies Type Severity Reaction Last Updated Verified Sulfa (Sulfonamide Antibiotics) Allergy Intermediate hives 07/04/20 Yes yellow dye Allergy Intermediate 07/04/20 Yes Physical Exam Physical Exam Constitutional: Well developed, well nourished, no acute distress, non-toxic appearance. [] HENT: Normocephalic, atraumatic, bilateral external ears normal, oropharynx moist, no oral exudates, nose normal. [] Eyes: PERRLA, EOMI, conjunctiva normal, no discharge. [] Neck: Normal range of motion, no tenderness, supple, no stridor. [] Cardiovascular:Heart rate regular rhythm, no murmur [] Lungs & Thorax: Bilateral breath sounds clear to auscultation [] Abdomen: Bowel sounds normal, soft, no tenderness, no masses, no pulsatile masses. [] Skin: Warm, dry, no erythema, no rash. [] Back: No tenderness, no CVA tenderness. [] Extremities: No tenderness, no cyanosis, no clubbing, ROM intact, no edema. [] Neurologic: Alert and oriented X 3, normal motor function, normal sensory function, no focal deficits noted. [] Psychologic: Affect flat, judgement abnormal normal, mood flat, suicidal ideations with a plan, no homicidal ideations, no auditory, visual or tactile hallucinations [] EKG EKG [] Radiology/Procedures Radiology/Procedures [] Heart Score C/O Chest Pain: No Risk Factors: Risk Factors: DM, Current or recent (<one month) smoker, HTN, HLP, family history of CAD, obesity. Risk Scores: Risk Factors: DM, Current or recent (<one month) smoker, HTN, HLP, family history of CAD, obesity. Course & Med Decision Making Course & Med Decision Making Patient is a 34-year-old female who presents to the emergency department with a chief complaint of concern for seizure activity and suicidal ideation Vital signs not concerning. Physical exam noted above. Blood sugar normal. Placed on the monitor with IV access established and IV fluid begun. Laboratory analysis notable for mild anemia otherwise unremarkable. Negative . Tox screen not concerning. Urinalysis not concerning. Patient had long conversation with our psychiatric assessment team after which both patient and psychiatric liaison felt patient was safe to discharge home. Given resources and advised to follow up in the morning with the guidance Center as she has been following with them to update on ED visit and set up follow-up appointment as soon as possible preferably tomorrow. Strict return precautions to the ED. Patient grateful, verbalized understanding and agreement plan of discharge. Dragon Disclaimer Dragon Disclaimer This electronic medical record was generated, in whole or in part, using a voice recognition dictation system. Departure Departure: Impression: Primary Impression: Suicidal ideations Additional Impression: Fluttering of eyelid Disposition: 01 HOME / SELF CARE / HOMELESS Condition: GOOD Referrals: PANCHITO ESCOBEDO (PCP) Patient Instructions: Suicidal Feelings, How to Help Yourself Additional Instructions: Thank you for coming into the emergency department tonight and allowing us to take care of you. Please read all the attached information very carefully to go back over things we discussed and back over the safety plan that was given to you by the psychiatric assessment team. As discussed, please call the guidance Center first thing in the morning to update on your ED visit and set up a follow-up appointment, tomorrow if possible. Please also call your primary care physician to update on ED visit and set up a follow-up. Please come back to the ED with new or concerning symptoms as discussed. Problem Qualifiers KEELY CASANOVA MD Nov 19, 2020 22:31
[2020-11-19 22:58] LABS: BASO % 0 % (0-3); EOS # 0.3 x10^3/uL (0.0-0.7); EOS % 4 % (0-3); HEMATOCRIT 32.3 % (36.0-47.0); HEMOGLOBIN 10.7 g/dL (12.0-15.5); LYMPH # 2.5 x10^3/uL (1.0-4.8); LYMPH % 38 % (24-48); MEAN CORPUSCULAR HEMOGLOBIN 31 pg (25-35); MEAN CORPUSCULAR HGB CONC 33 g/dL (31-37); MEAN CORPUSCULAR VOLUME 94 fL (79-100); MONO # 0.6 x10^3/uL (0.0-1.1); MONO % 9 % (0-9); NEUT # 3.3 x10^3uL (1.8-7.7); NEUT % 49 % (31-73); PLATELET COUNT 333 x10^3/uL (140-400); RED BLOOD COUNT 3.46 x10^6/uL (3.50-5.40); RED CELL DISTRIBUTION WIDTH 14.8 % (11.5-14.5); WHITE BLOOD COUNT 6.7 x10^3/uL (4.0-11.0)
[2020-11-19] MEDS ORDERED: IV RINGERS SOLUTION,LACTATED 1,000 ML IV ONE (23:00)
[2020-11-19 23:04] LABS: BACTERIA,URINE 0 /HPF (0-FEW); BILIRUBIN,URINE NEG (NEG); CLARITY,URINE CLEAR; COLOR,URINE YELLOW; GLUCOSE,URINE NEG (NEG); NITRITE,URINE NEG (NEG); RBC,URINE 0 /HPF (0-2); SQUAMOUS EPITHELIAL CELL,UR FEW /LPF; UROBILINOGEN,URINE 0.2 mg/dL (0.2 mg/dL); WBC,URINE OCC /HPF (0-4)
[2020-11-19 23:07] LABS: BARBITURATES NEG (NEG); BENZODIAZEPINES NEG (NEG); CANNABINOIDS NEG (NEG); COCAINE NEG (NEG); METHADONE NEG (NEG); OPIATES NEG (NEG); PHENCYCLIDINE NEG (NEG)
[2020-11-19 23:08] LABS: CALCIUM 8.3 mg/dL (8.5-10.1); CREATININE 0.6 mg/dL (0.6-1.0); GFR 115.9; POTASSIUM 3.5 mmol/L (3.5-5.1)
[2020-11-19 23:13] LABS: ALBUMIN 3.4 g/dL (3.4-5.0); ALBUMIN/GLOBULIN RATIO 1.2 (1.0-1.7); MAGNESIUM 2.1 mg/dL (1.8-2.4); TOTAL BILIRUBIN 0.1 mg/dL (0.2-1.0); TOTAL PROTEIN 6.3 g/dL (6.4-8.2)
[2020-11-19 23:18] LABS: AMPHETAMINE/METHAMPHETAMINE NEG (NEG)
[2020-11-19 23:19] LABS: SALIC < 2.8 mg/dL (2.8-20.0)
[2020-11-19 23:20] LABS: ACETAMIN < 2.0 mcg/mL (10-30); ETHANOL < 10 mg/dL (0-10)
--- NOTE | 2020-11-20 00:51 | EKG ---
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
[2020-11-20 03:45] VITALS: BP 118/68
== END 2020-11-20 04:00 | disposition home or self-care (01) ==
LOC: ER 22:17
DX: R45.851 Suicidal ideations (principal); H57.89 Other specified disorders of eye and adnexa; F41.9 Anxiety disorder, unspecified; F32.9 Major depressive disorder, single episode, unspecified; F43.10 Post-traumatic stress disorder, unspecified; Z87.891 Personal history of nicotine dependence; Z98.84 Bariatric surgery status; Z88.2 Allergy status to sulfonamides; Z91.041 Radiographic dye allergy status
CPT/HCPCS: 36415; 80053; 80307; 80329; 81001; 81025; 83735; 84443; 85025; 93005; 96360; 99285; G0480; J7120

== ENCOUNTER 2020-12-01 20:40 | Emergency (ER) | payer OTHER ==
[~2020-12-01] VITALS: Ht 170.2 cm; Wt 79.7 kg
[2020-12-02 01:11] LABS: BASO % 1 % (0-3); CALCIUM 8.4 mg/dL (8.5-10.1); CREATININE 0.6 mg/dL (0.6-1.0); EOS # 0.4 x10^3/uL (0.0-0.7); EOS % 6 % (0-3); GFR 115.9; HEMATOCRIT 34.2 % (36.0-47.0); HEMOGLOBIN 11.2 g/dL (12.0-15.5); LYMPH # 1.9 x10^3/uL (1.0-4.8); LYMPH % 28 % (24-48); MEAN CORPUSCULAR HEMOGLOBIN 31 pg (25-35); MEAN CORPUSCULAR HGB CONC 33 g/dL (31-37); MEAN CORPUSCULAR VOLUME 94 fL (79-100); MONO # 0.6 x10^3/uL (0.0-1.1); MONO % 9 % (0-9); NEUT # 3.9 x10^3uL (1.8-7.7); NEUT % 56 % (31-73); PLATELET COUNT 326 x10^3/uL (140-400); POTASSIUM 3.6 mmol/L (3.5-5.1); RED BLOOD COUNT 3.66 x10^6/uL (3.50-5.40); RED CELL DISTRIBUTION WIDTH 14.6 % (11.5-14.5); WHITE BLOOD COUNT 6.9 x10^3/uL (4.0-11.0)
[2020-12-02 01:16] LABS: BARBITURATES NEG (NEG); BENZODIAZEPINES NEG (NEG); CANNABINOIDS NEG (NEG); COCAINE NEG (NEG); METHADONE NEG (NEG); OPIATES POS (NEG); PHENCYCLIDINE NEG (NEG)
--- NOTE | 2020-12-02 01:17 | PHYS DOC ---
Past History Past Medical History: Anemia, Anxiety, Depression, Ovarian Cyst, Seizure, UTI Additional Past Medical Histor: PTSD, PCOS (CODY MOORE MD) Past Surgical History: Cholecystectomy, Gastric Bypass, Other Additional Past Surgical Histo: ovarian cyst removal (CODY MOORE MD) Smoking: Cigarettes, Quit Greater Than 1 Year Alcohol Use: None Drug Use: None (CODY MOORE MD) General Adult EDM: Chief Complaint: SUICIDAL IDEATION HPI: HPI: ".. I am having a lot of thoughts .. about killing my self.. ".." I am afraid ..I might do it.." " I may jump off [place] bridge...into the river.." Patient is a 34 year old female who presents with above hx and complaints suicidal ideation. Patient has long history of depression with periodic exacerbations. Patient seen in our ED several times for depression and suicidal ideation. Patient has additional history of anemia, anxiety, bipolar, ovary cyst, seizures, pseudoseizures, PCOS, costochondritis, pancreatitis, PTSD, anger issues, fibromyalgia, GERD, irritable bowel syndrome, migraines, anxiety, morbid obesity and borderline personality. Patient has had previous surgeries of ovarian cyst x2, cholecystectomy, gastric bypass, and laparoscopic evaluations for chronic abdomen pain. The patient has been admitted to several psychiatric hospitals in the area. Some hospitals now would not accept patient because she frequently leaves AMA after arrival. Patient normally follows with Dr. Jernigan as a primary. Does follow at the counseling center. Patient reportedly has quit smoking for approximately 1 year. (CODY MOORE MD) Review of Systems: Review of Systems: Constitutional: Denies fever or chills Eyes: Denies change in visual acuity HENT: Denies nasal congestion or sore throat Respiratory: Denies cough or shortness of breath Cardiovascular: Denies chest pain or edema GI: Denies abdominal pain, nausea, vomiting, bloody stools or diarrhea : Some complaints of dysuria. Musculoskeletal: Denies back pain or joint pain Integument: Denies rash Neurologic: Denies headache, focal weakness or sensory changes Endocrine: Denies polyuria or polydipsia Lymphatic: Denies swollen glands Psychiatric: Complains of depression, anxiety, anger, suicidal ideation (CODY MOORE MD) Family History: Family History: Noncontributory to presentation (CODY MOORE MD) Current Medications: Current Meds: See nursing for home meds (CODY MOORE MD) Allergies: Allergies: Allergies Coded Allergies Type Severity Reaction Last Updated Verified Sulfa (Sulfonamide Antibiotics) Allergy Intermediate hives 07/04/20 Yes yellow dye Allergy Intermediate 07/04/20 Yes (CODY MOORE MD) Physical Exam: PE: Constitutional: Reports acute emotional distress, non-toxic appearance. [] HENT: Normocephalic, atraumatic, bilateral external ears normal, oropharynx moist, no oral exudates, nose normal. [] Eyes: PERRLA, EOMI, conjunctiva normal, no discharge. [] Neck: Normal range of motion, no tenderness, supple, no stridor. [] Cardiovascular:Heart rate regular rhythm, no murmur [] Lungs & Thorax: Bilateral breath sounds equal apex with few scattered wheezes on auscultation [] Abdomen: Bowel sounds normal, soft, no tenderness, no masses, mild distention, no pulsatile masses. Multiple surgery scars Skin: Warm, dry, no erythema, no rash. Old self cutting gramajo Back: No tenderness, no CVA tenderness. [] Extremities: No tenderness, no cyanosis, no clubbing, ROM intact, no edema. [] Neurologic: Alert and oriented X 3, moves all extremities on request, does have distal sensory,, no focal deficits noted. [] Psychologic: Affect anxious, reports suicidal ideation,, judgement normal, mood depressed. [] (CODY MOORE MD) Current Patient Data: Labs: Laboratory Tests Test 12/01/20 23:50 12/02/20 00:04 Sodium Level 142 mmol/L (136-145) Potassium Level 3.6 mmol/L (3.5-5.1) Chloride Level 108 mmol/L (98-107) H Carbon Dioxide Level 27 mmol/L (21-32) Anion Gap 7 (6-14) Blood Urea Nitrogen 17 mg/dL (7-20) Creatinine 0.6 mg/dL (0.6-1.0) Estimated GFR (Cockcroft-Gault) 115.9 BUN/Creatinine Ratio 28 (6-20) H Glucose Level 85 mg/dL (70-99) Calcium Level 8.4 mg/dL (8.5-10.1) L Total Bilirubin Pending Aspartate Amino Transferase (AST) Pending Alanine Aminotransferase (ALT) Pending Alkaline Phosphatase Pending Total Protein Pending Albumin Pending Albumin/Globulin Ratio Pending POC Urine HCG, Qualitative hcg negative (Negative) (CODY MOORE MD) Radiology/Procedures: Radiology/Procedures: [] (CODY MOORE MD) Heart Score: C/O Chest Pain: N/A Risk Factors: Risk Factors: DM, Current or recent (<one month) smoker, HTN, HLP, family history of CAD, obesity. Risk Scores: Score 0 - 3: 2.5% MACE over next 6 weeks - Discharge Home Score 4 - 6: 20.3% MACE over next 6 weeks - Admit for Clinical Observation Score 7 - 10: 72.7% MACE over next 6 weeks - Early Invasive Strategies (CODY MOORE MD) Course & Med Decision Making: Course & Med Decision Making Pertinent Labs and Imaging studies reviewed. (See chart for details) See DUSTIN john. Current plan is placement at [facility] after 0800 when a bed becomes available. If no available beds at 08 :00 may be reassessed. Impression: 1. Suicidal ideation 2. Depression 3. Anxiety 4. History of pseudoseizures 5. History of chronic abdomen pain 6. History of mood disorder 7. History of borderline personality 8. Anemia hemoglobin 11,2 9. UTI 10. COVID rapid is negative [Endorsed patient to Dr. Gutierrez at shift change. He will make disposition on patient,] (CODY MOORE MD) Course & Med Decision Making [facility] did not have any beds available. The patient was rescreened and determined to be able to go home with a safety plan. She is stable for discharge at this time. (ELDER GUTIERREZ DO) Dragon Disclaimer: Dragon Disclaimer: This electronic medical record was generated, in whole or in part, using a voice recognition dictation system. (CODY MOORE MD) Departure Departure: Impression: Primary Impression: Depression with suicidal ideation Disposition: HOME / SELF CARE / HOMELESS Condition: STABLE Referrals: PANCHITO JERNIGAN (PCP) Scripts Cephalexin (KEFLEX) 750 Mg Capsule 500 MG PO TID for UTI for 7 Days, #14 CAP Prov: CODY MOORE MD 12/02/20 Dragon Disclaimer This chart was dictated in whole or in part using Voice Recognition software in a busy, high-work load, and often noisy Emergency Department environment. It may contain unintended and wholly unrecognized errors or omissions. (CODY MOORE MD) CODY MOORE MD Dec 02, 2020 01:17 ELDER GUTIERREZ DO Dec 04, 2020 15:04
[2020-12-02 01:19] LABS: ALBUMIN 3.4 g/dL (3.4-5.0); ALBUMIN/GLOBULIN RATIO 1.1 (1.0-1.7); BILIRUBIN,URINE NEG (NEG); CLARITY,URINE HAZY; COLOR,URINE YELLOW; GLUCOSE,URINE NEG (NEG); NITRITE,URINE NEG (NEG); RBC,URINE OCC /HPF (0-2); TOTAL BILIRUBIN 0.2 mg/dL (0.2-1.0); TOTAL PROTEIN 6.4 g/dL (6.4-8.2); UROBILINOGEN,URINE 0.2 mg/dL (0.2 mg/dL); WBC,URINE >40 /HPF (0-4)
[2020-12-02 01:20] LABS: BACTERIA,URINE MOD /HPF (0-FEW); SQUAMOUS EPITHELIAL CELL,UR FEW /LPF
[2020-12-02 01:23] LABS: AMPHETAMINE/METHAMPHETAMINE NEG (NEG)
[2020-12-02 01:32] LABS: ACETAMIN < 2.0 mcg/mL (10-30); ETHANOL < 10 mg/dL (0-10); SALIC < 2.8 mg/dL (2.8-20.0)
[2020-12-02] MEDS ORDERED: CEPH750C9 PO (01:58)
[2020-12-02] MEDS ORDERED: cefTRIAXone SODIUM 1 GM VIAL ONE (08:12)
[2020-12-02] MEDS ORDERED: cefTRIAXone IM 1 GM VIAL IM ONE (08:15)
[2020-12-02 11:43] VITALS: BP 125/68
== END 2020-12-02 02:00 | disposition home or self-care (01) ==
LOC: ER 20:40
DX: F32.9 Major depressive disorder, single episode, unspecified (principal); R45.851 Suicidal ideations; F41.9 Anxiety disorder, unspecified; G89.29 Other chronic pain; F39 Unspecified mood [affective] disorder; F60.3 Borderline personality disorder; D64.9 Anemia, unspecified; N39.0 Urinary tract infection, site not specified; F43.10 Post-traumatic stress disorder, unspecified; G43.909 Migraine, unspecified, not intractable, without status migrainosus; E66.01 Morbid (severe) obesity due to excess calories; K21.9 Gastro-esophageal reflux disease without esophagitis; M79.7 Fibromyalgia; Z20.822 Contact with and (suspected) exposure to COVID-19; Z68.27 Body mass index [BMI] 27.0-27.9, adult; Z87.891 Personal history of nicotine dependence; Z98.84 Bariatric surgery status
CPT/HCPCS: 36415; 80053; 80307; 80329; 81001; 81025; 85025; 87086; 87426; 96372; 99285; G0480; U0003

== ENCOUNTER 2020-12-27 21:36 | Emergency (ER) | payer OTHER ==
[~2020-12-27] VITALS: Ht 170.2 cm; Wt 79.7 kg
[~2020-12-27 21:36] MED LIST changes: +CEPH750C9 PO; +LIDOCAINE (700MG/PATCH) PATCH. TD ONE
--- NOTE | 2020-12-27 21:52 | PHYS DOC ---
Past History Past Medical History: Anemia, Anxiety, Depression, Ovarian Cyst, Seizure, UTI Additional Past Medical Histor: PTSD, PCOS (MARLEY CONNER APRN) Past Surgical History: Cholecystectomy, Gastric Bypass, Other Additional Past Surgical Histo: ovarian cyst removal (MARLEY CONNER APRN) Smoking: Cigarettes, Quit Greater Than 1 Year Alcohol Use: None Drug Use: None (MARLEY CONNER APRN) General Adult EDM: Chief Complaint: CHEST PAIN HPI: HPI: Patient is a 35-year-old female being seen in the ER for midsternal chest pain that radiates to her left ribs. She states the pain started 30 minutes ago. S he describes it as a tightness. She rates it 7 out of 10. It is worse with inspiration and palpation. She denies any injury, shortness of breath, cough, fever, nausea or vomiting. Patient states that she has a history of costochondritis and that this pain feels similar but slightly different. Patient has history of PTSD, anxiety, depression. (MARLEY CNONER APRN) Review of Systems: Review of Systems: 14 body systems of the review of systems have been reviewed. See HPI for pertinent positive and negative responses, otherwise all other systems are negative, nonpertinent or noncontributory (MARLEY CONNER APRN) Current Medications: Current Meds: Current Medications Medications (Trade) Dose Ordered Sig/Mahad Start Time Stop Time Status Last Admin Dose Admin Fentanyl Citrate (Fentanyl 2ml Vial) 50 mcg 1X ONCE 12/27/20 22:00 12/27/20 22:01 UNV Ondansetron HCl (Zofran) 4 mg 1X ONCE 12/27/20 22:00 12/27/20 22:01 UNV Sodium Chloride 1,000 ml @ 1,000 mls/hr Q1H 12/27/20 22:00 12/27/20 22:59 UNV (MARLEY CONNER APRN) Allergies: Allergies: Allergies Coded Allergies Type Severity Reaction Last Updated Verified Sulfa (Sulfonamide Antibiotics) Allergy Intermediate hives 07/04/20 Yes yellow dye Allergy Intermediate 07/04/20 Yes (MARLEY CONNER APRN) Physical Exam: PE: Constitutional: Well developed, well nourished, no acute distress, non-toxic appearance. [] HENT: Normocephalic, atraumatic, bilateral external ears normal, oropharynx moist, no oral exudates, nose normal. [] Eyes: PERRL, EOMI, conjunctiva normal, no discharge. [] Neck: Normal range of motion, no tenderness, supple, no stridor. [] Cardiovascular:Heart rate regular rhythm, no murmur, midsternal chest pain reproducible [] Lungs & Thorax: Bilateral breath sounds clear to auscultation [] Abdomen: Bowel sounds normal, soft, no tenderness, no masses, no pulsatile masses. [] Skin: Warm, dry, no erythema, no rash. [] Back: Normal range of motion Extremities: No tenderness, no cyanosis, no clubbing, ROM intact, no edema. [] Neurologic: Alert and oriented X 3, normal motor function, normal sensory function, no focal deficits noted. [] Psychologic: Affect normal, judgement normal, mood normal. [] (MARLEY CONNER APRN) EKG: EKG: EKG performed by ER staff at 2150 shows sinus rhythm, no STEMI read by Dr. Casanova [] (MARLEY CONNER APRN) Radiology/Procedures: Radiology/Procedures: [] (MARLEY CONNER APRN) Heart Score: C/O Chest Pain: Yes HEART Score for Chest Pain: HEART Score for Chest Pain Response (Comments) Value History Slighlty/Non-Suspicious 0 ECG Normal 0 Age < 45 0 Risk Factors No Risk Factors 0 Total 0 Risk Factors: Risk Factors: DM, Current or recent (<one month) smoker, HTN, HLP, family histo ry of CAD, obesity. Risk Scores: Score 0 - 3: 2.5% MACE over next 6 weeks - Discharge Home Score 4 - 6: 20.3% MACE over next 6 weeks - Admit for Clinical Observation Score 7 - 10: 72.7% MACE over next 6 weeks - Early Invasive Strategies (MARLEY CONNER APRN) Course & Med Decision Making: Course & Med Decision Making Pertinent Labs and Imaging studies reviewed. (See chart for details) [] Patient is a 35-year-old female being seen in the ER for midsternal chest pain that radiates to her left ribs that started 30 minutes ago. Pain is worse with inspiration and it is reproducible. Patient's work-up in the ER consisted of blood work, EKG, chest x-ray. EKG unremarkable. Patient has no cardiac history. 2158: at this time, lab work, CXR is pending. I discussed patients case with supervising physician and care will be transferred at this time to Dr. Murillo. (MARLEY CONNER APRN) Course & Med Decision Making Did not see or evaluate patient. Did not discuss patient with SUPERVISING EDITOR TRAILER. Agree with SUPERVISING EDITOR TRAILER's work-up and disposition per note. (KEELY CASANOVA MD) Dragon Disclaimer: Dragon Disclaimer: This electronic medical record was generated, in whole or in part, using a voice recognition dictation system. (MARLEY CONNER APRN) Departure Departure: Referrals: PANCHITO ESCOBEDO (PCP) MARLEY CONNER APRN Dec 27, 2020 21:52 KEELY CASANOVA MD Dec 27, 2020 22:16
[2020-12-27] MEDS ORDERED: IV NORMAL SALINE 1,000ML 1,000 ML IV SCH (22:00)
[2020-12-27] MEDS ORDERED: ONDANSETRON PF 4 MG/2 ML VIAL. IVP ONE (22:00)
--- NOTE | 2020-12-27 23:05 | RAD ---
XR CHEST 1V History: Reason: cp / Spl. Instructions: / History: Comparison: June 01, 2020 Findings: No consolidation or pleural effusion. Normal heart size. No pneumothorax. Impression: 1. No acute cardiopulmonary process. Electronically signed by: Tay Jo DO (12/27/2020 11:02 PM) [facility]
[2020-12-27] MEDS ORDERED: LIDOCAINE (700MG/PATCH) PATCH. ONE (23:42)
[2020-12-27] MEDS ORDERED: diphenhydrAMINE 50 MG/ML VIAL IVP ONE (23:45)
[2020-12-27] MEDS ORDERED: LIDO:MAALOX 1:1 20 ML SINGLE DOSE. PO ONE (23:45)
[2020-12-27] MEDS ORDERED: KETOROLAC 15 MG/ML VIAL. IVP ONE (23:45)
[2020-12-28 00:05] VITALS: BP 117/60
--- NOTE | 2020-12-28 01:09 | EKG ---
[address] [address] Test Date: 2020-12-27 Test Time: 21:50:04 Pat Name: NANCY DESAI Department: Room: Gender: F Weather Observer: : 1985 Requested By: MARLEY CONNER Order Number: [id number] Reading MD: Measurements Intervals Sparkman Rate: 86 P: 52 MN: 136 QRS: 16 QRSD: 104 T: 22 QT: 386 QTc: 465 Interpretive Statements SINUS RHYTHM NORMAL ECG RI6.02 No previous ECG available for comparison
== END 2020-12-28 00:10 | disposition home or self-care (01) ==
LOC: ER 21:36
DX: R07.2 Precordial pain (principal); F41.9 Anxiety disorder, unspecified; F32.9 Major depressive disorder, single episode, unspecified; Z87.440 Personal history of urinary (tract) infections; Z86.2 Personal history of diseases of the blood and blood-forming organs and certain disorders involving the immune mechanism; Z90.49 Acquired absence of other specified parts of digestive tract; Z98.84 Bariatric surgery status; Z87.891 Personal history of nicotine dependence; Z88.2 Allergy status to sulfonamides; Z91.041 Radiographic dye allergy status
CPT/HCPCS: 36415; 71045; 84484; 93005; 96374; 96375; 99285; J1200; J1885; J3010

== ENCOUNTER 2021-01-10 20:46 | Emergency (ER) | payer OTHER ==
[~2021-01-10] VITALS: Ht 170.2 cm; Wt 79.7 kg
[~2021-01-10 20:46] MED LIST changes: -LIDOCAINE (700MG/PATCH) PATCH. TD ONE
[2021-01-10 20:56] VITALS: BP 109/76
[2021-01-10] MEDS ORDERED: oxyCODONE/APAP 5/325 1 TAB TABLET PO ONE (21:00)
[2021-01-10] MEDS ORDERED: diphenhydrAMINE HCL 25 MG CAPSULE PO ONE (21:00)
--- NOTE | 2021-01-10 21:03 | PHYS DOC ---
Past History Past Medical History: Anemia, Anxiety, Depression, Ovarian Cyst, Seizure, UTI Additional Past Medical Histor: PTSD, PCOS Past Surgical History: Cholecystectomy, Gastric Bypass, Other Additional Past Surgical Histo: ovarian cyst removal Smoking: Cigarettes, Quit Greater Than 1 Year Alcohol Use: None Drug Use: None Adult General Chief Complaint Chief Complaint: OTHER COMPLAINTS [facility] HPI Patient is a 35-year-old female who presents to the emergency department with a chief complaint of headache. States this started earlier in the day but her home medications did not work so she decided to call EMS. In route despite normal vital signs and normal blood sugar was given Versed due to fear of seizures despite patient not having any. Patient denies any recent traumas, travels, illnesses, fevers, chest pain, shortness of breath, abdominal pain, nausea, vomiting, dysuria, hematuria or blood in stool. Denies any trouble sitting, standing or walking. States that she just wanted to get some strong pain medicine for her headache and that is why she called EMS. Apologized for pretending to be asleep. Review of Systems Review of Systems Constitutional: Denies fever or chills [] Eyes: Denies change in visual acuity, redness, or eye pain [] HENT: Denies nasal congestion or sore throat [] Respiratory: Denies cough or shortness of breath [] Cardiovascular: No additional information not addressed in HPI [] GI: Denies abdominal pain, nausea, vomiting, bloody stools or diarrhea [] : Denies dysuria or hematuria [] Musculoskeletal: Denies back pain or joint pain [] Integument: Denies rash or skin lesions [] Neurologic: Denies headache, focal weakness or sensory changes [] Endocrine: Denies polyuria or polydipsia [] All other systems were reviewed and found to be within normal limits, except as documented in this note. Allergies Allergies Allergies Coded Allergies Type Severity Reaction Last Updated Verified Sulfa (Sulfonamide Antibiotics) Allergy Intermediate hives 07/04/20 Yes yellow dye Allergy Intermediate 07/04/20 Yes Physical Exam Physical Exam Constitutional: Well developed, well nourished, no acute distress, non-toxic appearance. [] HENT: Normocephalic, atraumatic, bilateral external ears normal, oropharynx moist, no oral exudates, nose normal. [] Eyes: PERRLA, EOMI, conjunctiva normal, no discharge. [] Neck: Normal range of motion, no tenderness, supple, no stridor. [] Cardiovascular:Heart rate regular rhythm, no murmur [] Lungs & Thorax: Bilateral breath sounds clear to auscultation [] Abdomen: Bowel sounds normal, soft, no tenderness, no masses, no pulsatile masses. [] Skin: Warm, dry, no erythema, no rash. [] Back: No tenderness, no CVA tenderness. [] Extremities: No tenderness, no cyanosis, no clubbing, ROM intact, no edema. [] Neurologic: Alert and oriented X 3, normal motor function, normal sensory fu nction, no focal deficits noted. [] Psychologic: Affect normal, judgement normal, mood normal. [] EKG EKG [] Radiology/Procedures Radiology/Procedures [] Heart Score C/O Chest Pain: No Risk Factors: Risk Factors: DM, Current or recent (<one month) smoker, HTN, HLP, family history of CAD, obesity. Risk Scores: Risk Factors: DM, Current or recent (<one month) smoker, HTN, HLP, family history of CAD, obesity. Course & Med Decision Making Course & Med Decision Making Patient is a 35-year-old female with significant past medical history including psychological history who presents via EMS solely for the purpose of getting medication for her headache. Vital signs completely normal. Physical exam noted above. Blood sugar normal. Patient apologized for pretending to be asleep but wanted EMS to take her seriously. Given headache cocktail here in the emergency department. Shortly after patient states she was feeling better and wanted to be discharged home. Advised that faking illnesses was probably not the wisest idea. Advised to follow-up in the morning with primary care physician to discuss ED visit. Gave return precautions to the ED. Patient grateful, verbalized understanding and agreed with plan of discharge. [] Dragon Disclaimer Dragon Disclaimer This electronic medical record was generated, in whole or in part, using a voice recognition dictation system. Departure Departure: Impression: Primary Impression: Headache Disposition: HOME / SELF CARE / HOMELESS Condition: GOOD Referrals: PANCHITO ESCOBEDO (PCP) Patient Instructions: General Headache Without Cause Additional Instructions: Thank you for coming into the emergency department tonight and allowing us to take care of you. Please continue take all your medications at home as prescribed. Please read the attached information carefully to go over things we discussed. It is very important that you call your primary care physician in the morning to discuss your ED visit and set up a follow-up for soon as possible. Please come back to the ED with new, real or concerning symptoms. KEELY CASANOVA MD Jan 10, 2021 21:03
[2021-01-10] MEDS ORDERED: IBUPROFEN 800 MG TABLET. PO ONE (21:15)
== END 2021-01-10 21:14 | disposition home or self-care (01) ==
LOC: ER 20:46
DX: R51.9 Headache, unspecified (principal); F17.210 Nicotine dependence, cigarettes, uncomplicated; Z88.2 Allergy status to sulfonamides; Z90.49 Acquired absence of other specified parts of digestive tract
CPT/HCPCS: 82947; 99284; Q0163

== ENCOUNTER → 2021-01-17 | Outpatient (CLI) | payer OTHER ==
[2021-01-10 20:56] VITALS: BP 109/76
== END ==
LOC: LAB 12:27
PROVIDERS: ATTEND Nurse Practitioner Family
DX: Z79.899 Other long term (current) drug therapy (principal)
CPT/HCPCS: 80178

== ENCOUNTER → 2021-02-27 | Outpatient (CLI) | payer OTHER ==
[~2021-02-27] MED LIST changes: +IOHEXOL 240 MG/ML 50ML VIAL. ONE; +IOHEXOL 240 MG/ML 50ML VIAL. PO ONE; +IOHEXOL 300 MG/ML 75 ML VIAL. IV ONE
--- NOTE | 2021-02-27 11:06 | RAD ---
Examination: CT of the abdomen pelvis with oral and IV contrast HISTORY: History of left lower quadrant pain COMPARISON: 08/14/2020 Technique: Axial CT images of the abdomen pelvis were performed with IV contrast. Coronal and sagitta l reformats are performed Exposure: One or more of the following individualized dose reduction techniques were utilized for thi s examination: 1. Automated exposure control 2. Adjustment of the mA and/or kV according to patient size 3. Use of iterative reconstruction technique. FINDINGS: Mild bibasilar lung atelectasis. No evidence of free air identified in the abdomen. The liver, spleen , adrenals grossly appears unremarkable. Cholecystectomy changes identified. Surgical changes identif ied in the stomach. The visualized pancreas grossly appears unremarkable. The small bowel is nondilat ed. Feces and gas noted in the colon. There is a cystic structure identified in the left adnexa measu ring 5.9 x 4.2 cm likely a left ovarian cyst or cystic lesion. The urinary bladder is mildly distende d. The bilateral kidneys enhance symmetrically. Mild degenerative changes thoracolumbar spine. IMPRESSION: 1. 5.9 cm cystic structure identified in the left adnexa likely a left ovarian cyst or cystic lesion . Follow-up ultrasound pelvis can be considered. Follow-up ultrasound can be considered. 2. Cholecystectomy changes. Electronically signed by: Piyush Rubio MD (02/27/2021 11:04 AM) [id number]
== END ==
LOC: CT 08:35
PROVIDERS: ATTEND Family Medicine
DX: N83.8 Other noninflammatory disorders of ovary, fallopian tube and broad ligament (principal); J98.11 Atelectasis; N32.89 Other specified disorders of bladder; R19.7 Diarrhea, unspecified; M47.815 Spondylosis without myelopathy or radiculopathy, thoracolumbar region; Z90.49 Acquired absence of other specified parts of digestive tract; Z98.890 Other specified postprocedural states
CPT/HCPCS: 74177; Q9966; Q9967

== ENCOUNTER 2021-03-02 17:46 | Emergency (ER) | payer OTHER ==
[~2021-03-02] VITALS: Ht 170.2 cm; Wt 79.7 kg
[2021-03-02 17:46] VITALS: BP 116/75
[~2021-03-02 17:46] MED LIST changes: -IOHEXOL 240 MG/ML 50ML VIAL. ONE; -IOHEXOL 240 MG/ML 50ML VIAL. PO ONE; -IOHEXOL 300 MG/ML 75 ML VIAL. IV ONE
--- NOTE | 2021-03-02 18:30 | PHYS DOC ---
Past History Past Medical History: Anemia, Anxiety, Depression, Ovarian Cyst, Seizure, UTI Additional Past Medical Histor: PTSD, PCOS (DARRYL DE LA CRUZ SENIOR REACTOR OPERATOR) Past Surgical History: Cholecystectomy, Gastric Bypass, Other Additional Past Surgical Histo: ovarian cyst removal (DARRYL DE LA CRUZ SENIOR REACTOR OPERATOR) Smoking: Cigarettes, Quit Greater Than 1 Year Alcohol Use: None Drug Use: None (DARRYL DE LA CRUZ SENIOR REACTOR OPERATOR) Adult General Chief Complaint Chief Complaint: SORE THROAT HPI HPI Patient is a 35-year-old female patient with history of anxiety, depression, ovarian cysts, who presents to the ED today complaining of cough, nasal raheem estion and a sore throat, symptoms began yesterday. Patient denies any fever. She states she is scheduled to have surgery to remove an ovarian cyst on Thursday, she states she would like to be checked out to make sure she is okay for her surgery. (DARRYL DE LA CRUZ SENIOR REACTOR OPERATOR) Review of Systems Review of Systems Constitutional: Denies fever or chills [] Eyes: Denies change in visual acuity, redness, or eye pain [] HENT: Reports nasal congestion and sore throat [] Respiratory: Reports cough, denies r shortness of breath [] Cardiovascular: No additional information not addressed in HPI [] GI: Reports chronic abdominal pain from an ovarian cyst, nausea, vomiting, bloody stools or diarrhea [] : Denies dysuria or hematuria [] Musculoskeletal: Denies back pain or joint pain [] Integument: Denies rash or skin lesions [] Neurologic: Denies headache, focal weakness or sensory changes [] All other systems were reviewed and found to be within normal limits, except as documented in this note. (DARRYL DE LA CRUZ SENIOR REACTOR OPERATOR) Allergies Allergies Allergies Coded Allergies Type Severity Reaction Last Updated Verified Sulfa (Sulfonamide Antibiotics) Allergy Intermediate hives 07/04/20 Yes yellow dye Allergy Intermediate 07/04/20 Yes (DARRYL DE LA CRUZ SENIOR REACTOR OPERATOR) Physical Exam Physical Exam Constitutional: Well developed, well nourished, no acute distress, non-toxic appearance. [] HENT: Normocephalic, atraumatic, bilateral external ears normal, oropharynx moist, no oral exudates, nose normal. [] Eyes: PERRLA, EOMI, conjunctiva normal, no discharge. [] Neck: Normal range of motion, no tenderness, supple, no stridor. [] Cardiovascular:Heart rate regular rhythm, no murmur [] Lungs & Thorax: Bilateral breath sounds clear to auscultation [] Abdomen: Bowel sounds normal, soft, no tenderness, no masses, no pulsatile masses. [] Skin: Warm, dry, no erythema, no rash. [] Back: No tenderness, no CVA tenderness. [] Extremities: No tenderness, no cyanosis, no clubbing, ROM intact, no edema. [] Neurologic: Alert and oriented X 3, normal motor function, normal sensory function, no focal deficits noted. [] Psychologic: Flat affect (DARRYL DE LA CRUZ APRN) Current Patient Data Vital Signs Vital Signs Date Time Temp Pulse Resp B/P (MAP) Pulse Ox O2 Delivery O2 Flow Rate FiO2 03/02/21 17:46 98.8 80 16 116/75 (89) 98 Room Air (DARRYL DE LA CRUZ APRN) EKG EKG [] (DARRYL DE LA CRUZ APRN) Radiology/Procedures Radiology/Procedures [] (DARRYL DE LA CRUZ APRN) Heart Score C/O Chest Pain: N/A Risk Factors: Risk Factors: DM, Current or recent (<one month) smoker, HTN, HLP, family history of CAD, obesity. Risk Scores: Risk Factors: DM, Current or recent (<one month) smoker, HTN, HLP, family history of CAD, obesity. (DARRYL DE LA CRUZ APRN) Course & Med Decision Making Course & Med Decision Making Pertinent Labs and Imaging studies reviewed. (See chart for details) This is a 35-year-old female patient presenting to the ED today complaining of cough, nasal congestion and a sore throat, symptoms began yesterday. Also reports chronic abdominal pain from an ovarian cyst, she states she has surgery scheduled on Thursday and would like to be checked out to make sure she is ready for her procedure. Negative rapid strep test. Chest x-ray is negative. Discharge to home. Follow-up with her QUALITY ENG and PCP. OTC medications recommended. (DARRYL DE LA CRUZ APRN) Course & Med Decision Making Did not see or evaluate patient. Did not discuss patient with TOPPER PRESS OPERATOR AUTOMATIC. Agree with TOPPER PRESS OPERATOR AUTOMATIC's work-up and disposition per note. (KEELY CASANOVA MD) Dragon Disclaimer Dragon Disclaimer This electronic medical record was generated, in whole or in part, using a voice recognition dictation system. (DARRYL DE LA CRUZ APRN) Departure Departure: Impression: Primary Impression: Viral pharyngitis Additional Impressions: URI, acute Cough Disposition: HOME / SELF CARE / HOMELESS Condition: STABLE Referrals: PANCHITO ESCOBEDO (PCP) Follow-up with your doctor next week Patient Instructions: Abdominal Pain, Cough, Adult, [id number], Viral Pharyngitis Additional Instructions: You were evaluated in the emergency room. Strep test was negative, your chest x-ray is also negative for any acute findings. Please follow-up with your QUALITY ENG for abdominal pain and your primary care doctor for the rest of her symptoms. Please take [id number] medications for your symptoms Problem Qualifiers DARRYL DE LA CRUZ APRN Mar 02, 2021 18:30 KEELY CASANOVA MD Mar 02, 2021 19:34
--- NOTE | 2021-03-02 21:09 | RAD ---
Exam: Chest one view INDICATION: Cough TECHNIQUE: Frontal view of the chest Comparisons: 12/28/2019 FINDINGS: The cardiomediastinal silhouette and pulmonary vessels are within normal limits. The lung and pleural spaces are clear. IMPRESSION: No acute cardiopulmonary process. Electronically signed by: Aaron Fisher MD (03/02/2021 9:07 PM) AD[facility]N
== END 2021-03-02 19:10 | disposition home or self-care (01) ==
LOC: ER 17:46
DX: J02.8 Acute pharyngitis due to other specified organisms (principal); G89.29 Other chronic pain; Z87.440 Personal history of urinary (tract) infections; Z86.2 Personal history of diseases of the blood and blood-forming organs and certain disorders involving the immune mechanism; Z87.891 Personal history of nicotine dependence; Z90.49 Acquired absence of other specified parts of digestive tract; Z98.84 Bariatric surgery status; Z91.041 Radiographic dye allergy status; Z88.2 Allergy status to sulfonamides
CPT/HCPCS: 71045; 87070; 87880; 99284

== ENCOUNTER 2021-03-19 19:37 | Emergency (ER) | payer OTHER ==
[~2021-03-19] VITALS: Ht 170.2 cm; Wt 84.1 kg
[2021-03-19] MEDS ORDERED: IV NORMAL SALINE 1,000ML 1,000 ML IV SCH (19:45)
--- NOTE | 2021-03-19 19:54 | PHYS DOC ---
Past History Past Medical History: Anemia, Anxiety, Depression, Ovarian Cyst, Seizure, UTI Additional Past Medical Histor: PTSD, PCOS (MARLEY CONNER APRN) Past Surgical History: Cholecystectomy, Gastric Bypass, Other Additional Past Surgical Histo: ovarian cyst removal (MARLEY CONNER APRN) Smoking: Cigarettes, Quit Greater Than 1 Year Alcohol Use: None Drug Use: None (MARLEY CONNER APRN) General Adult EDM: Chief Complaint: MULTIPLE COMPLAINTS HPI: HPI: Patient is a 35-year-old female who presents to the emergency department for lightheadedness that started today. Patient reports that she was talking with her sister around 1900 does not remember the conversation. Patient has a history of pet[place] seizures but her sister states that she did not have any seizure-like activity. Along with lightheadedness, patient is complaining of chest pain. She reports that she has a history of costochondritis and this feels like her costochondritis pain. It is generalized. She rates it 7 out of 10. Is worse with palpation and movement. Patient is also reporting nausea and vomiting. She reports vomiting 3 times today. Patient had a ovarian cyst removed [address] Cardenas and is on oxycodone. Patient denies any shortness of breath, diarrhea, cough, fevers. (MARLEY CONNER APRN) Review of Systems: Review of Systems: Constitutional: See HPI Respiratory: See HPI Cardiovascular: See HPI GI: See HPI : See HPI Integument: Denies rash Neurologic: See HPI (MARLEY CONNER APRN) Current Medications: Current Meds: Current Medications Medications (Trade) Dose Ordered Sig/Mahad Start Time Stop Time Status Last Admin Dose Admin Sodium Chloride 1,000 ml @ 1,000 mls/hr Q1H 03/19/21 19:45 03/19/21 20:44 (MARLEY CONNER APRN) Allergies: Allergies: Allergies Coded Allergies Type Severity Reaction Last Updated Verified Sulfa (Sulfonamide Antibiotics) Allergy Intermediate hives 07/04/20 Yes yellow dye Allergy Intermediate 07/04/20 Yes (MARLEY CONNER APRN) Physical Exam: PE: Constitutional: Well developed, well nourished, no acute distress, non-toxic appearance. [] HENT: Normocephalic, atraumatic, bilateral external ears normal, oropharynx moist, no oral exudates, nose normal. [] Eyes: PERRL, EOMI, conjunctiva normal, no discharge. [] Neck: Normal range of motion, no tenderness, supple, no stridor. [] Cardiovascular:Heart rate regular rhythm, no murmur [] Lungs & Thorax: Bilateral breath sounds clear to auscultation, midsternal chest pain with palpation [] Abdomen: Bowel sounds normal, soft, no tenderness, no masses, no pulsatile masses. [] Skin: Warm, dry, no erythema, no rash. [] Back: No tenderness, normal range of motion Extremities: No tenderness, no cyanosis, no clubbing, ROM intact, no edema. [] Neurologic: Alert and oriented X 3, normal motor function, normal sensory function, no focal deficits noted. [] Psychologic: Affect normal, judgement normal, mood normal. [] (MARLEY CONNER APRN) Current Patient Data: Labs: Laboratory Tests Test 03/19/21 20:00 03/19/21 20:07 Urine Collection Type Unknown Urine Color Yellow Urine Clarity Cloudy Urine pH 5.0 Urine Specific [place] 1.020 Urine Protein Neg Urine Glucose (UA) Neg mg/dL Urine Ketones (Stick) Neg mg/dL Urine Blood Trace Urine Nitrite Neg Urine Bilirubin Neg Urine Urobilinogen Dipstick 0.2 mg/dL Urine Leukocyte Esterase Trace Urine RBC 1-2 /HPF Urine WBC 11-20 /HPF Urine Squamous Epithelial Cells Many /LPF Urine Bacteria Mod /HPF Urine Opiates Screen Pos Urine Methadone Screen Neg Urine Barbiturates Neg Urine Phencyclidine Screen Neg Urine Amphetamine/Methamphetamine Neg Urine Benzodiazepines Screen Neg Urine Cocaine Screen Neg Urine Cannabinoids Screen Neg Urine Ethyl Alcohol Neg White Blood Count 10.6 x10^3/uL Red Blood Count 3.74 x10^6/uL Hemoglobin 12.0 g/dL Hematocrit 36.6 % Mean Corpuscular Volume 98 fL Mean Corpuscular Hemoglobin 32 pg Mean Corpuscular Hemoglobin Concent 33 g/dL Red Cell Distribution Width 13.9 % Platelet Count 381 x10^3/uL Neutrophils (%) (Auto) 50 % Lymphocytes (%) (Auto) 30 % Monocytes (%) (Auto) 8 % Eosinophils (%) (Auto) 11 % Basophils (%) (Auto) 1 % Neutrophils # (Auto) 5.3 x10^3uL Lymphocytes # (Auto) 3.2 x10^3/uL Monocytes # (Auto) 0.9 x10^3/uL Eosinophils # (Auto) 1.2 x10^3/uL Basophils # (Auto) 0.1 x10^3/uL Sodium Level 140 mmol/L Potassium Level 3.9 mmol/L Chloride Level 104 mmol/L Carbon Dioxide Level 29 mmol/L Anion Gap 7 Blood Urea Nitrogen 21 mg/dL Creatinine 0.8 mg/dL Estimated GFR (Cockcroft-Gault) 82.6 BUN/Creatinine Ratio 26 Glucose Level 87 mg/dL Calcium Level 8.5 mg/dL Total Bilirubin 0.4 mg/dL Aspartate Amino Transf (AST/SGOT) 30 U/L Alanine Aminotransferase (ALT/SGPT) 25 U/L Alkaline Phosphatase 111 U/L Troponin I High Sensitivity 4 ng/L Total Protein 6.4 g/dL Albumin 3.9 g/dL Albumin/Globulin Ratio 1.6 Current Medications Medications (Trade) Dose Ordered Sig/Mahad Route PRN Reason Start Time Stop Time Status Last Admin Dose Admin Sodium Chloride 1,000 ml @ 1,000 mls/hr Q1H IV 03/19/21 19:45 03/19/21 20:44 DC 03/19/21 20:14 Acetaminophen (Tylenol) 650 mg 1X ONCE PO 03/19/21 21:30 03/19/21 21:49 DC 03/19/21 21:36 (MARLEY CONNER SALES ENABLEMENT SPECIALIST) EKG: EKG: [] EKG performed by ER staff at 2000 shows sinus rhythm with a heart rate of 90, QTc of 425, no STEMI read by Dr. Gutierrez at 2004. (MARLEY CONNER SALES ENABLEMENT SPECIALIST) Radiology/Procedures: Radiology/Procedures: PROCEDURE: CT HEAD WO CONTRAST Exam: CT head INDICATION: Confusion TECHNIQUE: Sequential axial images through the head were obtained without the administration of IV contrast. Exposure: One or more of the following in the visualized dose reduction techniques were utilized for this examination: 1. Automated exposure control 2. Adjustment of the MA and/or KV according to patient size 3. Use of iterative of reconstructive technique Comparisons: None FINDINGS: No focal parenchymal lesion or hemorrhage is identified. There is no midline shift or sulcal effacement. No acute vascular territory infarction is identified. White-white distinction is preserved. The ventricular system is within normal limits without compression hydrocephalus. The basal cisterns are well maintained. The visualized portions of the paranasal sinuses and mastoid air cells are well- pneumatized. No acute fractures. IMPRESSION: No acute intracranial abnormality. Electronically signed by: Aaron Mejia MD (03/19/2021 10:45 PM) [facility] DICTATED AND SIGNED BY: AARON MEJIA MD DATE: 03/19/21 2242 CC: EMERGENCY,DEPARTMENT; MARLEY CONNER APRN; PANCHITO ESCOBEDO ~[facility] 0 []PROCEDURE: PORTABLE CHEST 1V XR CHEST 1V Clinical Indication: Reason: cp / Spl. Instructions: / History: Comparison: AP chest March 02, 2021. Findings: The cardiomediastinal silhouette is normal. Lungs are clear. There is no pneumothorax. No pleural effusion is appreciated. No acute bone abnormality. IMPRESSION: No acute cardiopulmonary process. Electronically signed by: Jag Fraser MD (03/19/2021 10:15 PM) [facility] DICTATED AND SIGNED BY: JAG FRASER MD DATE: 03/19/214 CC: EMERGENCY,DEPARTMENT; MARLEY CONNER APRN; PANCHITO ESCOBEDO ~[facility] 0 (MARLEY CONNER APRN) Heart Score: C/O Chest Pain: No HEART Score for Chest Pain: HEART Score for Chest Pain Response (Comments) Value History Slighlty/Non-Suspicious 0 ECG Normal 0 Age < 45 0 Risk Factors No Risk Factors 0 Troponin < Normal Limit 0 Total 0 Risk Factors: Risk Factors: DM, Current or recent (<one month) smoker, HTN, HLP, family history of CAD, obesity. Risk Scores: Score 0 - 3: 2.5% MACE over next 6 weeks - Discharge Home Score 4 - 6: 20.3% MACE over next 6 weeks - Admit for Clinical Observation Score 7 - 10: 72.7% MACE over next 6 weeks - Early Invasive Strategies (MARLEY CONNER APRN) Course & Med Decision Making: Course & Med Decision Making Pertinent Labs and Imaging studies reviewed. (See chart for details) [] Patient presents to the emergency department for multiple complaints including lightheadedness, generalized chest pain that she attributes to her costochondritis, nausea and vomiting. Work-up in the ER consisted of blood work, EKG, CT head, chest x-ray. Patient was treated with IV fluids. Patient was requesting some medication for her headache and this was treated in the ER. Work-up in the ER was unremarkable. She was noted to have a urinary tract infection and this was treated with an antibiotic. Patient advised to take antibiotic as directed, increase fluids. Patient is on oxycodone that may have contributed to her confusion. Patient advised to follow-up with her primary care provider in Dr. Ledezma who performed the ovarian cyst removal as scheduled. (MARLEY CONNER APRN) [place] Disclaimer: Brown Disclaimer: This electronic medical record was generated, in whole or in part, using a voice recognition dictation system. (MARLEY CONNER APRN) Attending Co-Sign The patient was seen and interviewed as well as examined at the bedside. The chart was reviewed. The case was discussed. Agree with the plan of care. (ELDER GUTIERREZ DO) Departure Departure: Impression: Primary Impression: Urinary tract infection Qualified Codes: N30.01 - Acute cystitis with hematuria Disposition: HOME / SELF CARE / HOMELESS Condition: GOOD Referrals: PANCHITO ESCOBEDO (PCP) Patient Instructions: Urinary Tract Infection Additional Instructions: You were seen in the emergency department for multiple complaints including generalized chest pain the is similar to your costochondritis, nausea and vomiting and lightheadedness. Your work-up in the ER was unremarkable. At this time, does not appear that you are experiencing acute coronary syndrome. However, if your symptoms worsen or they change and are not likely costochondritis pain, you need to be reevaluated in the emergency department. However, you were noted to have a urinary tract infection. This will be treated with an antibiotic. Please start and finish this completely. Increase your fluids. Please avoid any bladder irritants like caffeine, sugary beverages or alcohol. Is unsure if your confusion may be contributing to your oxycodone, please use this as directed and caution taking if it is causing sedation. Please follow-up with your primary care provider tomorrow. Please keep your appointment that you have previously scheduled with Dr. Ledezma. You can take Tylenol or ibuprofen for your pain at home. Please return to the emergency department if you develop intractable nausea or vomiting, high fevers refractory to treatment, chest pain, shortness of breath, syncope or seizures. Scripts Cephalexin (KEFLEX) 500 Mg Capsule 1 CAP PO BID for uti for 7 Days, #14 CAP 0 Refills Prov: MARLEY CONNER APRN 03/19/21 MARLEY CONNER APRN Mar 19, 2021 19:54 ELDER GUTIERREZ DO Mar 20, 2021 19:17
[2021-03-19 20:28] LABS: BASO # 0.1 x10^3/uL (0.0-0.2); BASO % 1 % (0-3); EOS # 1.2 x10^3/uL (0.0-0.7); EOS % 11 % (0-3); HEMATOCRIT 36.6 % (36.0-47.0); LYMPH # 3.2 x10^3/uL (1.0-4.8); LYMPH % 30 % (24-48); MEAN CORPUSCULAR HEMOGLOBIN 32 pg (25-35); MEAN CORPUSCULAR HGB CONC 33 g/dL (31-37); MEAN CORPUSCULAR VOLUME 98 fL (79-100); MONO # 0.9 x10^3/uL (0.0-1.1); MONO % 8 % (0-9); NEUT # 5.3 x10^3uL (1.8-7.7); NEUT % 50 % (31-73); PLATELET COUNT 381 x10^3/uL (140-400); RED BLOOD COUNT 3.74 x10^6/uL (3.50-5.40); RED CELL DISTRIBUTION WIDTH 13.9 % (11.5-14.5); WHITE BLOOD COUNT 10.6 x10^3/uL (4.0-11.0)
[2021-03-19 20:31] LABS: CALCIUM 8.5 mg/dL (8.5-10.1); CREATININE 0.8 mg/dL (0.6-1.0); GFR 82.6; POTASSIUM 3.9 mmol/L (3.5-5.1)
[2021-03-19 20:33] LABS: BACTERIA,URINE MOD /HPF (0-FEW); BILIRUBIN,URINE NEG (NEG); CLARITY,URINE CLOUDY; COLOR,URINE YELLOW; GLUCOSE,URINE NEG (NEG); NITRITE,URINE NEG (NEG); SQUAMOUS EPITHELIAL CELL,UR MANY /LPF; UROBILINOGEN,URINE 0.2 mg/dL (0.2 mg/dL)
[2021-03-19 20:36] LABS: ALBUMIN 3.9 g/dL (3.4-5.0); ALBUMIN/GLOBULIN RATIO 1.6 (1.0-1.7); TOTAL BILIRUBIN 0.4 mg/dL (0.2-1.0); TOTAL PROTEIN 6.4 g/dL (6.4-8.2)
[2021-03-19 20:42] LABS: AMPHETAMINE/METHAMPHETAMINE NEG (NEG); BARBITURATES NEG (NEG); BENZODIAZEPINES NEG (NEG); CANNABINOIDS NEG (NEG); COCAINE NEG (NEG); METHADONE NEG (NEG); OPIATES POS (NEG); PHENCYCLIDINE NEG (NEG)
[2021-03-19] MEDS ORDERED: ACETAMINOPHEN 325 MG TABLET PO ONE (21:30)
--- NOTE | 2021-03-19 22:17 | RAD ---
XR CHEST 1V Clinical Indication: Reason: cp / Spl. Instructions: / History: Comparison: AP chest March 02, 2021. Findings: The cardiomediastinal silhouette is normal. Lungs are clear. There is no pneumothorax. No pleural eff usion is appreciated. No acute bone abnormality. IMPRESSION: No acute cardiopulmonary process. Electronically signed by: Jag Fraser MD (03/19/2021 10:15 PM) [facility]PITALAlejandra
[2021-03-19] MEDS ORDERED: CEPH500C PO (22:22)
--- NOTE | 2021-03-19 22:47 | RAD ---
Exam: CT head INDICATION: Confusion TECHNIQUE: Sequential axial images through the head were obtained without the administration of IV co ntrast. Exposure: One or more of the following in the visualized dose reduction techniques were utilized for this examination: 1. Automated exposure control 2. Adjustment of the MA and/or KV according to patient size 3. Use of iterative of reconstructive technique Comparisons: None FINDINGS: No focal parenchymal lesion or hemorrhage is identified. There is no midline shift or sulcal effaceme nt. No acute vascular territory infarction is identified. White-white distinction is preserved. The ventricular system is within normal limits without compression hydrocephalus. The basal cisterns are well maintained. The visualized portions of the paranasal sinuses and mastoid air cells are well-pneumatized. No acute fractures. IMPRESSION: No acute intracranial abnormality. Electronically signed by: Aaron Fisher MD (03/19/2021 10:45 PM) ADRI[facility]N
[2021-03-19 22:55] VITALS: BP 104/60
--- NOTE | 2021-03-20 00:59 | EKG ---
[address] [address] Test Date: 2021-03-19 Test Time: 20:01:32 Pat Name: NANCY DESAI Department: Room: Gender: F Personnel Specialist: : [id number] Requested By: MARLEY CONNER Order Number: [id number] Reading MD: Measurements Intervals [place] Rate: 90 P: 33 TX: 136 QRS: -16 QRSD: 104 T: 11 QT: 344 QTc: 425 Interpretive Statements SINUS RHYTHM LEFTWARD AXIS OTHERWISE NORMAL ECG RI6.02 No previous ECG available for comparison
== END 2021-03-19 23:00 | disposition home or self-care (01) ==
LOC: ER 19:37
DX: N30.01 Acute cystitis with hematuria (principal); R07.2 Precordial pain; F41.9 Anxiety disorder, unspecified; F32.9 Major depressive disorder, single episode, unspecified; Z87.440 Personal history of urinary (tract) infections; Z86.2 Personal history of diseases of the blood and blood-forming organs and certain disorders involving the immune mechanism; Z87.891 Personal history of nicotine dependence; Z98.84 Bariatric surgery status; Z88.2 Allergy status to sulfonamides; Z91.041 Radiographic dye allergy status
CPT/HCPCS: 36415; 70450; 71045; 80053; 80307; 81001; 84484; 85025; 87086; 93005; 96360; 99285; J7030

== ENCOUNTER 2021-04-26 19:34 | Emergency (ER) | payer OTHER ==
[~2021-04-26] VITALS: Ht 170.2 cm; Wt 88.2 kg
--- NOTE | 2021-04-26 19:59 | PHYS DOC ---
Past History Past Medical History: Anemia, Anxiety, Depression, Ovarian Cyst, Seizure, UTI Additional Past Medical Histor: PTSD, PCOS, costochondritis Past Surgical History: Cholecystectomy, Gastric Bypass, Other Additional Past Surgical Histo: ovarian cyst removal Smoking: Cigarettes, Quit Greater Than 1 Year Alcohol Use: None Drug Use: None Adult General HPI HPI Patient is a 35-year-old female who presents worried that she has been exposed to COVID 5 days ago from family and wants to be tested today. States outside of some body aches that she took some Tylenol for she has no symptoms. Review of Systems Review of Systems Review of systems otherwise unremarkable except noted in HPI Allergies Allergies Allergies Coded Allergies Type Severity Reaction Last Updated Verified Sulfa (Sulfonamide Antibiotics) Allergy Intermediate hives 07/04/20 Yes yellow dye Allergy Intermediate 07/04/20 Yes Physical Exam Physical Exam Constitutional: Well developed, well nourished, no acute distress, non-toxic appearance. [] HENT: Normocephalic, atraumatic, bilateral external ears normal, oropharynx moist, no oral exudates, nose normal. [] Eyes: conjunctiva normal, no discharge. [] Neck: Normal range of motion, no tenderness, supple, no stridor. [] Cardiovascular:Heart rate regular rhythm, no murmur [] Lungs & Thorax: Bilateral breath sounds clear to auscultation [] Abdomen: soft, no tenderness, no masses, no pulsatile masses. [] Skin: Warm, dry, no erythema, no rash. [] Extremities: No tenderness, no cyanosis, no clubbing, ROM intact, no edema. [] Neurologic: Alert and oriented X 3, normal motor function, normal sensory function, no focal deficits noted. [] Psychologic: Affect normal, judgement normal, mood normal. [] EKG EKG [] Radiology/Procedures Radiology/Procedures [] Heart Score C/O Chest Pain: No Risk Factors: Risk Factors: DM, Current or recent (<one month) smoker, HTN, HLP, family history of CAD, obesity. Risk Scores: Risk Factors: DM, Current or recent (<one month) smoker, HTN, HLP, family history of CAD, obesity. Course & Med Decision Making Course & Med Decision Making Patient is a 35-year-old female who presents worried she has been exposed to COV ID 5 days ago and wants a COVID swab Vital signs nonconcerning. Physical exam noted above. Denies need for pain or nausea medicine. COVID swab pending. Discussed COVID education and quarantine instructions. Advised to follow-up on Thursday with primary care physician. Discussed symptom treatment at home. Gave return precautions to the ED. Patient grateful, verbalized understanding and agreed with plan of discharge. [] Dragon Disclaimer Dragon Disclaimer This electronic medical record was generated, in whole or in part, using a voice recognition dictation system. Departure Departure: Impression: Primary Impression: Exposure to COVID-19 virus Disposition: LEFT AWOL/ELOPED Condition: GOOD Referrals: PANCHITO ESCOBEDO (PCP) Additional Instructions: You have been tested for or diagnosed with COVID-19. It is an infection caused by a new type of coronavirus. COVID-19 will cause cold-like or mild flu symptoms in most. It can cause more severe symptoms like problems breathing in some. There is no treatment for COVID-19. The body will clear the infection over time. Self-care will help to ease discomfort. Steps to Take: Self-Care Rest as needed. Healthy habits may help you feel better. Steps include: Choose healthy foods including fruits and vegetables. Drink water throughout the day. Get plenty of sleep each night. If you smoke, try to quit. It may ease breathing. Avoid alcohol. Keep Others Healthy The virus can spread to others. Droplets are released every time you sneeze or cough. The droplets can get into the mouth, nose, or eyes of people near you and lead to infection. To lower the chances of spreading COVID-19 to others: Stay at home until your doctor has said it is safe to leave. If you tested positive this will mean staying isolated until both of the following are true: At least 7 days have passed since the start of illness. You are free of fever for at least 72 hours without the use of medicine. During this time: - Avoid public areas, events, or transportation. Do not return to work or school until your doctor has said it is safe to do so. - Call ahead if you need to go to a medical center. Let them know you may have COVID-19. It will help them guide you where to go. They may also ask you to wear a facemask when you come to the office. - If you call for emergency medical services, let them know you may have COVID- 19. While at home: - Try to avoid close contact with others. Stay about 6 feet away. - If possible, spend most of your time in a separate room from others. - Use a face mask if you will be in close contact with others such as sharing a room or vehicle. - Have someone wipe down common surfaces in the home. Use household anesthesiology tech every day on areas like doorknobs, counters, or sinks. - Cough or sneeze into a tissue. Throw the tissue away right after use. If a tissue is not available, cough or sneeze into your elbow. - Wash your hands often. Wash them after sneezing or coughing. Use soap and water and wash for at least 20 seconds. Alcohol based hand office cleaner can be used if soap and water is not available. - Do not prepare food for others. Avoid sharing personal items like forks, spoons, or toothbrushes. - Avoid close contact with pets while you are sick. There is no evidence of the virus passing to pets. This is a safety step until more is known about this virus. Isolation can be frustrating. Social interaction can help. Keep in touch with friends and family through phone and tech options. You can still interact with others in your home, just keep a safe distance of about 6 feet. Follow-up: Your doctors office will check in with you to see if there are any changes in your health. You may be asked to keep track of symptoms to share with them. They will also let you know when you are clear to be in public again. Problems to Look Out For: Contact your doctor if your recovery is not going as you expect. Get emergency care if you have problems such as: - Trouble breathing - Nonstop chest pain or pressure - Changes in awareness, confusion, or problems waking - Lips or face have bluish color - Worsening of symptoms If you think you have an emergency, call for emergency medical services right away. As taken from [facility] Lesa [facility]OSPITALKEELY HUNTER MD Apr 26, 2021 19:59
[2021-04-26 20:32] VITALS: BP 122/84
== END 2021-04-26 20:50 | disposition left against medical advice (07) ==
LOC: ER 19:34
DX: U07.1 COVID-19 (principal); Z87.440 Personal history of urinary (tract) infections; Z86.2 Personal history of diseases of the blood and blood-forming organs and certain disorders involving the immune mechanism; Z87.891 Personal history of nicotine dependence; Z98.84 Bariatric surgery status; Z88.2 Allergy status to sulfonamides; Z91.041 Radiographic dye allergy status
CPT/HCPCS: 99283; C9803; U0003

== ENCOUNTER 2021-05-03 13:21 | Emergency (ER) | payer OTHER ==
[~2021-05-03] VITALS: Ht 170.2 cm; Wt 82.7 kg
[2021-05-03 13:32] VITALS: BP 127/85
--- NOTE | 2021-05-03 14:00 | RAD ---
EXAM: Chest, 2 views. HISTORY: Shortness of breath. COMPARISON: 03/19/2021 FINDINGS: 2 views of the chest are obtained. There is no infiltrate, pleural effusion or pneumothorax . The heart is normal in size. IMPRESSION: No acute pulmonary finding. Electronically signed by: Bernie Mora MD (05/03/2021 1:57 PM) [id number]
[2021-05-03] MEDS ORDERED: IV NORMAL SALINE 1,000ML 1,000 ML IV ONE (15:45)
--- NOTE | 2021-05-03 15:53 | PHYS DOC ---
Past History Past Medical History: Anemia, Anxiety, Depression, Ovarian Cyst, Seizure, UTI Additional Past Medical Histor: PCOS, borderline diabetic (MARLEY CONNER APRN) Past Surgical History: Cholecystectomy, Gastric Bypass, Other Additional Past Surgical Histo: uterine ablation 01/2020, ovarian cyst removal (MARLEY CONNER APRN) Smoking: Cigarettes, Quit Greater Than 1 Year Alcohol Use: None Drug Use: None (MARLEY CONNER APRN) General Adult EDM: Chief Complaint: SHORTNESS OF BREATH HPI: HPI: Patient is a 35-year-old female who presents to the emergency department with multiple complaints including shortness of breath, nausea, vomiting, diarrhea, fever, nonproductive cough, nasal congestion, syncope and chest pain. Patient was diagnosed with COVID-19 on Thursday. She reports that she has had 4 syncopal episodes since yesterday that have been witnessed by her . She is also reporting midsternal chest pain that she describes as a tightness that is worse with deep inspiration that she rates 7 out of 10. She has been taking Tylenol at home for her symptoms. (MARLEY CONNER APRN) Review of Systems: Review of Systems: Constitutional: negative unless reported in HPI Eyes: negative unless reported in HPI HENT: negative unless reported in HPI Respiratory: negative unless reported in HPI Cardiovascular: negative unless reported in HPI GI: negative unless reported in HPI : negative unless reported in HPI Musculoskeletal: negative unless reported in HPI Integument: negative unless reported in HPI Neurologic: negative unless reported in HPI Endocrine: negative unless reported in HPI Lymphatic: negative unless reported in HPI Psychiatric: negative unless reported in HPI (MARLEY CONNER APRN) Current Medications: Current Meds: Current Medications Medications (Trade) Dose Ordered Sig/Mahad Start Time Stop Time Status Last Admin Dose Admin Sodium Chloride 1,000 ml @ 1,000 mls/hr 1X ONCE 05/03/21 15:45 05/03/21 16:44 (MARLEY CONNER APRN) Allergies: Allergies: Allergies Coded Allergies Type Severity Reaction Last Updated Verified Sulfa (Sulfonamide Antibiotics) Allergy Intermediate hives 05/03/21 Yes yellow dye Allergy Intermediate 05/03/21 Yes (MARLEY CONNER APRN) Physical Exam: PE: Constitutional: Well developed, well nourished, no acute distress, non-toxic appearance. [] HENT: Normocephalic, atraumatic, bilateral external ears normal, oropharynx moist, no oral exudates, nose normal. [] Eyes: PERRL, EOMI, conjunctiva normal, no discharge. [] Neck: Normal range of motion, no tenderness, supple, no stridor. [] Cardiovascular:Heart rate regular rhythm, no murmur, chest pain reproducible with deep inspiration [] Lungs & Thorax: Bilateral breath sounds clear to auscultation [] Abdomen: Bowel sounds normal, soft, no tenderness, no masses, no pulsatile masses. [] Skin: Warm, dry, no erythema, no rash. [] Back: Normal range of motion Extremities: No tenderness, no cyanosis, no clubbing, ROM intact, no edema. [] Neurologic: Alert and oriented X 3, normal motor function, normal sensory function, no focal deficits noted. [] Psychologic: Affect normal, judgement normal, mood normal. [] (MARLEY CONNER APRN) Current Patient Data: Labs: Laboratory Tests Test 05/03/21 15:44 05/03/21 16:00 05/03/21 16:20 Influenza Type A (Rapid) Negative Influenza Type B (Rapid) Negative SARS-CoV-2 Antigen (Rapid) Negative Urine Collection Type Clean catch Urine Color Yellow Urine Clarity Clear Urine pH 6.0 Urine Specific Lyman 1.020 Urine Protein Neg Urine Glucose (UA) Neg mg/dL Urine Ketones (Stick) Neg mg/dL Urine Blood Neg Urine Nitrite Neg Urine Bilirubin Neg Urine Urobilinogen Dipstick 0.2 mg/dL Urine Leukocyte Esterase Trace Urine RBC 0 /HPF Urine WBC 1-4 /HPF Urine Squamous Epithelial Cells Mod /LPF Urine Bacteria Few /HPF White Blood Count 8.6 x10^3/uL Red Blood Count 3.64 x10^6/uL Hemoglobin 11.7 g/dL Hematocrit 35.5 % Mean Corpuscular Volume 97 fL Mean Corpuscular Hemoglobin 32 pg Mean Corpuscular Hemoglobin Concent 33 g/dL Red Cell Distribution Width 12.9 % Platelet Count 318 x10^3/uL Neutrophils (%) (Auto) 67 % Lymphocytes (%) (Auto) 20 % Monocytes (%) (Auto) 8 % Eosinophils (%) (Auto) 4 % Basophils (%) (Auto) 1 % Neutrophils # (Auto) 5.8 x10^3uL Lymphocytes # (Auto) 1.7 x10^3/uL Monocytes # (Auto) 0.7 x10^3/uL Eosinophils # (Auto) 0.3 x10^3/uL Basophils # (Auto) 0.0 x10^3/uL Sodium Level 140 mmol/L Potassium Level 3.8 mmol/L Chloride Level 106 mmol/L Carbon Dioxide Level 26 mmol/L Anion Gap 8 Blood Urea Nitrogen 11 mg/dL Creatinine 0.6 mg/dL Estimated GFR (Cockcroft-Gault) 115.1 BUN/Creatinine Ratio 18 Glucose Level 107 mg/dL Calcium Level 8.3 mg/dL Total Bilirubin 0.1 mg/dL Aspartate Amino Transf (AST/SGOT) 12 U/L Alanine Aminotransferase (ALT/SGPT) 19 U/L Alkaline Phosphatase 108 U/L Troponin I High Sensitivity < 4 ng/L Total Protein 6.4 g/dL Albumin 3.3 g/dL Albumin/Globulin Ratio 1.1 Current Medications Medications (Trade) Dose Ordered Sig/Mahad Route PRN Reason Start Time Stop Time Status Last Admin Dose Admin Sodium Chloride 1,000 ml @ 1,000 mls/hr 1X ONCE IV 05/03/21 15:45 05/03/21 16:44 DC 05/03/21 15:45 Vital Signs: Vital Signs Date Time Temp Pulse Resp B/P (MAP) Pulse Ox O2 Delivery O2 Flow Rate FiO2 05/03/21 13:32 98.2 112 18 127/85 (99) 100 Room Air (MARLEY CONNER PICK UP DRIVER) EKG: EKG: EKG performed by ER staff at 1553 shows sinus rhythm with a rate of 80, QTc 428, no STEMI read by Dr. Gutierrez 1557. [] (MARLEY CONNER PICK UP DRIVER) Radiology/Procedures: Radiology/Procedures: []PROCEDURE: CHEST PA & LATERAL EXAM: Chest, 2 views. HISTORY: Shortness of breath. COMPARISON: 03/19/2021 FINDINGS: 2 views of the chest are obtained. There is no infiltrate, pleural effusion or pneumothorax. The heart is normal in size. IMPRESSION: No acute pulmonary finding. Electronically signed by: Bernie Wallace MD (05/03/2021 1:57 PM) [id number] DICTATED AND SIGNED BY: BERNIE WALLACE MD DATE: 05/03/21 1357 CC: ELDER GUTIERREZ DO; EMERGENCY,DEPARTMENT; PANCHITO ESCOBEDO ~MTH0 0 (MARLEY CONNER APRN) Heart Score: C/O Chest Pain: Yes HEART Score for Chest Pain: HEART Score for Chest Pain Response (Comments) Value History Slighlty/Non-Suspicious 0 ECG Nonspecific Repolarizatio 1 Age < 45 0 Risk Factors No Risk Factors 0 Troponin < Normal Limit 0 Total 1 Risk Factors: Risk Factors: DM, Current or recent (<one month) smoker, HTN, HLP, family history of CAD, obesity. Risk Scores: Score 0 - 3: 2.5% MACE over next 6 weeks - Discharge Home Score 4 - 6: 20.3% MACE over next 6 weeks - Admit for Clinical Observation Score 7 - 10: 72.7% MACE over next 6 weeks - Early Invasive Strategies (MARLEY CONNER APRN) Course & Med Decision Making: Course & Med Decision Making Pertinent Labs and Imaging studies reviewed. (See chart for details) [] Patient presents to the emergency department for multiple complaints including shortness of breath, nausea, vomiting, diarrhea, chest pain, fever, cough, nasal congestion and syncope after being diagnosed with COVID-19. Chest x-ray performed showed no acute findings. Work-up in the ER also consisted of blood work, urinalysis and EKG. Patient was treated with IV fluids. Blood work was unremarkable. VSS, [place] risk syncope risk score: 0. Patient's urinalysis showed a urinary tract infection she will be treated with an antibiotic. Patient educated on symptomatic treatment. I discussed with patient all findings and diagnostic testing as well as the need to follow-up with PCP for further evaluation and treatment or return to the ER if any new or worsening symptoms. Strict return precautions were also discussed at length. Patient voiced understanding and agreement with the plan. Patient is hemodynamically stable at the time of disposition. (MARLEY CONNER APRN) Dragon Disclaimer: Dragon Disclaimer: This electronic medical record was generated, in whole or in part, using a voice recognition dictation system. (MARLEY CONNER APRN) Attending Co-Sign The patient was seen and interviewed as well as examined at the bedside. The chart was reviewed. The case was discussed. Agree with the plan of care. (ELDER GUTIERREZ DO) Departure Departure: Impression: Primary Impression: COVID-19 Additional Impressions: Nausea & vomiting Qualified Codes: R11.2 - Nausea with vomiting, unspecified Syncope Qualified Codes: R55 - Syncope and collapse Urinary tract infection Qualified Codes: N30.00 - Acute cystitis without hematuria Disposition: HOME / SELF CARE / HOMELESS Condition: GOOD Referrals: PANCHITO ESCOBEDO (PCP) Patient Instructions: Nausea and Vomiting, [id number], Syncope, Urinary Tract Infection, [id number] Additional Instructions: You were seen in the emergency department after being diagnosed with COVID-19 for shortness of breath, nausea, vomiting, diarrhea, cough, congestion, fever, chest pain, syncope. Your work-up in the ER was mostly unremarkable. However, you were noted to have a urinary tract infection which will be treated with an antibiotic. Please start and finish the antibiotic completely. Go home and rest. Make sure that you are increasing your fluids and eating sufficient amount of food is hypovolemia can be a common cause of syncope. Take Tylenol and/or ibuprofen for your pain. For your nausea and vomiting you are being discharged home with nausea medication to take as needed. I would advise you to follow-up with your primary care provider tomorrow regarding your ER visit. Please return to the emergency department if you develop intractable nausea or vomiting, worsening of your chest pain, shortness of breath or difficulty breathing, high fevers refractory to treatment, weakness or any new or worsening concerns. Scripts Cephalexin (KEFLEX) 500 Mg Capsule 1 CAP PO BID for uti for 7 Days, #14 CAP 0 Refills Prov: MARLEY CONNER PICK UP DRIVER 05/03/21 Ondansetron (ONDANSETRON ODT) 4 Mg Tab.rapdis 1 TAB PO PRN Q6-8HRS for nausea for 7 Days, #28 TAB 0 Refills Prov: MARLEY CONNER PICK UP DRIVER 05/03/21 MARLEY CONNER APRN May 03, 2021 15:53 ELDER GUTIERREZ DO May 04, 2021 10:04
[2021-05-03 16:25] LABS: INFLUENZA A PATIENT NEGATIVE (NEGATIVE); INFLUENZA B PATIENT NEGATIVE (NEGATIVE)
--- NOTE | 2021-05-03 16:31 | EKG ---
[address] [address] Test Date: 2021-05-03 Test Time: 15:53:59 Pat Name: NANCY DESAI Department: Room: Gender: F Retail Team Member: ANIRUDH : 1985 Requested By: MARLEY CONNER Order Number: [id number] Reading MD: Mendez Weeks Measurements Intervals [place] Rate: 80 P: 33 DE: 130 QRS: -4 QRSD: 98 T: 13 QT: 368 QTc: 428 Interpretive Statements SINUS RHYTHM LEFTWARD AXIS OTHERWISE NORMAL ECG RI6.02 Compared to ECG 03/19/2021 20:01:32 Left-axis deviation now present Electronically Signed On 05-04-2021 15:14:47 SPICE CLEANER by Mendez Weeks
[2021-05-03 16:41] LABS: BACTERIA,URINE FEW /HPF (0-FEW); BILIRUBIN,URINE NEG (NEG); CLARITY,URINE CLEAR; COLOR,URINE YELLOW; GLUCOSE,URINE NEG (NEG); NITRITE,URINE NEG (NEG); RBC,URINE 0 /HPF (0-2); SQUAMOUS EPITHELIAL CELL,UR MOD /LPF; UROBILINOGEN,URINE 0.2 mg/dL (0.2 mg/dL)
[2021-05-03 16:55] LABS: BASO % 1 % (0-3); EOS # 0.3 x10^3/uL (0.0-0.7); EOS % 4 % (0-3); HEMATOCRIT 35.5 % (36.0-47.0); HEMOGLOBIN 11.7 g/dL (12.0-15.5); LYMPH # 1.7 x10^3/uL (1.0-4.8); LYMPH % 20 % (24-48); MEAN CORPUSCULAR HEMOGLOBIN 32 pg (25-35); MEAN CORPUSCULAR HGB CONC 33 g/dL (31-37); MEAN CORPUSCULAR VOLUME 97 fL (79-100); MONO # 0.7 x10^3/uL (0.0-1.1); MONO % 8 % (0-9); NEUT # 5.8 x10^3uL (1.8-7.7); NEUT % 67 % (31-73); PLATELET COUNT 318 x10^3/uL (140-400); RED BLOOD COUNT 3.64 x10^6/uL (3.50-5.40); RED CELL DISTRIBUTION WIDTH 12.9 % (11.5-14.5); WHITE BLOOD COUNT 8.6 x10^3/uL (4.0-11.0)
[2021-05-03 16:57] LABS: CALCIUM 8.3 mg/dL (8.5-10.1); CREATININE 0.6 mg/dL (0.6-1.0); GFR 115.1; POTASSIUM 3.8 mmol/L (3.5-5.1)
[2021-05-03 17:03] LABS: ALBUMIN 3.3 g/dL (3.4-5.0); ALBUMIN/GLOBULIN RATIO 1.1 (1.0-1.7); TOTAL BILIRUBIN 0.1 mg/dL (0.2-1.0); TOTAL PROTEIN 6.4 g/dL (6.4-8.2)
[2021-05-03] MEDS ORDERED: ONDA4TAB12 PO (17:15)
[2021-05-03] MEDS ORDERED: CEPH500C PO (17:20)
== END 2021-05-03 17:52 | disposition home or self-care (01) ==
LOC: ER 13:21
DX: U07.1 COVID-19 (principal); N30.00 Acute cystitis without hematuria; R55 Syncope and collapse; Z86.2 Personal history of diseases of the blood and blood-forming organs and certain disorders involving the immune mechanism; Z87.440 Personal history of urinary (tract) infections; Z87.891 Personal history of nicotine dependence; Z88.2 Allergy status to sulfonamides; Z91.041 Radiographic dye allergy status
CPT/HCPCS: 36415; 71046; 80053; 81001; 81025; 84484; 85025; 87086; 87428; 93005; 96360; 99285; J7030

== ENCOUNTER 2021-05-26 17:55 | Emergency (ER) | payer OTHER ==
[~2021-05-26] VITALS: Ht 170.2 cm; Wt 90.0 kg
[2021-05-26 17:55] VITALS: BP 99/55
[~2021-05-26 17:55] MED LIST changes: -LURA80TA PO; +LURA80TA2 PO
[2021-05-26] MEDS ORDERED: oxyCODONE/APAP 5/325 1 TAB TABLET PO ONE (18:30)
[2021-05-26] MEDS ORDERED: KETOROLAC 60 MG/2 ML VIAL. IM ONE (18:30)
--- NOTE | 2021-05-26 18:31 | PHYS DOC ---
Past History Past Medical History: Anemia, Anxiety, Depression, Ovarian Cyst, Seizure, UTI Additional Past Medical Histor: PCOS, borderline diabetic Past Surgical History: Cholecystectomy, Gastric Bypass, Other Additional Past Surgical Histo: uterine ablation 01/2020, ovarian cyst removal Smoking: Cigarettes, Quit Greater Than 1 Year Alcohol Use: None Drug Use: None Adult General Chief Complaint Chief Complaint: Neck Pain HPI HPI Patient is a 35-year-old female with past medical history significant for anxiety, depression and fibromyalgia who presents with a chief complaint of neck pain. States that she woke up this morning with some neck stiffness, 7 out of 10, dull and achy in nature. Denies recent travels, traumas, illnesses, fevers, pain or trouble swallowing, chest pain, shortness of breath, abdominal pain, nausea, vomiting. Denies any cold/flu/COVID symptoms. States she took 2 Tylenol today. Review of Systems Review of Systems Review of systems otherwise unremarkable except noted in HPI Allergies Allergies Allergies Coded Allergies Type Severity Reaction Last Updated Verified Sulfa (Sulfonamide Antibiotics) Allergy Intermediate hives 05/03/21 Yes yellow dye Allergy Intermediate 05/03/21 Yes Physical Exam Physical Exam Constitutional: Well developed, well nourished, no acute distress, non-toxic appearance. [] HENT: Normocephalic, atraumatic, bilateral external ears normal, oropharynx moist, no oral exudates, nose normal. [] Eyes: conjunctiva normal, no discharge. [] Neck: Normal range of motion, no tenderness, supple, no stridor. [] Cardiovascular:Heart rate regular rhythm, no murmur [] Lungs & Thorax: Bilateral breath sounds clear to auscultation [] Back: No tenderness, Extremities: No tenderness, no cyanosis, no clubbing, ROM intact, no edema. [] Neurologic: Alert and oriented X 3, normal motor function, normal sensory function, able to sit, stand and walk without issue no focal deficits noted. [] Psychologic: Affect normal, judgement normal, mood normal. [] Current Patient Data Vital Signs Vital Signs Date Time Temp Pulse Resp B/P (MAP) Pulse Ox O2 Delivery O2 Flow Rate FiO2 05/26/21 17:55 74 16 98/41 (60) 98 Room Air EKG EKG [] Radiology/Procedures Radiology/Procedures [] Heart Score C/O Chest Pain: No Risk Factors: Risk Factors: DM, Current or recent (<one month) smoker, HTN, HLP, family history of CAD, obesity. Risk Scores: Risk Factors: DM, Current or recent (<one month) smoker, HTN, HLP, family history of CAD, obesity. Course & Med Decision Making Course & Med Decision Making Patient is a 35-year-old female who presents with neck stiffness and muscle spasm Vital signs not concerning. Physical exam noted above. Given pain medicine. Patient with no focal neurologic deficits. Discussed management of symptoms at home. Patient has had no recent traumas and CT of the cervical spine 4 months ago with no acute findings. Advised to follow-up with primary care physician tomorrow. Gave return precautions to the ED. Patient grateful, verbalized understanding and agreed with plan of discharge. [] Dragon Disclaimer Dragon Disclaimer This electronic medical record was generated, in whole or in part, using a voice recognition dictation system. Departure Departure: Impression: Primary Impression: Neck pain Disposition: HOME / SELF CARE / HOMELESS Condition: GOOD Referrals: PANCHITO ESCOBEDO (PCP) Patient Instructions: RICE - Routine Care for Injuries Additional Instructions: Thank you for coming into the emergency department tonight and allowing us to take care of you. Please read the attached information carefully to go over things we discussed. Please begin a Tylenol, ibuprofen, Benadryl and ice regimen as tolerated as long as you are not allergic. You can take at 1000 mg of Tylenol every 8 hours, 800 mg of ibuprofen every 8 hours and 50 mg of Benadryl every 6 hours and ice and heat. Please follow-up tomorrow with your primary care physician to update on your ED visit and set up a follow-up to discuss need for further evaluation and treatment. Please come back with new or concerning symptoms as discussed. KEELY CASANOVA MD May 26, 2021 18:31
== END 2021-05-26 18:46 | disposition home or self-care (01) ==
LOC: ER 17:55
DX: M54.2 Cervicalgia (principal); F41.9 Anxiety disorder, unspecified; F32.9 Major depressive disorder, single episode, unspecified; M79.7 Fibromyalgia; Z86.2 Personal history of diseases of the blood and blood-forming organs and certain disorders involving the immune mechanism; Z87.440 Personal history of urinary (tract) infections; Z87.891 Personal history of nicotine dependence; Z90.49 Acquired absence of other specified parts of digestive tract; Z98.84 Bariatric surgery status; Z88.2 Allergy status to sulfonamides; Z91.041 Radiographic dye allergy status
CPT/HCPCS: 96372; 99283; J1885

== ENCOUNTER 2021-05-26 21:21 | Emergency (ER) | payer OTHER ==
[~2021-05-26] VITALS: Ht 170.2 cm; Wt 84.1 kg
--- NOTE | 2021-05-26 21:53 | PHYS DOC ---
Past History Past Medical History: Anemia, Anxiety, Depression, Ovarian Cyst, Seizure, UTI Additional Past Medical Histor: PCOS, borderline diabetic (MIHAELA WEBB APRN) Past Surgical History: Cholecystectomy, Gastric Bypass, Other Additional Past Surgical Histo: uterine ablation 01/2020, ovarian cyst removal (MIHAELA WEBB APRN) Smoking: Cigarettes, Quit Greater Than 1 Year Alcohol Use: None Drug Use: None (MIHAELA WEBB APRN) Adult General Chief Complaint Chief Complaint: HALLUCINATIONS AUDIBLE/VISUAL HPI HPI Patient is a 35-year-old female who presents to the emergency department compla ining of seeing faces after taking Percocet for neck pain. Patient denies homicidal or suicidal ideation. Patient denies feeling depressed. Denies chest pains, shortness of breath, nausea, vomiting, diarrhea, abdominal pains, syncopal or near syncopal episodes. Patient denies itching, rashes to her skin, swelling of her throat, denies other physical complaints or physical concerns. Patient denies illicit drug use, denies smoking cigarettes or drinking alcohol. (MIHAELA WEBB APRN) Review of Systems Review of Systems 14 body systems of review of systems have been reviewed. See HPI for pertinent positives and negative responses, otherwise all other systems are negative, nonpertinent or noncontributory. Constitutional: Negative except as outlined in HPI above. Skin: Negative except as outlined in HPI above. Eyes: Negative except as outlined in HPI above. HENT: Negative except as outlined in HPI above. Respiratory: Negative except as outlined in HPI above. Cardiovascular: Negative except as outlined in HPI above. GI: Negative except as outlined in HPI above. : Negative except as outlined in HPI above. Musculoskeletal: Negative except as outlined in HPI above. Integument: Negative except as outlined in HPI above. Neurologic: Negative except as outlined in HPI above. Endocrine: Negative except as outlined in HPI above. Lymphatic: Negative except as outlined in HPI above. Psychiatric: Negative except as outlined in HPI above. (MIHAELA WEBB APRN) Allergies Allergies Allergies Coded Allergies Type Severity Reaction Last Updated Verified Sulfa (Sulfonamide Antibiotics) Allergy Intermediate hives 05/03/21 Yes yellow dye Allergy Intermediate 05/03/21 Yes (MIHAELA WEBB APRN) Physical Exam Physical Exam Constitutional: Well developed, well nourished, no acute distress, non-toxic appearance. 35-year-old female in no apparent distress. HENT: Normocephalic, atraumatic. Eyes: Conjunctiva normal, no discharge. Neck: Normal range of motion, no stridor. Cardiovascular: No cyanosis appreciated, distal cap refill less than 2 seconds. Lungs & Thorax: Patient is in no respiratory distress, no audible adventitious lung sounds appreciated. Abdomen: Nontender, no abnormalities noted. Skin: Warm, dry, no erythema, no rash. Back: No tenderness, no deformities. Extremities: No tenderness, no cyanosis, no clubbing, ROM intact, no edema. Neurologic: Alert and oriented X 3, normal motor function, normal sensory function, no focal deficits noted. Psychologic: Affect normal, judgement normal, mood normal. (MIHAELA WEBB APRN) Current Patient Data Vital Signs Vital Signs Date Time Temp Pulse Resp B/P (MAP) Pulse Ox O2 Delivery O2 Flow Rate FiO2 05/26/21 21:24 97.7 58 18 91/48 (62) 100 Room Air (MIHAELA WEBB APRN) EKG EKG [] (MIHAELA WEBB APRN) Radiology/Procedures Radiology/Procedures [] (MIHAELA WEBB APRN) Heart Score C/O Chest Pain: No Risk Factors: Risk Factors: DM, Current or recent (<one month) smoker, HTN, HLP, family history of CAD, obesity. Risk Scores: Risk Factors: DM, Current or recent (<one month) smoker, HTN, HLP, family history of CAD, obesity. (MHIAELA WEBB APRN) Course & Med Decision Making Course & Med Decision Making Pertinent Labs and Imaging studies reviewed. (See chart for details) 35-year-old female, vital signs reviewed, presents emergency department concerning seeing faces after taking Percocet today for neck pain. Physical examination is unremarkable, the patient not homicidal suicidal. Discussed with patient suspicious for adverse medication reaction related to opiate use. Discussed with patient to stop taking opiates, call her primary care physician in the morning to review symptoms, to return immediately to the emergency department for any homicidal or suicidal ideation. Patient gave verbal understanding of and is amenable to ED discharge planning. Discussed with the patient all findings and diagnostic testing as well as the need to follow-up with their primary care provider for further evaluation and treatment or return to the ED if any new or worsening symptoms. Strict return precautions were also discussed at length, the patient voiced understanding and agreement with the discharge planning. The patient was nontoxic in appearance, in no apparent distress, and hemodynamically stable at the time of disposition. (MIHAELA WEBB APRN) Course & Med Decision Making Did not see or evaluate patient. Did not discuss patient with RAND CEMENTER. Agree with RAND CEMENTER's work-up and disposition per note. (KEELY CASANOVA MD) Dragon Disclaimer Dragon Disclaimer This electronic medical record was generated, in whole or in part, using a voice recognition dictation system. (MIHAELA WEBB APRN) Departure Departure: Impression: Primary Impression: Adverse drug reaction Disposition: HOME / SELF CARE / HOMELESS Condition: GOOD Referrals: PANCHITO ESCOBEDO (PCP) Additional Instructions: You were seen in the emergency department for an adverse medication reaction. Please stop taking opiates, please call your doctor tomorrow to discuss your symptoms. Please return immediately to the emergency department for any homicidal or suicidal ideation. Thank you for visiting our Emergency Department. It was a pleasure taking care of you today in the emergency department and we appreciate you trusting us with your care. If any additional problems come up don't hesitate to return to visit us. Please follow up with your primary care provider so they can plan additional care if needed and know about the problem that you had. If symptoms worsen come back to the Emergency Department. Any concerning symptoms that start such as chest pain, shortness of air, weakness or numbness on one side of the body, running high fevers or any other concerning symptoms return to the ER. Problem Qualifiers Primary Impression: Adverse drug reaction Encounter type: initial encounter Qualified Codes: T50.905A - Adverse e ffect of unspecified drugs, medicaments and biological substances, initial encounter MIHAELA WEBB APRN May 26, 2021 21:53 KEELY CASANOVA MD May 27, 2021 01:29
[2021-05-26 22:09] VITALS: BP 90/52
== END 2021-05-26 22:13 | disposition home or self-care (01) ==
LOC: ER 21:21
DX: R44.1 Visual hallucinations (principal); T50.995A Adverse effect of other drugs, medicaments and biological substances, initial encounter; F41.9 Anxiety disorder, unspecified; F32.9 Major depressive disorder, single episode, unspecified; Z86.2 Personal history of diseases of the blood and blood-forming organs and certain disorders involving the immune mechanism; Z87.440 Personal history of urinary (tract) infections; Z87.891 Personal history of nicotine dependence; Z88.2 Allergy status to sulfonamides; Z91.041 Radiographic dye allergy status; Y92.89 Other specified places as the place of occurrence of the external cause
CPT/HCPCS: 99283

== ENCOUNTER 2021-05-28 17:44 | Emergency (ER) | payer OTHER ==
[~2021-05-28] VITALS: Ht 170.2 cm; Wt 88.2 kg
--- NOTE | 2021-05-28 18:07 | PHYS DOC ---
Past History Past Medical History: Anemia, Anxiety, Asthma, Bronchitis, Constipation, Depression, Ovarian Cyst, Seizure, UTI Additional Past Medical Histor: PCOS, borderline diabetic, borderline perso nality disorder Past Surgical History: Cholecystectomy, Gastric Bypass, Other Additional Past Surgical Histo: uterine ablation 01/2020, ovarian cyst removal Smoking: Cigarettes, Quit Greater Than 1 Year Alcohol Use: None Drug Use: None General Adult HPI: HPI: "... I had a big chunk of something come out of my vagina..." Patient is a 35 year old female who presents with above hx and complaints of " vaginal issues". Patient reports a oblong semisolid collection of tissue that passed from her vagina this afternoon. Patient became concerned that she passed a ovarian cyst. Patient has history of frequent ED visits. Has past medical history of anemia, anxiety, depression, ovarian cyst x4, seizure disorder UTIs, PCOS, borderline diabetic, borderline personality, and delusions and hallucinations. Patient has previous abdomen surgeries of cholecystectomy, hemanth fernanda bypass, uterine ablation in 2019, ovarian cyst removal. Patient's had 4 lifetime sex partners. No history of STDs. Patient is accompanied with her . Patient has had 3 COVID vaccination. Patient has not had flu vaccinations. No recent travel. No specific ill contacts. Has not had a period since her uterine ablation. Pt. follows with Dr. Escobedo. Review of Systems: Review of Systems: Constitutional: Denies fever or chills Eyes: Denies change in visual acuity HENT: Denies nasal congestion or sore throat Respiratory: Denies cough or shortness of breath Cardiovascular: Denies chest pain or edema GI: Denies abdominal pain, nausea, vomiting, bloody stools or diarrhea : Denies dysuria. Complains of passing a chunk of tissue by her vaginal. Musculoskeletal: Denies back pain or joint pain Integument: Denies rash Neurologic: Denies headache, focal weakness or sensory changes Endocrine: Denies polyuria or polydipsia Lymphatic: Denies swollen glands Psychiatric: Denies depression or anxiety Family History: Family History: Noncontributory to presentation Current Medications: Current Meds: See nursing for home meds Allergies: Allergies: Allergies Coded Allergies Type Severity Reaction Last Updated Verified Sulfa (Sulfonamide Antibiotics) Allergy Intermediate hives 05/03/21 Yes yellow dye Allergy Intermediate 05/03/21 Yes Physical Exam: PE: Constitutional: no acute distress, non-toxic appearance. [] HENT: Normocephalic, atraumatic, bilateral external ears normal, oropharynx moist, no oral exudates, nose normal. [] Eyes: PERRLA, EOMI, conjunctiva normal, no discharge. [] Neck: Normal range of motion, no tenderness, supple, no stridor. [] Cardiovascular:Heart rate regular rhythm, no murmur [] Lungs & Thorax: Bilateral breath sounds equal apex few scattered wheezes auscultation [] Abdomen: Bowel sounds normal, soft, no rebound tenderness, no masses, no pulsat ile masses. Old surgical scars. Vaginal exam mild tenderness right adnexal area. No cervical motion tenderness. No discharge. No obvious mass. Rectal exam hard stool in rectal vault. Distended abdomen. Skin: Warm, dry, no erythema, no rash. Tattoos. Back: No tenderness, no CVA tenderness. [] Extremities: No tenderness, no cyanosis, no clubbing, ROM intact, no edema. No psoas sign. Neurologic: Alert and oriented X 3, normal motor function, normal sensory function, no focal deficits noted. [] Psychologic: Affect anxious, judgement normal, mood normal. Patient very impatient-left AMA. EKG: EKG: [] Radiology/Procedures: Radiology/Procedures: Patient declined to stay for radiographic evaluation [] Heart Score: C/O Chest Pain: N/A Risk Factors: Risk Factors: DM, Current or recent (<one month) smoker, HTN, HLP, family history of CAD, obesity. Risk Scores: Score 0 - 3: 2.5% MACE over next 6 weeks - Discharge Home Score 4 - 6: 20.3% MACE over next 6 weeks - Admit for Clinical Observation Score 7 - 10: 72.7% MACE over next 6 weeks - Early Invasive Strategies Course & Med Decision Making: Course & Med Decision Making Pertinent Labs and Imaging studies reviewed. (See chart for details) Patient declined to stay for labs. Patient left AMA. Patient encouraged to follow-up lab results and vaginal cultures. Patient encouraged to follow-up with primary care. Patient encouraged to follow-up with [facility]. Impression: 1. Complaints of vaginal issues-abnormal vaginal discharge/mass passage 2. Mild anemia 11.9 hemoglobin 3. AMA [] Brown Disclaimer: [place] Disclaimer: This electronic medical record was generated, in whole or in part, using a voice recognition dictation system. Departure Departure: Referrals: PANCHITO ESCOBEDO (PCP) Brown Disclaimer This chart was dictated in whole or in part using Voice Recognition software in a busy, high-work load, and often noisy Emergency Department environment. It may contain unintended and wholly unrecognized errors or omissions. CODY MOORE MD May 28, 2021 18:07
[2021-05-28 18:11] VITALS: BP 107/59
[2021-05-28] MEDS ORDERED: IV RINGERS SOLUTION,LACTATED 1,000 ML IV SCH (18:15)
[2021-05-28 19:28] LABS: CALCIUM 8.6 mg/dL (8.5-10.1); CREATININE 0.8 mg/dL (0.6-1.0); GFR 82.6
[2021-05-28 19:34] LABS: BASO % 1 % (0-3); EOS # 0.2 x10^3/uL (0.0-0.7); EOS % 3 % (0-3); HEMOGLOBIN 11.9 g/dL (12.0-15.5); LYMPH # 2.6 x10^3/uL (1.0-4.8); LYMPH % 33 % (24-48); MEAN CORPUSCULAR HEMOGLOBIN 32 pg (25-35); MEAN CORPUSCULAR HGB CONC 34 g/dL (31-37); MEAN CORPUSCULAR VOLUME 95 fL (79-100); MONO # 0.7 x10^3/uL (0.0-1.1); MONO % 8 % (0-9); NEUT # 4.3 x10^3uL (1.8-7.7); NEUT % 55 % (31-73); PLATELET COUNT 364 x10^3/uL (140-400); RED BLOOD COUNT 3.68 x10^6/uL (3.50-5.40); RED CELL DISTRIBUTION WIDTH 13.4 % (11.5-14.5); WHITE BLOOD COUNT 7.8 x10^3/uL (4.0-11.0)
[2021-05-30 19:08] LABS: CHLAMYDIA PROBE Negative (Negative)
== END 2021-05-28 20:42 | disposition home or self-care (01) ==
LOC: ER 17:44
DX: N89.8 Other specified noninflammatory disorders of vagina (principal); D64.9 Anemia, unspecified; J45.909 Unspecified asthma, uncomplicated; F41.9 Anxiety disorder, unspecified; F32.9 Major depressive disorder, single episode, unspecified; G40.909 Epilepsy, unspecified, not intractable, without status epilepticus; Z86.2 Personal history of diseases of the blood and blood-forming organs and certain disorders involving the immune mechanism; Z87.440 Personal history of urinary (tract) infections; Z87.891 Personal history of nicotine dependence; Z88.2 Allergy status to sulfonamides; Z91.041 Radiographic dye allergy status
CPT/HCPCS: 80048; 85025; 86592; 86705; 86709; 86803; 87340; 87491; 87591; 99284; Q0111

== ENCOUNTER 2021-06-11 15:35 | Emergency (ER) | payer OTHER ==
[~2021-06-11] VITALS: Ht 170.2 cm; Wt 88.2 kg
[2021-06-11 15:48] VITALS: BP 142/75
--- NOTE | 2021-06-11 16:06 | PHYS DOC ---
Past History Past Medical History: Anemia, Anxiety, Asthma, Bronchitis, Constipation, Depression, Ovarian Cyst, Seizure, UTI Additional Past Medical Histor: PCOS, borderline diabetic, borderline perso nality disorder Past Surgical History: Cholecystectomy, Gastric Bypass, Other Additional Past Surgical Histo: uterine ablation 01/2020, ovarian cyst removal Smoking: Cigarettes, Quit Greater Than 1 Year Alcohol Use: None Drug Use: None General Adult EDM: Chief Complaint: KNEE INJURY HPI: HPI: Patient is a 35-year-old female presents after slipping and falling on the ice. Patient is reporting right knee pain. Denies any other injuries. Denies h itting her head or loss of consciousness. Patient was able to ambulate after the fall. Patient reports pain is aggravated with walking and improves while sitting. Denies take anything for pain. Patient reports history of anxiety and depression. Review of Systems: Review of Systems: ROS At least 10 ROS systems have been reviewed and are negative except as documented in the HPI. General: Negative except as outlined in HPI above. Skin: Negative except as outlined in HPI above. HEENT: Negative except as outlined in HPI above. Neck: Negative except as outlined in HPI above. Respiratory: Negative except as outlined in HPI above.. Cardiovascular: Negative except as outlined in HPI above. Abdomen: Negative except as outlined in HPI above. : Negative except as outlined in HPI above. Back/MSK: Negative except as outlined in HPI above. Neuro: Negative except as outlined in HPI above. Psych: Negative except as outlined in HPI above. Allergies: Allergies: Allergies Coded Allergies Type Severity Reaction Last Updated Verified Sulfa (Sulfonamide Antibiotics) Allergy Intermediate hives 05/03/21 Yes yellow dye Allergy Intermediate 05/03/21 Yes Physical Exam: PE: Constitutional: Well developed, well nourished, no acute distress, non-toxic appearance. [] HENT: Normocephalic, bilateral external ears normal, oropharynx moist Eyes: PERRLA, conjunctiva normal, no discharge. [] Neck: Normal range of motion, no tenderness Cardiovascular:Heart rate regular rhythm, no murmur Lungs & Thorax: Bilateral breath sounds clear to auscultation Abdomen: Bowel sounds normal, soft, no tenderness, no masses Skin: Warm, dry, no erythema, no rash. Back: No tenderness, no CVA tenderness. Extremities: Right anterior, knee tenderness, ROM intact, no edema. Neurologic: Alert and oriented X 3, normal motor function, normal sensory function, no focal deficits noted. Psychologic: Affect normal, judgement normal, mood normal. [] Current Patient Data: Vital Signs: Vital Signs Date Time Temp Pulse Resp B/P (MAP) Pulse Ox O2 Delivery O2 Flow Rate FiO2 06/11/21 15:48 97.9 124 16 142/75 (97) 98 Room Air EKG: EKG: [] Radiology/Procedures: Radiology/Procedures: []XR KNEE 3 VIEWS_RT Indication: Reason: FALL, R KNEE PAIN / Spl. Instructions: / History: . FINDINGS/ IMPRESSION: No acute fracture or dislocation. There is mild medial compartment joint space narrowing. Small osteophytes are noted. The soft tissues are within normal limits. Electronically signed by: Radames Herrera MD (06/11/2021 5:08 PM) [facility] Heart Score: C/O Chest Pain: No Risk Factors: Risk Factors: DM, Current or recent (<one month) smoker, HTN, HLP, family history of CAD, obesity. Risk Scores: Score 0 - 3: 2.5% MACE over next 6 weeks - Discharge Home Score 4 - 6: 20.3% MACE over next 6 weeks - Admit for Clinical Observation Score 7 - 10: 72.7% MACE over next 6 weeks - Early Invasive Strategies Course & Med Decision Making: Course & Med Decision Making Pertinent Labs and Imaging studies reviewed. (See chart for details) [] 35-year-old male presents after slipping on the ice and pain to anterior, right knee. Denies any other injuries. No signs of trauma. Patient has full range of motion but produces pain. Pain treated while in the ER. X-ray of right knee was unremarkable. Discussed results with patient. Educated on RICE. Xavi wrap to right knee. Ibuprofen and Tylenol at home. Follow-up with PCP if pain continues for possible further imaging. Patient verbalizes understanding of discharge instructions. Brown Disclaimer: Brown Disclaimer: This electronic medical record was generated, in whole or in part, using a voice recognition dictation system. Departure Departure: Impression: Primary Impression: Right medial knee pain Disposition: HOME / SELF CARE / HOMELESS Condition: STABLE Referrals: PANCHITO ESCOBEDO (PCP) Patient Instructions: Knee Pain, [id number] Additional Instructions: You were seen in the emergency room for right knee pain after a fall. X-rays were negative for fracture. You were provided with an Xavi wrap. Please follow- up with your PCP in 5 to 7 days if pain does not improve for possible repeat imaging. Rest, ice to the area, elevate help with pain and swelling. Ibuprofen and Tylenol at home for discomfort. Return to the emergency room if you have worsening symptoms or concerns. EMERGENCY DEPARTMENT GENERAL DISCHARGE INSTRUCTIONS Thank you for coming to [facility] (ED) today and trusting us with you care. We trust that you had a positivie experience in our Emergency Department. If you wish to speak to the department management, you may call the director at [phone]. YOUR FOLLOW UP INSTRUCTIONS ARE FOLLOWS: 1. Do you have a private Doctor? If you do not have a private doctor, please ask for a resource list of physicians or clinics that may be able to assist you with follow up care. 2. The Emergency Physician has interpreted your x-rays. The X-Ray specialist will also review them. If there is a change in the findings, you will be notified in 48 hours when at all possible. 3. A lab test or culture has been done, your results will be reviewed and you will be notified if you need a change in treatment. ADDITIONAL INSTRUCTIONS AND INFORMATION: 1. Your care today has been supervised by a physician who is specially trained in emergency care. Many problems require more than one evaluation for a complete diagnosis and treatment. We recommend that you schedule your follow up appointment as recommended to ensure complete treatment of you illness or injury. If you are unable to obtain follow up care and continue to have a problem, or if your condition worsens, we recommend that you return to the ED. 2. We are not able to safely determine your condition over the phone nor are we able to give sound medical advice over the phone. For these safety reasons, if you call for medical advice we will ask you to come to the ED for further evaluation. 3. If you have any questions regarding these discharge instructions please call the ED at [phone]. SAFETY INFORMATION: In the interest of safety, wellness, and injury prevention; we encourage you to wear your sealbelt, if you smoke; quite smoking, and we encourage family to use a protective helmet for bicycling and other sporting events that present an increased risk for head injury. IF YOUR SYMPTOMS WORSEN OR NEW SYMPTOMS DEVELOP, OR YOU HAVE CONCERNS ABOUT YOUR CONDITION; OR IF YOUR CONDITION WORSENS WHILE YOU ARE WAITING FOR YOUR FOLLOW UP APPOINTMENT; EITHER CONTACT YOUR PRIMARY CARE DOCTOR, THE PHYSICIAN WHOSE NAME AND NUMBER YOU WERE GIVEN, OR RETURN TO THE ED IMMEDIATELY. ESTRELLITA YIP APRN Jun 11, 2021 16:06
[2021-06-11] MEDS ORDERED: HYDROcodone/APAP 5/325MG 1 TAB TABLET PO ONE (16:15)
--- NOTE | 2021-06-11 17:10 | RAD ---
Exam Date: 06/11/2021 4:21 PM XR KNEE 3 VIEWS_RT Indication: Reason: FALL, R KNEE PAIN / Spl. Instructions: / History: . FINDINGS/ IMPRESSION: No acute fracture or dislocation. There is mild medial compartment joint space narrowing. Small ost eophytes are noted. The soft tissues are within normal limits. Electronically signed by: Radames Herrera MD (06/11/2021 5:08 PM) [facility]
== END 2021-06-11 17:37 | disposition home or self-care (01) ==
LOC: ER 15:35
DX: M25.561 Pain in right knee (principal); F41.9 Anxiety disorder, unspecified; F32.9 Major depressive disorder, single episode, unspecified; Z86.2 Personal history of diseases of the blood and blood-forming organs and certain disorders involving the immune mechanism; Z87.440 Personal history of urinary (tract) infections; Z98.84 Bariatric surgery status; Z87.891 Personal history of nicotine dependence; Z88.2 Allergy status to sulfonamides; Z91.041 Radiographic dye allergy status; W01.0XXA Fall on same level from slipping, tripping and stumbling without subsequent striking against object, initial encounter; Y93.89 Activity, other specified; Y92.89 Other specified places as the place of occurrence of the external cause; Y99.8 Other external cause status
CPT/HCPCS: 73562; 99283

== ENCOUNTER 2021-06-23 18:01 | Emergency (ER) | payer OTHER ==
[~2021-06-23] VITALS: Ht 170.2 cm; Wt 88.2 kg
--- NOTE | 2021-06-23 18:25 | PHYS DOC ---
Past History Past Medical History: Anemia, Anxiety, Asthma, Bronchitis, Constipation, Depression, Ovarian Cyst, Seizure, UTI Additional Past Medical Histor: PCOS, borderline diabetic, borderline perso nality disorder Past Surgical History: Cholecystectomy, Gastric Bypass, Other Additional Past Surgical Histo: uterine ablation 01/2020, ovarian cyst removal Smoking: Cigarettes, Quit Greater Than 1 Year Alcohol Use: None Drug Use: None Adult General Chief Complaint Chief Complaint: BACK PAIN - NO INJURY HPI HPI Patient is a 35-year-old female who presents with a chief complaint of chronic low back pain and headache. States has been going on about a day. States she did not take any medicines at home. Denies recent travels, traumas, illness, fevers, chest pain, shortness of breath, abdominal pain, nausea, vomiting, diarrhea. States she does have a history of migraines and gets several months. Denies any numbness/weakness/tingling. Denies any trouble making urine or stool. States she just wants some medicine and wants to go home. Review of Systems Review of Systems Review of systems otherwise unremarkable except noted in HPI Allergies Allergies Allergies Coded Allergies Type Severity Reaction Last Updated Verified Sulfa (Sulfonamide Antibiotics) Allergy Intermediate hives 05/03/21 Yes yellow dye Allergy Intermediate 05/03/21 Yes Physical Exam Physical Exam Constitutional: Well developed, well nourished, no acute distress, non-toxic appearance. [] HENT: Normocephalic, atraumatic, bilateral external ears normal, oropharynx moist, no oral exudates, nose normal. [] Eyes: PERRLA, EOMI, conjunctiva normal, no discharge. [] Neck: Normal range of motion, no tenderness, supple, no stridor. [] Cardiovascular:Heart rate regular rhythm, no murmur [] Lungs & Thorax: No respiratory distress Skin: Warm, dry, no erythema, no rash. [] Back: Neurovascular exam intact, range of motion intact no obvious bruising, deformities or step-offs Extremities: No tenderness, no cyanosis, no clubbing, ROM intact, no edema. [] Neurologic: Alert and oriented X 3, normal motor function, normal sensory function, able to sit, stand and walk without issue no focal deficits noted. [] Psychologic: Affect normal, judgement normal, mood normal. [] Current Patient Data Vital Signs Vital Signs Date Time Temp Pulse Resp B/P (MAP) Pulse Ox O2 Delivery O2 Flow Rate FiO2 06/23/21 18:02 98.4 79 16 134/77 (96) 100 Room Air EKG EKG [] Radiology/Procedures Radiology/Procedures [] Heart Score C/O Chest Pain: No Risk Factors: Risk Factors: DM, Current or recent (<one month) smoker, HTN, HLP, family history of CAD, obesity. Risk Scores: Risk Factors: DM, Current or recent (<one month) smoker, HTN, HLP, family history of CAD, obesity. Course & Med Decision Making Course & Med Decision Making Patient is a 35-year-old female who presents with chronic low back pain and headache Vital signs nonconcerning. Physical exam noted above. Given medicines for symptom control. Patient stated that she just went to get the medicines and get home for the weather got real bad. Discussed differential diagnosis. Discussed symptom management at home. Advised to follow-up tomorrow with primary care physician. Gave return precautions to the ED. Patient grateful, verbalized understanding and agreed with plan of discharge. [] Dragon Disclaimer Dragon Disclaimer This electronic medical record was generated, in whole or in part, using a voice recognition dictation system. Departure Departure: Impression: Primary Impression: Back pain Additional Impression: Headache Disposition: 01 HOME / SELF CARE / HOMELESS Condition: STABLE Referrals: PANCHITO ESCOBEDO (PCP) Patient Instructions: Back Pain, Adult, General Headache Without Cause Additional Instructions: You for coming into the emergency department tonight allowing us to take care of you. Please read the attached information carefully go over things we discusse d. As long as you can tolerate it, please begin a Tylenol, ibuprofen and Benadryl regimen at home. Please continue your amoxicillin for your ear infection that was given to you by your primary care physician. Please call your primary care physician in the morning to update on your ED visit and set up a follow-up. Please come back with new or concerning symptoms as discussed. Problem Qualifiers KEELY CASANOVA MD Jun 23, 2021 18:25
[2021-06-23] MEDS ORDERED: oxyCODONE/APAP 5/325 1 TAB TABLET PO ONE (18:30)
[2021-06-23] MEDS ORDERED: KETOROLAC 60 MG/2 ML VIAL. IM ONE (18:30)
[2021-06-23] MEDS ORDERED: METOCLOPRAMIDE HCL 10 MG/2 ML VIAL. IM ONE (18:30)
[2021-06-24] MEDS ORDERED: MECL-75 PO (17:46)
== END 2021-06-23 18:41 | disposition home or self-care (01) ==
LOC: ER 18:01
DX: M54.59 Other low back pain (principal); G89.29 Other chronic pain; G43.909 Migraine, unspecified, not intractable, without status migrainosus; F41.9 Anxiety disorder, unspecified; J45.909 Unspecified asthma, uncomplicated; F32.9 Major depressive disorder, single episode, unspecified; Z87.440 Personal history of urinary (tract) infections; Z86.2 Personal history of diseases of the blood and blood-forming organs and certain disorders involving the immune mechanism; Z87.891 Personal history of nicotine dependence; Z90.49 Acquired absence of other specified parts of digestive tract; Z98.84 Bariatric surgery status; Z88.2 Allergy status to sulfonamides; Z91.041 Radiographic dye allergy status
CPT/HCPCS: 96372; 99284; J1885; J2765

== ENCOUNTER 2021-06-24 15:41 | Emergency (ER) | payer OTHER ==
[~2021-06-24] VITALS: Ht 167.6 cm; Wt 91.7 kg
[2021-06-24] MEDS ORDERED: MECLIZINE 12.5 MG TABLET. PO ONE (16:15)
[2021-06-24] MEDS ORDERED: IV NORMAL SALINE 1,000ML 1,000 ML IV ONE (16:15)
--- NOTE | 2021-06-24 16:26 | PHYS DOC ---
Past History Past Medical History: Anemia, Anxiety, Asthma, Bronchitis, Constipation, Depression, Ovarian Cyst, Seizure, UTI Additional Past Medical Histor: PTSD, PCOS Past Surgical History: Cholecystectomy Additional Past Surgical Histo: GASTRIC BYPASS, MULTIPLE OVARIAN CYST REMOVAL Smoking: Cigarettes, Quit Greater Than 1 Year Alcohol Use: None Drug Use: None General Adult EDM: Chief Complaint: DIZZY/LIGHT HEADED HPI: HPI: Patient is a 35-year-old female well-known to this facility who presents to the emergency department today for left ear pain and "vertigo". Patient reports that she was diagnosed with a left ear infection a week ago when she was inpatient at [facility] and was on an antibiotic. She reports that she finished the antibiotic completely but still continues to have left ear pain. Patient reports that she is currently on amoxicillin for a toe infection. Patient was seen in this emergency department yesterday for headache and was discharged home. Patient reports that she "feels off balance". She reports that she feels like the room is spinning. She saw her primary care provider Dr. Lopez via telehealth visit this morning and Dr. Benavides sent her into the emergency department to be treated for vertigo and to have imaging of h er head to rule out mastoiditis. Patient denies any history of vertigo, chest pain, fevers, shortness of breath, vomiting. Review of Systems: Review of Systems: Constitutional: See HPI HENT: See HPI Respiratory: See HPI Cardiovascular: See HPI GI: See HPI Neurologic: See HPI Current Medications: Current Meds: Current Medications Medications (Trade) Dose Ordered Sig/Mahad Start Time Stop Time Status Last Admin Dose Admin Meclizine HCl (Antivert) 25 mg 1X ONCE 06/24/21 16:15 06/24/21 16:17 DC Sodium Chloride 1,000 ml @ 1,000 mls/hr 1X ONCE 06/24/21 16:15 06/24/21 17:14 Allergies: Allergies: Allergies Coded Allergies Type Severity Reaction Last Updated Verified Sulfa (Sulfonamide Antibiotics) Allergy Intermediate hives 06/24/21 Yes yellow dye Allergy Intermediate 06/24/21 Yes Physical Exam: PE: Constitutional: Well developed, well nourished, no acute distress, non-toxic appearance. [] HENT: Normocephalic, atraumatic, bilateral external ears normal, bilateral tympanic membranes are without erythema and intact, no swelling or redness noted behind left ear/mastoid region, no drainage noted in left ear canal, oropharynx moist, no oral exudates, nose normal. [] Eyes: PERRL, 4 mm bilaterally, EOMI, no nystagmus, conjunctiva normal, no discharge. [] Neck: Normal range of motion, no tenderness, supple, no stridor. [] Cardiovascular:Heart rate regular rhythm, no murmur [] Lungs & Thorax: Bilateral breath sounds clear to auscultation [] Abdomen: Bowel sounds normal, soft, no tenderness, no masses, no pulsatile masses. [] Skin: Warm, dry, no erythema, no rash. [] Back: Normal range of motion Extremities: No tenderness, no cyanosis, no clubbing, ROM intact, no edema. [] Neurologic: Alert and oriented X 3, normal motor function, normal sensory function, no focal deficits noted, no limb ataxia, no pronator drift, patient moving all 4 extremities, negative test of skew, negative head impulse test. [] Psychologic: Affect normal, judgement normal, mood normal. [] Current Patient Data: Labs: Laboratory Tests Test 06/24/21 16:25 06/24/21 16:30 06/24/21 16:57 White Blood Count 9.0 x10^3/uL Red Blood Count 3.71 x10^6/uL Hemoglobin 11.8 g/dL Hematocrit 35.5 % Mean Corpuscular Volume 96 fL Mean Corpuscular Hemoglobin 32 pg Mean Corpuscular Hemoglobin Concent 33 g/dL Red Cell Distribution Width 13.4 % Platelet Count 430 x10^3/uL Neutrophils (%) (Auto) 59 % Lymphocytes (%) (Auto) 30 % Monocytes (%) (Auto) 8 % Eosinophils (%) (Auto) 3 % Basophils (%) (Auto) 1 % Neutrophils # (Auto) 5.3 x10^3uL Lymphocytes # (Auto) 2.7 x10^3/uL Monocytes # (Auto) 0.7 x10^3/uL Eosinophils # (Auto) 0.2 x10^3/uL Basophils # (Auto) 0.1 x10^3/uL Sodium Level 139 mmol/L Potassium Level 3.9 mmol/L Chloride Level 106 mmol/L Carbon Dioxide Level 26 mmol/L Anion Gap 7 Blood Urea Nitrogen 13 mg/dL Creatinine 0.6 mg/dL Estimated GFR (Cockcroft-Gault) 115.1 BUN/Creatinine Ratio 22 Glucose Level 88 mg/dL Calcium Level 9.0 mg/dL Total Bilirubin 0.1 mg/dL Aspartate Amino Transf (AST/SGOT) 14 U/L Alanine Aminotransferase (ALT/SGPT) 25 U/L Alkaline Phosphatase 99 U/L Troponin I High Sensitivity 6 ng/L Total Protein 7.1 g/dL Albumin 3.6 g/dL Albumin/Globulin Ratio 1.0 Urine Collection Type Unknown Urine Color Yellow Urine Clarity Clear Urine pH 6.0 Urine Specific [place] 1.020 Urine Protein Neg Urine Glucose (UA) Neg mg/dL Urine Ketones (Stick) Neg mg/dL Urine Blood Neg Urine Nitrite Neg Urine Bilirubin Neg Urine Urobilinogen Dipstick 0.2 mg/dL Urine Leukocyte Esterase Neg Urine RBC Occ /HPF Urine WBC Occ /HPF Urine Squamous Epithelial Cells Mod /LPF Urine Bacteria 0 /HPF Urine Opiates Screen Neg Urine Methadone Screen Neg Urine Barbiturates Neg Urine Phencyclidine Screen Neg Urine Amphetamine/Methamphetamine Neg Urine Benzodiazepines Screen Neg Urine Cocaine Screen Neg Urine Cannabinoids Screen Neg Urine Ethyl Alcohol Neg Bedside Urine HCG, Qualitative hcg negative Current Medications Medications (Trade) Dose Ordered Sig/Mahad Route PRN Reason Start Time Stop Time Status Last Admin Dose Admin Sodium Chloride 1,000 ml @ 1,000 mls/hr 1X ONCE IV 06/24/21 16:15 06/24/21 17:14 DC 06/24/21 16:32 Meclizine HCl (Antivert) 25 mg 1X ONCE PO 06/24/21 16:15 06/24/21 16:17 DC 06/24/21 16:32 Vital Signs: Vital Signs Date Time Temp Pulse Resp B/P (MAP) Pulse Ox O2 Delivery O2 Flow Rate FiO2 06/24/21 16:02 98.4 85 18 131/77 (95) 100 Room Air EKG: EKG: [] EKG performed by ER staff at 1631 shows sinus rhythm with a rate of 80, QTc of 444, no STEMI read by Dr. Tafoya at 1631. Radiology/Procedures: Radiology/Procedures: []PROCEDURE: CT HEAD AND MAXILLOFACIAL WO INDICATION: Headache with evaluation for mastoiditis. COMPARISON: February 2021 TECHNIQUE: Axial CT images obtained through the head and face without intravenous contrast. One or more of the following individualized dose reduction techniques were utilized for this examination: 1. Automated exposure control; 2. Adjustment of the mA and/or kV according to patient size; 3. Use of iterative reconstruction technique. FINDINGS: Head: No intracranial hemorrhage. No significant midline shift. Ventricles and sulci are unremarkable. No acute osseous abnormality. Facial: Mastoid air cells are aerated. Maxillary sinuses are well aerated. Sphenoid sinus and ethmoid air cells are well aerated. Frontal sinuses not pneumatized. IMPRESSION: * No acute intracranial hemorrhage. * No CT evidence of mastoiditis. Electronically signed by: Amina Medrano MD (06/24/2021 5:32 PM) [id number] DICTATED AND SIGNED BY: AMINA MEDRANO MD DATE: 06/24/211720 CC: MARLEY CONNER APRN; PANCHITO ESCOBEDO ~MTH0 0 Heart Score: C/O Chest Pain: No Risk Factors: Risk Factors: DM, Current or recent (<one month) smoker, HTN, HLP, family history of CAD, obesity. Risk Scores: Score 0 - 3: 2.5% MACE over next 6 weeks - Discharge Home Score 4 - 6: 20.3% MACE over next 6 weeks - Admit for Clinical Observation Score 7 - 10: 72.7% MACE over next 6 weeks - Early Invasive Strategies Course & Med Decision Making: Course & Med Decision Making Pertinent Labs and Imaging studies reviewed. (See chart for details) [] Patient presents to the emergency department for left ear pain and vertigo symptoms. Patient was treated 1 week ago for otitis media with an antibiotic and she is currently on amoxicillin for toe infection. Patient was sent by her primary care provider for rule out mastoiditis. Work-up in the ER consisted of blood work, EKG, imaging of head. Patient treated with IV fluids and Antivert. Patient reports that her symptoms have resolved after IV fluids and Antivert. Blood work was unremarkable. Patient does not have an elevated troponin. Urinalysis not show any infection. Negative UDS. CT head does not show any mastoiditis. Patient advised to continue taking the amoxicillin prescribed for her toe infection, she will be discharged home with Antivert, advised to follow- up with her primary care provider. I discussed with patient all findings and diagnostic testing as well as the need to follow-up with PCP for further evaluation and treatment or return to the ER if any new or worsening symptoms. Strict return precautions were also discussed at length. Patient voiced understanding and agreement with the plan. Patient is hemodynamically stable at the time of disposition. Brown Disclaimer: Brown Disclaimer: This electronic medical record was generated, in whole or in part, using a voice recognition dictation system. Departure Departure: Impression: Primary Impression: Vertigo Disposition: HOME / SELF CARE / HOMELESS Condition: GOOD Referrals: PANCHITO ESCOBEDO (PCP) Patient Instructions: Vertigo Additional Instructions: You were seen in the emergency department today for vertigo symptoms and left ear pain. Does not appear that you have an infection in your left ear. CT imaging does not show any mastoiditis. Please continue taking your amoxicillin for your toe infection. You are being discharged home with Antivert to help with your vertigo symptoms. Please increase your fluids. Please slowly change positions. You can take Tylenol and ibuprofen for your pain. Please follow-up with your primary care provider tomorrow regarding your ER visit. Return to the emergency department if you develop worsening of your ear pain, hearing loss, headache, high fevers refractory to treatment, vision changes, intractable nausea or vomiting, chest pain, shortness of breath. Scripts Meclizine Hcl (MECLIZINE HCL) 25 Mg Tablet 1 TAB PO PRN TID for vertigo for 7 Days, #21 TAB 0 Refills Prov: MARLEY CONNER APRN 06/24/21 MARLEY CONNER APRN Jun 24, 2021 16:26
[2021-06-24 17:10] LABS: BASO # 0.1 x10^3/uL (0.0-0.2); BASO % 1 % (0-3); EOS # 0.2 x10^3/uL (0.0-0.7); EOS % 3 % (0-3); HEMATOCRIT 35.5 % (36.0-47.0); HEMOGLOBIN 11.8 g/dL (12.0-15.5); LYMPH # 2.7 x10^3/uL (1.0-4.8); LYMPH % 30 % (24-48); MEAN CORPUSCULAR HEMOGLOBIN 32 pg (25-35); MEAN CORPUSCULAR HGB CONC 33 g/dL (31-37); MEAN CORPUSCULAR VOLUME 96 fL (79-100); MONO # 0.7 x10^3/uL (0.0-1.1); MONO % 8 % (0-9); NEUT # 5.3 x10^3uL (1.8-7.7); NEUT % 59 % (31-73); PLATELET COUNT 430 x10^3/uL (140-400); RED BLOOD COUNT 3.71 x10^6/uL (3.50-5.40); RED CELL DISTRIBUTION WIDTH 13.4 % (11.5-14.5)
[2021-06-24 17:16] LABS: BARBITURATES NEG (NEG); BENZODIAZEPINES NEG (NEG); CANNABINOIDS NEG (NEG); COCAINE NEG (NEG); METHADONE NEG (NEG); OPIATES NEG (NEG); PHENCYCLIDINE NEG (NEG)
[2021-06-24 17:17] LABS: CREATININE 0.6 mg/dL (0.6-1.0); GFR 115.1; POTASSIUM 3.9 mmol/L (3.5-5.1)
[2021-06-24 17:19] LABS: AMPHETAMINE/METHAMPHETAMINE NEG (NEG)
[2021-06-24 17:22] LABS: BACTERIA,URINE 0 /HPF (0-FEW); CLARITY,URINE CLEAR; COLOR,URINE YELLOW; GLUCOSE,URINE NEG (NEG); NITRITE,URINE NEG (NEG); RBC,URINE OCC /HPF (0-2); SQUAMOUS EPITHELIAL CELL,UR MOD /LPF; UROBILINOGEN,URINE 0.2 mg/dL (0.2 mg/dL); WBC,URINE OCC /HPF (0-4)
[2021-06-24 17:23] LABS: ALBUMIN 3.6 g/dL (3.4-5.0); TOTAL BILIRUBIN 0.1 mg/dL (0.2-1.0); TOTAL PROTEIN 7.1 g/dL (6.4-8.2)
--- NOTE | 2021-06-24 17:35 | RAD ---
INDICATION: Headache with evaluation for mastoiditis. COMPARISON: February 2021 TECHNIQUE: Axial CT images obtained through the head and face without intravenous contrast. One or more of the following individualized dose reduction techniques were utilized for this examinat ion: 1. Automated exposure control; 2. Adjustment of the mA and/or kV according to patient size; 3 . Use of iterative reconstruction technique. FINDINGS: Head: No intracranial hemorrhage. No significant midline shift. Ventricles and sulci are unremarkable. No acute osseous abnormality. Facial: Mastoid air cells are aerated. Maxillary sinuses are well aerated. Sphenoid sinus and ethmoid air cells are well aerated. Frontal sinuses not pneumatized. IMPRESSION: * No acute intracranial hemorrhage. * No CT evidence of mastoiditis. Electronically signed by: Baldemar Moe MD (06/24/2021 5:32 PM) [id number]
[2021-06-24] MEDS ORDERED: MECL-75 PO (17:46)
[2021-06-24 18:15] VITALS: BP 114/70
--- NOTE | 2021-06-25 06:42 | EKG ---
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
== END 2021-06-24 18:20 | disposition home or self-care (01) ==
LOC: ER 15:41
DX: R42 Dizziness and giddiness (principal); H92.02 Otalgia, left ear; F41.9 Anxiety disorder, unspecified; J45.909 Unspecified asthma, uncomplicated; F32.9 Major depressive disorder, single episode, unspecified; Z87.440 Personal history of urinary (tract) infections; Z86.2 Personal history of diseases of the blood and blood-forming organs and certain disorders involving the immune mechanism; Z87.891 Personal history of nicotine dependence; Z98.84 Bariatric surgery status; Z88.2 Allergy status to sulfonamides; Z91.041 Radiographic dye allergy status
CPT/HCPCS: 36415; 70450; 70486; 80053; 80307; 81001; 81025; 84484; 85025; 93005; 96360; 99285; J7030

== ENCOUNTER 2021-07-07 01:07 | Emergency (ER) | payer OTHER ==
[~2021-07-07] VITALS: Ht 167.6 cm; Wt 91.7 kg
[~2021-07-07 01:07] MED LIST changes: +MECL-75 PO
[2021-07-07] MEDS ORDERED: MECL-75 PO (01:43)
--- NOTE | 2021-07-07 01:43 | PHYS DOC ---
Past History Past Medical History: Anemia, Anxiety, Asthma, Bronchitis, Constipation, Depression, Ovarian Cyst, Seizure, UTI Additional Past Medical Histor: PTSD, PCOS Past Surgical History: Cholecystectomy Additional Past Surgical Histo: GASTRIC BYPASS, MULTIPLE OVARIAN CYST REMOVAL Smoking: Cigarettes, Quit Greater Than 1 Year Alcohol Use: None Drug Use: None Adult General Chief Complaint Chief Complaint: DIZZY/LIGHT HEADED HPI HPI Patient is a 35-year-old female with a past medical history including intermittent vertigo. States she usually takes meclizine which does help but she has been out for about 5 days and did not know that you could buy it [id number]. Denies recent travels, traumas, illnesses, fevers, chest pain, shortness of breath, abdominal pain, nausea, vomiting, diarrhea. Denies any numbness/weakness/tingling. Denies any trouble sitting, standing or walking. Denies any confusion, facial droop or slurred speech. Review of Systems Review of Systems Review of systems otherwise unremarkable except noted in HPI Allergies Allergies Allergies Coded Allergies Type Severity Reaction Last Updated Verified Sulfa (Sulfonamide Antibiotics) Allergy Intermediate hives 06/24/21 Yes yellow dye Allergy Intermediate 06/24/21 Yes Physical Exam Physical Exam Constitutional: Well developed, well nourished, no acute distress, non-toxic appearance. [] HENT: Normocephalic, atraumatic, bilateral external ears normal, oropharynx moist, no oral exudates, nose normal. [] Eyes: PERRLA, EOMI, conjunctiva normal, no discharge. [] Neck: Normal range of motion, no tenderness, supple, no stridor. [] Cardiovascular:Heart rate regular rhythm, no murmur [] Lungs & Thorax: No respiratory distress Abdomen: Bowel sounds normal, soft, no tenderness, no masses, no pulsatile masses. [] Skin: Warm, dry, no erythema, no rash. [] Extremities: No tenderness, no cyanosis, no clubbing, ROM intact, no edema. [] Neurologic: Alert and oriented X 3, normal motor function, normal sensory function, able to sit, stand and walk without issue no focal deficits noted. [] Psychologic: Affect normal, judgement normal, mood normal. [] Current Patient Data Vital Signs Vital Signs Date Time Temp Pulse Resp B/P (MAP) Pulse Ox O2 Delivery O2 Flow Rate FiO2 07/07/21 01:15 98.2 89 16 112/62 (79) 100 Room Air EKG EKG [] Radiology/Procedures Radiology/Procedures [] Heart Score C/O Chest Pain: No Risk Factors: Risk Factors: DM, Current or recent (<one month) smoker, HTN, HLP, family history of CAD, obesity. Risk Scores: Risk Factors: DM, Current or recent (<one month) smoker, HTN, HLP, family history of CAD, obesity. Course & Med Decision Making Course & Med Decision Making Patient is a 35-year-old female who presents with motion sickness/vertigo and out of prescription of meclizine Vital signs not concerning. Physical exam noted above. No focal neurologic deficits appreciated Given medicines for symptom control. Discussed symptom control at home. Given prescription for meclizine and discussed the fact that [id number] meclizine is available under the name of Bonine advised to follow-up with primary care physician on Thursday to discuss ED visit and set up a follow-up as soon as she can. Gave return precautions to the ED. Patient grateful, verbalized understanding and agreed with plan of discharge. Dragon Disclaimer Dragon Disclaimer This electronic medical record was generated, in whole or in part, using a voice recognition dictation system. Departure Departure: Impression: Primary Impression: Vertigo Disposition: HOME / SELF CARE / HOMELESS Condition: STABLE Referrals: PANCHITO ESCOBEDO (PCP) Patient Instructions: Vertigo Additional Instructions: Thank you for coming into the emergency department tonight and allowing us to take care of you. Please read the attached information carefully to go over things we discussed. Please continue your meclizine as we discussed. You are given a prescription for meclizine and you can also buy this [id number] under the brand name of Bonine. Please be sure to stay well-hydrated. Please follow-up with your primary care physician on Thursday to update on your ED visit and set up a follow-up as soon as you can. Please come back with new or concerning symptoms as discussed. Scripts Meclizine Hcl (MECLIZINE HCL) 25 Mg Tablet 1 TAB PO BID for vertigo for 10 Days, #20 TAB 2 Refills Prov: KEELY CASANOVA MD 07/07/21 KEELY CASANOVA MD Jul 07, 2021 01:43
[2021-07-07] MEDS ORDERED: MECLIZINE 12.5 MG TABLET. PO ONE (01:45)
[2021-07-07] MEDS ORDERED: diphenhydrAMINE HCL 25 MG CAPSULE PO ONE (01:45)
[2021-07-07] MEDS ORDERED: ACETAMINOPHEN 500 MG TABLET PO ONE ×2 (01:46→02:00)
[2021-07-07 01:55] VITALS: BP 120/72
[2021-07-07 02:12] LABS: BACTERIA,URINE 0 /HPF (0-FEW); CLARITY,URINE HAZY; COLOR,URINE YELLOW; GLUCOSE,URINE NEG (NEG); NITRITE,URINE NEG (NEG); RBC,URINE 0 /HPF (0-2); SQUAMOUS EPITHELIAL CELL,UR MANY /LPF; UROBILINOGEN,URINE 0.2 mg/dL (0.2 mg/dL); WBC,URINE 0 /HPF (0-4)
== END 2021-07-07 01:55 | disposition home or self-care (01) ==
LOC: ER 01:07
DX: R42 Dizziness and giddiness (principal); F41.9 Anxiety disorder, unspecified; J45.909 Unspecified asthma, uncomplicated; F32.9 Major depressive disorder, single episode, unspecified; Z87.440 Personal history of urinary (tract) infections; Z86.2 Personal history of diseases of the blood and blood-forming organs and certain disorders involving the immune mechanism; Z87.891 Personal history of nicotine dependence; Z90.49 Acquired absence of other specified parts of digestive tract; Z98.84 Bariatric surgery status; Z88.2 Allergy status to sulfonamides; Z91.041 Radiographic dye allergy status
CPT/HCPCS: 81001; 81025; 99284; Q0163

== ENCOUNTER 2021-07-09 17:34 | Emergency (ER) | payer OTHER ==
[~2021-07-09] VITALS: Ht 162.6 cm; Wt 90.1 kg
[2021-07-09] MEDS ORDERED: ONDANSETRON ODT 4 MG TAB.RAPDIS PO ONE ×2 (17:45→19:30)
--- NOTE | 2021-07-09 19:08 | PHYS DOC ---
Past History Past Medical History: Anemia, Anxiety, Asthma, Bronchitis, Constipation, Depression, Ovarian Cyst, Seizure, UTI Additional Past Medical Histor: PTSD, PSEUDOSEIZURES (LUIS ARMANDO COOK) Past Surgical History: Cholecystectomy Additional Past Surgical Histo: GASTRIC BYPASS, MULTIPLE OVARIAN CYST REMOVAL (LUIS ARMANDO COOK) Smoking: Cigarettes, Quit Greater Than 1 Year Alcohol Use: Occasionally Drug Use: Marijuana (LUIS ARMANDO COOK) General Adult EDM: Chief Complaint: SEIZURE HPI: HPI: Patient is a 35 year old female well-known to the emergency department who presents via EMS with reported seizure-like activity. In route, patient's blood glucose was found to be 78, she was alert and oriented x4, and was able to answer all questions. Upon arrival to the emergency department, patient states that she does not know where she is and when asked what the year is and what her name is, she does not respond. Patient appears to be alert and is selectively responsive to questions. She is retching and spitting into an emesis bag. Patient does not verbalize any other complaints. (LUIS ARMANDO COOK) Review of Systems: Review of Systems: Patient will not answer questions pertaining to ROS, unable to obtain. (LUIS ARMANDO COOK) Current Medications: Current Meds: Current Medications Medications (Trade) Dose Ordered Sig/Mahad Start Time Stop Time Status Last Admin Dose Admin Ondansetron HCl (Zofran Odt) 4 mg 1X ONCE 07/09/21 17:45 07/09/21 17:56 DC 07/09/21 17:45 4 MG (LUIS ARMANDO COOK) Allergies: Allergies: Allergies Coded Allergies Type Severity Reaction Last Updated Verified Sulfa (Sulfonamide Antibiotics) Allergy Intermediate hives 07/09/21 Yes yellow dye Allergy Intermediate 07/09/21 Yes (LUIS ARMANDO COOK) Physical Exam: PE: Constitutional: Well developed, well nourished, no acute distress, non-toxic appearance. HENT: Normocephalic, atraumatic, bilateral external ears normal, oropharynx moist, no oral exudates, no abrasions or lacerations to the tongue, nose normal. Eyes: PERRL, EOMI, conjunctiva normal, no discharge. Neck: Normal range of motion, no stridor. Skin: Warm, dry, no erythema, no rash. Back: No step-off, no tenderness. Extremities: No tenderness, no cyanosis, no clubbing, active ROM intact, no dayne a. Neurologic: Alert and oriented X 3, normal motor function, normal sensory function, no focal deficits noted. (LUIS ARMANDO COOK) Current Patient Data: Vital Signs: Vital Signs Date Time Temp Pulse Resp B/P (MAP) Pulse Ox O2 Delivery O2 Flow Rate FiO2 07/09/21 19:40 95 18 114/55 (74) 97 Room Air 07/09/21 19:25 90 18 128/78 (95) 97 Room Air 07/09/21 17:40 98.2 95 18 136/91 (106) 100 Room Air (LUIS ARMANDO COOK) Heart Score: C/O Chest Pain: No (LUIS ARMANDO COOK) Course & Med Decision Making: Course & Med Decision Making Pertinent Labs and Imaging studies reviewed. (See chart for details) Patient has longstanding history here in the emergency department and has known history of psychogenic, nonepileptic seizure-like activity. Patient's presents to emergency department shortly after patient's arrival. She states that the patient had 100 mg THC in the form of gummy candies prior to onset of seizure-like activity. reports patient has "seizures when she is stressed." She denies patient having seizure for over a year and a half at this point. When the seizure-like activity began, patient's was not terribly concerned, as she had a similar episode after ingestion of too much THC. Upon realizing patient has a "seizure history," she called 911. Patient follows with Dr. Meneses, who has not initiated pharmacotherapy for epilepsy. Additionally, in reviewing prior charts, she has had unremarkable EEG and other neurological work-up. Discussed with at bedside that plan of care today will be controlling nausea followed by oral hydration. Patient will be monitored in the department for any further seizure-like activity. Otherwise, plan will be to discharge to home and follow-up with neurology. Patient and her at bedside understand and are agreeable to discharge plan. (LUIS ARMANDO COOK) Dragon Disclaimer: Dragon Disclaimer: This electronic medical record was generated, in whole or in part, using a voice recognition dictation system. (LUIS ARMANDO COOK) Departure Departure: Impression: Primary Impression: Cannabinoid hyperemesis syndrome Additional Impression: Psychogenic nonepileptic seizure Disposition: HOME / SELF CARE / HOMELESS Condition: STABLE Referrals: PANCHITO ESCOBEDO (PCP) SEN MENESES MD Patient Instructions: Conversion Disorder Additional Instructions: EMERGENCY DEPARTMENT GENERAL DISCHARGE INSTRUCTIONS Thank you for coming to [facility] (ED) today and trusting us with you care. We trust that you had a positive experience in our Emergency Department. If you wish to speak to the department management, you may call the director at [phone]. YOUR FOLLOW UP INSTRUCTIONS ARE FOLLOWS: 1. Follow up with your primary care doctor. If you do not have a primary doctor, please ask for a resource list of physicians or clinics that may be able to assist you with follow up care. 2. The emergency provider has interpreted your imaging studies, if any were ordered. The radiology medical imaging tech also reviewed them. If there is a change in the findings, you will be notified in 48 hours when at all possible. 3. If a lab test or culture has been done, your results will be reviewed and you will be notified if you need a change in treatment. 4. Follow instructions verbalized to you and refer to the printouts if needed. ADDITIONAL INSTRUCTIONS AND INFORMATION: 1. Your care today has been supervised by a physician who is specially trained in emergency care. Many problems require more than one evaluation for a complete diagnosis and treatment. We recommend that you schedule your follow up appointment as recommended to ensure complete treatment of you illness or injury. If you are unable to obtain follow up care and continue to have a problem, or if your condition worsens, we recommend that you return to the ED. 2. We are not able to safely determine your condition over the phone nor are we able to give sound medical advice over the phone. For these safety reasons, if you call for medical advice we will ask you to come to the ED for further evaluation. 3. If you have any questions regarding these discharge instructions please call the ED at [phone]. SAFETY INFORMATION: In the interest of safety, wellness, and injury prevention; we encourage you to wear your seat belt, if you smoke; quite smoking, and we encourage family to use a protective helmet for bicycling and other sporting events that present an increased risk for head injury. IF YOUR SYMPTOMS WORSEN OR NEW SYMPTOMS DEVELOP, OR YOU HAVE CONCERNS ABOUT YOUR CONDITION; OR IF YOUR CONDITION WORSENS WHILE YOU ARE WAITING FOR YOUR FOLLOW UP APPOINTMENT; EITHER CONTACT YOUR PRIMARY CARE DOCTOR, THE PHYSICIAN WHOSE NAME AND NUMBER YOU WERE GIVEN, OR RETURN TO THE ED IMMEDIATELY. Dragon Disclaimer This chart was dictated in whole or in part using Voice Recognition software in a busy, high-work load, and often noisy Emergency Department environment. It may contain unintended and wholly unrecognized errors or omissions. (CODY MOORE MD) Attending Signature Attending Signature I have participated in the care of this patient and I have reviewed and agree with all pertinent clinical information above including history, exam, and recommendations. (CODY MOORE MD) LUIS ARMANDO COOK Jul 09, 2021 19:08 CODY MOORE MD Jul 11, 2021 23:05
[2021-07-09 19:40] VITALS: BP 114/55
== END 2021-07-09 19:41 | disposition home or self-care (01) ==
LOC: ER 17:34
DX: G40.89 Other seizures (principal); R11.10 Vomiting, unspecified; F41.9 Anxiety disorder, unspecified; J45.909 Unspecified asthma, uncomplicated; Z87.440 Personal history of urinary (tract) infections; Z86.2 Personal history of diseases of the blood and blood-forming organs and certain disorders involving the immune mechanism; Z87.891 Personal history of nicotine dependence; Z88.2 Allergy status to sulfonamides; Z91.041 Radiographic dye allergy status
CPT/HCPCS: 99283; Q0162

== ENCOUNTER 2021-07-14 20:24 | Emergency (ER) | payer OTHER ==
[~2021-07-14] VITALS: Ht 170.2 cm; Wt 92.0 kg
[2021-07-14] MEDS ORDERED: MORPHINE SULFATE 4 MG/ML DISP.SYRIN. IV ONE (22:30)
[2021-07-14] MEDS ORDERED: ONDANSETRON PF 4 MG/2 ML VIAL. IVP ONE (22:30)
[2021-07-14 22:40] LABS: BASO % 1 % (0-3); EOS # 0.3 x10^3/uL (0.0-0.7); EOS % 6 % (0-3); HEMATOCRIT 33.7 % (36.0-47.0); HEMOGLOBIN 11.1 g/dL (12.0-15.5); LYMPH # 2.3 x10^3/uL (1.0-4.8); LYMPH % 44 % (24-48); MEAN CORPUSCULAR HEMOGLOBIN 32 pg (25-35); MEAN CORPUSCULAR HGB CONC 33 g/dL (31-37); MEAN CORPUSCULAR VOLUME 97 fL (79-100); MONO # 0.5 x10^3/uL (0.0-1.1); MONO % 10 % (0-9); NEUT # 2.1 x10^3uL (1.8-7.7); NEUT % 39 % (31-73); PLATELET COUNT 341 x10^3/uL (140-400); RED CELL DISTRIBUTION WIDTH 13.8 % (11.5-14.5); WHITE BLOOD COUNT 5.3 x10^3/uL (4.0-11.0)
[2021-07-14 22:48] LABS: CALCIUM 8.8 mg/dL (8.5-10.1); CREATININE 0.6 mg/dL (0.6-1.0); GFR 115.1; POTASSIUM 3.8 mmol/L (3.5-5.1)
[2021-07-14 22:53] LABS: ALBUMIN 3.4 g/dL (3.4-5.0); ALBUMIN/GLOBULIN RATIO 1.3 (1.0-1.7); TOTAL BILIRUBIN 0.2 mg/dL (0.2-1.0); TOTAL PROTEIN 6.1 g/dL (6.4-8.2)
[2021-07-14 23:19] VITALS: BP 117/67
[2021-07-14] MEDS ORDERED: HYDROmorphone PF 1 MG/ML DISP.SYRIN ONE (23:30)
--- NOTE | 2021-07-14 23:43 | PHYS DOC ---
Past History Past Medical History: Anemia, Anxiety, Asthma, Bronchitis, Constipation, Depression, Ovarian Cyst, Seizure, UTI Additional Past Medical Histor: PCOS, BPD Past Surgical History: Cholecystectomy, Gastric Bypass, Tubal ligation Additional Past Surgical Histo: tubal left side only Smoking: Cigarettes, Quit Greater Than 1 Year Alcohol Use: None Drug Use: Marijuana General Adult EDM: Chief Complaint: PELVIC PAIN HPI: HPI: 35-year-old female returns emergency room with continued pelvic pain. Patient states that she has an ovarian cyst and that it is now hurting more than it did a couple days ago. She had an ultrasound at that time which did not support torsion. She has not seen OB. She has no other complaints this time. Review of Systems: Review of Systems: Constitutional: Denies fever or chills Eyes: Denies change in visual acuity HENT: Denies nasal congestion or sore throat Respiratory: Denies cough or shortness of breath Cardiovascular: Denies chest pain or edema GI: Lower abdominal pain, nausea, vomiting, bloody stools or diarrhea : Denies dysuria Musculoskeletal: Denies back pain or joint pain Integument: Denies rash Neurologic: Denies headache, focal weakness or sensory changes Endocrine: Denies polyuria or polydipsia Lymphatic: Denies swollen glands Psychiatric: Denies depression or anxiety Current Medications: Current Meds: Current Medications Medications (Trade) Dose Ordered Sig/Mahad Start Time Stop Time Status Last Admin Dose Admin Hydromorphone HCl (Dilaudid) 1 mg STK-MED ONCE 07/14/21 23:30 07/14/21 23:31 DC Morphine Sulfate (Morphine 4mg Syringe) 4 mg 1X ONCE 07/14/21 22:30 07/14/21 22:31 DC 07/14/21 22:20 4 MG Ondansetron HCl (Zofran) 4 mg 1X ONCE 07/14/21 22:30 07/14/21 22:31 DC 07/14/21 22:20 4 MG Allergies: Allergies: Allergies Coded Allergies Type Severity Reaction Last Updated Verified Sulfa (Sulfonamide Antibiotics) Allergy Intermediate hives 07/09/21 Yes yellow dye Allergy Intermediate 07/09/21 Yes Physical Exam: PE: Constitutional: Well developed, well nourished, obese, no acute distress, non- toxic appearance. [] HENT: Normocephalic, atraumatic, bilateral external ears normal, oropharynx moist, no oral exudates, nose normal. [] Eyes: PERRLA, EOMI, conjunctiva normal, no discharge. [] Neck: Normal range of motion, no tenderness, supple, no stridor. [] Cardiovascular: Heart rate regular rhythm, no murmur [] Lungs & Thorax: Bilateral breath sounds clear to auscultation [] Abdomen: Bowel sounds normal, soft, suprapubic tenderness, no masses, no pulsat ile masses. [] Skin: Warm, dry, no erythema, no rash. [] Back: No tenderness, no CVA tenderness. [] Extremities: No tenderness, no cyanosis, no clubbing, ROM intact, no edema. [] Neurologic: Alert and oriented X 3, normal motor function, normal sensory function, no focal deficits noted. [] Psychologic: Affect normal, judgement normal, mood normal. [] Current Patient Data: Labs: Laboratory Tests Test 07/14/21 22:17 White Blood Count 5.3 x10^3/uL (4.0-11.0) Red Blood Count 3.50 x10^6/uL (3.50-5.40) Hemoglobin 11.1 g/dL (12.0-15.5) L Hematocrit 33.7 % (36.0-47.0) L Mean Corpuscular Volume 97 fL (79-100) Mean Corpuscular Hemoglobin 32 pg (25-35) Mean Corpuscular Hemoglobin Concent 33 g/dL (31-37) Red Cell Distribution Width 13.8 % (11.5-14.5) Platelet Count 341 x10^3/uL (140-400) Neutrophils (%) (Auto) 39 % (31-73) Lymphocytes (%) (Auto) 44 % (24-48) Monocytes (%) (Auto) 10 % (0-9) H Eosinophils (%) (Auto) 6 % (0-3) H Basophils (%) (Auto) 1 % (0-3) Neutrophils # (Auto) 2.1 x10^3uL (1.8-7.7) Lymphocytes # (Auto) 2.3 x10^3/uL (1.0-4.8) Monocytes # (Auto) 0.5 x10^3/uL (0.0-1.1) Eosinophils # (Auto) 0.3 x10^3/uL (0.0-0.7) Basophils # (Auto) 0.0 x10^3/uL (0.0-0.2) Sodium Level 138 mmol/L (136-145) Potassium Level 3.8 mmol/L (3.5-5.1) Chloride Level 106 mmol/L (98-107) Carbon Dioxide Level 27 mmol/L (21-32) Anion Gap 5 (6-14) L Blood Urea Nitrogen 9 mg/dL (7-20) Creatinine 0.6 mg/dL (0.6-1.0) Estimated GFR (Cockcroft-Gault) 115.1 BUN/Creatinine Ratio 15 (6-20) Glucose Level 79 mg/dL (70-99) Calcium Level 8.8 mg/dL (8.5-10.1) Total Bilirubin 0.2 mg/dL (0.2-1.0) Aspartate Amino Transferase (AST) 8 U/L (15-37) L Alanine Aminotransferase (ALT) 22 U/L (14-59) Alkaline Phosphatase 91 U/L (46-116) Total Protein 6.1 g/dL (6.4-8.2) L Albumin 3.4 g/dL (3.4-5.0) Albumin/Globulin Ratio 1.3 (1.0-1.7) Vital Signs: Vital Signs Date Time Temp Pulse Resp B/P (MAP) Pulse Ox O2 Delivery O2 Flow Rate FiO2 07/14/21 23:19 98.1 78 20 117/67 (84) 99 Room Air EKG: EKG: [] Radiology/Procedures: Radiology/Procedures: [] Impressions: EXAMINATION: US TRANSVAGINAL (PELVIC ULTRASOUND) CLINICAL HISTORY: Pelvic pain, recent dx ovarian cyst. TECHNIQUE: Sonography of the pelvis was performed by transvaginal technique. COMPARISON: CT abdomen/pelvis 02/27/2021, pelvic ultrasound 07/04/2020 FINDINGS: Uterus: 7.9 x 4.2 x 2.9 cm - Myometrium: 1.1 cm hypoechoic lesion in the posterior uterine fundus, likely a small fibroid. - Endometrium: 5 mm - Cervix: Normal Right ovary: Oophorectomy. Left ovary: 4.0 x 2.3 x 4.1 cm - 2 ill-defined heterogeneously hypoechoic lesions which may measure up to 3.0 cm. 2.7 cm anechoic cyst. Normal blood flow. Pelvic free fluid: None. IMPRESSION: 2 ill-defined heterogeneous left ovarian lesions, nonspecific but may represent favor hemorrhagic cysts. Endometriomas are also a consideration. Recommend follow-up transvaginal ultrasound in 6-12 weeks. 2.7 cm simple left ovarian cyst. Probable small posterior uterine fibroid. Electronically signed by: Adebayo De Anda DO (07/15/2021 1:12 AM) [facility] DICTATED AND SIGNED BY: ADEBAYO DE ANDA DO DATE: 07/15/21101 CC: ELDER GUTIERREZ DO; PANCHITO ESCOBEDO ~ Heart Score: C/O Chest Pain: N/A Risk Factors: Risk Factors: DM, Current or recent (<one month) smoker, HTN, HLP, family history of CAD, obesity. Risk Scores: Score 0 - 3: 2.5% MACE over next 6 weeks - Discharge Home Score 4 - 6: 20.3% MACE over next 6 weeks - Admit for Clinical Observation Score 7 - 10: 72.7% MACE over next 6 weeks - Early Invasive Strategies Course & Med Decision Making: Course & Med Decision Making Pertinent Labs and Imaging studies reviewed. (See chart for details) The patient is requested pain medication twice. I have given it to her but I am concerned about drug-seeking behavior. 15 narcotic prescriptions in the last 12 months. The most recent was 2 days ago. I am not discharging her with any pain medication. Her ultrasound again shows left ovarian cyst. She needs to follow-up with COMPUTER NUMERICAL CONTROL GRINDER as previously directed. She is stable for discharge at this time. [] Dragon Disclaimer: Dragcamilla Disclaimer: This electronic medical record was generated, in whole or in part, using a voice recognition dictation system. Departure Departure: Impression: Primary Impression: Ovarian cyst Additional Impression: Drug-seeking behavior Disposition: HOME / SELF CARE / HOMELESS Condition: STABLE Referrals: PANCHITO ESCOBEDO (PCP) Patient Instructions: Ovarian Cyst, [id number] ELDER GUTIERREZ DO Jul 14, 2021 23:43
[2021-07-14] MEDS ORDERED: HYDROmorphone PF 1 MG/ML DISP.SYRIN IVP ONE (23:45)
--- NOTE | 2021-07-15 01:15 | RAD ---
EXAMINATION: US TRANSVAGINAL (PELVIC ULTRASOUND) CLINICAL HISTORY: Pelvic pain, recent dx ovarian cyst. TECHNIQUE: Sonography of the pelvis was performed by transvaginal technique. COMPARISON: CT abdomen/pelvis 02/27/2021, pelvic ultrasound 07/04/2020 FINDINGS: Uterus: 7.9 x 4.2 x 2.9 cm - Myometrium: 1.1 cm hypoechoic lesion in the posterior uterine fundus, likely a small fibroid. - Endometrium: 5 mm - Cervix: Normal Right ovary: Oophorectomy. Left ovary: 4.0 x 2.3 x 4.1 cm - 2 ill-defined heterogeneously hypoechoic lesions which may measure up to 3.0 cm. 2.7 cm anechoic cyst. Normal blood flow. Pelvic free fluid: None. IMPRESSION: 2 ill-defined heterogeneous left ovarian lesions, nonspecific but may represent favor hemorrhagic cys ts. Endometriomas are also a consideration. Recommend follow-up transvaginal ultrasound in 6-12 weeks . 2.7 cm simple left ovarian cyst. Probable small posterior uterine fibroid. Electronically signed by: Adebayo Jensen DO (07/15/2021 1:12 AM) [facility]OWER
== END 2021-07-15 01:39 | disposition home or self-care (01) ==
LOC: ER 20:24
DX: N83.202 Unspecified ovarian cyst, left side (principal); F41.9 Anxiety disorder, unspecified; J45.909 Unspecified asthma, uncomplicated; Z86.2 Personal history of diseases of the blood and blood-forming organs and certain disorders involving the immune mechanism; Z87.440 Personal history of urinary (tract) infections; Z87.891 Personal history of nicotine dependence; Z88.2 Allergy status to sulfonamides; Z91.041 Radiographic dye allergy status
CPT/HCPCS: 36415; 76830; 80053; 85025; 96374; 96375; 99284; J1170; J2270; J2405

== ENCOUNTER 2021-07-18 20:58 | Emergency (ER) | payer OTHER ==
[~2021-07-18] VITALS: Ht 170.2 cm; Wt 92.0 kg
[2021-07-18 21:10] VITALS: BP 134/79
--- NOTE | 2021-07-18 21:26 | PHYS DOC ---
Past History Past Medical History: Anemia, Anxiety, Asthma, Bronchitis, Constipation, Depression, Ovarian Cyst, Seizure, UTI Additional Past Medical Histor: PCOS, BPD Past Surgical History: Cholecystectomy, Gastric Bypass, Tubal ligation Additional Past Surgical Histo: tubal left side only Smoking: Cigarettes, Quit Greater Than 1 Year Alcohol Use: None Drug Use: Marijuana General Adult EDM: Chief Complaint: ABDOMINAL PAIN HPI: HPI: 35-year-old female presents to the emergency room again quadrant abdominal pain. This patient has been seen multiple times in this emergency room. She has been diagnosed with ovarian cyst. She has been referred to INTERNET TECHNOLOGY MANAGER. She tells me tonight that her INTERNET TECHNOLOGY MANAGER will not do anything further and referred her to someone at that does not have an appointment for a year. She does not necessarily want pain medicine but she does not know what else to do. She has no new complaints. Review of Systems: Review of Systems: Constitutional: Denies fever or chills Eyes: Denies change in visual acuity HENT: Denies nasal congestion or sore throat Respiratory: Denies cough or shortness of breath Cardiovascular: Denies chest pain or edema GI: Left lower quadrant abdominal pain. Denies nausea, vomiting, bloody stools or diarrhea : Denies dysuria Musculoskeletal: Denies back pain or joint pain Integument: Denies rash Neurologic: Denies headache, focal weakness or sensory changes Endocrine: Denies polyuria or polydipsia Lymphatic: Denies swollen glands Psychiatric: Denies depression or anxiety Allergies: Allergies: Allergies Coded Allergies Type Severity Reaction Last Updated Verified Sulfa (Sulfonamide Antibiotics) Allergy Intermediate hives 07/18/21 Yes yellow dye Allergy Intermediate 07/18/21 Yes Physical Exam: PE: Constitutional: Well developed, well nourished, no acute distress, non-toxic appearance. [] HENT: Normocephalic, atraumatic, bilateral external ears normal, oropharynx moist, no oral exudates, nose normal. [] Eyes: PERRLA, EOMI, conjunctiva normal, no discharge. [] Neck: Normal range of motion, no tenderness, supple, no stridor. [] Cardiovascular:Heart rate regular rhythm, no murmur [] Lungs & Thorax: Bilateral breath sounds clear to auscultation [] Abdomen: Bowel sounds normal, soft, no tenderness, no masses, no pulsatile masses. [] Skin: Warm, dry, no erythema, no rash. [] Back: No tenderness, no CVA tenderness. [] Extremities: No tenderness, no cyanosis, no clubbing, ROM intact, no edema. [] Neurologic: Alert and oriented X 3, normal motor function, normal sensory function, no focal deficits noted. [] Psychologic: Affect normal, judgement normal, mood normal. [] Current Patient Data: Vital Signs: Vital Signs Date Time Temp Pulse Resp B/P (MAP) Pulse Ox O2 Delivery O2 Flow Rate FiO2 07/18/21 21:10 99.1 99 20 134/79 (97) 100 EKG: EKG: [] Radiology/Procedures: Radiology/Procedures: [] Heart Score: C/O Chest Pain: N/A Risk Factors: Risk Factors: DM, Current or recent (<one month) smoker, HTN, HLP, family history of CAD, obesity. Risk Scores: Score 0 - 3: 2.5% MACE over next 6 weeks - Discharge Home Score 4 - 6: 20.3% MACE over next 6 weeks - Admit for Clinical Observation Score 7 - 10: 72.7% MACE over next 6 weeks - Early Invasive Strategies Course & Med Decision Making: Course & Med Decision Making Pertinent Labs and Imaging studies reviewed. (See chart for details) I had a long conversation with the patient. I stressed to her that there is nothing further that the emergency room can do for her. She must follow-up with INTERNET TECHNOLOGY MANAGER or primary care physician. He was given an additional names for INTERNET TECHNOLOGY MANAGER. Have also advised that she contact her insurance company for further options. She is stable for discharge at this time. [] Brown Disclaimer: Brown Disclaimer: This electronic medical record was generated, in whole or in part, using a voice recognition dictation system. Departure Departure: Impression: Primary Impression: Abdominal pain Disposition: HOME / SELF CARE / HOMELESS Condition: STABLE Referrals: PANCHITO ESCOBEOD (PCP) Patient Instructions: Ovarian Cyst, [id number] ELDER GUTIERREZ DO Jul 18, 2021 21:26
== END 2021-07-18 21:32 | disposition home or self-care (01) ==
LOC: ER 20:58
DX: R10.32 Left lower quadrant pain (principal); J45.909 Unspecified asthma, uncomplicated; Z86.2 Personal history of diseases of the blood and blood-forming organs and certain disorders involving the immune mechanism; Z87.440 Personal history of urinary (tract) infections; Z87.891 Personal history of nicotine dependence; Z90.49 Acquired absence of other specified parts of digestive tract; Z98.51 Tubal ligation status; Z98.84 Bariatric surgery status; Z88.2 Allergy status to sulfonamides; Z91.041 Radiographic dye allergy status
CPT/HCPCS: 99281

== ENCOUNTER 2021-08-07 19:40 | Emergency (ER) | payer OTHER ==
[~2021-08-07] VITALS: Ht 170.2 cm; Wt 92.0 kg
[2021-08-07 19:54] VITALS: BP 124/67
[2021-08-07] MEDS ORDERED: HYDR-2155 PO (20:05)
--- NOTE | 2021-08-07 20:06 | PHYS DOC ---
Past History Past Medical History: Anemia, Anxiety, Asthma, Bronchitis, Constipation, Depression, Ovarian Cyst, Seizure, UTI Additional Past Medical Histor: PCOS, BPD Past Surgical History: Cholecystectomy, Gastric Bypass, Tubal ligation Additional Past Surgical Histo: tubal left side only Smoking: Cigarettes, Quit Greater Than 1 Year Alcohol Use: None Drug Use: Marijuana Adult General Chief Complaint Chief Complaint: ABDOMINAL PAIN HPI HPI Patient is a 35-year-old female who presents with a chief complaint of episode of left lower quadrant pain as she was driving through town just before coming to the emergency department, 6 out of 10, sharp in nature that did resolve before coming. States she has known ovarian cysts there and it feels similar. States she just does not have any pain medicine at home for this and Tylenol does not help. States she is supposed to follow-up with her primary care physician or HOME CARE ATTENDANT for repeat ultrasound in the next 4 to 8 weeks. Denies any recent traumas, travels, illnesses, fevers, chest pain, shortness of breath, other abdominal pain, nausea, vomiting, diarrhea. Denies any dysuria, hematuria or blood in the stool. Denies any vaginal bleeding, discharge, pain, history of STIs or concern of these. Review of Systems Review of Systems Review of systems otherwise unremarkable except noted in HPI Allergies Allergies Allergies Coded Allergies Type Severity Reaction Last Updated Verified Sulfa (Sulfonamide Antibiotics) Allergy Intermediate hives 07/18/21 Yes yellow dye Allergy Intermediate 07/18/21 Yes Physical Exam Physical Exam Constitutional: Well developed, well nourished, no acute distress, non-toxic appearance. [] HENT: Normocephalic, atraumatic, oropharynx moist, Eyes: conjunctiva normal, no discharge. [] Neck: Normal range of motion, no tenderness, supple, no stridor. [] Cardiovascular:Heart rate regular rhythm, no murmur [] Lungs & Thorax: No respiratory distress Abdomen: soft, no tenderness, no masses, no pulsatile masses. [] Skin: Warm, dry, no erythema, no rash. [] Back: No tenderness, no CVA tenderness. [] Extremities: No tenderness, no cyanosis, no clubbing, ROM intact, no edema. [] Neurologic: Alert and oriented X 3, normal motor function, normal sensory function, able to sit, stand and walk without issue no focal deficits noted. [] Psychologic: Affect normal, judgement normal, mood normal. [] EKG EKG [] Radiology/Procedures Radiology/Procedures [] Heart Score C/O Chest Pain: No Risk Factors: Risk Factors: DM, Current or recent (<one month) smoker, HTN, HLP, family history of CAD, obesity. Risk Scores: Risk Factors: DM, Current or recent (<one month) smoker, HTN, HLP, family history of CAD, obesity. Course & Med Decision Making Course & Med Decision Making Patient is a 35-year-old female who presents with an episode of sharp left lower quadrant abdominal pain that lasted a couple of minutes and resolved before coming to the ED. Denies any other symptoms. Did not take any medications and states she does not have any pain medicine at home Vital signs nonconcerning. Physical exam noted above. Given pain medicine in the ED. Discussed pain management at home. Advised to follow-up first thing in the morning with primary care physician to update them on her ED visit and make sure she has her repeat ultrasound to evaluate for her ovarian cysts in the next 4 weeks. Gave strict return precautions to the ED. Patient grateful, verbalized understanding and agreed with plan of discharge [] Dragon Disclaimer Dragon Disclaimer This electronic medical record was generated, in whole or in part, using a voice recognition dictation system. Departure Departure: Impression: Primary Impression: Abdominal pain Disposition: 01 HOME / SELF CARE / HOMELESS Condition: STABLE Referrals: PANCHITO ESCOBEDO (PCP) Patient Instructions: Abdominal Pain (Nonspecific) Additional Instructions: Thank you for coming into the emergency department tonight and allowing us to take care of you. Please read the attached information carefully to go over things we discussed. Please begin a Tylenol, ibuprofen and Benadryl regimen as we discussed for pain management at home. Please use your prescription pain meds as prescribed and only as needed for breakthrough pain. It is very important you follow-up first thing in the morning with your primary care physician update on your ED visit and set up a follow-up as it is possible to discuss your ED visit and set up your outpatient ultrasound in the next 4 weeks for reevaluation of your ovarian cysts and further pain management. Please come back with new or concerning symptoms as discussed Scripts Hydrocodone Bit/Acetaminophen (HYDROCODONE-APAP 5-325 ) 1 Each Tablet 1 TAB PO BID PRN for ab pain for 2 Days, #4 TAB 0 Refills Prov: KEELY CASANOVA MD 08/07/21 KEELY CASANOVA MD Aug 07, 2021 20:06
[2021-08-07] MEDS: KETOROLAC 60 MG/2 ML VIAL. IM ONE (20:13)
[2021-08-07] MEDS: oxyCODONE/APAP 5/325 1 TAB TABLET PO ONE (20:30)
== END 2021-08-07 20:12 | disposition home or self-care (01) ==
LOC: ER 19:40
DX: R10.32 Left lower quadrant pain (principal); J45.909 Unspecified asthma, uncomplicated; Z86.2 Personal history of diseases of the blood and blood-forming organs and certain disorders involving the immune mechanism; Z87.440 Personal history of urinary (tract) infections; Z87.891 Personal history of nicotine dependence; Z90.49 Acquired absence of other specified parts of digestive tract; Z98.51 Tubal ligation status; Z98.84 Bariatric surgery status; Z88.2 Allergy status to sulfonamides; Z91.041 Radiographic dye allergy status
CPT/HCPCS: 96372; 99283; J1885

== ENCOUNTER 2021-09-12 18:53 | Emergency (ER) | payer OTHER ==
[~2021-09-12] VITALS: Ht 170.2 cm; Wt 92.0 kg
[~2021-09-12 18:53] MED LIST changes: +HYDR-2155 PO
--- NOTE | 2021-09-12 19:33 | PHYS DOC ---
Past History Past Medical History: Anemia, Anxiety, Asthma, Bronchitis, Constipation, Depression, Ovarian Cyst, Seizure, UTI Additional Past Medical Histor: PCOS, BPD Past Surgical History: Cholecystectomy, Gastric Bypass, Tubal ligation Additional Past Surgical Histo: tubal left side only Smoking: Cigarettes, Quit Greater Than 1 Year Alcohol Use: None Drug Use: Marijuana General Adult EDM: Chief Complaint: ABDOMINAL PAIN HPI: HPI: .. I ve been having this Lt flank pain and nausea for past week... it been off and on... started high on Lt.. and it is lower.. bad nausea..." Patient is a 35 year old female who presents with above hx and complaints of Lt. flank back / abdomen pain. Patient states pain has been intermittent and somewhat sharp in nature. Patient denies any history of kidney stones with her or family members. Patient does have past medical history of urinary tract infections anemia, anxiety, asthma, bronchitis, constipation, depression, ovarian cyst requiring surgery x4, seizure disorder, UTIs, PCOS, borderline personality disorder,. Has had previous cholecystectomy, get gastric bypass surgery, tubal ligation, uterine ablation, patient does smoke. But reports she quit approximately year ago. Patient denies any illicit drug use. Patient recently had a left foot fracture and is currently in a walking cast. Denies any history of trauma. Denies any intake of bad food. Patient denies any recent travel outside [facility]. Patient is accompanied with her . Patient only follows with Carie Jernigan. Patient last meal was [employer] approximately an hour ago. Did get COVID vaccination times 3, did get flu vaccination. Review of Systems: Review of Systems: Constitutional: Denies fever or chills Eyes: Denies change in visual acuity HENT: Denies nasal congestion or sore throat Respiratory: Denies cough or shortness of breath Cardiovascular: Denies chest pain or edema GI: Complains of left-sided abdominal pain, nausea, vomiting., bloody stools or diarrhea : Denies dysuria Musculoskeletal: Complains of left-sided back pain. Integument: Denies rash Neurologic: Denies headache, focal weakness or sensory changes Endocrine: Denies polyuria or polydipsia Lymphatic: Denies swollen glands Psychiatric: Denies depression or anxiety Family History: Family History: Noncontributory to presentation. Current Medications: Current Meds: See nursing for home meds Allergies: Allergies: Allergies Coded Allergies Type Severity Reaction Last Updated Verified Sulfa (Sulfonamide Antibiotics) Allergy Intermediate hives 07/18/21 Yes yellow dye Allergy Intermediate 07/18/21 Yes Physical Exam: PE: Constitutional: Moderate acute distress, non-toxic appearance. [] HENT: Normocephalic, atraumatic, bilateral external ears normal, oropharynx dry, no oral exudates, nose normal. White forelock Eyes: PERRLA, EOMI, conjunctiva normal, no discharge. [] Neck: Normal range of motion, no tenderness, supple, no stridor. [] Cardiovascular:Heart rate regular rhythm, no murmur [] Lungs & Thorax: Bilateral breath sounds equal apex with few scattered wheezes auscultation [] Abdomen: Bowel sounds decreased, soft, left-sided abdomen and CVA tenderness, no masses, no pulsatile masses. Obese. Old surgery scars. Skin: Warm, dry, no erythema, no rash. Tattoos. Back: No tenderness, left-sided CVA tenderness. [] Extremities: No tenderness, no cyanosis, no clubbing, ROM intact, no edema. Left foot and walking brace, no focal psoas sign Neurologic: Alert and oriented X 3, moves all extremities on request, has distal sensory, no new focal deficits noted. [] Psychologic: Affect anxious,, judgement normal, mood normal. [] EKG: EKG: [] Radiology/Procedures: Radiology/Procedures: IMAGING REPORT Signed PATIENT: NANCY DESAI ACCOUNT: [id number] : 1985 LOCATION: ER AGE: 35 SEX: F EXAM STATUS: REG ER ORD. PHYSICIAN: OCDY MOORE MD REASON: pain Lt flank PROCEDURE: CT ABDOMEN PELVIS WO CONTRAST EXAMINATION: CT ABDOMEN+PELVIS WO CLINICAL HISTORY: Left flank pain. TECHNIQUE: Imaging of the abdomen and pelvis was performed without intravenous contrast using standard technique, scanning from just above the dome of the diaphragm to the symphysis pubis. Unenhanced imaging is limited for the evaluation of some intra-abdominal and pelvic pathology. CT Dose Reduction Employed: One or more of the following individualized dose reduction techniques were utilized for this examination: 1. Automated exposure control 2. Adjustment of the mA and/or kV according to patient size 3. Use of iterative reconstruction technique. COMPARISON: 02/27/2021 FINDINGS: Trace right pleural effusion with overlying dependent subsegmental atelectasis. Biliary ductal prominence status post cholecystectomy, similar to prior study. Liver, pancreas, spleen, adrenal glands, and kidneys unremarkable. Mildly filled urinary bladder. Ill-defined left ovarian cysts. Right ovary and uterus unremarkable. Bariatric postoperative changes. No dilated bowel. Questionable partially visualized air-filled appendix. No abdominal aortic or iliac artery aneurysm. No evidence of acute osseous abnormality. IMPRESSION: No evidence of acute abdominopelvic abnormality. Ill-defined left ovarian cysts. Electronically signed by: Adebayo De Anda DO (09/12/2021 10:34 PM) [facility] DICTATED AND SIGNED BY: ADEBAYO DE ANDA DO DATE: 09/12/212134 CC: CODY MOORE MD; CARIE JERNIGAN ~ [][address] [address] IMAGING REPORT Signed PATIENT: NANCY DESAI ACCOUNT: [id number] : 1985 LOCATION: ER AGE: 35 SEX: F EXAM STATUS: REG ER ORD. PHYSICIAN: CODY MOORE MD REASON: Lt.flank pain PROCEDURE: ACUTE ABDOMEN SERIES EXAM: XR ABDOMEN COMP ACUTE 09/12/2021 7:47 PM CLINICAL INDICATION: Left flank COMPARISON: CT abdomen and pelvis 05/27/2020 TECHNIQUE: AP supine and upright views of the abdomen and PA view of the chest FINDINGS: Bowel gas pattern is nonspecific and nonobstructive. Moderate volume of stool. No abnormal calcifications. There are surgical clips in the epigastric region and left hemiabdomen. No pneumoperitoneum. Heart and lungs are normal. There is mild elevation of the right hemidiaphragm, unchanged. No acute osseous abnormality. IMPRESSION: No acute abnormality. Electronically signed by: Lyn Pizarro MD (09/12/2021 8:25 PM) [facility] DICTATED AND SIGNED BY: LYN PIZARRO MD DATE: 09/12/212023 CC: CODY MOORE MD; CARIE JERNIGAN ~ Heart Score: C/O Chest Pain: N/A Risk Factors: Risk Factors: DM, Current or recent (<one month) smoker, HTN, HLP, family history of CAD, obesity. Risk Scores: Score 0 - 3: 2.5% MACE over next 6 weeks - Discharge Home Score 4 - 6: 20.3% MACE over next 6 weeks - Admit for Clinical Observation Score 7 - 10: 72.7% MACE over next 6 weeks - Early Invasive Strategies Course & Med Decision Making: Course & Med Decision Making Pertinent Labs and Imaging studies reviewed. (See chart for details) Push fluids. Push Vitamin C drinks. Follow up urine cultures. Take Keflex 500 mg 3 times a day. Zofran 8 mg up to 4 times a day for active vomiting. Encourage patient stay on a clear fluid diet for the next couple days. No solids. No milk products. Allow bowel rest. Patient came for follow-up of Dr. Jernigan. Re- exam if no improvement. Impression: 1. Abdomen and Lt CVA pain 2. Lt. Ovarian Cyst 3. Urinary tract Infection 4. Anemia 11.9 Hgb 5. Mild Elevation Lipase 58 6. Fracture Lt. foot 7. Dehydration. [] Dragon Disclaimer: Dragon Disclaimer: This electronic medical record was generated, in whole or in part, using a voice recognition dictation system. Departure Departure: Referrals: CARIE JERNIGAN (PCP) Scripts Fluconazole (DIFLUCAN) 100 Mg Tablet 100 MG PO DAILY for post antibiotics for 3 Days, #3 TAB Prov: CODY MOORE MD 09/13/21 Cephalexin (KEFLEX) 500 Mg Capsule 500 MG PO TID for uti, #30 CAP Prov: CODY MOORE MD 09/13/21 [place] Disclaimer This chart was dictated in whole or in part using Voice Recognition software in a busy, high-work load, and often noisy Emergency Department environment. It may contain unintended and wholly unrecognized errors or omissions. Dragon Disclaimer This chart was dictated in whole or in part using Voice Recognition software in a busy, high-work load, and often noisy Emergency Department environment. It may contain unintended and wholly unrecognized errors or omissions. Dragon Disclaimer This chart was dictated in whole or in part using Voice Recognition software in a busy, high-work load, and often noisy Emergency Department environment. It may contain unintended and wholly unrecognized errors or omissions. CODY MOORE MD September 12, 2021 19:32
[2021-09-12] MEDS ORDERED: FAMOTIDINE 20 MG/2 ML VIAL IVP ONE (19:45)
[2021-09-12] MEDS ORDERED: ONDANSETRON PF 4 MG/2 ML VIAL. IVP ONE (19:45)
[2021-09-12] MEDS ORDERED: KETOROLAC 30 MG/ML VIAL. IVP ONE (19:45)
[2021-09-12] MEDS ORDERED: IV RINGERS SOLUTION,LACTATED 1,000 ML IV SCH (19:45)
[2021-09-12 19:52] LABS: BASO # 0.1 x10^3/uL (0.0-0.2); BASO % 1 % (0-3); EOS # 0.4 x10^3/uL (0.0-0.7); EOS % 4 % (0-3); HEMOGLOBIN 11.9 g/dL (12.0-15.5); LYMPH # 2.6 x10^3/uL (1.0-4.8); LYMPH % 30 % (24-48); MEAN CORPUSCULAR HEMOGLOBIN 32 pg (25-35); MEAN CORPUSCULAR HGB CONC 33 g/dL (31-37); MEAN CORPUSCULAR VOLUME 96 fL (79-100); MONO # 0.6 x10^3/uL (0.0-1.1); MONO % 8 % (0-9); NEUT # 4.8 x10^3uL (1.8-7.7); NEUT % 57 % (31-73); PLATELET COUNT 359 x10^3/uL (140-400); RED BLOOD COUNT 3.73 x10^6/uL (3.50-5.40); RED CELL DISTRIBUTION WIDTH 14.2 % (11.5-14.5); WHITE BLOOD COUNT 8.5 x10^3/uL (4.0-11.0)
[2021-09-12 19:55] LABS: CALCIUM 9.3 mg/dL (8.5-10.1); CREATININE 0.9 mg/dL (0.6-1.0); GFR 72.1
[2021-09-12 20:02] LABS: ALBUMIN 3.8 g/dL (3.4-5.0); DIRECT BILIRUBIN 0.1 mg/dL (0.0-0.2); TOTAL BILIRUBIN 0.2 mg/dL (0.2-1.0); TOTAL PROTEIN 6.8 g/dL (6.4-8.2)
--- NOTE | 2021-09-12 20:28 | RAD ---
EXAM: XR ABDOMEN COMP ACUTE 09/12/2021 7:47 PM CLINICAL INDICATION: Left flank COMPARISON: CT abdomen and pelvis 05/27/2020 TECHNIQUE: AP supine and upright views of the abdomen and PA view of the chest FINDINGS: Bowel gas pattern is nonspecific and nonobstructive. Moderate volume of stool. No abnormal calcifications. There are surgical clips in the epigastric region and left hemiabdomen. No pneumoper itoneum. Heart and lungs are normal. There is mild elevation of the right hemidiaphragm, unchanged. N o acute osseous abnormality. IMPRESSION: No acute abnormality. Electronically signed by: Lyn Pizarro MD (09/12/2021 8:25 PM) [facility]
[2021-09-12 20:40] LABS: BACTERIA,URINE FEW /HPF (0-FEW); BARBITURATES NEG (NEG); BENZODIAZEPINES NEG (NEG); CANNABINOIDS NEG (NEG); CLARITY,URINE HAZY; COCAINE NEG (NEG); COLOR,URINE YELLOW; GLUCOSE,URINE NEG (NEG); METHADONE NEG (NEG); NITRITE,URINE NEG (NEG); OPIATES NEG (NEG); PHENCYCLIDINE NEG (NEG); RBC,URINE 0 /HPF (0-2); SQUAMOUS EPITHELIAL CELL,UR MANY /LPF; UROBILINOGEN,URINE 0.2 mg/dL (0.2 mg/dL); WBC,URINE >40 /HPF (0-4)
[2021-09-12 20:43] LABS: AMPHETAMINE/METHAMPHETAMINE NEG (NEG)
[2021-09-12] MEDS ORDERED: MORPHINE SULFATE 10 MG/ML SYRINGE. SQ ONE (21:00)
[2021-09-12] MEDS ORDERED: MORPHINE SULFATE 10 MG/ML SYRINGE. ONE (21:01)
[2021-09-12] MEDS ORDERED: cefTRIAXone SODIUM 1 GM VIAL ONE (21:07)
[2021-09-12] MEDS ORDERED: IV NORMAL SALINE 50ML 50 ML ONE (21:07)
[2021-09-12] MEDS ORDERED: CIPROFLOXACIN HCL 500 MG TABLET PO ONE (21:15)
[2021-09-12 21:44] LABS: INFLUENZA A PATIENT NEGATIVE (NEGATIVE); INFLUENZA B PATIENT NEGATIVE (NEGATIVE)
--- NOTE | 2021-09-12 22:37 | RAD ---
EXAMINATION: CT ABDOMEN+PELVIS WO CLINICAL HISTORY: Left flank pain. TECHNIQUE: Imaging of the abdomen and pelvis was performed without intravenous contrast using standar d technique, scanning from just above the dome of the diaphragm to the symphysis pubis. Unenhanced i maging is limited for the evaluation of some intra-abdominal and pelvic pathology. CT Dose Reduction Employed: One or more of the following individualized dose reduction techniques wer e utilized for this examination: 1. Automated exposure control 2. Adjustment of the mA and/or kV ac cording to patient size 3. Use of iterative reconstruction technique. COMPARISON: 02/27/2021 FINDINGS: Trace right pleural effusion with overlying dependent subsegmental atelectasis. Biliary ductal prominence status post cholecystectomy, similar to prior study. Liver, pancreas, splee n, adrenal glands, and kidneys unremarkable. Mildly filled urinary bladder. Ill-defined left ovarian cysts. Right ovary and uterus unremarkable. Bariatric postoperative changes. No dilated bowel. Questionable partially visualized air-filled appen devan. No abdominal aortic or iliac artery aneurysm. No evidence of acute osseous abnormality. IMPRESSION: No evidence of acute abdominopelvic abnormality. Ill-defined left ovarian cysts. Electronically signed by: Adebayo Jensen DO (09/12/2021 10:34 PM) [facility]
[2021-09-13] MEDS ORDERED: FLUC100T7 PO (01:21)
[2021-09-13] MEDS ORDERED: CEPH500C PO (01:21)
[2021-09-13 01:33] VITALS: BP 109/66
== END 2021-09-13 01:40 | disposition home or self-care (01) ==
LOC: ER 18:53
DX: N39.0 Urinary tract infection, site not specified (principal); N83.202 Unspecified ovarian cyst, left side; D64.9 Anemia, unspecified; R74.8 Abnormal levels of other serum enzymes; E86.0 Dehydration; F41.9 Anxiety disorder, unspecified; J45.909 Unspecified asthma, uncomplicated; Z20.822 Contact with and (suspected) exposure to COVID-19; Z87.81 Personal history of (healed) traumatic fracture; Z86.2 Personal history of diseases of the blood and blood-forming organs and certain disorders involving the immune mechanism; Z87.440 Personal history of urinary (tract) infections; Z87.891 Personal history of nicotine dependence; Z90.49 Acquired absence of other specified parts of digestive tract; Z98.51 Tubal ligation status; Z98.84 Bariatric surgery status; Z88.2 Allergy status to sulfonamides; Z91.041 Radiographic dye allergy status
CPT/HCPCS: 36415; 74022; 74176; 80048; 80076; 80307; 81001; 81025; 82150; 82550; 83690; 85025; 87086; 87428; 96361; 96365; 96372; 96375; 99285; J0696; J1885; J2270; J2405; J3490; J7120

== ENCOUNTER 2021-09-14 20:50 | Emergency (ER) | payer OTHER ==
[~2021-09-14] VITALS: Ht 170.2 cm; Wt 92.0 kg
[~2021-09-14 20:50] MED LIST changes: +FLUC100T7 PO
[2021-09-14] MEDS ORDERED: IV RINGERS SOLUTION,LACTATED 1,000 ML IV ONE (21:00)
--- NOTE | 2021-09-14 21:01 | PHYS DOC ---
Past History Past Medical History: Anemia, Anxiety, Asthma, Bronchitis, Constipation, Depression, Ovarian Cyst, Seizure, UTI Additional Past Medical Histor: PCOS, BPD, PTSD Past Surgical History: Cholecystectomy, Gastric Bypass, Tubal ligation Additional Past Surgical Histo: tubal left side only, uterine ablation Smoking: Cigarettes, Quit Greater Than 1 Year Alcohol Use: None Drug Use: Marijuana Adult General Chief Complaint Chief Complaint: SEIZURE HPI HPI Patient is a 35-year-old female with a past medical history of nonepileptic stress-induced seizures per her, anxiety and depression who presents with a chief complaint of seizure-like activity 3 hours ago at home. States that she was at home with her and feels that she had a seizure lasting about 20 to 30 seconds. Did not bite her tongue. Had no incontinence of urine or stool. States that she can kind to remember it. States that when she woke up she knew that she had a seizure and was not really that confused. States that she has been under a lot of stress and has not been sleeping well. States she has been taking all of her medications as prescribed. States she does not take any medicines for seizures. Denies any recent trauma, travels, illness, fevers, rash, cold/flu/COVID symptoms. States he is making urine and stool normally for her with no blood in either. Review of Systems Review of Systems Review of systems otherwise unremarkable except noted in HPI Allergies Allergies Allergies Coded Allergies Type Severity Reaction Last Updated Verified Sulfa (Sulfonamide Antibiotics) Allergy Intermediate hives 07/18/21 Yes yellow dye Allergy Intermediate 07/18/21 Yes Physical Exam Physical Exam Constitutional: Well developed, well nourished, no acute distress, non-toxic appearance. [] HENT: Normocephalic, atraumatic, bilateral external ears normal, oropharynx moist, no oral exudates, nose normal. [] Eyes: PERRLA, EOMI, conjunctiva normal, no discharge. [] Neck: Normal range of motion, no tenderness, supple, no stridor. [] Cardiovascular:Heart rate regular rhythm, no murmur [] Lungs & Thorax: Bilateral breath sounds clear to auscultation [] Abdomen: soft, no tenderness, no masses, no pulsatile masses. [] Skin: Warm, dry, no erythema, no rash. [] Back: No tenderness, no CVA tenderness. [] Extremities: No tenderness, no cyanosis, no clubbing, ROM intact, no edema. [] Neurologic: Alert and oriented X 3, normal motor function, normal sensory function, able to sit, stand and walk without issue, no focal deficits noted. [] Psychologic: Affect normal, judgement normal, mood normal. [] EKG EKG [] Radiology/Procedures Radiology/Procedures [] Heart Score C/O Chest Pain: No Risk Factors: Risk Factors: DM, Current or recent (<one month) smoker, HTN, HLP, family history of CAD, obesity. Risk Scores: Risk Factors: DM, Current or recent (<one month) smoker, HTN, HLP, family history of CAD, obesity. Course & Med Decision Making Course & Med Decision Making Patient is a 35-year-old female with a past medical history of nonepileptic seizures on no medications who presents with a chief complaint of seizure-like activity 3 hours before coming into the emergency department Vital signs nonconcerning. Physical exam noted above. Urine negative. Urinalysis not suggestive of urinary tract infection especially given since patient has no urinary symptoms and has a contaminated specimen. Patient remained asymptomatic, alert and oriented in no acute distress in the emergency department. Able to take p.o. fluids. Requested a Percocet for overall body aches. Discussed all findings with patient and family. Advised on hydration and nutrition. Advised take all medications as prescribed. Advised to follow-up with primary care physician as soon as possible to update on ED visit and set up a follow-up. Gave strict return precautions to the ED. Patient grateful, verbalized understanding and agreed with plan of discharge [] Dragon Disclaimer Dragon Disclaimer This electronic medical record was generated, in whole or in part, using a voice recognition dictation system. Departure Departure: Impression: Primary Impression: Seizure-like activity Disposition: HOME / SELF CARE / HOMELESS Condition: STABLE Referrals: PANCHITO ESCOBEDO (PCP) Patient Instructions: Nonepileptic Seizures Additional Instructions: Thank you for coming into the emergency department tonight and allowing us to take care of you. Please read the attached information carefully to go over things we discussed. It is very important that you keep taking your medications as prescribed and follow-up with your primary care physician next week to discuss your ED visit. It is very important that you get plenty of rest as sleep can lower your seizure threshold as we discussed. Please stay away from any substances such as alcohol or stimulants as they can do this as well as we discussed. Please be sure to eat at least 3 nutritious meals a day and take a One-A-Day multivitamin. Please come into the ED with new or concerning symptoms as discussed. KEELY CASANOVA MD September 14, 2021 21:01
[2021-09-14 21:40] LABS: BASO # 0.1 x10^3/uL (0.0-0.2); BASO % 1 % (0-3); EOS # 0.3 x10^3/uL (0.0-0.7); EOS % 4 % (0-3); HEMATOCRIT 36.1 % (36.0-47.0); HEMOGLOBIN 11.8 g/dL (12.0-15.5); LYMPH # 2.3 x10^3/uL (1.0-4.8); LYMPH % 28 % (24-48); MEAN CORPUSCULAR HEMOGLOBIN 32 pg (25-35); MEAN CORPUSCULAR HGB CONC 33 g/dL (31-37); MEAN CORPUSCULAR VOLUME 97 fL (79-100); MONO # 0.7 x10^3/uL (0.0-1.1); MONO % 8 % (0-9); NEUT # 4.9 x10^3uL (1.8-7.7); NEUT % 59 % (31-73); PLATELET COUNT 396 x10^3/uL (140-400); RED BLOOD COUNT 3.72 x10^6/uL (3.50-5.40); RED CELL DISTRIBUTION WIDTH 14.3 % (11.5-14.5); WHITE BLOOD COUNT 8.3 x10^3/uL (4.0-11.0)
[2021-09-14 21:48] LABS: CALCIUM 8.8 mg/dL (8.5-10.1); CREATININE 0.7 mg/dL (0.6-1.0); GFR 96.4; MAGNESIUM 2.3 mg/dL (1.8-2.4); POTASSIUM 4.4 mmol/L (3.5-5.1)
[2021-09-14] MEDS ORDERED: oxyCODONE/APAP 5/325 1 TAB TABLET PO ONE (23:00)
[2021-09-14 23:09] LABS: CLARITY,URINE CLOUDY; COLOR,URINE YELLOW; GLUCOSE,URINE NEG (NEG); NITRITE,URINE NEG (NEG); RBC,URINE 0 /HPF (0-2)
[2021-09-14 23:10] LABS: BACTERIA,URINE FEW /HPF (0-FEW); SQUAMOUS EPITHELIAL CELL,UR MOD /LPF
[2021-09-14] MEDS ORDERED: diphenhydrAMINE 50 MG/ML VIAL ONE (23:12)
[2021-09-14] MEDS ORDERED: diphenhydrAMINE 50 MG/ML VIAL IVP ONE (23:15)
[2021-09-14 23:25] VITALS: BP 135/94
== END 2021-09-14 23:26 | disposition home or self-care (01) ==
LOC: ER 20:50
DX: G40.89 Other seizures (principal); F41.9 Anxiety disorder, unspecified; F32.9 Major depressive disorder, single episode, unspecified; J45.909 Unspecified asthma, uncomplicated; Z87.440 Personal history of urinary (tract) infections; Z87.891 Personal history of nicotine dependence; Z88.2 Allergy status to sulfonamides; Z91.041 Radiographic dye allergy status
CPT/HCPCS: 36415; 80048; 81001; 81025; 83735; 84484; 85025; 87086; 93005; 96361; 96374; 96375; 99285; J1200; J2060; J7120

== ENCOUNTER 2021-09-16 21:55 | Emergency (ER) | payer OTHER ==
[~2021-09-16] VITALS: Ht 170.2 cm; Wt 92.0 kg
[2021-09-16 21:55] VITALS: BP 112/79
--- NOTE | 2021-09-16 22:17 | PHYS DOC ---
Past History Past Medical History: Anemia, Anxiety, Asthma, Bronchitis, Constipation, Depression, Ovarian Cyst, Seizure, UTI Additional Past Medical Histor: PCOS, BPD, PTSD Past Surgical History: Cholecystectomy, Gastric Bypass, Tubal ligation Additional Past Surgical Histo: tubal left side only, uterine ablation Smoking: Cigarettes, Quit Greater Than 1 Year Alcohol Use: None Drug Use: Marijuana Adult General Chief Complaint Chief Complaint: ABDOMINAL PAIN HPI HPI Patient is a 35-year-old female with chronic abdominal pain who presents to the emergency department complaining of abdominal cramping bilaterally just below umbilicus, 5 out of 10 dull and achy in nature. Denies any recent traumas, travels, fevers, rash, chest pain, shortness of breath, dysuria, hematuria, diarrhea or blood in the stool. States she does have a history of ovarian cyst that feels similar. States she was in the emergency department several times over the last couple months and the last time 4 days ago and nothing was found. Review of Systems Review of Systems Review of systems otherwise unremarkable except noted in HPI Allergies Allergies Allergies Coded Allergies Type Severity Reaction Last Updated Verified Sulfa (Sulfonamide Antibiotics) Allergy Intermediate hives 07/18/21 Yes yellow dye Allergy Intermediate 07/18/21 Yes Physical Exam Physical Exam Constitutional: Well developed, well nourished, no acute distress, non-toxic appearance. [] HENT: Normocephalic, atraumatic, bilateral external ears normal, oropharynx moist, no oral exudates, nose normal. [] Eyes: conjunctiva normal, no discharge. [] Neck: Normal range of motion, no tenderness, supple, no stridor. [] Cardiovascular:Heart rate regular rhythm, no murmur [] Lungs & Thorax: Bilateral breath sounds clear to auscultation [] Abdomen: Bowel sounds normal, soft, no tenderness, no masses, no pulsatile masses. [] Skin: Warm, dry, no erythema, no rash. [] Back: No tenderness, no CVA tenderness. [] Extremities: No tenderness, no cyanosis, no clubbing, ROM intact, no edema. [] Neurologic: Alert and oriented X 3, normal motor function, normal sensory function, no focal deficits noted. [] Psychologic: Affect normal, judgement normal, mood normal. [] EKG EKG [] Radiology/Procedures Radiology/Procedures [] Heart Score C/O Chest Pain: No Risk Factors: Risk Factors: DM, Current or recent (<one month) smoker, HTN, HLP, family history of CAD, obesity. Risk Scores: Risk Factors: DM, Current or recent (<one month) smoker, HTN, HLP, family history of CAD, obesity. Course & Med Decision Making Course & Med Decision Making Patient is a 35-year-old female who presents with a chief complaint of abdominal pain and cramping Vital signs . physical exam noted above. Given medicines for pain and nausea. Laboratory analysis notable for urinary tract infection. CT notable for constipation and no change in ovarian cysts from 4 days ago. Discussed all findings with patient. Advised on symptom management at home. Advised to follow-up with primary care physician when she can to update on ED visit Patient stated that she was diagnosed with a urinary tract infection previously and still has not taken her antibiotics because she did not want to spend the $11 for them. Discussed with patient how an active bacterial infection such as urinary tract infection can cause symptoms such as abdominal pain, nausea, vomiting fevers and overall feelings of being unwell. Advised to fill these as soon as possible and take the dose as prescribed. Gave return precautions to the ED. Patient grateful, verbalized understanding and agreed with plan of discharge. Dragon Disclaimer Dragon Disclaimer This electronic medical record was generated, in whole or in part, using a voice recognition dictation system. Departure Departure: Impression: Primary Impression: Abdominal pain Disposition: 01 HOME / SELF CARE / HOMELESS Condition: STABLE Referrals: PANCHITO ESCOBEDO (PCP) Patient Instructions: Constipation, Adult, Urinary Tract Infection Additional Instructions: Thank you for coming into the emergency department tonight and allowing us to take care of you. Please read the attached information carefully go over things we discussed. You can use Tylenol, ibuprofen and Benadryl at home to manage her symptoms. Please take your antibiotics as prescribed for your urinary tract infection. Please drink lots of fluids, eat a light clear diet over the next couple of days and use an [id number] stool softener or suppository for your constipation. Please follow-up with your primary care physician update on your ED visit and set up a follow-up as soon as you can for reevaluation. Please come back to the emergency department with new or concerning symptoms like we discussed. Scripts Cephalexin (KEFLEX) 500 Mg Capsule 1 CAP PO TID for UTI for 5 Days, #15 CAP Prov: KEELY CASANOVA MD 09/16/21 KEELY CASANOVA MD September 16, 2021 22:17
--- NOTE | 2021-09-16 22:39 | RAD ---
PQRS Compliance Statement: One or more of the following individualized dose reduction techniques were utilized for this examinat ion: 1. Automated exposure control 2. Adjustment of the mA and/or kV according to patient size 3. Use of iterative reconstruction technique CT ABDOMEN+PELVIS WO Clinical Indication: Reason: ab pain around umbilicus. / Spl. Instructions: PT UNABLE TO HOLD BREATH FOR EXAM DUE TO PAIN / Comparison: CT abdomen and pelvis without contrast, 4 days ago. Technique: Helical CT imaging of the abdomen and pelvis is performed without IV or oral contrast. Findings: Evaluation of solid organs and bowel is limited without oral and IV contrast, decreasing sensitivity for detection of abnormal findings. Image quality is moderately degraded due to respiratory motion ar tifact. No consolidation. There are trace bilateral pleural effusions. Cardiac size is normal. Cholecystectomy. The liver, spleen, pancreas, adrenal glands, and abdominal aorta are normal. There i s no hydronephrosis. There are postsurgical changes of gastric bypass. There is no small bowel obstruction. There is moder ate colon stool volume. No colon wall thickening is seen. The appendix is normal. The urinary bladder is normal. Left adnexal cysts are unchanged from prior study. Uterus unremarkable . No pelvic free fluid. No acute bone abnormality. IMPRESSION: 1. Image quality is moderately degraded due to respiratory motion artifact. 2. Trace bilateral pleural effusions. 3. Moderate colon stool volume suggests constipation. 4. Unchanged left adnexal cysts. Electronically signed by: Jag Fraser MD (09/16/2021 10:36 PM) [facility]
[2021-09-16 22:48] LABS: BACTERIA,URINE FEW /HPF (0-FEW); CLARITY,URINE HAZY; COLOR,URINE YELLOW; GLUCOSE,URINE NEG (NEG); NITRITE,URINE NEG (NEG); RBC,URINE 0 /HPF (0-2); SQUAMOUS EPITHELIAL CELL,UR MOD /LPF; UROBILINOGEN,URINE 0.2 mg/dL (0.2 mg/dL)
[2021-09-16] MEDS ORDERED: CEPH500C PO (22:54)
[2021-09-16] MEDS ORDERED: KETOROLAC 30 MG/ML VIAL. IM ONE (23:00)
[2021-09-16] MEDS ORDERED: diphenhydrAMINE 50 MG/ML VIAL IM ONE (23:00)
[2021-09-16] MEDS ORDERED: CEPHALEXIN 250 MG CAPSULE PO ONE (23:30)
== END 2021-09-16 23:14 | disposition home or self-care (01) ==
LOC: ER 21:55
DX: R10.9 Unspecified abdominal pain (principal); G89.29 Other chronic pain; J45.909 Unspecified asthma, uncomplicated; Z86.2 Personal history of diseases of the blood and blood-forming organs and certain disorders involving the immune mechanism; Z87.440 Personal history of urinary (tract) infections; Z87.891 Personal history of nicotine dependence; Z90.49 Acquired absence of other specified parts of digestive tract; Z98.84 Bariatric surgery status; Z98.51 Tubal ligation status; Z88.2 Allergy status to sulfonamides; Z91.041 Radiographic dye allergy status
CPT/HCPCS: 74176; 81001; 87086; 96372; 99284; J1200; J1885